=== PATIENT | female | born 1935 | race Caucasian/White ===

== ENCOUNTER 2017-03-21 07:52 | Emergency (ER) | payer MEDICARE ==
[2017-03-21 08:12] VITALS: BP 215/93
[2017-03-21] MEDS ORDERED: Ondansetron ODT TAB* 4 MG PO ONE (09:20)
--- NOTE | 2017-03-21 09:38 | UC ---
Tutu De Leon Matthew, scribed for Umu Mary MD on 03/21/17 at 0921 . Altered Mental Status HPI - HPI Summary HPI Summary: 08:50 patient not in the room. A 81 y/o female presents to with gradually worsening AMS since 7 days ago. The patient was seen by her PCP Dr. Nevarez and started on nitrofurantoin on . She was suppose to take the medication 2x daily; however, she only took the medication once per day. The patient states that she's here today, because she' s also having lower abdominal pain described as pressure since a month ago. Associated symptoms include vomiting - since this morning, constipation, increased urinary frequency, and dysuria. The patient denies fever, hematemesis , black vomit, diarrhea, chest pain, cough, rash, and hematuria. - History Of Current Complaint Chief Complaint: UCGU Stated Complaint: VOMITING URINARY ISSUE Time Seen by Provider: 03/21/17 08:49 Hx Obtained From: Patient, Family/Tai Chi Instructor ?: No Onset/Duration: Gradual Onset, Lasting Days, Still Present Timing: Constant Severity Initially: Moderate Severity Currently: Moderate Pain Intensity: 2 Pain Scale Used: 0-10 Numeric Character: Confusion Alleviating Factor(s): Nothing Associated Signs And Symptoms: Positive: Nausea, Vomiting - Allergies/Home Medications Allergies/Adverse Reactions: Allergies Allergy/AdvReac Type Severity Reaction Status Date / Time No Known Allergies Allergy Verified 03/21/17 08:12 Home Medications: Home Medications Nitrofurantoin Macrocrystals* [Macrodantin*] 100 mg PO BID 03/21/17 [History Confirmed 03/21/17] PMH/Surg Hx/FS Hx/Imm Hx Endocrine History Of: Denies: Diabetes, Thyroid Disease Cardiovascular History Of: Denies: Cardiac Disorders, Hypertension Respiratory History Of: Denies: COPD, Asthma GI/ History Of: Reports: Gastroesophageal Reflux Denies: Ulcer - Surgical History Surgical History: Yes Surgery Procedure, Year, and Place: choleycysectomy 2003 - Family History Known Family History: Negative: Cardiac Disease, Hypertension, Diabetes - Social History Alcohol Use: None Substance Use Type: None Smoking Status (MU): Never Smoked Tobacco Review of Systems Constitutional: Negative Skin: Negative Eyes: Negative ENT: Negative Respiratory: Negative Cardiovascular: Negative Gastrointestinal: Abdominal Pain - lower abdominal pain described as pressure, Vomiting - this morning, Other - constipation Genitourinary: Dysuria, Frequency - increased Neurovascular: Negative Musculoskeletal: Negative Neurological: Negative Psychological: Negative All Other Systems Reviewed And Are Negative: Yes Physical Exam Triage Information Reviewed: Yes Appearance: Well-Nourished Vital Signs: Initial Vital Signs Temp 97.9 F 03/21/17 07:59 Pulse 72 03/21/17 07:59 Resp 20 03/21/17 07:59 BP 215/93 03/21/17 07:59 Pulse Ox 100 03/21/17 07:59 Vital Signs Reviewed: Yes Eye Exam: Normal - grossly normal ENT Exam: Normal - mm a little dry. Smiles ok. Facial expressions grossly normal. Neck exam: Normal Neck: Positive: Supple, Nontender Respiratory Exam: Other - poor insp effort, no bebeto adventitious sounds. BS equal. Cardiovascular Exam: Other - RRR ?? systolic murmur. Cardiovascular: Positive: RRR, Pulses Normal, Brisk Capillary Refill, Other: - ? ? 2/6 systolic murmur Abdominal Exam: Other - tender diffuse lower abd., no r/g. No bebeto cvat. + obese. Musculoskeletal Exam: Other - moves all 4 ext's, pt is very weak, examination done in wheelchair. As such, gait not tested Neurological Exam: Other - Awake alert, conversing softly. Appropriate but seems confused. Oriented to person, place, month year, not day or date. Pt's recollection of events differs from family's details. Psychological Exam: Normal - see above Skin Exam: Normal AMS Course/Dx - Course Course Of Treatment: No new problems in CCC. 81 yo female with progressive mental status change x 1 week, in the setting of recently dx'd uti, with abx x approx 5 days. Has not been taking the full dose. Today + n /v, worse MS change, and abdominal pain. FS glucose 134mg/dl. urine dip noted (in [employer]) . Pt will benefit from further evaluation and treatment in the ER. D/w pt and family (daughter and son-in-law) in room. Will send to ED via EMS. D/w Dr Kate, ED. - Differential Dx/Clinical Impression Provider Diagnoses: ms change. n/v. abd pain - Provider Notifications Discussed Care Of Patient With: Dr. Kate (ED Physician) at 09:20 -- Notified of patient's history and accepts transfer of the patient. Discharge - Discharge Plan Condition: Stable Disposition: TRANS HIGHER LVL OF CARE FAC Referrals: Angel Nevarez MD [Primary Care Provider] - The documentation as recorded by the Tutu teixeira Matthew accurately reflects the service I personally performed and the decisions made by , Umu Mayr MD.
== END 2017-03-21 09:51 | disposition short-term general hospital (02) ==
LOC: UCEAST 07:52
DX: R41.82 Altered mental status, unspecified (principal); R11.2 Nausea with vomiting, unspecified; R10.30 Lower abdominal pain, unspecified; R30.0 Dysuria; K21.9 Gastro-esophageal reflux disease without esophagitis; Z90.49 Acquired absence of other specified parts of digestive tract
CPT/HCPCS: 81003; 87086; 99213; A9270-GY; G0463

== ENCOUNTER 2017-03-21 10:05 | Inpatient (IN) | payer MEDICARE ==
[2017-03-21 11:12] LABS: Hematocrit 38 % (35-47); Hemoglobin 13.5 g/dl (12.0-16.0); Mean Corpuscular HGB Conc 35 g/dl (31-36); Mean Corpuscular Hemoglobin 31 pg (27-31); Mean Corpuscular Volume 88 fL (80-97); Mean Platelet Volume 9 um3 (7.4-10.4); Red Blood Count 4.35 10^6/ul (4.0-5.4); Red Cell Distribution Width 12 % (10.5-15); White Blood Count 8.3 10^3/ul (3.5-10.8)
[2017-03-21] MEDS ORDERED: cefTRIAXone(*) 1 GM in NS 0.9% 50 ML* 50 ML IVPB ONE (11:13)
[2017-03-21] MEDS ORDERED: Doxycycline (NF) 100 MG TAB PO ONE (11:14)
--- NOTE | 2017-03-21 11:22 | RAD ---
INDICATION: Altered mental status COMPARISON: None TECHNIQUE: An AP portable view obtained at 1031 hours is submitted. FINDINGS: Bones/Soft Tissues: There are no acute bony findings. Cardiomediastinal: The cardiomediastinal silhouette is normal. Lungs: There are no focal infiltrates. Pleura: There are no pleural effusions. Other: Mild elevation left hemidiaphragm IMPRESSION: NO FOCAL INFILTRATES.
[2017-03-21 11:30] LABS: Albumin 4.3 g/dL (3.2-5.2); BUN/Creatinine Ratio 21.2 (8-20); Calcium 9.2 mg/dL (8.6-10.3); EGFR African American 111.1 (>60); EGFR Non-African American 86.4 (>60); Globulin 2.1 g/dL (2-4); Potassium 4.2 mmol/L (3.5-5.0); Total Bilirubin 1.1 mg/dL (0.2-1.0); Total Protein 6.4 g/dL (6.4-8.9); Troponin I 0.01 ng/mL (<0.04)
[2017-03-21] MEDS ORDERED: Ondansetron INJ* 2 MG/ML VIAL ONE (11:30)
[2017-03-21] MEDS ORDERED: NS 0.9% 1000 ML* 1,000 ML IV ONE (11:40)
[2017-03-21] MEDS ORDERED: Ondansetron INJ* 2 MG/ML VIAL IV ONE (12:08)
[2017-03-21 12:35] LABS: Urine Bilirubin Negative (Negative); Urine Glucose 2+(150 mg/dL) (Negative); Urine Nitrite Negative (Negative)
[2017-03-21] MEDS ORDERED: Ondansetron INJ* 2 MG/ML VIAL IV PRN (12:49)
[2017-03-21] MEDS ORDERED: DOXYcycline CAP(*) 100 MG PO ONE ×2 (13:00→13:53)
[2017-03-21] MEDS ORDERED: NS 0.9% 1000 ML* 1,000 ML IV SCH (13:00)
[2017-03-21] MEDS ORDERED: Polyethylene Glycol 3350* 17 GM PACKET PO PRN (13:10)
[2017-03-21] MEDS: Heparin VIAL(*) 5000 UNITS/ML VIAL (FIVE THOUSAND) SUBCUT SCH ×2 (13:19→22:05)
[2017-03-21] MEDS: amLODIPine TAB* 5 MG PO SCH (15:05)
--- NOTE | 2017-03-21 16:58 | HP ---
HISTORY AND PHYSICAL: DATE OF ADMISSION: 03/21/17. PRIMARY CARE PROVIDER: Dr. Ally Nevarez ATTENDING PHYSICIAN: Dr. Ken Wallace* (dictated by Marj Nunez NP). CHIEF COMPLAINT: Altered mental status. HISTORY OF PRESENT ILLNESS: Ms. Hernandez is a 81-year-old female with past medical history significant for GERD and vertigo, who reports being diagnosed one week ago with a urinary tract infection by her primary care provider and being started on Macrobid. The patient reports most days taking the medication twice daily but not every day. As the patient has continued to have some altered mental status, her son decided to bring her to the emergency room for further evaluation of her symptoms. The patient denies any fever, chills, chest pain, shortness of breath, or dysuria. The patient reports urinary frequency, constipation, nausea, and vomiting today. While in the emergency room, the patient received a dose of doxycycline, normal saline, a dose of ceftriaxone and Zofran. She was also found to have a tick on her posterior right knee that was removed while in the emergency room. The patient reports putting Neosporin on the back of her leg for 1 to 2 weeks. She is unclear how long the tic has been there. Hospitalists were asked to evaluate the patient for admission due to her altered mental status. PAST MEDICAL HISTORY: 1. GERD. 2. Vertigo. 3. Hemorrhoids. PAST SURGICAL HISTORY: Status post cholecystectomy in 2003. HOME MEDICATIONS: Include: 1. Nitrofurantoin 100 mg oral twice daily. The patient started on 03/15. This was for 10 days. 2. Pyridium 200 mg one tablet oral three times daily as needed for dysuria. 3. Zantac 150 mg oral twice daily as needed for indigestion. 4. Probiotic one capsule oral daily. 5. Tawnya-Colace 8.6/50 2 capsules oral daily as needed for constipation. 6. Calcium 600 plus D3 600/400 mg one tablet oral twice daily. ALLERGIES: No known drug allergies. FAMILY HISTORY: The patient denies any family history of coronary artery disease or diabetes mellitus. She reports her paternal grandmother with a history of cancer but she is unsure of which cancer. SOCIAL HISTORY: The patient denies tobacco, alcohol or recreational drug use. She is retired and lives alone. Her son, Tha Hernandez will be her surrogate decision maker in the event that she is unable to make decisions for herself. If Tha is unavailable, her son Arpan would be her surrogate decision maker. REVIEW OF SYSTEMS: I performed a 14-point review of systems. All the pertinent positives and negatives are mentioned in the history of present illness. The remaining review of systems are negative. The patient reports having dizziness over the past few weeks that is intermittent most often when she sits up. First thing in the morning, she reports this gets better if she sits on the side of the bed prior to standing. PHYSICAL EXAMINATION GENERAL APPEARANCE: The patient is alert, pleasant, appears to be in no acute distress. VITAL SIGNS: Temperature 97.8, heart rate 80, respiratory rate 22, O2 sat 100% on room air, blood pressure 176/70. HEENT: Normocephalic, atraumatic. Pupils are equal and reactive to light. Extraocular movements are intact. RESPIRATORY: There is no accessory muscle use and the lungs are clear to auscultation bilateral. CARDIOVASCULAR: Regular rate and rhythm. S1 and S2 present. There are no murmurs, rubs, or gallops heard. ABDOMEN: Soft, nontender, nondistended. There are bowel sounds present x4. The patient has no CVA tenderness. EXTREMITIES: There is no lower extremity edema. DP and PT pulses are 2+ and symmetric. MUSCULOSKELETAL: There is no clubbing or cyanosis noted. The patient exhibits good strength in all extremities. NEUROLOGIC: The patient is alert and oriented x4. Cranial nerves II through XII are grossly intact. PSYCHOLOGICAL: The patient is calm and cooperative. SKIN: No rashes or abnormalities seen. DIAGNOSTIC STUDIES/LABORATORY DATA: Sodium 122, potassium 4.2, chloride 90, CO2 25, BUN 14, creatinine 0.66, glucose 130. Troponin 0.01. White blood cell count 8.3, hemoglobin 13.5, hematocrit 38, and platelet count 136. Chest x-ray from today. Radiologist's impression, no focal infiltrates. IMPRESSION: Ms. Hernandez is a 81-year-old female with past medical history significant for gastroesophageal reflux disease, vertigo, and hemorrhoids and recent urinary tract infection who presents to the emergency room today with complaints of altered mental status, vertigo, nausea, and vomiting. She will be admitted for altered mental status and hyponatremia. ASSESSMENT/PLAN: 1. Altered mental status. The patient is recovering from a recent urinary tract infection. At this time, her urine looks clean. We will hold on any further antibiotics at this time. She did receive a dose of IV ceftriaxone while in the emergency room. The patient's sodium is 122. I suspect this is contributing to her altered mental status. 2. Hyponatremia. The patient received normal saline in the emergency room. I will continue to give her some normal saline. We will recheck her sodium around 4 p.m. today. We will also add on serum osmolality in addition to urine osmolality and sodium. 3. Tick bite. The patient had a tick removed while in the emergency room. We will give her prophylactic dose of doxycycline once and she will need no further treatment. Lyme serology is pending. 4. Hypertension. This is a new diagnosis for the patient. Her blood pressures have been in the 170 to 190 systolic while in the emergency room. I will start her on amlodipine and we will follow her blood pressures. 5. Fluid, electrolytes, nutrition. The patient will be on heart healthy diet. 6. Code status. Full code. 7. DVT prophylaxis. The patient is high risk and will be on subcu heparin. 8. Disposition. Inpatient for altered mental status and hyponatremia. TIME SPENT: The time for this admission was 60 minutes and 35 minutes were spent with the patient and son discussing medications, past medical history, and the events leading up to her arrival today and performing a physical examination. The case has been reviewed with the attending, Dr. Wallace, who agrees with the plan of care. Reviewed by ALEX GARCIA 03/23/17 1227 CC: Dr. Nevarez* [id number]/[facility] #: [id number] WENDIE
[2017-03-22] MEDS: Heparin VIAL(*) 5000 UNITS/ML VIAL (FIVE THOUSAND) SUBCUT SCH ×3 (05:33→21:30)
[2017-03-22 06:24] LABS: BUN/Creatinine Ratio 16.2 (8-20); Calcium 8.3 mg/dL (8.6-10.3); EGFR African American 97.4 (>60); EGFR Non-African American 75.7 (>60); Potassium 3.8 mmol/L (3.5-5.0)
[2017-03-22] MEDS ORDERED: Acetaminophen TAB* 325 MG ONE (09:00)
[2017-03-22] MEDS: amLODIPine TAB* 5 MG PO SCH (09:02)
[2017-03-22] MEDS ORDERED: Acetaminophen TAB* 325 MG PO PRN (09:12)
[2017-03-22] MEDS ORDERED: cefTRIAXone VIAL(*) 1,000 MG in NS 0.9% 50 ML* 50 ML IVPB SCH (12:00)
[2017-03-22] MEDS: NS 0.9% 1000 ML* 1,000 ML IV SCH (13:11)
--- NOTE | 2017-03-22 18:33 | PN ---
Subjective Date of Service: 03/22/17 Interval History: Pt is feeling well. She thinks she is much close to her baseline in terms of her mental status and her family agrees. Her son does note that she is somewhat confused still about the events over the last few days. The patient believes she will be ready to go home alone tomorrow. Objective Active Medications: Acetaminophen (Tylenol Tab*) 650 mg PO Q4H PRN PRN Reason: PAIN Amlodipine Besylate (Norvasc Tab*) 5 mg PO DAILY [facility] Last Admin: 03/22/17 09:02 Dose: 5 mg Heparin Sodium (Porcine) (Heparin Vial(*)) 5,000 units SUBCUT Q8HR [facility] Last Admin: 03/22/17 14:14 Dose: 5,000 units Sodium Chloride (Ns 0.9% 1000 Ml*) 1,000 mls @ 75 mls/hr IV PER RATE [facility] Last Admin: 03/22/17 13:11 Dose: 75 mls/hr Magnesium Hydroxide (Milk Of Magnesia Liq*) 30 ml PO Q6H PRN PRN Reason: CONSTIPATION Ondansetron HCl (Zofran Inj*) 4 mg IV Q6H PRN PRN Reason: NAUSEA Polyethylene Glycol/Electrolytes (Miralax*) 17 gm PO DAILY PRN PRN Reason: CONSTIPATION Vital Signs 03/21/17 03/21/17 03/21/17 20:00 22:23 23:37 Temperature 98.2 F 98.5 F Pulse Rate 80 85 Respiratory 16 16 16 Rate Blood Pressure 153/76 141/61 (mmHg) O2 Sat by Pulse 95 100 Oximetry 03/22/17 03/22/17 03/22/17 03:44 07:37 07:48 Temperature 98.4 F 98.0 F Pulse Rate 69 73 Respiratory 14 18 16 Rate Blood Pressure 138/61 146/75 (mmHg) O2 Sat by Pulse 97 98 98 Oximetry 03/22/17 03/22/17 11:19 15:39 Temperature 98.2 F 98.2 F Pulse Rate 67 81 Respiratory 18 16 Rate Blood Pressure 145/65 137/68 (mmHg) O2 Sat by Pulse 99 98 Oximetry Oxygen Devices in Use Now: None Appearance: Elderly female sitting in a chair, NAD Eyes: No Scleral Icterus Ears/Nose/Mouth/Throat: Mucous Membranes Moist Respiratory: Symmetrical Chest Expansion and Respiratory Effort, Clear to Auscultation Cardiovascular: NL Sounds; No Murmurs; No JVD, RRR, No Edema Abdominal: NL Sounds; No Tenderness; No Distention Extremities: No Clubbing, Cyanosis Skin: No Rash or Ulcers, No Nodules or Sclerosis Neurological: - - slightly confused Result Diagrams: 03/21/17 10:53 03/22/17 05:31 Assess/Plan/Problems-Billing Ms Hernandez is a 81 yo F who has a h/o GERD and vertigo who presented to the ER with c/o altered mental status and was found to be markedly hyponatremic. - Patient Problems (1) Hyponatremia Current Visit: Yes Status: Acute Code(s): E87.1 - HYPO-OSMOLALITY AND HYPONATREMIA SNOMED Code(s): 64120981 Comment: Urine studies have not been sent to help determine the cause of her hyponatremia. She had improved some with IVF hydration. Repeat na level is pending. She has been receiving NS and if continuing to improve likely her hyponatremia was secondary to volume depletion, if worsened possibly SIADH. (2) Altered mental status Current Visit: Yes Status: Acute Code(s): R41.82 - ALTERED MENTAL STATUS, UNSPECIFIED SNOMED Code(s): 308278966 Comment: Improved though she is still confused. She had a difficult time telling me about removing a tick from the back of her leg and stated at one point she tried to use scissors to cut it out. Will conitnue to monitor. Her family thinks she is close to baseline but they do acknowledge she is still somewhat altered. I question her ability to be home alone safely though her family has no concerns at this time. (3) HTN (hypertension) Current Visit: Yes Status: Acute Code(s): I10 - ESSENTIAL (PRIMARY) HYPERTENSION SNOMED Code(s): 89434769 Comment: The patient was found to be hypertensive on admission and was started on amlodipine. BP is under fair control on this. Continue to monitor the BP. (4) DVT prophylaxis Current Visit: Yes Status: Acute Code(s): OYW7161 - SNOMED Code(s): 118238040 (5) Full code status Current Visit: Yes Status: Acute Code(s): Z78.9 - OTHER SPECIFIED HEALTH STATUS SNOMED Code(s): 345910026
[2017-03-22] MEDS: Magnesium Hydroxide LIQ* 30 ML UDC PO PRN (21:30)
[2017-03-23 00:45] LABS: B garinii/B afzelii PCR Negative (Negative); B mayonii PCR Negative (Negative)
[2017-03-23] MEDS: NS 0.9% 1000 ML* 1,000 ML IV SCH (02:28)
[2017-03-23] MEDS: Heparin VIAL(*) 5000 UNITS/ML VIAL (FIVE THOUSAND) SUBCUT SCH (05:44)
[2017-03-23 06:40] LABS: BUN/Creatinine Ratio 18.8 (8-20); Calcium 8.5 mg/dL (8.6-10.3); EGFR Non-African American 69.2 (>60); Potassium 3.7 mmol/L (3.5-5.0)
[2017-03-23 07:33] VITALS: BP 168/62
[2017-03-23] MEDS: Magnesium Hydroxide LIQ* 30 ML UDC PO PRN (07:50)
[2017-03-23] MEDS: amLODIPine TAB* 5 MG PO SCH (07:50)
--- NOTE | 2017-03-24 07:26 | ED ---
didier De Leon Timothy, scribed for Miguel Kate MD on 03/21/17 at 1055 . Altered Mental Status - HPI Summary HPI Summary: Celeste Hernandez is a 81 yo female presenting to [facility] with dizziness and nausea for the past few days. Per her son, she was Dx with UTI approximately one week ago, and was prescribed macrobid which she has been taking once per day instead of the prescribed twice per day. Family states that she has been more confused in the past few days. Pt's son also states she may have removed a tick off the back of her right knee recently. Her son is present in room. Her MHx includes GERD, right wrist Fx, vertigo, hemorrhoids, and cholecystectomy. - History Of Current Complaint Stated Complaint: DIZZY/NAUSEA Time Seen by Provider: 03/21/17 10:18 Hx Obtained From: Patient Onset/Duration: Still Present Timing: Constant Severity Initially: Moderate Severity Currently: Moderate Character: Confusion Associated Signs And Symptoms: Positive: Dizziness, Nausea - Allergies/Home Medications Allergies/Adverse Reactions: Allergies Allergy/AdvReac Type Severity Reaction Status Date / Time No Known Allergies Allergy Verified 03/21/17 08:12 PMH/Surg Hx/FS Hx/Imm Hx Endocrine/Hematology History: Denies: Hx Diabetes, Hx Thyroid Disease Cardiovascular History: Denies: Hx Hypertension Respiratory History: Reports: Hx Asthma Denies: Hx Chronic Obstructive Pulmonary Disease (COPD) GI History: Reports: Other GI Disorders - GERD Denies: Hx Ulcer Musculoskeletal History: Denies: Hx Rheumatoid Arthritis, Hx Osteoporosis - Surgical History Surgery Procedure, Year, and Place: choleycysectomy 2003 - Immunization History Date of Tetanus Vaccine: unknown Date of Influenza Vaccine: UTD Infectious Disease History: No Infectious Disease History: Denies: Hx Clostridium Difficile, Hx Hepatitis, Hx Human Immunodeficiency Virus (HIV), Traveled Outside the [place] in Last 30 Days - Family History Known Family History: Negative: Cardiac Disease, Hypertension, Diabetes - Social History Alcohol Use: None Substance Use Type: Reports: None Smoking Status (MU): Never Smoked Tobacco Review of Systems Positive: Chills. Negative: Fever Eyes: Negative Negative: Erythema ENT: Negative Negative: Sore Throat Cardiovascular: Negative Negative: Chest Pain Respiratory: Negative Negative: Shortness Of Breath Positive: Nausea. Negative: Abdominal Pain, Vomiting Genitourinary: Negative Negative: dysuria, hematuria Musculoskeletal: Negative Negative: Edema - legs Skin: Negative Negative: Rash Neurological: Other - confusion Psychological: Normal All Other Systems Reviewed And Are Negative: Yes Physical Exam - Summary Physical Exam Summary: Constitutional: Well-developed, Well-nourished, Alert. (-) Distressed Skin: Warm, Dry. Tick located on right popliteal fossa HENT: Normocephalic; Atraumatic Eyes: Conjunctiva normal Neck: Musculoskeletal ROM normal neck. (-) JVD, (-) Stridor, (-) Tracheal deviation Cardio: Rhythm regular, rate normal, Heart sounds normal; Intact distal pulses; The pedal pulses are 2+ and symmetric. Radial pulses are 2+ and symmetric. (-) Murmur Pulmonary/Chest wall: Effort normal. (-) Respiratory distress, (-) Wheezes, (-) Rales Abd: Soft, (-) Tenderness, (-) Distension, (-) Guarding, (-) Rebound Musculoskeletal: (-) Edema Lymph: (-) Cervical adenopathy Neuro: Alert, Oriented x3 Psych: Mood and affect Normal Triage Information Reviewed: Yes Vital Signs On Initial Exam: Initial Vitals Temp Pulse Resp BP Pulse Ox 97.9 F 73 16 198/97 97 03/21/17 10:32 03/21/17 10:32 03/21/17 10:32 03/21/17 10:32 03/21/17 10:32 Vital Signs Reviewed: Yes - Marichuy Coma Scale Coma Scale Total: 14 Procedures - Procedure Summary Procedure Summary: Attempted removal of tick located on back of right knee with tick twister. Removal was unsuccessful, Pt tolerated procedure well. Attempted tick mouth-part removal located on back of right knee with forceps and hemostat using sterile technique. Removal was successful, Pt tolerated procedure well Diagnostics - Vital Signs Vital Signs Temp Pulse Resp BP Pulse Ox 03/21/17 10:42 97 03/21/17 10:32 97.9 F 73 16 198/97 97 - Laboratory Result Diagrams: 03/21/17 10:53 03/21/17 10:53 Lab Statement: Any lab studies that have been ordered have been reviewed, and results considered in the medical decision making process. - Radiology CXR Xray Interpretation: No Acute Changes - IMPRESSION: NO FOCAL INFILTRATES. Radiology Interpretation Completed By: Radiologist Altered Mental Statu Course/Dx - Course Assessment/Plan: Celeste Hernandez is a 81 yo female presenting to [facility] with previous Dx of UTI, not taking medication as prescribed, with increased confusion, dizziness, and nausea for the past week. In the ED she received ceftriaxone and doxycycline monohydrate. Tick removal from the back of Pt's right knee was attempted with a tick twister, but was unsuccessful. Removal of tick mouth-parts was successful with forceps and hemostat. Her CXR suggests no focal infiltrates. After clinical examination and review of her lab and imaging studies, as well as discussion with Dr. Ruiz, she will be admitted to [facility] with delirium, tick bite, and UTI. - Diagnoses Differential Diagnosis/HQI/PQRI: Other - UTI Discharge Diagnoses: UTI (urinary tract infection), Tick bite of right lower leg, Delirium - Provider Notifications Discussed Care Of Patient With: 1202 - Dr. Ruiz (hospitalist) - discusse Pt condition, agrees to admit Pt. Instructed by Provider To: Admit As Inpatient Discharge - Discharge Plan Condition: Stable Disposition: ADMITTED TO [facility] The documentation as recorded by the didier teixeira Timothy accurately reflects the service I personally performed and the decisions made by , Miguel Kate MD.
--- NOTE | 2017-03-24 08:57 | DS ---
DISCHARGE SUMMARY: DATE OF ADMISSION: 03/21/17 DATE OF DISCHARGE: 03/23/17 PRIMARY CARE PHYSICIAN: Dr. Ally Nevarez. PRINCIPAL DIAGNOSES: 1. Hyponatremia secondary to probable volume depletion. 2. Questionable mild dementia. 3. Hypertension. SECONDARY DIAGNOSES: 1. Gastroesophageal reflux disease. 2. History of vertigo. DISCHARGE MEDICATIONS: 1. Probiotic one cap p.o. daily. 2. Calcium Plus D one tab p.o. b.i.d. 3. Senna/docusate two tabs p.o. daily p.r.n. constipation. 4. Ranitidine 150 mg p.o. b.i.d. per GERD. 5. Amlodipine 5 mg p.o. daily. 6. MiraLAX 17 g p.o. daily. HOSPITAL COURSE: Ms. Hernandez is a 81-year-old female who was brought to the emergency room on 03/21/17 with complaints of altered mental status. The patient had been diagnosed with a urinary tract infection approximately 7 days prior. She was prescribed nitrofurantoin; but, per her son, was only taking this once daily, not twice daily as prescribed. The patient was noted to be quite altered at the time of her admission. Her sodium was found to be low at 122. It was felt that the hyponatremia was likely leading to her altered mental status. Her urine ultimately was clear and did not grow any bacteria. It was felt that the patient's hyponatremia was likely secondary to volume depletion as she was started on normal saline and, with this, her sodium level improved. Her sodium improved very slowly over the course of two days with her sodium level being 132 on the day of discharge. I have asked for a follow-up BMP on 03/27/17. I have further concerns of the patient's mental status at baseline. Despite her sodium level being improved, she still seemed somewhat confused and not able to provide a completely accurate history. I question if she may have some mild dementia. In fact, the patient, at one point while at home, took scissors to the back of her knee to try to cut a tick out. Additionally, she was not taking her antibiotic correctly. Her family is very actively involved and will keep a close eye on her. The family is looking into getting [employer] to check on her frequently. The patient was found to be hypertensive on presentation to the emergency room with a blood pressure of 198/97. She was started on amlodipine 5 mg daily and, with this, her blood pressure is under much better control. The patient has been prescribed amlodipine 5 mg daily and a prescription for this has been sent to her pharmacy. On the day of discharge, the patient is alert, mostly oriented, sitting in a chair in no acute distress. She has a normal S1 and S2 with a regular rate and rhythm. Her lung sounds are clear to auscultation bilaterally. Her abdomen is soft and nontender. She has no lower extremity edema. The patient's mental status is improved from admission; however, she is still confused to the year. The patient, despite still being slightly confused, is stable for discharge home. FOLLOW-UP CONCERNS: The patient is being discharged home today on 03/23/17. She is to follow up with Dr. Nevarez in the next 4 to 7 days. ACTIVITY: Activity level is as tolerated. DIET: Regular. CONDITION ON DISCHARGE: Stable. TIME SPENT: 35 minutes were spent discharging this patient. CC: Dr. Nevarez.* [id number]/[facility] #: [id number] MTDD
== END 2017-03-23 11:15 | disposition home or self-care (01) | DRG 641 ==
LOC: ED 10:05 → MED 12:20 → ED 12:40
PROVIDERS: ADMIT Hospitalist; ATTEND Hospitalist
PROC: 0HCKXZZ Extirpation of Matter from Right Lower Leg Skin, External Approach (ICD-10-PCS; principal; 2017-03-21)
DX: E87.1 Hypo-osmolality and hyponatremia (principal); E86.0 Dehydration; F03.90 Unspecified dementia, unspecified severity, without behavioral disturbance, psychotic disturbance, mood disturbance, and anxiety; K21.9 Gastro-esophageal reflux disease without esophagitis; K64.9 Unspecified hemorrhoids; J45.909 Unspecified asthma, uncomplicated; R40.2412 Glasgow coma scale score 13-15, at arrival to emergency department; S80.261A Insect bite (nonvenomous), right knee, initial encounter; I10 Essential (primary) hypertension; W57.XXXA Bitten or stung by nonvenomous insect and other nonvenomous arthropods, initial encounter; Y92.9 Unspecified place or not applicable; Z90.49 Acquired absence of other specified parts of digestive tract; Z80.9 Family history of malignant neoplasm, unspecified
CPT/HCPCS: 36415; 71010; 80048; 80053; 81003; 83605; 83930; 83935; 84300; 84484; 85025; 85610; 85730; 87040; 87086; 87476; 87798; 99213; A9270-GY; G0463; J0696; J1644; J2405

== ENCOUNTER 2017-03-24 09:37 | Inpatient (IN) | payer MEDICARE ==
[2017-03-24 11:42] LABS: Hematocrit 40 % (35-47); Hemoglobin 13.7 g/dl (12.0-16.0); Mean Corpuscular HGB Conc 34 g/dl (31-36); Mean Corpuscular Hemoglobin 31 pg (27-31); Mean Corpuscular Volume 91 fL (80-97); Red Blood Count 4.45 10^6/ul (4.0-5.4); Red Cell Distribution Width 13 % (10.5-15); White Blood Count 7.7 10^3/ul (3.5-10.8)
[2017-03-24 11:43] LABS: Comments Flag Yes
[2017-03-24 11:44] LABS: Add Diff/Slide Review? Slide Review Added
[2017-03-24 11:59] LABS: EGFR African American 91.6 (>60); EGFR Non-African American 71.2 (>60); Globulin 2.2 g/dL (2-4); Magnesium 2.7 mg/dL (1.9-2.7); Potassium 4.1 mmol/L (3.5-5.0); Total Bilirubin 0.5 mg/dL (0.2-1.0); Total Protein 6.2 g/dL (6.4-8.9)
[2017-03-24 12:01] LABS: Troponin I 0.01 ng/mL (<0.04)
[2017-03-24 12:19] LABS: BUN/Creatinine Ratio 28.2 (8-20)
--- NOTE | 2017-03-24 13:15 | RAD ---
INDICATION: Altered mental status COMPARISON: March 21, 2017 TECHNIQUE: AP seated and lateral views were obtained. FINDINGS: Bones/Soft Tissues: There are no acute bony findings. There is osteopenia with kyphosis Cardiomediastinal: The cardiomediastinal silhouette is normal. Lungs: There are no infiltrates. Pleura: There are no pleural effusions. Other: None IMPRESSION: NO ACTIVE DISEASE.
--- NOTE | 2017-03-24 13:25 | RAD ---
Indication: Confusion. CT of the brain was performed without IV contrast. Motion artifact degrades the images. The patient is uncooperative and 3 attempts were made to scanned the patient. Central and cortical atrophy is noted. Periventricular lucency is present consistent with chronic ischemic White matter change. IMPRESSION: Limited study due to motion artifact. There may be some sections the brain which were not imaged. Central and cortical atrophy is noted. 3 attempts were made to scanned the patient remains uncooperative.
[2017-03-24] MEDS ORDERED: QUEtiapine TAB* 25 MG PO PRN (14:33)
[2017-03-24] MEDS ORDERED: Famotidine TAB* 20 MG PO PRN (14:34)
[2017-03-24] MEDS ORDERED: Senna/Docusate (NF) TAB PO PRN (14:34)
[2017-03-24] MEDS ORDERED: Bisacodyl SUPP* 10 MG SUPP PR ONE (14:35)
[2017-03-24] MEDS ORDERED: Magnesium Hydroxide LIQ* 30 ML UDC PO ONE (14:35)
[2017-03-24] MEDS ORDERED: Senna TAB PO PRN (14:41)
[2017-03-24] MEDS ORDERED: Docusate CAP* 100 MG PO PRN (14:42)
[2017-03-24] MEDS ORDERED: LORazepam INJ* 2 MG/ML 1 ML VIAL IV PUSH STA (16:19)
[2017-03-24] MEDS ORDERED: Diazepam (ANTICONVULSANT)(*) 10 MG RECTAL.GEL PR ONE (16:22)
[2017-03-24 17:06] LABS: Urine Bilirubin Negative (Negative); Urine Glucose Negative (Negative); Urine Nitrite Negative (Negative)
[2017-03-24] MEDS ORDERED: NS 0.9% IVPB SCH (20:00)
[2017-03-24] MEDS ORDERED: ACYCLOVIR IVPB SCH (20:00)
--- NOTE | 2017-03-24 20:55 | ED ---
[place] Billy, scribed for Jann Alvarado MD on 03/24/17 at 1001 . Altered Mental Status - HPI Summary HPI Summary: Patient is a 81 year-old female coming to [facility] for evaluation of confusion over the last 3 days. She was recently admitted and treated for tick bite and UTI and discharged yesterday. Patient normally lives alone and is able to perform ADL's without difficulty. Family has not noticed any fevers. - History Of Current Complaint Chief Complaint: EDAltMentalStatus Stated Complaint: AMS Time Seen by Provider: 03/24/17 09:55 Hx Obtained From: Patient Onset/Duration: Gradually Timing: Constant Severity Initially: Moderate Severity Currently: Moderate Character: Confusion Aggravating Factor(s): Unknown Alleviating Factor(s): Unknown Associated Signs And Symptoms: Negative: Fever - Allergies/Home Medications Allergies/Adverse Reactions: Allergies Allergy/AdvReac Type Severity Reaction Status Date / Time No Known Allergies Allergy Verified 03/21/17 08:12 PMH/Surg Hx/FS Hx/Imm Hx Endocrine/Hematology History: Denies: Hx Diabetes, Hx Thyroid Disease Cardiovascular History: Denies: Hx Hypertension Respiratory History: Reports: Hx Asthma Denies: Hx Chronic Obstructive Pulmonary Disease (COPD) GI History: Reports: Hx Gastroesophageal Reflux Disease, Other GI Disorders - GERD Denies: Hx Ulcer Musculoskeletal History: Denies: Hx Rheumatoid Arthritis, Hx Osteoporosis Sensory History: Reports: Hx Contacts or Glasses, Hx Hearing Aid - B/L Opthamlomology History: Reports: Hx Contacts or Glasses - Surgical History Surgery Procedure, Year, and Place: choleycysectomy 2003 - Immunization History Date of Tetanus Vaccine: unknown Date of Influenza Vaccine: UTD Infectious Disease History: No Infectious Disease History: Denies: Hx Clostridium Difficile, Hx Hepatitis, Hx Human Immunodeficiency Virus (HIV), Traveled Outside the [place] in Last 30 Days - Family History Known Family History: Negative: Cardiac Disease, Hypertension, Diabetes - Social History Alcohol Use: None Substance Use Type: Reports: None Smoking Status (MU): Never Smoked Tobacco Review of Systems Negative: Fever Neurological: Other - AMS All Other Systems Reviewed And Are Negative: Yes Physical Exam - Summary Physical Exam Summary: VITAL SIGNS: Reviewed. GENERAL: Patient is a well developed and nourished female who is lying comfortable in the stretcher. Patient is not in any acute respiratory distress. HEAD AND FACE: No signs of trauma. No ecchymosis, hematomas or skull depressions. No sinus tenderness. EYES: PERRLA, EOMI x 2, No injected conjunctiva, no nystagmus. EARS: Hearing grossly intact. Ear canals and tympanic membranes are within normal limits. MOUTH: Oropharynx within normal limits. NECK: Supple, trachea is midline, no adenopathy, no JVD, no carotid bruit, no c- spine tenderness, neck with full ROM. CHEST: Symmetric, no tenderness at palpation LUNGS: Clear to auscultation bilaterally. No wheezing or crackles. CVS: Regular rate and rhythm, S1 and S2 present, no murmurs or gallops appreciated. ABDOMEN: Soft, non-tender. No signs of distention. No rebound no guarding, and no masses palpated. Bowel sounds are normal. EXTREMITIES: FROM in all major joints, no edema, no cyanosis or clubbing. NEURO: Alert but not oriented. SKIN: Dry and warm Triage Information Reviewed: Yes Vital Signs On Initial Exam: Initial Vitals Temp Pulse Resp BP Pulse Ox 98.3 F 75 20 132/75 100 03/24/17 09:49 03/24/17 09:49 03/24/17 09:49 03/24/17 09:49 03/24/17 09:49 Vital Signs Reviewed: Yes - Marichuy Coma Scale Coma Scale Total: 14 Diagnostics - Vital Signs Vital Signs Temp Pulse Resp BP Pulse Ox 03/24/17 09:49 98.3 F 75 20 132/75 100 - Laboratory Lab Results: Lab Results 03/24/17 03/24/17 03/24/17 Range/Units 11:13 11:13 11:13 WBC 7.7 (3.5-10.8) 10^3/ul RBC 4.45 (4.0-5.4) 10^6/ul Hgb 13.7 (12.0-16.0) g/dl Hct 40 (35-47) % MCV 91 (80-97) fL MCH 31 (27-31) pg MCHC 34 (31-36) g/dl RDW 13 (10.5-15) % Plt Count 150 (150-450) 10^3/ul MPV Not Reportable Neut % (Auto) 65.6 (38-83) % Lymph % (Auto) 25.4 (25-47) % [place] % (Auto) 7.3 (1-9) % Eos % (Auto) 0.7 (0-6) % Baso % (Auto) 1.0 (0-2) % Absolute Neuts (auto) 5.0 (1.5-7.7) 10^3/ul Absolute Lymphs (auto) 2.0 (1.0-4.8) 10^3/ul Absolute Monos (auto) 0.6 (0-0.8) 10^3/ul Absolute Eos (auto) 0.1 (0-0.6) 10^3/ul Absolute Basos (auto) 0.1 (0-0.2) 10^3/ul Absolute Nucleated RBC 0 10^3/ul Nucleated RBC % 0.1 INR (Anticoag Therapy) (0.89-1.11) Sodium 134 (133-145) mmol/L Potassium 4.1 (3.5-5.0) mmol/L Chloride 101 (101-111) mmol/L Carbon Dioxide 26 (22-32) mmol/L Anion Gap 7 (2-11) mmol/L BUN 22 (6-24) mg/dL Creatinine 0.78 (0.51-0.95) mg/dL Est GFR ( Amer) 91.6 (>60) Est GFR (Non-Af Amer) 71.2 (>60) BUN/Creatinine Ratio 28.2 H (8-20) Glucose 89 (70-100) mg/dL Lactic Acid 0.9 (0.5-2.0) mmol/L Calcium 9.0 (8.6-10.3) mg/dL Magnesium 2.7 (1.9-2.7) mg/dL Total Bilirubin 0.50 (0.2-1.0) mg/dL AST 16 (13-39) U/L ALT 10 (7-52) U/L Alkaline Phosphatase 54 (34-104) U/L Ammonia (16-53) mol/L Total Creatine Kinase 49 (10-223) U/L Troponin I 0.01 (<0.04) ng/mL Total Protein 6.2 L (6.4-8.9) g/dL Albumin 4.0 (3.2-5.2) g/dL Globulin 2.2 (2-4) g/dL Albumin/Globulin Ratio 1.8 (1-3) TSH (0.34-5.60) mcIU/mL 03/24/17 03/24/17 03/24/17 Range/Units 11:13 11:13 11:13 WBC (3.5-10.8) 10^3/ul RBC (4.0-5.4) 10^6/ul Hgb (12.0-16.0) g/dl Hct (35-47) % MCV (80-97) fL MCH (27-31) pg MCHC (31-36) g/dl RDW (10.5-15) % Plt Count (150-450) 10^3/ul MPV Neut % (Auto) (38-83) % Lymph % (Auto) (25-47) % [place] % (Auto) (1-9) % Eos % (Auto) (0-6) % Baso % (Auto) (0-2) % Absolute Neuts (auto) (1.5-7.7) 10^3/ul Absolute Lymphs (auto) (1.0-4.8) 10^3/ul Absolute Monos (auto) (0-0.8) 10^3/ul Absolute Eos (auto) (0-0.6) 10^3/ul Absolute Basos (auto) (0-0.2) 10^3/ul Absolute Nucleated RBC 10^3/ul Nucleated RBC % INR (Anticoag Therapy) 0.91 (0.89-1.11) Sodium (133-145) mmol/L Potassium (3.5-5.0) mmol/L Chloride (101-111) mmol/L Carbon Dioxide (22-32) mmol/L Anion Gap (2-11) mmol/L BUN (6-24) mg/dL Creatinine (0.51-0.95) mg/dL Est GFR ( Amer) (>60) Est GFR (Non-Af Amer) (>60) BUN/Creatinine Ratio (8-20) Glucose (70-100) mg/dL Lactic Acid (0.5-2.0) mmol/L Calcium (8.6-10.3) mg/dL Magnesium (1.9-2.7) mg/dL Total Bilirubin (0.2-1.0) mg/dL AST (13-39) U/L ALT (7-52) U/L Alkaline Phosphatase (34-104) U/L Ammonia 28 (16-53) mol/L Total Creatine Kinase (10-223) U/L Troponin I (<0.04) ng/mL Total Protein (6.4-8.9) g/dL Albumin (3.2-5.2) g/dL Globulin (2-4) g/dL Albumin/Globulin Ratio (1-3) TSH 1.68 (0.34-5.60) mcIU/mL Result Diagrams: 03/24/17 11:13 03/24/17 11:13 Lab Statement: Any lab studies that have been ordered have been reviewed, and results considered in the medical decision making process. - Radiology CXR Xray Interpretation: No Acute Changes Radiology Interpretation Completed By: Radiologist - CT Brain CT Interpretation Completed By: Radiologist - Limited study due to motion artifact. There may be some sections the brain which were not imaged. Central and cortical atrophy is noted. 3 attempts were made to scanned the patient remains uncooperative. - EKG 1103 EKG Interpretation: NSR 74 bpm, no STEMI Altered Mental Statu Course/Dx - Course Assessment/Plan: Patient is a 81 year-old female coming to [facility] for evaluation of confusion over the last 3 days. She was recently admitted and treated for tick bite and UTI and discharged yesterday. Patient normally lives alone and is able to perform ADL's without difficulty. Family has not noticed any fevers. Test results WNL. CXR shows no acute pathology. CT of the head shows findings as read by the radiologist: Limited study due to motion artifact. There may be some sections the brain which were not imaged. Central and cortical atrophy is noted. 3 attempts were made to scanned the patient remains uncooperative. At this point, I discussed my findings and test results with the family, but they reported that they were unable to care for the patient since she lives alone. The patient is more confused and unable to care for herself. Therefore, I discussed my findings with Dr. Wallace who admitted the patient to his services. The patient is hemodynamically stable, alert but not oriented. - Diagnoses Differential Diagnosis/HQI/PQRI: CVA, Seizure, TIA Discharge Diagnoses: Altered mental state - Provider Notifications Discussed Care Of Patient With: Dr. Wallace (hospitalist) at 1345: accepts admission. Discharge - Discharge Plan Condition: Stable Disposition: ADMITTED TO [facility] The documentation as recorded by the maryamibCaio burrell Billy accurately reflects the service I personally performed and the decisions made by me, Jann Alvarado MD.
[2017-03-24] MEDS ORDERED: Gadoteridol* (CONTRAST) 279.3 MG/ML 10 ML IV ONE (20:56)
--- NOTE | 2017-03-24 21:16 | HP ---
HISTORY AND PHYSICAL: DATE OF ADMISSION: 03/24/17 PRIMARY CARE PROVIDER: Dr. Nevarez. CHIEF COMPLAINT: Altered mental status. HISTORY OF PRESENT ILLNESS: Ms. Hernandez is a 81-year-old female who I cared for from 03/22/17 through 03/23/17 where she was being treated for hyponatremia and confusion. The patient's family stated that she was very close back to her baseline as her sodium had almost completely normalized, the decision was made to discharge her home yesterday, 03/23/17. After arriving home, the patient was noted to be more confused than she had been in the hospital. Her family stated that they thought she was hallucinating by saying something crawled up her leg and something out in the yard that was not there on the evening of discharge. On the morning of readmission, the patient was noted to be perseverating on certain topics such as providing education to everybody. The patient had help getting a shower in the morning and after her shower, she immediately states again that she needed to take a shower. The patient was brought back to the emergency room for confusion. PAST MEDICAL HISTORY: 1. Recent admission for hyponatremia, 03/21/17 through 03/23/17. 2. GERD. 3. Vertigo. 4. Hemorrhoids. PAST SURGICAL HISTORY: Cholecystectomy. MEDICATIONS: 1. Amlodipine 5 mg p.o. daily. 2. Senna/docusate 2 tabs p.o. daily p.r.n. constipation. 3. Ranitidine 150 mg p.o. b.i.d. p.r.n. GERD. 4. MiraLAX 17 g p.o. daily. 5. Probiotic 1 cap p.o. daily. 6. Calcium plus D 1 tab p.o. b.i.d. ALLERGIES: No known drug allergies. FAMILY HISTORY: There is no family history of coronary artery disease or diabetes. The patient had a paternal grandmother with a history of cancer, but she is unsure what type. SOCIAL HISTORY: The patient is a nonsmoker. She does not drink alcohol. She is retired and lives alone. Her son, Tha Hernandez, is her surrogate decision maker. He checks on her very frequently. REVIEW OF SYSTEMS: Unobtainable from the patient at this time as she is too confused. PHYSICAL EXAMINATION GENERAL: The patient is a well-developed elderly female lying in the stretcher , appearing at times to be asleep. She will then "shoot awake" and then lay her head back and flop it very harshly to the side. She does not appear to be in any acute distress. VITAL SIGNS: Blood pressure 132/75, pulse 75, respirations 20, temperature 98.3 , O2 sat 100% on room air. HEENT: Pupils are equal. They are round. Extraocular muscles are intact. Oropharynx is clear. Oral mucosa is moist. There is no submandibular, cervical , or supraclavicular adenopathy. NECK: Thyroid is not enlarged. No thyroid nodules are noted. PULMONARY: Lungs are clear to auscultation bilaterally. CARDIAC: Normal S1, S2. Regular rate and rhythm. I do not appreciate any murmurs. There is no lower extremity edema. ABDOMEN: Bowel sounds are present. Abdomen is soft, nontender, nondistended. MUSCULOSKELETAL: There is no cyanosis or clubbing of the digits. There is full active range of motion of all 4 extremities. SKIN: Warm and dry. There are no rashes. There is some bruising noted on the patient's arm from her prior hospitalization. NEUROLOGIC: Cranial nerves II through XII appear to be grossly intact. Sensation is intact to light touch throughout. Strength is 5/5 and symmetric in the upper and lower extremities. PSYCH: The patient is at times alert, but other times appears to be sleeping and is in and out of awakeness and sleepiness very rapidly. She is very confused (much more so than yesterday). LABS AND DIAGNOSTIC STUDIES: WBC 7.7, hemoglobin 13.7, hematocrit 40, platelets 150. INR 0.91. Sodium 134, potassium 4.1, chloride 101, CO2 26, BUN 22, creatinine 0.78, glucose 89, lactic acid 0.9, calcium 9.0, magnesium 2.7. Bilirubin 0.5, AST 16, ALT 10, alk phos 54, ammonia 28. CPK 49. Troponin 0.01. Albumin 4.0. TSH 1.68. Chest x-ray: No active disease. CT brain: Limited study due to significant motion artifact. There may be some sections of the brain which were not imaged. Central and cortical atrophy is noted. EKG reveals normal sinus rhythm without any acute ST-T wave abnormalities. ASSESSMENT AND PLAN: Ms. Hernandez is a 81-year-old female recently hospitalized from 03/21/17 through 03/23/17 with altered mental status felt to be due to significant hyponatremia which has since resolved who re-presented to the emergency room with worsened confusion. 1. Altered mental status: The etiology of this is not clear at this point. Her electrolytes have completely normalized. There are no clear signs of infection. I have asked that the nurse obtain a straight catheterized urine to reevaluate for urinary tract infection; however, the urine from 03/21/17 is negative. I do suspect that this is most likely a delirium. I question if the patient may have some underlying dementia which has now been exacerbated by her transition from home to the hospital and back home. We will try Seroquel 12.5 mg p.o. q.6 hours p.r.n. agitation. Given the changes in her level of alertness , we will go ahead and get an EEG to rule out seizure activity, though this seems much less likely. I do not think any further imaging of the brain would be warranted, and at this point she is not going to be cooperative enough to have this obtained. The patient will be admitted under observation status to see if anything declares itself as the cause of her confusion. 2. Hypertension: The patient's blood pressure is under good control on the amlodipine that was started during the last hospitalization. 3. Gastroesophageal reflux disease: Continue p.r.n. Zantac. 4. Constipation: The patient has not moved her bowels this hospitalization. We will try a dose of milk of magnesia and if this does not help, the patient will have a Dulcolax suppository. 5. DVT prophylaxis: According to the Adult Thrombosis Prophylaxis Risk Factor Assessment Guide, the patient has a total risk factor score of 4 making her high risk. She will be placed on heparin 5000 units subcutaneous q.8 hours. 6. Code status is full. TIME SPENT: Sixty minutes were spent admitting this patient. CC: Dr. Nevarez* [id number]/[facility] #: [id number] WENDIE
--- NOTE | 2017-03-24 21:56 | RAD ---
Indication: New onset seizures. Image sequences: Sagittal and axial T1, axial T2, FLAIR, diffusion and susceptibility weighted images of the brain were obtained. 15 mL of ProHance was injected and axial, sagittal and coronal T1-weighted postcontrast images were repeated. Ventricular structures are midline. No midline shift is noted. Central and cortical atrophy is noted. Periventricular signal abnormalities consistent with chronic ischemic White matter change is noted. No restriction of diffusion is noted on the diffusion-weighted images. No hippocampal abnormality is noted although the coronal images are limited due to motion. Postcontrast images demonstrates no evidence of abnormal enhancement. Mastoid air cells and paranasal sinuses are unremarkable. IMPRESSION: Central and cortical atrophy with no evidence of intracranial mass or hemorrhage. Motion artifact degrades the images.
[2017-03-24] MEDS: Heparin VIAL(*) 5000 UNITS/ML VIAL (FIVE THOUSAND) SUBCUT SCH (21:58)
--- NOTE | 2017-03-24 23:19 | CONS ---
Amended report to correct patient account number. NEUROLOGY CONSULTATION: DATE OF CONSULT: 03/24/17 LOCATION: The patient is an inpatient. REQUESTING PHYSICIAN: Olive Cantrell DO REASON FOR CONSULT: Altered mental status. HISTORY OF PRESENT ILLNESS: Ms. Hernandez is a 81-year-old woman with a history of GERD and vertigo, who was discharged from the hospital yesterday after she was admitted and treated for confusion and found to have hyponatremia. Her son relates more of the history and indicates that she contacted Dr. Nevarez's office on March 15 because she was mildly confused. His uuyolw-[id number] was concerned that she might have a UTI and she was reportedly tested for this and diagnosed with urinary tract infection and prescribed Macrobid. She may have only been taking this once rather than twice a day and continued to have some confusion and so was brought to the emergency room for further evaluation on 03/21/17. The son indicates that she was not having any dysuria or urinary frequency associated with this urinary tract infection, but the admission note from the indicates that she had reported urinary frequency as well as constipation. In addition, her son indicates that she had vomited several times that day. Furthermore, she was found to have a tick on the posterior aspect of one of her knees, which was removed in the emergency department. It is unclear how long this tick was present. She was tested for Lyme disease and was negative. She was found to be hyponatremic in the emergency department to 122 and was treated with IV fluids. The hyponatremia was thought to be due to dehydration and she responded nicely. Her mental status apparently improved somewhat, but the son indicates that she was not at her baseline, yet they felt comfortable taking her home yesterday. However, this morning, she was noted to not get up as early as she normally does and though they helped her to the bathroom to take a shower, after she was ambulating back into the living room, she indicated that she needed to take a shower and had forgotten that she had just done so. The son also indicates that her speech was strange in that she was talking all day about how she needed to teach her family members different "lessons" and would start a thought, but then would not finish it. He also noted that she would be speaking and then would suddenly close her eyes and put her head down as though she were asleep. All of this is very abnormal behavior for the patient and she was brought back to the emergency department for further evaluation. When her labs were normal and her CT scan showed no obvious cause for her altered mental status, an EEG was requested which showed continuous epileptiform discharges emanating from the right frontal region and Neurology consult was requested. PAST MEDICAL HISTORY: 1. GERD. 2. Vertigo. 3. Hemorrhoids. 4. Presumed urinary tract infection, altered mental status. PAST SURGICAL HISTORY: Cholecystectomy in 2003. HOME MEDICATIONS: 1. Norvasc was prescribed on discharge yesterday, but the patient has not yet started taking this. 2. Zantac as needed for indigestion. 3. Probiotic daily. 4. Tawnya-Colace as needed for constipation. 5. Calcium plus vitamin D twice daily. ALLERGIES: No known drug allergies. FAMILY HISTORY: Her father lived into his 90s. The patient's son reports his grandmother, the patient's mother, when he was young, but he is unsure of the cause of . Further family history cannot be obtained from the patient due to her mental status SOCIAL HISTORY: She lives alone. She drives and is typically very sharp at baseline per her son. She does not drink alcohol or use recreational drugs or smoke tobacco. REVIEW OF SYSTEMS: No known fevers recently. On my initial evaluation, the patient indicated that she has abdominal pain. She may also have constipation. PHYSICAL EXAM: Vital Signs: Temperature 97.6, blood pressure 157/78, heart rate 59, and oxygen saturation 99% on room air. The patient was seen on 2 different occasions this afternoon. On my initial evaluation, she was intermittently able to converse and would answer questions, but in a delayed fashion. She was able to follow simple commands. She was able to state her date of , but was unable to state her age or the current date or the day of the week. When asked to state the current date, she reiterated her date of . She was frequently noted to begin a thought and then sigh deeply and close her eyes and put her head back and fail to finish the thought. On later evaluation was a more formal examination, her heart is in a regular rate and rhythm with no obvious murmurs, rubs, or gallops. The lungs were clear to auscultation anteriorly. At this point, the patient had received 1 mg of Ativan and she was sleepy, but briefly arousable but unable to follow any commands. Her pupils were equal, round, and reactive from 3 to 2 mm bilaterally. She actively resisted eye opening. Versions cold not be tested and it was difficult to test VORs. Her face is symmetric. Tone seemed a little decreased in the left upper extremity. Earlier, she had been noted to move all extremities equally, but was unable to follow any commands for formal motor testing. She grimaced briskly to noxious stimulation in the right upper extremity and bilateral lower extremities, but less so in the left upper extremity. Reflexes were 2+ in the arms and at the knees with absent ankle jerks. Both toes appeared to be upgoing. Coordination testing could not be performed. DIAGNOSTIC STUDIES/LAB DATA: CBC is entirely unremarkable today. Similarly, her chemistry panel shows a sodium of 134, which is improved from 132 yesterday , which was further improved from 127 the day prior. Her ZZC-nl-rjrqoqbnnh ratio is elevated at 28.2, but her creatinine is normal at 0.78. Total protein was slightly low at 6.2. TSH is 1.68 and ammonia is 28. Her lactate is 0.9. Urinalysis is negative for infection, both today and on the . Coagulation studies are normal. Brain CT was obtained, but was significantly limited due to motion artifact, but there were no obvious abnormalities. As mentioned, the EEG showed nearly continuous epileptiform discharges emanating from the right frontocentral region primarily. These were periodic in nature and concerning for an underlying area of ongoing cerebral injury. IMPRESSION: Celeste Hernandez is a 81-year-old woman with little significant past medical history who has presented with acute to subacute progressive altered mental status over the past 9 days. This was initially associated with hyponatremia, but this may have been related to dehydration. She was briefly treated, but incompletely, for urinary tract infection, but her urine shows no signs of infection at this time. Furthermore, she had a tick found on her, but tested negative for Lyme and an acute Lyme infection would be unlikely to cause this presentation. She has evidence on her EEG of epileptiform potential with high risk for subclinical seizures and the possibility that this frequent epileptiform activity is contributing to her altered mental status. The differential for this presentation includes stroke, tumor, infectious process such as a viral encephalitis, paraneoplastic syndrome or autoimmune . She was treated with 1 mg of IV Ativan and there was marked improved in the EEG, but she clinically became sleepy. I made a recommendation to move her to the ICU with the intention of continuing with EEG monitoring, but first we will attempt to obtain MRI of the brain with and without contrast. She may need further treatment with Ativan in order to tolerate this, but at this time, she appears pretty calm. Furthermore, she would likely need a lumbar puncture to evaluate for the typical studies as well as the potential infectious causes, paraneoplastic, etc. In the meantime, pending this workup, she should be treated with acyclovir q.8 hours. Once she has returned from MRI, we will have her hooked back up to EEG overnight. The son was updated with this information and was agreeable to the proposed testing. Thank you for this consultation. [id number]/[facility] #: [id number] WENDIE
[2017-03-25] MEDS: Heparin VIAL(*) 5000 UNITS/ML VIAL (FIVE THOUSAND) SUBCUT SCH (05:47)
--- NOTE | 2017-03-25 07:34 | EEG ---
ELECTROENCEPHALOGRAPHY: DATE OF STUDY: 03/24/17 LOCATION: The patient is an inpatient. ORDERING PHYSICIAN: Dr. Olive Cantrell. CLINICAL PROBLEM: This is a 81-year-old woman, who was just discharged from the hospital yesterday after she was admitted with altered mental status, which was thought to be related to hyponatremia and treatment for urinary tract infection. She had an increase in confusion this morning including unusual speech with repetitive phrases and behaviors and her son brought her back to the emergency department for evaluation. EEG was requested to evaluate for epileptiform abnormalities. MEDICATIONS: Norvasc. REPORT: Most notable feature of the EEG is the presence of nearly continuous, lateralized, semiperiodic discharges which are maximal at F4 and C4 with a field to Cz and Fz as well as more posteriorly to P4 and O4 as well as to left hemisphere at F3. These discharges occur at 1 to 2 Hz in general and can last for 10 seconds at a time and then will occasionally be broken up by 3 to 5 seconds of polymorphic slowing in these regions. At times, the slowing appears to affect the bilateral frontal regions and bilateral paracentral regions especially in the F3 and F4 regions. The discharges are hogipbok-[id number] amplitude, spike and slow wave in morphology. There was no obvious evolution into an ictal pattern. Otherwise, there is discernible organization over left hemisphere primarily. There is a defined posterior dominant rhythm of approximately 8.5 Hz over the left hemisphere. Over the right hemisphere, organization of the background is disrupted by the presence of epileptiform discharges and there is not a well- defined posterior dominant rhythm evident. The patient received 1 mg of Ativan IV approximately 30 minutes into the recording and there was immediate cessation of the epileptiform discharges. Instead, there was semirhythmic mixed frequency slowing which was maximal at F4 , C4, and Cz. Throughout the recording, there were no clear clinical correlates to this activity. The patient was noted to be able to follow commands, but occasionally mistook the technologist for family members or friends of hers and would start a thought and then not finish it. In addition, her speech was delayed. CLINICAL IMPRESSION: This is an abnormal EEG due to the presence of frequent, periodic discharges emanating from the right frontocentral region. These findings are consistent with periodic lateralized discharges (PLDs) and is concerning for an ongoing acute neuronal injury in this brain region. There is no clear evolution into an ictal pattern during this EEG, but these interictal findings put her at high risk for subclinical seizures. These findings were communicated to Dr. Cantrell at the time the EEG was recorded and plans made to transfer the patient to the ICU for continuous EEG monitoring and further management. [id number]/[facility] #: [id number] WENDIE
--- NOTE | 2017-03-25 08:49 | PN ---
Subjective Date of Service: 03/25/17 Interval History: Pt is feeling well. She had a relatively restful night per nursing. Currently she is unable to tell me where she is. She is noted to be still confused. She told me to enjoy the mud. She denies any pain including CP and no SOB. Objective Active Medications: Amlodipine Besylate (Norvasc Tab*) 5 mg PO DAILY [facility] Docusate Sodium (Colace Cap*) 100 mg PO DAILY PRN PRN Reason: CONSTIPATION Famotidine (Pepcid Tab*) 20 mg PO BID PRN; Protocol PRN Reason: INDIGESTION Heparin Sodium (Porcine) (Heparin Vial(*)) 5,000 units SUBCUT Q8HR [facility] Last Admin: 03/25/17 05:47 Dose: 5,000 units Levetiracetam 750 mg/ Sodium (Chloride) 107.5 mls @ 430 mls/hr IVPB Q12H [facility] Last Admin: 03/25/17 05:47 Dose: 430 mls/hr Acyclovir Sodium 450 mg/ (Sodium Chloride) 109 mls @ 109 mls/hr IVPB Q8H [facility] Last Admin: 03/25/17 03:37 Dose: 109 mls/hr Polyethylene Glycol/Electrolytes (Miralax*) 17 gm PO DAILY [facility] Quetiapine Fumarate (Seroquel Tab*) 12.5 mg PO Q6H PRN PRN Reason: AGITATION Senna (Senokot Tab*) 2 tab PO DAILY PRN PRN Reason: CONSTIPATION Vital Signs 03/24/17 03/24/17 03/24/17 14:00 14:54 15:00 Temperature 98 F Pulse Rate 74 83 Respiratory 19 18 18 Rate Blood Pressure 119/76 (mmHg) O2 Sat by Pulse 100 99 Oximetry 03/24/17 03/24/17 03/24/17 15:45 16:34 17:34 Temperature 97.4 F Pulse Rate 71 Respiratory 16 14 15 Rate Blood Pressure 182/80 (mmHg) O2 Sat by Pulse 100 Oximetry 03/24/17 03/24/17 03/24/17 17:40 17:45 17:51 Temperature 97.6 F Pulse Rate 63 66 59 Respiratory 17 13 15 Rate Blood Pressure 172/54 157/78 (mmHg) O2 Sat by Pulse 99 99 99 Oximetry 03/24/17 03/24/17 03/24/17 18:00 18:15 18:30 Temperature Pulse Rate 61 65 64 Respiratory 14 16 16 Rate Blood Pressure 165/75 164/64 146/66 (mmHg) O2 Sat by Pulse 99 100 98 Oximetry 03/24/17 03/24/17 03/24/17 18:45 19:00 19:30 Temperature Pulse Rate 65 64 68 Respiratory 15 15 23 Rate Blood Pressure 165/57 152/69 148/61 (mmHg) O2 Sat by Pulse 100 100 99 Oximetry 03/24/17 03/24/17 03/24/17 20:00 20:30 21:00 Temperature 97.4 F Pulse Rate 61 Respiratory 14 22 Rate Blood Pressure 99/58 124/52 (mmHg) O2 Sat by Pulse 97 Oximetry 03/24/17 03/24/17 03/24/17 21:02 21:42 22:00 Temperature Pulse Rate 55 60 69 Respiratory 22 14 Rate Blood Pressure 152/73 161/64 (mmHg) O2 Sat by Pulse 77 81 98 Oximetry 03/24/17 03/24/17 03/24/17 22:30 23:00 23:04 Temperature Pulse Rate 69 74 82 Respiratory 14 14 19 Rate Blood Pressure 167/61 161/60 162/66 (mmHg) O2 Sat by Pulse 99 99 98 Oximetry 03/24/17 03/24/17 03/25/17 23:17 23:30 00:00 Temperature 98.0 F Pulse Rate 77 72 71 Respiratory 16 18 19 Rate Blood Pressure 141/67 (mmHg) O2 Sat by Pulse 99 99 99 Oximetry 03/25/17 03/25/17 03/25/17 00:01 00:30 01:00 Temperature Pulse Rate 67 69 68 Respiratory 20 19 17 Rate Blood Pressure 133/60 152/57 149/55 (mmHg) O2 Sat by Pulse 99 98 99 Oximetry 03/25/17 03/25/17 03/25/17 01:35 02:00 02:30 Temperature Pulse Rate 84 66 71 Respiratory 18 18 19 Rate Blood Pressure 150/62 153/57 158/62 (mmHg) O2 Sat by Pulse 98 98 99 Oximetry 03/25/17 03/25/17 03/25/17 03:00 03:30 04:00 Temperature 97.1 F Pulse Rate 75 60 64 Respiratory 17 14 14 Rate Blood Pressure 157/55 111/53 105/59 (mmHg) O2 Sat by Pulse 98 96 99 Oximetry 03/25/17 03/25/17 03/25/17 04:30 05:00 05:30 Temperature Pulse Rate 63 67 57 Respiratory 13 13 13 Rate Blood Pressure 96/48 120/63 116/51 (mmHg) O2 Sat by Pulse 98 99 98 Oximetry 03/25/17 03/25/17 06:00 08:00 Temperature 97.2 F Pulse Rate 88 Respiratory 18 Rate Blood Pressure 139/75 (mmHg) O2 Sat by Pulse 98 Oximetry Oxygen Devices in Use Now: None Appearance: Elderly female lying in bed, NAD Eyes: No Scleral Icterus Ears/Nose/Mouth/Throat: Mucous Membranes Moist Respiratory: Symmetrical Chest Expansion and Respiratory Effort, Clear to Auscultation - anteriorly Cardiovascular: NL Sounds; No Murmurs; No JVD, RRR, No Edema Abdominal: NL Sounds; No Tenderness; No Distention Extremities: No Clubbing, Cyanosis Skin: No Rash or Ulcers, No Nodules or Sclerosis Neurological: - - awake, pleasantly confused Result Diagrams: 03/24/17 11:13 03/24/17 11:13 Additional Lab and Data: Lab Results 03/24/17 03/24/17 03/24/17 Range/Units 11:13 11:13 11:13 WBC 7.7 (3.5-10.8) 10^3/ul RBC 4.45 (4.0-5.4) 10^6/ul Hgb 13.7 (12.0-16.0) g/dl Hct 40 (35-47) % MCV 91 (80-97) fL MCH 31 (27-31) pg MCHC 34 (31-36) g/dl RDW 13 (10.5-15) % Plt Count 150 (150-450) 10^3/ul MPV Not Reportable Neut % (Auto) 65.6 (38-83) % Lymph % (Auto) 25.4 (25-47) % [place] % (Auto) 7.3 (1-9) % Eos % (Auto) 0.7 (0-6) % Baso % (Auto) 1.0 (0-2) % Absolute Neuts (auto) 5.0 (1.5-7.7) 10^3/ul Absolute Lymphs (auto) 2.0 (1.0-4.8) 10^3/ul Absolute Monos (auto) 0.6 (0-0.8) 10^3/ul Absolute Eos (auto) 0.1 (0-0.6) 10^3/ul Absolute Basos (auto) 0.1 (0-0.2) 10^3/ul Absolute Nucleated RBC 0 10^3/ul Nucleated RBC % 0.1 INR (Anticoag Therapy) (0.89-1.11) Sodium 134 (133-145) mmol/L Potassium 4.1 (3.5-5.0) mmol/L Chloride 101 (101-111) mmol/L Carbon Dioxide 26 (22-32) mmol/L Anion Gap 7 (2-11) mmol/L BUN 22 (6-24) mg/dL Creatinine 0.78 (0.51-0.95) mg/dL Est GFR ( Amer) 91.6 (>60) Est GFR (Non-Af Amer) 71.2 (>60) BUN/Creatinine Ratio 28.2 H (8-20) Glucose 89 (70-100) mg/dL Lactic Acid 0.9 (0.5-2.0) mmol/L Calcium 9.0 (8.6-10.3) mg/dL Magnesium 2.7 (1.9-2.7) mg/dL Total Bilirubin 0.50 (0.2-1.0) mg/dL AST 16 (13-39) U/L ALT 10 (7-52) U/L Alkaline Phosphatase 54 (34-104) U/L Ammonia (16-53) mol/L Total Creatine Kinase 49 (10-223) U/L Troponin I 0.01 (<0.04) ng/mL Total Protein 6.2 L (6.4-8.9) g/dL Albumin 4.0 (3.2-5.2) g/dL Globulin 2.2 (2-4) g/dL Albumin/Globulin Ratio 1.8 (1-3) TSH (0.34-5.60) mcIU/mL 03/24/17 03/24/17 03/24/17 Range/Units 11:13 11:13 11:13 WBC (3.5-10.8) 10^3/ul RBC (4.0-5.4) 10^6/ul Hgb (12.0-16.0) g/dl Hct (35-47) % MCV (80-97) fL MCH (27-31) pg MCHC (31-36) g/dl RDW (10.5-15) % Plt Count (150-450) 10^3/ul MPV Neut % (Auto) (38-83) % Lymph % (Auto) (25-47) % [place] % (Auto) (1-9) % Eos % (Auto) (0-6) % Baso % (Auto) (0-2) % Absolute Neuts (auto) (1.5-7.7) 10^3/ul Absolute Lymphs (auto) (1.0-4.8) 10^3/ul Absolute Monos (auto) (0-0.8) 10^3/ul Absolute Eos (auto) (0-0.6) 10^3/ul Absolute Basos (auto) (0-0.2) 10^3/ul Absolute Nucleated RBC 10^3/ul Nucleated RBC % INR (Anticoag Therapy) 0.91 (0.89-1.11) Sodium (133-145) mmol/L Potassium (3.5-5.0) mmol/L Chloride (101-111) mmol/L Carbon Dioxide (22-32) mmol/L Anion Gap (2-11) mmol/L BUN (6-24) mg/dL Creatinine (0.51-0.95) mg/dL Est GFR ( Amer) (>60) Est GFR (Non-Af Amer) (>60) BUN/Creatinine Ratio (8-20) Glucose (70-100) mg/dL Lactic Acid (0.5-2.0) mmol/L Calcium (8.6-10.3) mg/dL Magnesium (1.9-2.7) mg/dL Total Bilirubin (0.2-1.0) mg/dL AST (13-39) U/L ALT (7-52) U/L Alkaline Phosphatase (34-104) U/L Ammonia 28 (16-53) mol/L Total Creatine Kinase (10-223) U/L Troponin I (<0.04) ng/mL Total Protein (6.4-8.9) g/dL Albumin (3.2-5.2) g/dL Globulin (2-4) g/dL Albumin/Globulin Ratio (1-3) TSH 1.68 (0.34-5.60) mcIU/mL Microbiology and Other Data: Microbiology 03/24/17 20:00 Nasal Screen MRSA (PCR)(GERONIMO) - Final Nasal Mrsa Negative Assess/Plan/Problems-Billing Ms Hernandez is a 81 yo who presented to the ER the day after being discharged following treatment for confusion felt to be secondary to hyponatremia, with c/ o worsened confusion. - Patient Problems (1) Non-convulsive status epilepticus Current Visit: Yes Status: Acute Code(s): G40.901 - EPILEPSY, UNSP, NOT INTRACTABLE, WITH STATUS EPILEPTICUS SNOMED Code(s): 699607961 Comment: The patient's EEG was markedly abnormal with very frequent periodic lateralized discharges. This was concerning for subclinical seizures/status. The patient received ativan 1mg IV last evening and reportedly there was improvement in her EEG. She has had intermittent EEG monitoring overnight. She was started on keppra 750mg IV q12 after a loading dose of 1g. MRI negative for acute CVA or other findings. Await further recommendations from Dr. Wen. (2) HTN (hypertension) Current Visit: Yes Status: Acute Code(s): I10 - ESSENTIAL (PRIMARY) HYPERTENSION SNOMED Code(s): 90360725 Comment: BP is under good control but at times has been elevated. Will monitor her BP as she has not had the amlodipine today and her pressures are in the 110-130's. (3) GERD (gastroesophageal reflux disease) Current Visit: Yes Status: Acute Code(s): K21.9 - GASTRO-ESOPHAGEAL REFLUX DISEASE WITHOUT ESOPHAGITIS SNOMED Code(s): 137687683 Comment: Continue famotidine. (4) DVT prophylaxis Current Visit: Yes Status: Acute Code(s): RBM7987 - SNOMED Code(s): 142863409 Comment: SQ heparin (5) Full code status Current Visit: Yes Status: Acute Code(s): Z78.9 - OTHER SPECIFIED HEALTH STATUS SNOMED Code(s): 871005321
[2017-03-25] MEDS: Polyethylene Glycol 3350* 17 GM PACKET PO SCH (09:00)
[2017-03-25] MEDS ORDERED: amLODIPine TAB* 5 MG PO SCH (09:00)
--- NOTE | 2017-03-25 14:21 | EEG ---
CARE HOME VIDEO/EEG MONITORING - Monitoring Monitoring Start Date: 03/24/17 Current Monitoring Session: 03/24/17 at 22:16 to 03/25/17 at 17:15 EEG Clinical Indication: Celeste Hernandez is a 81 year old woman who presented for readmission to the hospital with 9 days of confusion. As an outpatient, she was initially treated for a urinary tract infection but did not take the antibiotics appropriately and was admitted from 03/21 to 03/23 when she was found to have hyponatremia due to dehydration. Her mental status improved somewhat and she was discharged, but returned on 03/24 with worsened confusion, forgetfulness and odd speech patterns. A routine EEG done demonstrated right frontal periodic discharges, which were responsive to a single dose of lorazepam 1mg IV. Long-term EEG monitoring was requested in order to evaluate for return of these periodic discharges and subclinical seizures. Introduction: INTRODUCTION: The EEG was monitored from 21 scalp electrodes. Nineteen electrodes consisted of the standard parasagittal, temporal and midline leads of the International 10 -20 system. In addition, special electrodes FT9 and FT10 were placed. EEG data were recorded on an [employer] system with simultaneous MPEG-4 digital video recording of patient behavior. EEG recording was in a monopolar montage with all electrodes referenced to FCz. Significant behavioral events were signaled by an event button, or putative electrical seizure events were detected by a computer program. All EEG data were reviewed in their entirety on a monitor with reconstruction of montages and adjustments of sensitivity and filtering. Simultaneous patient behavior was viewed on an adjacent monitor and correlated with the EEG. - Medications Active Medications: Amlodipine Besylate (Norvasc Tab*) 5 mg PO DAILY [facility] Docusate Sodium (Colace Cap*) 100 mg PO DAILY PRN PRN Reason: CONSTIPATION Famotidine (Pepcid Tab*) 20 mg PO BID PRN; Protocol PRN Reason: INDIGESTION Levetiracetam 750 mg/ Sodium (Chloride) 107.5 mls @ 430 mls/hr IVPB Q12H [facility] Last Admin: 03/25/17 05:47 Dose: 430 mls/hr Acyclovir Sodium 450 mg/ (Sodium Chloride) 109 mls @ 109 mls/hr IVPB Q8H [facility] Last Admin: 03/25/17 03:37 Dose: 109 mls/hr Polyethylene Glycol/Electrolytes (Miralax*) 17 gm PO DAILY [facility] Senna (Senokot Tab*) 2 tab PO DAILY PRN PRN Reason: CONSTIPATION Levetiracetam 1gm IV given at 18:43 on 03/24, prior to the start of this recording - Description Background: The waking background showed appropriate organization with clearly defined anterior-posterior voltage and frequency gradients. There was a defined posterior dominant rhythm of approximately 8 Hertz, which was symmetrical and showed normal reactivity. Anteriorly, there was the expected pattern of lower voltage and more irregular theta and beta rhythms. There was excessive beta activity, consistent with medication effect. There was excessive delta slowing intermixed within the stage 2 sleep background , which was frontocentrally predominant. In addition, especially at the beginning of the recording, there was greater slowing present over the right hemisphere, in particular affecting the right temporal region. Toward the morning of 03/25, there was occasional excessive slowing noted to affect the left frontotemporal region. Around this time as well, there was intermittent semi-rhythmic 2 to 3 Hz slowing with overriding fast frequency spikes at C3 and P3 which would last 2 to 3 seconds. The sleep background was otherwise appropriately organized with well-developed spindles and vertex waves indicative of stage 2 sleep. These sleep transients showed appropriate morphology and were bilaterally synchronous and symmetrical. Development of diffuse delta range frequencies with dropout of stage 2 architecture accompanied transition to slow wave sleep. REM sleep was not identified. Intericatal Epileptiform Activity: There were occasional spike and slow wave discharges in the right frontocentral region (F4, C4) at the beginning of the recording, but the periodicity had resolved and the amplitude was less. As the recording progressed, possible discharges were noted at P3 and C3, within the area of semi-rhythmic slowing. These rarely occurred at 2Hz for a few seconds and more often were seen as isolated waveforms. Ictal Activity: No definitive ictal patterns - Impression Impression: This is an abnormal long-term monitoring session. There is generalized slowing of the background, excessive delta slowing in sleep which affects the right frontal region to a greater degree and occasional epileptiform discharges which are multifocal. At the beginning of the recording, these were noted in the right frontal region but as the recording progressed, these were seen in the left centroparietal region. 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 There are no definitive seizures during this recording.
[2017-03-25 17:15] LABS: CSF Glucose 61 mg/dL (40-70)
[2017-03-25 17:22] LABS: Body Fluid Appearance Clear
[2017-03-25 17:33] LABS: BF RBC Count #1 0; BF RBC Count #2 0; BF WBC Count #1 1; BF WBC Count #2 1; Body Fluid WBC 1 /mcL; RBC counts within 6%? Yes; WBC counts within 15%? Yes
[2017-03-25 18:37] LABS: Body Fluid Total Cells Counted 6
--- NOTE | 2017-03-26 04:23 | PN ---
PROGRESS NOTE: DATE OF FOLLOWUP: 03/25/17 OVERNIGHT EVENTS: No acute overnight events. The nurse notes that she has been speaking this morning, but mostly not talking about things in the appropriate context. She underwent MRI of the brain last evening, which was not revealing as to an etiology for her periodic discharges. She received subcu heparin this morning, but there is a plan for lumbar puncture later this afternoon. The patient denies any extremity numbness or tingling. She initially endorsed diplopia, but then it seems that this is primarily related to her bifocals. She denied any chest, abdominal or respiratory issues. MEDICATIONS: Reviewed and include: 1. Acyclovir 450 mg q. 8 hours, which was started yesterday evening. 2. Levetiracetam 750 mg twice daily. PHYSICAL EXAM: Vital Signs: Temperature 98.8, blood pressure 139/75, heart rate 88, oxygen saturation 98% on room air. Overnight, she was intermittently mildly hypertensive to approximately systolics of 150s/160s, but today her blood pressure has been much improved. On general examination, she is calm, lying awake in her hospital bed. Her responses to questions are somewhat bit delayed, but much better than yesterday. Her heart is in a regular rate and rhythm with a mild systolic ejection murmur heard. Lungs are clear to auscultation anteriorly. She was able to state her age and initially stated the date incorrectly, but then eventually was able to state the full date including month, day and year. She is aware that she is in the hospital and says she calls it [facility]. She was able to name a pen and state its function. When shown a cookie theft picture on the stroke cards, she was able to state that she saw people, but said that she could not explain what was going on in the picture. She was able to name objects on the stroke cards, but interpreted the cacti to be a toddler and a baby. She was able to read phrases on the stroke cards appropriately. She was able to follow commands of the neurologic exam better today, but had some difficulty with following commands for testing versions as well as for testing visual vera. There is no dysarthria in her speech. Her pupils are equal, round and reactive from 3 to 2 mm bilaterally. There is no gaze preference and her versions appear full. There is blink to threat bilaterally. There appears to be mild right lower facial weakness, but good activation with smile. Facial sensation is intact. The tongue protrudes in the midline and the palate elevates symmetrically. On motor testing, there is good strength in the upper and lower extremities. Both arms drifted down when testing pronator drift, but it was not clear that it was true pronation. Sensation was intact to light touch in the upper and lower extremities. Reflexes were 2+ in the upper extremities and knees, and toes were downgoing today. DIAGNOSTIC STUDIES/LAB DATA: MRI scan of the brain was obtained and personally reviewed and showed central and cortical atrophy with confluent hyperintensities in the deep white matter and periventricular regions. This is thought to be consistent with chronic ischemic disease. There is no hemorrhage , no masses and no abnormal enhancement. Her EEG was reviewed and shows some occasional bifrontal slowing as well as some occasional sharp waves in the frontocentral region with a bias towards the right side, but overall is much improved compared to yesterday. There were no ictal patterns noted. IMPRESSION: A 81-year-old woman with little significant past medical history admitted with confusion, found to have frequent epileptiform discharges on EEG, which responded nicely to a single dose of lorazepam and now maintenance dose of levetiracetam. Her MRI scan did not reveal an etiology for her EEG findings , so she will undergo lumbar puncture later this afternoon and studies will be sent for the usual studies as well as IgG index, VDRL, West Nile and Lyme antibodies, HSV PCR, oligoclonal bands, encephalitis panel, and paraneoplastic panel. She will be maintained on levetiracetam 750 mg twice daily at this point , and if her EEG remains calm, I think later this afternoon she could be disconnected from long-term monitoring after approximately 24 hours of resolution of her periodic discharges. [id number]/[facility] #: [id number] [facility]
[2017-03-26 05:17] LABS: Hematocrit 42 % (35-47); Hemoglobin 14.3 g/dl (12.0-16.0); Mean Corpuscular HGB Conc 34 g/dl (31-36); Mean Corpuscular Hemoglobin 31 pg (27-31); Mean Corpuscular Volume 90 fL (80-97); Mean Platelet Volume 9 um3 (7.4-10.4); Red Blood Count 4.69 10^6/ul (4.0-5.4); Red Cell Distribution Width 13 % (10.5-15); White Blood Count 5.8 10^3/ul (3.5-10.8)
[2017-03-26 05:35] LABS: BUN/Creatinine Ratio 23.4 (8-20); Calcium 8.8 mg/dL (8.6-10.3); EGFR African American 115.1 (>60); EGFR Non-African American 89.5 (>60); Potassium 3.7 mmol/L (3.5-5.0)
--- NOTE | 2017-03-26 08:33 | PN ---
Subjective Date of Service: 03/26/17 Interval History: Patient may not be able to make her needs known. Objective Active Medications: Amlodipine Besylate (Norvasc Tab*) 5 mg PO DAILY [facility] Last Admin: 03/25/17 09:00 Dose: Not Given Docusate Sodium (Colace Cap*) 100 mg PO DAILY PRN PRN Reason: CONSTIPATION Famotidine (Pepcid Tab*) 20 mg PO BID PRN; Protocol PRN Reason: INDIGESTION Levetiracetam 750 mg/ Sodium (Chloride) 107.5 mls @ 430 mls/hr IVPB Q12H [facility] Last Admin: 03/26/17 05:14 Dose: 430 mls/hr Acyclovir Sodium 450 mg/ (Sodium Chloride) 109 mls @ 109 mls/hr IVPB Q8H [facility] Last Admin: 03/26/17 03:40 Dose: 109 mls/hr Polyethylene Glycol/Electrolytes (Miralax*) 17 gm PO DAILY [facility] Last Admin: 03/25/17 09:00 Dose: Not Given Senna (Senokot Tab*) 2 tab PO DAILY PRN PRN Reason: CONSTIPATION Vital Signs 03/25/17 03/25/17 03/25/17 08:30 09:00 09:30 Temperature Pulse Rate 72 95 96 Respiratory 17 18 19 Rate Blood Pressure 151/68 173/140 165/77 (mmHg) O2 Sat by Pulse 99 99 95 Oximetry 03/25/17 03/25/17 03/25/17 10:00 10:30 11:00 Temperature Pulse Rate 93 99 96 Respiratory 17 16 17 Rate Blood Pressure 146/76 139/74 140/75 (mmHg) O2 Sat by Pulse 97 99 99 Oximetry 03/25/17 03/25/17 03/25/17 11:30 11:58 12:00 Temperature 98.8 F Pulse Rate 93 90 Respiratory 18 19 Rate Blood Pressure 148/73 129/56 (mmHg) O2 Sat by Pulse 100 98 Oximetry 03/25/17 03/25/17 03/25/17 12:30 13:00 13:30 Temperature Pulse Rate 95 77 75 Respiratory 19 13 17 Rate Blood Pressure 143/60 153/78 152/68 (mmHg) O2 Sat by Pulse 97 99 99 Oximetry 03/25/17 03/25/17 03/25/17 14:00 15:00 15:06 Temperature Pulse Rate 70 73 85 Respiratory 15 13 18 Rate Blood Pressure 100/52 150/72 (mmHg) O2 Sat by Pulse 96 100 99 Oximetry 03/25/17 03/25/17 03/25/17 15:30 15:35 15:43 Temperature 97.9 F Pulse Rate 78 Respiratory 16 18 Rate Blood Pressure 148/71 (mmHg) O2 Sat by Pulse 99 Oximetry 03/25/17 03/25/17 03/25/17 16:00 16:50 17:00 Temperature Pulse Rate 89 85 75 Respiratory 15 21 12 Rate Blood Pressure 158/80 108/86 146/79 (mmHg) O2 Sat by Pulse 100 100 97 Oximetry 03/25/17 03/25/17 03/25/17 17:30 18:00 18:30 Temperature Pulse Rate 83 59 94 Respiratory 16 15 17 Rate Blood Pressure 202/74 154/67 188/75 (mmHg) O2 Sat by Pulse 99 98 97 Oximetry 03/25/17 03/25/17 03/25/17 19:00 19:30 19:36 Temperature 98.3 F Pulse Rate 82 78 Respiratory 17 15 Rate Blood Pressure 168/85 150/66 (mmHg) O2 Sat by Pulse 97 97 Oximetry 03/25/17 03/25/17 03/25/17 20:00 20:30 21:00 Temperature Pulse Rate 73 77 76 Respiratory 16 16 16 Rate Blood Pressure 165/70 171/81 157/69 (mmHg) O2 Sat by Pulse 94 94 94 Oximetry 03/25/17 03/25/17 03/25/17 21:30 21:47 22:00 Temperature Pulse Rate 92 80 78 Respiratory 16 13 16 Rate Blood Pressure 137/123 160/78 166/75 (mmHg) O2 Sat by Pulse 96 95 94 Oximetry 03/25/17 03/25/17 03/25/17 22:30 23:00 23:08 Temperature Pulse Rate 80 73 73 Respiratory 15 16 17 Rate Blood Pressure 151/63 153/65 (mmHg) O2 Sat by Pulse 95 94 94 Oximetry 03/25/17 03/25/17 03/26/17 23:30 23:38 00:00 Temperature 98.0 F Pulse Rate 70 87 Respiratory 16 18 Rate Blood Pressure 135/121 (mmHg) O2 Sat by Pulse 94 97 Oximetry 03/26/17 03/26/17 03/26/17 00:01 00:30 01:00 Temperature Pulse Rate 81 82 72 Respiratory 16 18 15 Rate Blood Pressure 152/95 170/77 176/86 (mmHg) O2 Sat by Pulse 97 97 96 Oximetry 03/26/17 03/26/17 03/26/17 01:30 02:00 02:30 Temperature Pulse Rate 68 101 72 Respiratory 18 18 15 Rate Blood Pressure 155/86 175/98 167/68 (mmHg) O2 Sat by Pulse 96 99 98 Oximetry 03/26/17 03/26/17 03/26/17 03:00 03:30 04:00 Temperature 98.7 F Pulse Rate 68 82 Respiratory 17 20 15 Rate Blood Pressure 158/72 155/73 156/72 (mmHg) O2 Sat by Pulse 98 99 Oximetry 03/26/17 03/26/17 03/26/17 04:55 05:00 05:30 Temperature Pulse Rate 110 70 65 Respiratory 14 15 15 Rate Blood Pressure 188/86 161/78 138/66 (mmHg) O2 Sat by Pulse 99 98 97 Oximetry 03/26/17 03/26/17 03/26/17 06:00 06:30 07:47 Temperature 99.1 F Pulse Rate 74 70 Respiratory 17 14 Rate Blood Pressure 144/72 143/73 (mmHg) O2 Sat by Pulse 98 100 Oximetry Oxygen Devices in Use Now: None Appearance: Alert, partly up on ICU bed. Neutral affect. Looks comfortable. Eyes: No Scleral Icterus Ears/Nose/Mouth/Throat: Clear Oropharnyx, Mucous Membranes Moist Neck: NL Appearance and Movements; NL JVP, No Thyroid Enlargement, Masses Respiratory: Symmetrical Chest Expansion and Respiratory Effort, Clear to Auscultation, Clear to Percussion Cardiovascular: NL Sounds; No Murmurs; No JVD, RRR, No Edema, - Extremities: No Edema, No Clubbing, Cyanosis, - Skin: No Rash or Ulcers, No Nodules or Sclerosis, - Neurological: NL Sensation - Cooperataive. Unalbe to answer most simple questions but can state her full name. Very tangential, inappropriate speech. Result Diagrams: 03/26/17 04:50 03/26/17 04:50 Additional Lab and Data: Lab Results 03/24/17 03/24/17 03/24/17 Range/Units 11:13 11:13 11:13 WBC 7.7 (3.5-10.8) 10^3/ul RBC 4.45 (4.0-5.4) 10^6/ul Hgb 13.7 (12.0-16.0) g/dl Hct 40 (35-47) % MCV 91 (80-97) fL MCH 31 (27-31) pg MCHC 34 (31-36) g/dl RDW 13 (10.5-15) % Plt Count 150 (150-450) 10^3/ul MPV Not Reportable Neut % (Auto) 65.6 (38-83) % Lymph % (Auto) 25.4 (25-47) % [place] % (Auto) 7.3 (1-9) % Eos % (Auto) 0.7 (0-6) % Baso % (Auto) 1.0 (0-2) % Absolute Neuts (auto) 5.0 (1.5-7.7) 10^3/ul Absolute Lymphs (auto) 2.0 (1.0-4.8) 10^3/ul Absolute Monos (auto) 0.6 (0-0.8) 10^3/ul Absolute Eos (auto) 0.1 (0-0.6) 10^3/ul Absolute Basos (auto) 0.1 (0-0.2) 10^3/ul Absolute Nucleated RBC 0 10^3/ul Nucleated RBC % 0.1 INR (Anticoag Therapy) (0.89-1.11) Sodium 134 (133-145) mmol/L Potassium 4.1 (3.5-5.0) mmol/L Chloride 101 (101-111) mmol/L Carbon Dioxide 26 (22-32) mmol/L Anion Gap 7 (2-11) mmol/L BUN 22 (6-24) mg/dL Creatinine 0.78 (0.51-0.95) mg/dL Est GFR ( Amer) 91.6 (>60) Est GFR (Non-Af Amer) 71.2 (>60) BUN/Creatinine Ratio 28.2 H (8-20) Glucose 89 (70-100) mg/dL Lactic Acid 0.9 (0.5-2.0) mmol/L Calcium 9.0 (8.6-10.3) mg/dL Magnesium 2.7 (1.9-2.7) mg/dL Total Bilirubin 0.50 (0.2-1.0) mg/dL AST 16 (13-39) U/L ALT 10 (7-52) U/L Alkaline Phosphatase 54 (34-104) U/L Ammonia (16-53) mol/L Total Creatine Kinase 49 (10-223) U/L Troponin I 0.01 (<0.04) ng/mL Total Protein 6.2 L (6.4-8.9) g/dL Albumin 4.0 (3.2-5.2) g/dL Globulin 2.2 (2-4) g/dL Albumin/Globulin Ratio 1.8 (1-3) TSH (0.34-5.60) mcIU/mL 03/24/17 03/24/17 03/24/17 Range/Units 11:13 11:13 11:13 WBC (3.5-10.8) 10^3/ul RBC (4.0-5.4) 10^6/ul Hgb (12.0-16.0) g/dl Hct (35-47) % MCV (80-97) fL MCH (27-31) pg MCHC (31-36) g/dl RDW (10.5-15) % Plt Count (150-450) 10^3/ul MPV Neut % (Auto) (38-83) % Lymph % (Auto) (25-47) % [place] % (Auto) (1-9) % Eos % (Auto) (0-6) % Baso % (Auto) (0-2) % Absolute Neuts (auto) (1.5-7.7) 10^3/ul Absolute Lymphs (auto) (1.0-4.8) 10^3/ul Absolute Monos (auto) (0-0.8) 10^3/ul Absolute Eos (auto) (0-0.6) 10^3/ul Absolute Basos (auto) (0-0.2) 10^3/ul Absolute Nucleated RBC 10^3/ul Nucleated RBC % INR (Anticoag Therapy) 0.91 (0.89-1.11) Sodium (133-145) mmol/L Potassium (3.5-5.0) mmol/L Chloride (101-111) mmol/L Carbon Dioxide (22-32) mmol/L Anion Gap (2-11) mmol/L BUN (6-24) mg/dL Creatinine (0.51-0.95) mg/dL Est GFR ( Amer) (>60) Est GFR (Non-Af Amer) (>60) BUN/Creatinine Ratio (8-20) Glucose (70-100) mg/dL Lactic Acid (0.5-2.0) mmol/L Calcium (8.6-10.3) mg/dL Magnesium (1.9-2.7) mg/dL Total Bilirubin (0.2-1.0) mg/dL AST (13-39) U/L ALT (7-52) U/L Alkaline Phosphatase (34-104) U/L Ammonia 28 (16-53) mol/L Total Creatine Kinase (10-223) U/L Troponin I (<0.04) ng/mL Total Protein (6.4-8.9) g/dL Albumin (3.2-5.2) g/dL Globulin (2-4) g/dL Albumin/Globulin Ratio (1-3) TSH 1.68 (0.34-5.60) mcIU/mL Microbiology and Other Data: Microbiology 03/24/17 20:00 Nasal Screen MRSA (PCR)(GERONIMO) - Final Nasal Mrsa Negative Assess/Plan/Problems-Billing Ms Hernandez is a 81 yo who presented to the ER the day after being discharged following treatment for confusion felt to be secondary to hyponatremia, with c/ o worsened confusion. - Patient Problems (1) Altered mental status Current Visit: No Status: Acute Code(s): R41.82 - ALTERED MENTAL STATUS, UNSPECIFIED SNOMED Code(s): 550708580 Comment: Not clear if improved since levetiracetam started. Continue acyclovir, levoteiracetam. I will discuss with Dr. Isabel. IV fluids ordered, BMP 03/27. (2) Hyponatremia Current Visit: No Status: Acute Code(s): E87.1 - HYPO-OSMOLALITY AND HYPONATREMIA SNOMED Code(s): 63890559 Comment: Resolved from previous admission. BMP 03/27. (3) HTN (hypertension) Current Visit: Yes Status: Acute Code(s): I10 - ESSENTIAL (PRIMARY) HYPERTENSION SNOMED Code(s): 06303454 Comment: D/C amlodipine, has not received any since admission. (4) Non-convulsive status epilepticus Current Visit: Yes Status: Acute Code(s): G40.901 - EPILEPSY, UNSP, NOT INTRACTABLE, WITH STATUS EPILEPTICUS SNOMED Code(s): 043663938 Comment: The patient's EEG was markedly abnormal with very frequent periodic lateralized discharges. This was concerning for subclinical seizures/status. The patient received ativan 1mg IV 03/24 and reportedly there was improvement in her EEG. She was started on keppra 750mg IV q12 after a loading dose of 1g. MRI negative for acute CVA or other findings. Await further recommendations from Dr. Wen. (5) GERD (gastroesophageal reflux disease) Current Visit: Yes Status: Acute Code(s): K21.9 - GASTRO-ESOPHAGEAL REFLUX DISEASE WITHOUT ESOPHAGITIS SNOMED Code(s): 341444346 Comment: Continue famotidine.
[2017-03-26] MEDS: Polyethylene Glycol 3350* 17 GM PACKET PO SCH (09:00)
--- NOTE | 2017-03-26 09:00 | PN ---
Progress Note - Progress Note Note: t Time spent on patient care, including discussion with Dr. Isabel, 45 minutes.
[2017-03-26] MEDS ORDERED: LORazepam INJ* 2 MG/ML 1 ML VIAL IV PUSH STA (09:52)
[2017-03-26] MEDS ORDERED: LORazepam INJ* 2 MG/ML 1 ML VIAL ONE (09:55)
--- NOTE | 2017-03-26 14:31 | PN ---
PROGRESS NOTE: DATE OF FOLLOWUP: 03/26/17 OVERNIGHT EVENTS: From reviewing nursing notes, it appears that the patient became more confused again overnight. It does not sound like she slept much last night and was frequently not making sense in her speech and being impulsive , trying to get out of bed. In reviewing Dr. Cerna's note this morning, he notes a similar encounter with her where she was not making sense in her speech. EEG was discontinued yesterday in the late afternoon when things remained calm. She underwent lumbar puncture yesterday afternoon, which overall has been unremarkable thus far. On my evaluation this morning, she is exhibiting repetitive speech and repeatedly stating that she is doing a demonstration. She is also talking about her hearing aids and refers to being in her 80s. I spoke with her son to see if there has been anything out of the ordinary about her before this presentation and also to see if she is up-to-date on her cancer screenings. He notes that 2 or 3 years ago she underwent an endoscopy with Dr. Cross and was prescribed a medication that was very expensive, which she stopped after a few months and he is not sure what that medication was or the purpose of the medication. She is up-to-date on her colonoscopy as far as the son is aware. He is not sure if she is up-to-date on mammography. Another son mentions that she has complained of stomach troubles and constipation over the past few months. MEDICATIONS: Reviewed and include: 1. Acyclovir. 2. Levetiracetam 750 mg twice daily. PHYSICAL EXAM: Temperature 99.1, blood pressure 143/73, heart rate 70, oxygen saturation 100% on room air. On general exam, she is in no acute distress. She was getting her hearing aids put in by her son when I entered the room. She stated that she recalled meeting me yesterday, but could not remember my name. She was not able to state where she was. She knew her son's name and the name of a long-time friend /co-worker, who was visiting her, but again repeatedly talked about doing a demonstration and also telling me that her hearing aids lasted into the 80s. When shown the stroke cards, she was unable to describe anything about the cookie theft picture. She was able to name some objects such as the vazquez and a glove, but was unable to name a chair. She was able to read appropriately off the stroke cards. Her speech is clear without dysarthria. Her face is relatively symmetric and there was slight twitching noted underneath the left eyelid. Her versions were full spontaneously. She moved all extremities equally. She responded to light touch in all four extremities. There were no adventitious movements otherwise noted. DIAGNOSTIC STUDIES/LAB DATA: Her spinal fluid is overall unremarkable with 1 wbc being present, 0 rbc, glucose 61 and protein 33. This was tested on tube 4. She has multiple send out tests which are pending and are noted in yesterday 's progress note. Her CBC today is notable only for low platelet count of 134. BMP notable for slightly low chloride of 100 and elevated BUN to creatinine ratio of 23.4. An EEG was requested after my initial evaluation of the patient and this shows that there is significant amount of slowing and sharp waves this time over the left hemisphere where as on Monday this was present over the right hemisphere primarily. IMPRESSION: A 81-year-old woman with little significant past medical history, who presented with subacute confusion, found to have periodic discharges on EEG , which were initially over the right hemisphere and now present over the left hemisphere. She was treated with another mg of Ativan with good response on the EEG. She will be hooked back up to continuous EEG monitoring and Keppra will be increased to 1500 mg twice daily. Given the benign results on her CSF, I think it is okay to stop her acyclovir at this point. The differential includes paraneoplastic syndrome, which is pending on the CSF. When she is able , a CT of the chest, abdomen and pelvis with and without contrast should be obtained to look for an occult malignancy. I think it is unlikely to have any bearing on the current situation, but we could track down the stomach medication that she was on a couple of years ago, which she stopped due to cost reasons. She gets her medications from [facility] in [place]. I have discussed the patient's current status and recommendations with the two sons and they are up-to-date and in agreement. I have also discussed with Dr. Cerna. [id number]/[facility] #: [id number] [facility]
[2017-03-26] MEDS: NS 0.9% w/ 20 Meq KCL 1000 ML* 1,000 ML IV SCH ×2 (19:45→23:53)
[2017-03-27 06:30] LABS: BUN/Creatinine Ratio 26.2 (8-20); Calcium 8.3 mg/dL (8.6-10.3); EGFR African American 121.7 (>60); EGFR Non-African American 94.6 (>60); Potassium 4.5 mmol/L (3.5-5.0)
[2017-03-27] MEDS: Polyethylene Glycol 3350* 17 GM PACKET PO SCH (09:18)
[2017-03-27] MEDS: NS 0.9% w/ 20 Meq KCL 1000 ML* 1,000 ML IV SCH (11:14)
--- NOTE | 2017-03-27 12:42 | EEG ---
SKILLED NURSING VIDEO/EEG MONITORING - Monitoring Monitoring Start Date: 03/26/17 Current Monitoring Session: 03/26/17 at 09:30 to 03/27/17 at 07:28 EEG Clinical Indication: Celeste Hernandez is a 81 year old woman with little significant past medical history who was admitted on 03/24 with about 9 days of progressive confusion. She was initially thought to have a UTI and was partially treated for that as an outpatient, but when her confusion worsened, she was seen in the ER on 03/21, found to be hyponatremic, treated and then discharged on 03/23. When her confusion worsened further, and included repetitive speech, she was readmitted to the hospital and routine EEG demonstrated periodic discharges were primarily of right hemispheric predominance. She was monitored on continuous EEG and improved, so was disconnected. However, she again worsened this morning, with repetitive speech where she talks about doing a demonstration, so repeat EEG and continuous monitoring was requested. Introduction: INTRODUCTION: The EEG was monitored from 21 scalp electrodes. Nineteen electrodes consisted of the standard parasagittal, temporal and midline leads of the International 10 -20 system. In addition, special electrodes FT9 and FT10 were placed. EEG data were recorded on an [facility] system with simultaneous MPEG-4 digital video recording of patient behavior. EEG recording was in a monopolar montage with all electrodes referenced to FCz. Significant behavioral events were signaled by an event button, or putative electrical seizure events were detected by a computer program. All EEG data were reviewed in their entirety on a monitor with reconstruction of montages and adjustments of sensitivity and filtering. Simultaneous patient behavior was viewed on an adjacent monitor and correlated with the EEG. - Medications Active Medications: Docusate Sodium (Colace Cap*) 100 mg PO DAILY PRN PRN Reason: CONSTIPATION Famotidine (Pepcid Tab*) 20 mg PO BID PRN; Protocol PRN Reason: INDIGESTION Potassium Chloride/Sodium Chloride (Ns 0.9% W/ 20 Meq Kcl 1000 Ml*) 1,000 mls @ 75 mls/hr IV PER RATE [facility] Last Admin: 03/27/17 11:14 Dose: 75 mls/hr Levetiracetam 1,500 mg/ Sodium (Chloride) 115 mls @ 430 mls/hr IVPB Q12H [facility] Last Admin: 03/27/17 09:18 Dose: 430 mls/hr Polyethylene Glycol/Electrolytes (Miralax*) 17 gm PO DAILY [facility] Last Admin: 03/27/17 09:18 Dose: 17 gm Senna (Senokot Tab*) 2 tab PO DAILY PRN PRN Reason: CONSTIPATION - Description Background: At the onset of the recording, there was a marked interhemispheric asymmetry with greater pathology present over the left hemisphere. Over the left hemisphere, there was absence of the expected anterior to posterior voltage and frequency gradients. There was no evident posterior dominant rhythm. Instead, the background consisted of a mixture of rhythmic spike and slow wave activity with superimposed fast frequency activity, which is further described below. Over the right hemisphere, the waking background showed some discernible organization with defined anterior-posterior voltage and frequency gradients. There was a posterior dominant rhythm of 6 Hertz, which was poorly sustained and irregular. Anteriorly, there was the expected pattern of lower voltage and more irregular theta and beta rhythms. Once the patient was treated with Ativan, the background improved and she fell asleep. The sleep background was appropriately organized with well-developed spindles and vertex waves indicative of stage 2 sleep. These sleep transients showed appropriate morphology and were mostly bilaterally synchronous and symmetrical, though sometimes it appeared there was a relative loss of faster frequency activity over the right frontocentral region. Development of diffuse delta range frequencies with dropout of stage 2 architecture accompanied transition to slow wave sleep. There was excessive delta range frequencies noted in the stage 2 sleep background. No obvious periods of REM were observed. The following morning, the waking background showed discernible anterior to posterior voltage and frequency gradients, and there was a posterior dominant rhythm of approximately 7 Hz over the left and 8 Hz over the right. Intericatal Epileptiform Activity: There was nearly continuous rhythmic slowing and discharges of moderate to high voltage primarily over the central and left frontal/paracentral regions at the onset of the recording. This activity was in the range of 2 to 4 Hz with intermixed spikes and in the centroparietal region, was intermixed with faster frequency activity in the beta range. Discrete spike and slow wave discharges were noted at C3, F3 and CZ. Activity waxed and waned and sometimes involved the right hemisphere as well, but to a lesser extent. Ativan 1mg IV was administered at 10:00 and within 1 minute, the slowing and discharges in the left hemisphere had resolved. There was remaining semi-rhythmic slowing slowing in the 2 to 3 Hz range primarily affecting the same brain regions. Ictal Activity: The activity described in the interictal section above falls into the ictal- interictal continuum and likely reflects ictal activity. - Impression Impression: This is an abnormal long-term monitoring session. At the beginning of the recording, there was continuous rhythmic slowing and epileptiform discharges in the left hemisphere, maximal in the central and parietal regions. This activity terminated with administration of 1mg Ativan. Following this, there was continued slowing of the background, occasional epileptiform discharges in the left paracentral region and loss of faster frequency activity over the right paracentral region. 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
[2017-03-27] MEDS ORDERED: Iohexol 300* (CONTRAST) 10 ML SDV IV ONE (12:45)
[2017-03-27] MEDS: amLODIPine TAB* 5 MG PO SCH (14:22)
--- NOTE | 2017-03-27 15:59 | PN ---
DATE OF FOLLOW-UP: 03/27/2017 - ROOM #ICU-10 OVERNIGHT EVENTS: No acute overnight events. The patient remained on continuous EEG monitoring. She is more alert and appropriate this morning, though is still telling stories out of context and seems confused. She is in the process of drinking Gastrografin for her CT scan later today. MEDICATIONS: Medications were reviewed and include Levetiracetam 1500 mg twice daily, as well as Norvasc 5 mg daily. PHYSICAL EXAMINATION: General: On general examination, she was lying in the bed with her eyes closed, but woke pretty easily to vocal stimulation. Vital Signs: Temperature 97.8, blood pressure 164/81, heart rate 100, oxygen saturation 98 percent on room air. Heart: Irregular rate and rhythm with no obvious murmurs. Lungs: Clear anteriorly to auscultation. Neurologic: On neurologic examination, she indicated that she was [id number] and then when corrected that her age is 81 she made a joke that she never tells anyone her age and that she uses a particular skin cream in order to eliminate wrinkles so she should look older than she is. She is fully oriented to month and year, but indicated the exact date was the . She knows she is in the hospital and indicates she has been here for two days, but told a lengthy story about needing to put on a Depends last night when she went to a casino and then found a second casino in a small town which did not pay out any money. Her pupils are equal, round and reactive from 3 to 2 mm bilaterally. Versions are full, but pursuits are choppy. Watkins are full to confrontation. Facial sensation and musculature slow and symmetric. The tongue protrudes in the midline. On motor testing, she seems to have some mild weakness in the right upper extremity proximally, but has normal strength in the biceps and triceps. Her left upper and lower extremities are normal in strength and it appears that the right lower extremity is also normal in strength. Sensation is intact to light touch in the upper and lower extremities. The toes are downgoing. LABORATORY DATA: Chemistry panel shows creatinine is stable at 0.61 with a BUN to creatinine ratio of 26.2. CSF studies are still pending. Formal EEG report is pending, but her EEG over the past 24 hours has showed resolution of the significant slowing and sharp wave discharges, which were noted when she was initially hooked up yesterday. These resolved with administration of 1 mg of Ativan. Her posterior dominant rhythm on the left side is about 1 Hz slower than that on the right. There is still some slowing and some sharp waves in the frontocentral regions bilaterally, but much improved compared with yesterday morning. IMPRESSION: [id number]-old woman with confusion found to have epileptiform discharges on her EEG, first on the and then again on the . Initially, these seem to have a bias to the right frontal region, but yesterday were more biased to the left frontocentral region. She remains somewhat confused, but is much improved compared to yesterday. The etiology of her EEG findings is still unknown and multiple CSF studies are pending. She is going to have CT of the chest, abdomen and pelvis later today to assess for occult malignancy, which could be giving rise to paraneoplastic syndrome to account for her mental status changes and epileptiform potential on the EEG. For now, I would like her to continue on Levetiracetam 1500 mg daily and have the EEG running for another 24 hours to ensure no return of the periodic discharges that have previously been seen. [id number]/[facility] #: [id number] [facility]
--- NOTE | 2017-03-27 16:16 | PN ---
Subjective Date of Service: 03/27/17 Interval History: HOSPITALIST PROGRESS NOTE Patient seen and examined at bedside. She feels well today. Very talkative and joking today. Denies pain, feels hungry and wants to eat today. Family History: Unchanged from Admission Social History: Unchanged from Admission Past Medical History: Unchanged from Admission Objective Active Medications: Amlodipine Besylate (Norvasc Tab*) 5 mg PO DAILY [facility] Last Admin: 03/27/17 14:22 Dose: 5 mg Docusate Sodium (Colace Cap*) 100 mg PO DAILY PRN PRN Reason: CONSTIPATION Famotidine (Pepcid Tab*) 20 mg PO BID PRN; Protocol PRN Reason: INDIGESTION Heparin Sodium (Porcine) (Heparin Flush Picc/Ml/Cvc(*)) 1 - 3 ml FLUSH 0600, 1800 [facility] PRN Reason: Protocol Potassium Chloride/Sodium Chloride (Ns 0.9% W/ 20 Meq Kcl 1000 Ml*) 1,000 mls @ 75 mls/hr IV PER RATE [facility] Last Admin: 03/27/17 11:14 Dose: 75 mls/hr Levetiracetam 1,500 mg/ Sodium (Chloride) 115 mls @ 430 mls/hr IVPB Q12H [facility] Last Admin: 03/27/17 09:18 Dose: 430 mls/hr Polyethylene Glycol/Electrolytes (Miralax*) 17 gm PO DAILY [facility] Last Admin: 03/27/17 09:18 Dose: 17 gm Senna (Senokot Tab*) 2 tab PO DAILY PRN PRN Reason: CONSTIPATION Vital Signs 03/27/17 03/27/17 03/27/17 11:00 11:24 11:37 Temperature 97.8 F Pulse Rate 96 85 Respiratory 20 18 Rate Blood Pressure 142/62 147/60 (mmHg) O2 Sat by Pulse 99 99 Oximetry 03/27/17 03/27/17 03/27/17 12:00 13:00 14:00 Temperature Pulse Rate 95 101 94 Respiratory 10 13 23 Rate Blood Pressure 144/73 164/81 181/97 (mmHg) O2 Sat by Pulse 100 98 99 Oximetry Oxygen Devices in Use Now: None Appearance: Elderly lady sitting up in bed in [facility]. Eyes: No Scleral Icterus, PERRLA Ears/Nose/Mouth/Throat: Mucous Membranes Moist Neck: Trachea Midline Respiratory: Symmetrical Chest Expansion and Respiratory Effort, Clear to Auscultation Cardiovascular: NL Sounds; No Murmurs; No JVD, RRR Abdominal: NL Sounds; No Tenderness; No Distention Extremities: - - Mild bilateral LE edema Neurological: - - AAOx2 (self and place), HERRERA Lines/Tubes/Other Access: Clean, Dry and Intact Peripheral IV Result Diagrams: 03/26/17 04:50 03/27/17 06:04 Assess/Plan/Problems-Billing Ms Hernandez is a 81 yo who presented to the ER the day after being discharged following treatment for confusion felt to be secondary to hyponatremia, with c/ o worsened confusion, found to have seizures. - Patient Problems (1) Non-convulsive status epilepticus Comment: - The patient's EEG was markedly abnormal with very frequent periodic lateralized discharges, concerning for subclinical seizures/status. - CSF was negative so far, but paraneoplastic panel is pending. - Continue Keppra and continuous EEG monitoring as per Neurology. - Plan for CT chest/abd/pelvis today looking for possible tumor. (2) HTN (hypertension) Comment: - BP is trending up - resume amlodipine and monitor. (3) GERD (gastroesophageal reflux disease) Comment: - Continue famotidine. (4) DVT prophylaxis Comment: - SQ heparin. (5) Full code status Status and Disposition: Inpatient. 40 minutes patient care, > half face to face with patient and coordination of care.
--- NOTE | 2017-03-27 16:25 | RAD ---
Indication: Seizures, paraneoplastic syndrome. Contrast: Administered 100.4 ml of OMNIPAQUE 300 mgi/ml CT of the chest, abdomen and pelvis was performed after oral and IV contrast administration. Coronal and sagittal reconstructed images were obtained. Inferior thyroid lobes are unremarkable. No mediastinal or hilar adenopathy is noted. Heart is of normal size without evidence of pericardial effusion. Bibasilar atelectasis is noted. Lung vera demonstrate some dependent changes although no alveolar consolidation is noted. The axilla demonstrates no evidence of abnormal adenopathy. The bony structures demonstrates no obvious compression of the thoracic spine although multilevel degenerative disc disease is noted. The liver is normal in size. Prominent intrahepatic ducts are noted. This may be due to postcholecystectomy state of the patient. Otherwise there are several 3 to 4 mm low density lesions in the inferior right lobe of liver, in the medial segment left lobe of liver and lateral segment left lobe of liver. These likely represent small cysts although they're too small to accurately characterize. Common duct is prominent in size although no abrupt termination is noted. The pancreas demonstrates no mass or pancreatic ductal dilatation. The spleen is normal in size. No adrenal lesions are noted. The kidneys demonstrate symmetric nephrograms without focal lesions noted. No hydronephrosis of either kidney is noted. The retroperitoneal structures including the aorta and inferior vena cava demonstrates no evidence of aneurysmal dilatation. The IVC appears patent. CT of the pelvis demonstrates atherosclerotic aorta with no evidence of aneurysmal dilatation. Common iliac and external iliac arteries are unremarkable. Uterus is atrophic. No adnexal masses are noted. No dilated loops of bowel are noted. The colon is filled with stool. The urinary bladder is unremarkable. No hernias are noted. IMPRESSION: Small low density lesions in liver likely representing small cysts although they are too small to accurately characterize. No pulmonary lesions are noted although small pleural effusions are noted. No abnormal masses or fluid collections are otherwise noted.
[2017-03-27] MEDS ORDERED: amLODIPine TAB* 5 MG PO ONE (17:15)
[2017-03-28] MEDS: NS 0.9% w/ 20 Meq KCL 1000 ML* 1,000 ML IV SCH ×2 (00:53→14:10)
[2017-03-28] MEDS: Acetaminophen TAB* 325 MG PO PRN (06:56)
[2017-03-28] MEDS: Polyethylene Glycol 3350* 17 GM PACKET PO SCH (09:22)
[2017-03-28] MEDS: amLODIPine TAB* 5 MG PO SCH (09:22)
[2017-03-28] MEDS ORDERED: FOSPHENYTOIN IVPB ONE (15:52)
[2017-03-28] MEDS ORDERED: NS 0.9% IVPB ONE (15:52)
--- NOTE | 2017-03-28 15:53 | PN ---
Subjective Date of Service: 03/28/17 Interval History: HOSPITALIST PROGRESS NOTE Patient seen and examined at bedside. She's much more lethargic today. Opens eyes when called, but did not answer my questions. Family History: Unchanged from Admission Social History: Unchanged from Admission Past Medical History: Unchanged from Admission Objective Active Medications: Acetaminophen (Tylenol Tab*) 650 mg PO Q4H PRN PRN Reason: PAIN Last Admin: 03/28/17 06:56 Dose: 650 mg Amlodipine Besylate (Norvasc Tab*) 5 mg PO DAILY [facility] Last Admin: 03/28/17 09:22 Dose: 5 mg Docusate Sodium (Colace Cap*) 100 mg PO DAILY PRN PRN Reason: CONSTIPATION Famotidine (Pepcid Tab*) 20 mg PO BID PRN; Protocol PRN Reason: INDIGESTION Heparin Sodium (Porcine) (Heparin Flush Picc/Ml/Cvc(*)) 1 - 3 ml FLUSH 0600, 1800 [facility] PRN Reason: Protocol Last Admin: 03/28/17 06:14 Dose: Not Given Potassium Chloride/Sodium Chloride (Ns 0.9% W/ 20 Meq Kcl 1000 Ml*) 1,000 mls @ 75 mls/hr IV PER RATE [facility] Last Admin: 03/28/17 14:10 Dose: 75 mls/hr Levetiracetam 1,500 mg/ Sodium (Chloride) 115 mls @ 430 mls/hr IVPB Q12H [facility] Last Admin: 03/28/17 09:22 Dose: 430 mls/hr Polyethylene Glycol/Electrolytes (Miralax*) 17 gm PO DAILY [facility] Last Admin: 03/28/17 09:22 Dose: 17 gm Senna (Senokot Tab*) 2 tab PO DAILY PRN PRN Reason: CONSTIPATION Vital Signs 03/28/17 03/28/17 03/28/17 11:00 11:24 12:00 Temperature 98.1 F Pulse Rate 73 79 Respiratory 19 18 Rate Blood Pressure 109/53 136/62 (mmHg) O2 Sat by Pulse 95 99 Oximetry Oxygen Devices in Use Now: None Appearance: Elderly lady lying in bed in [facility]. Eyes: No Scleral Icterus Ears/Nose/Mouth/Throat: Mucous Membranes Moist Neck: Trachea Midline Respiratory: Symmetrical Chest Expansion and Respiratory Effort, Clear to Auscultation Cardiovascular: NL Sounds; No Murmurs; No JVD, RRR Abdominal: NL Sounds; No Tenderness; No Distention Extremities: No Edema Neurological: - - Lethargic, arousable to voice, but did not answer my questions Lines/Tubes/Other Access: Clean, Dry and Intact Peripheral IV Result Diagrams: 03/26/17 04:50 03/27/17 06:04 Assess/Plan/Problems-Billing Ms Hernandez is a 81 yo who presented to the ER the day after being discharged following treatment for confusion felt to be secondary to hyponatremia, with c/ o worsened confusion, found to have seizures. - Patient Problems (1) Non-convulsive status epilepticus Comment: - The patient's EEG was markedly abnormal with very frequent periodic lateralized discharges, concerning for subclinical seizures/status. - CSF was negative so far, but paraneoplastic panel is pending. - Check vasculitis panel. - Mental status is worse again today - d/w Neurology - continue Keppra, add Phosphenytoin. Continue continuous EEG monitoring. May add steroids soon for possible vasculitis. - CT chest/abd/pelvis was negative. (2) HTN (hypertension) Comment: - Continue amlodipine and monitor. (3) GERD (gastroesophageal reflux disease) Comment: - Continue famotidine. (4) DVT prophylaxis Comment: - SQ heparin. (5) Full code status Status and Disposition: Inpatient. 40 minutes patient care, > half face to face with patient and coordination of care.
[2017-03-28 17:22] LABS: CSF VDRL Negative (Negative)
[2017-03-28 17:30] LABS: HSV 1 PCR, CSF Negative (Negative); HSV 2 PCR, CSF Negative (Negative)
[2017-03-29] MEDS: NS 0.9% w/ 20 Meq KCL 1000 ML* 1,000 ML IV SCH (03:20)
--- NOTE | 2017-03-29 04:22 | PN ---
NEUROLOGY PROGRESS NOTE: DATE OF FOLLOWUP: 03/28/17 OVERNIGHT EVENTS: The patient became more confused overnight and has been less interactive. She is eating, but requires assistance with feeding. MEDICATIONS: Reviewed and include: 1. Norvasc 5 mg daily. 2. Levetiracetam 1500 mg daily. PHYSICAL EXAM: Temperature 98.1, blood pressure 122/46, heart rate 91, oxygen saturation 97% on room air. On general examination, her heart is in a regular rate and rhythm. Her lungs are clear anteriorly. She has her eyes half opened and has delayed responses to questions but does respond. She is oriented to the month as well as the hospital. She was able to name objects. She was not having any repetitive speech today and if anything, had more of a paucity of spontaneous speech. Her face is symmetric. When asked to lift her arms off the bed, she does so with great effort. She is able to more easily lift her legs off the bed. Sensation seems to be intact to light touch, though she does not grimace with nail bed pressure in either of her upper extremities. There are no adventitious movements noted. DATA: Multiple CSF studies are pending. EEG was reviewed and shows increasingly rhythmic activity primarily in the right and left parieto-occipital regions. CT of the chest, abdomen, and pelvis was obtained and there was no significant pathology noted and in particular, no signs of a neoplasm. There are some small low density lesions in the liver, which likely represent small cysts, but were too small to accurately characterize. She also has small pleural effusions noted bilaterally. IMPRESSION: A 81-year-old woman with little significant past medical history, admitted with progressive confusion, found to have abnormal EEG with rhythmic patterns and epileptiform potentials, which have changed in spatial location over the course of her hospitalization. Her MRI scan was not normal, but did not show any obvious acute changes such as stroke, tumor or signs of infection to explain her presentation. Her spinal fluid preliminarily has appeared benign , but multiple studies are pending. CJD is a possibility as well, though her presentation is very rapid. Today, I would like to add CRP, ESR, connective tissue panel and rheumatoid factor. In addition, I will add 10 mg/kg approximate load of fosphenytoin today and we will see how she responds to this. She has responded to benzodiazepines in the past, but she gets significantly sedated, so I want to try to avoid that if possible. If she does not have a clinical response to this, then I would give consideration to trying high dose steroids in her. I may also contact [facility] to discuss her case, given her negative work up here thus far. [id number]/[facility] #: [id number] [facility]
[2017-03-29] MEDS: Polyethylene Glycol 3350* 17 GM PACKET PO SCH (09:29)
[2017-03-29] MEDS: amLODIPine TAB* 5 MG PO SCH (09:29)
[2017-03-29 10:34] LABS: Albumin 3850 mg/dL; CSF Albumin 20.3 mg/dL (<=27.0); CSF IgG/Albumin Ratio 0.04 (<=0.21); CSF Immunoglobulin G Index 0.57 (<=0.85); CSF Immunoglobulin G Synthesis 0.34 mg/24 h (<=12); Immunoglobulin G 276 mg/dL (767 - 1590); Serum IgG/Albumin Ratio 0.07 (<=0.40)
[2017-03-29 13:09] LABS: CSF Oligoclonal Bands 2 bands; Oligoclonal Proteins Interpret 0 bands (<4); Serum Oligoclonal Bands 2 bands
[2017-03-29 13:18] LABS: Rheumatoid Factor 29 IU/mL (<15)
[2017-03-29] MEDS: Heparin VIAL(*) 5000 UNITS/ML VIAL (FIVE THOUSAND) SUBCUT SCH ×2 (15:03→21:34)
--- NOTE | 2017-03-29 15:24 | PN ---
Subjective Date of Service: 03/29/17 Interval History: HOSPITALIST PROGRESS NOTE Patient seen and examined at bedside. She is more awake today, but not as much as 2 days ago. Confused, does not remember her son's visit last night. Family History: Unchanged from Admission Social History: Unchanged from Admission Past Medical History: Unchanged from Admission Objective Active Medications: Acetaminophen (Tylenol Tab*) 650 mg PO Q4H PRN PRN Reason: PAIN Last Admin: 03/28/17 06:56 Dose: 650 mg Amlodipine Besylate (Norvasc Tab*) 5 mg PO DAILY ASHLEY Last Admin: 03/29/17 09:29 Dose: 5 mg Docusate Sodium (Colace Cap*) 100 mg PO DAILY PRN PRN Reason: CONSTIPATION Famotidine (Pepcid Tab*) 20 mg PO BID PRN; Protocol PRN Reason: INDIGESTION Heparin Sodium (Porcine) (Heparin Flush Picc/Ml/Cvc(*)) 1 - 3 ml FLUSH 0600, 1800 ASHLEY PRN Reason: Protocol Last Admin: 03/29/17 09:29 Dose: 2 ml Heparin Sodium (Porcine) (Heparin Vial(*)) 5,000 units SUBCUT Q8HR [facility] Last Admin: 03/29/17 15:03 Dose: 5,000 units Potassium Chloride/Sodium Chloride (Ns 0.9% W/ 20 Meq Kcl 1000 Ml*) 1,000 mls @ 75 mls/hr IV PER RATE [facility] Last Admin: 03/29/17 03:20 Dose: 75 mls/hr Levetiracetam 1,500 mg/ Sodium (Chloride) 115 mls @ 430 mls/hr IVPB Q12H [facility] Last Admin: 03/29/17 09:18 Dose: 430 mls/hr Polyethylene Glycol/Electrolytes (Miralax*) 17 gm PO DAILY [facility] Last Admin: 03/29/17 09:29 Dose: 17 gm Senna (Senokot Tab*) 2 tab PO DAILY PRN PRN Reason: CONSTIPATION Vital Signs 03/29/17 03/29/17 03/29/17 11:00 11:37 12:00 Temperature 98.8 F Pulse Rate 107 95 Respiratory 23 17 Rate Blood Pressure 103/60 87/48 (mmHg) O2 Sat by Pulse 95 95 Oximetry Oxygen Devices in Use Now: None Appearance: Elderly lady sitting up in bed being fed by her son. Eyes: No Scleral Icterus Ears/Nose/Mouth/Throat: Mucous Membranes Moist Neck: Trachea Midline Respiratory: Symmetrical Chest Expansion and Respiratory Effort, Clear to Auscultation Cardiovascular: RRR - Normal S1 and S2 Abdominal: NL Sounds; No Tenderness; No Distention Neurological: - - AAOx2 (self and place), HERRERA Lines/Tubes/Other Access: Clean, Dry and Intact Peripheral IV Nutrition: Taking PO's Result Diagrams: 03/26/17 04:50 03/27/17 06:04 Assess/Plan/Problems-Billing Ms Hernandez is a 81 yo who presented to the ER the day after being discharged following treatment for confusion felt to be secondary to hyponatremia, with c/ o worsened confusion, found to have seizures. - Patient Problems (1) Non-convulsive status epilepticus Comment: - The patient's EEG was markedly abnormal with very frequent periodic lateralized discharges, concerning for subclinical seizures/status. - CSF was negative so far, but paraneoplastic panel is pending. - Check vasculitis panel. - CT chest/abd/pelvis was negative. - Continue Keppra, phosphenytoin. Dr. Wen will discuss case with Neurologist at [place], but next step may be high dose steroids. (2) HTN (hypertension) Comment: - Continue amlodipine and monitor. (3) GERD (gastroesophageal reflux disease) Comment: - Continue famotidine. (4) DVT prophylaxis Comment: - SQ heparin. (5) Full code status Status and Disposition: Inpatient. 40 minutes patient care, > half face to face with patient and coordination of care. Son updated at bedside.
--- NOTE | 2017-03-29 16:23 | EEG ---
[facility] VIDEO/EEG MONITORING - Monitoring Monitoring Start Date: 03/26/17 Current Monitoring Session: 03/28/17 at 07:56 to 03/29/17 at 08:29 EEG Clinical Indication: Celeste Hernandez is a 81 year old woman with little significant past medical history who was admitted on 03/24 with about 9 days of progressive confusion. She was initially thought to have a UTI and was partially treated for that as an outpatient, but when her confusion worsened, she was seen in the ER on 03/21, found to be hyponatremic, treated and then discharged on 03/23. When her confusion worsened further, and included repetitive speech, she was readmitted to the hospital and routine EEG demonstrated periodic discharges were primarily of right hemispheric predominance. She was monitored on continuous EEG and improved, so was disconnected. However, she again worsened on 03/26, with repetitive speech where she talks about doing a demonstration, so repeat EEG and continuous monitoring was requested. Introduction: INTRODUCTION: The EEG was monitored from 21 scalp electrodes. Nineteen electrodes consisted of the standard parasagittal, temporal and midline leads of the International 10 -20 system. In addition, special electrodes FT9 and FT10 were placed. EEG data were recorded on an [employer] system with simultaneous MPEG-4 digital video recording of patient behavior. EEG recording was in a monopolar montage with all electrodes referenced to FCz. Significant behavioral events were signaled by an event button, or putative electrical seizure events were detected by a computer program. All EEG data were reviewed in their entirety on a monitor with reconstruction of montages and adjustments of sensitivity and filtering. Simultaneous patient behavior was viewed on an adjacent monitor and correlated with the EEG. - Medications Active Medications: Acetaminophen (Tylenol Tab*) 650 mg PO Q4H PRN PRN Reason: PAIN Last Admin: 03/28/17 06:56 Dose: 650 mg Amlodipine Besylate (Norvasc Tab*) 5 mg PO DAILY ASHLEY Last Admin: 03/29/17 09:29 Dose: 5 mg Docusate Sodium (Colace Cap*) 100 mg PO DAILY PRN PRN Reason: CONSTIPATION Famotidine (Pepcid Tab*) 20 mg PO BID PRN; Protocol PRN Reason: INDIGESTION Heparin Sodium (Porcine) (Heparin Flush Picc/Ml/Cvc(*)) 1 - 3 ml FLUSH 0600, 1800 ASHLEY PRN Reason: Protocol Last Admin: 03/29/17 09:29 Dose: 2 ml Heparin Sodium (Porcine) (Heparin Vial(*)) 5,000 units SUBCUT Q8HR [facility] Last Admin: 03/29/17 15:03 Dose: 5,000 units Potassium Chloride/Sodium Chloride (Ns 0.9% W/ 20 Meq Kcl 1000 Ml*) 1,000 mls @ 75 mls/hr IV PER RATE [facility] Last Admin: 03/29/17 03:20 Dose: 75 mls/hr Levetiracetam 1,500 mg/ Sodium (Chloride) 115 mls @ 430 mls/hr IVPB Q12H [facility] Last Admin: 03/29/17 09:18 Dose: 430 mls/hr Methylprednisolone Sodium Succinate 500 mg/ Sodium Chloride 100 mls @ 200 mls/ hr IVPB Q12H [facility] Polyethylene Glycol/Electrolytes (Miralax*) 17 gm PO DAILY [facility] Last Admin: 03/29/17 09:29 Dose: 17 gm Senna (Senokot Tab*) 2 tab PO DAILY PRN PRN Reason: CONSTIPATION fosphenytoin 10mg/kg IV given at 16:31 - Description Background: At the onset of the recording, the patient was asleep. The sleep background was appropriately organized with well-developed spindles and vertex waves indicative of stage 2 sleep, but there was excessive intermixed delta range frequencies. These sleep transients showed appropriate morphology and were bilaterally synchronous and symmetrical. Development of diffuse delta range frequencies with dropout of stage 2 architecture accompanied transition to slow wave sleep. No periods of REM were observed. With arousals, the waking background showed some discernible organization with identifiable but reduced anterior-posterior voltage and frequency gradients. There was a slow and irregular posterior rhythm of 6 Hertz, which was symmetrical. Frequently, however, there was rhythmic 4 to 5 Hz slowing in the parieto-occipital regions bilaterally which would wax and wane. There was excess beta activity that was frontocentrally predominant. The patient was treated with fosphenytoin around 1630 due to these waxing and waning patterns and continued encephalopathy. Overall, the background improved with fewer instances of rhythmic slowing in the posterior head regions, improved gradients and a posterior rhythm of 6 to 7 Hz. Intericatal Epileptiform Activity: There were occasional spike and slow wave discharges noted at CZ and C3. These were present in waking and sleep. Ictal Activity: No definitive ictal patterns, but periods of delta/theta slowing that were rhythmic in the posterior head regions were concerning for ictal patterns and improved with administration of fosphenytoin. - Impression Impression: This is an abnormal long-term monitoring session. At the beginning of the recording, there were frequent periods of rhythmic 4 to 5 Hz slowing in the posterior regions which improved once fosphenytoin was given. Otherwise the background continued to demonstrate slowing of a moderate degree. There are also continued epileptiform discharges emanating from the midline/left paracentral region. These findings are suggestive of waxing and waning non- convulsive status which was treated with fosphenytoin and continuing moderate encephalopathy with superimposed increased epileptic potential in the midline and left paracentral regions.
[2017-03-29] MEDS ORDERED: methylPREDNISolone SOD SUCC* 1000 MG ML VIAL IVPB SCH (17:00)
[2017-03-30] MEDS: NS 0.9% w/ 20 Meq KCL 1000 ML* 1,000 ML IV SCH (05:20)
[2017-03-30] MEDS: Heparin VIAL(*) 5000 UNITS/ML VIAL (FIVE THOUSAND) SUBCUT SCH ×3 (05:23→21:54)
[2017-03-30 05:45] LABS: Hematocrit 39 % (35-47); Hemoglobin 13.1 g/dl (12.0-16.0); Mean Corpuscular HGB Conc 34 g/dl (31-36); Mean Corpuscular Hemoglobin 31 pg (27-31); Mean Corpuscular Volume 91 fL (80-97); Mean Platelet Volume 9 um3 (7.4-10.4); Red Blood Count 4.25 10^6/ul (4.0-5.4); Red Cell Distribution Width 13 % (10.5-15); White Blood Count 4.6 10^3/ul (3.5-10.8)
[2017-03-30 05:56] LABS: BUN/Creatinine Ratio 20.7 (8-20); C Reactive Protein 16.86 mg/L (< 5.00); EGFR Non-African American 100.3 (>60); Potassium 4.7 mmol/L (3.5-5.0)
[2017-03-30] MEDS: amLODIPine TAB* 5 MG PO SCH (08:19)
[2017-03-30] MEDS: Polyethylene Glycol 3350* 17 GM PACKET PO SCH (08:19)
[2017-03-30] MEDS ORDERED: NS 0.9% w/ 20 Meq KCL 1000 ML* 1,000 ML IV SCH (08:56)
[2017-03-30] MEDS ORDERED: Polyethylene Glycol 3350* 17 GM PACKET PO PRN (08:56)
--- NOTE | 2017-03-30 09:36 | PN ---
FOLLOWUP NOTE: DATE OF FOLLOWUP: 03/29/17 OVERNIGHT EVENTS: No acute overnight events, but the patient continues to be lethargic and confused. She continues to eat but requires someone to feed her and repeated stimulation to maintain wakefulness. She continues on continuous EEG as well. MEDICATIONS: Reviewed and include: 1. Norvasc 5 mg daily. 2. Pepcid. 3. Levetiracetam 1500 mg twice daily. 4. Senna. She received fosphenytoin 10 mg/kg around 4:30 p.m. yesterday. PHYSICAL EXAM: Temperature 98.7, blood pressure 118/66, heart rate 91, oxygen saturation 96% on room air. On general exam, she is lying in her hospital bed with her mouth partially opened, asleep. She wakes pretty easily to her name being called. She requires repeated verbal stimulation to maintain wakefulness and has delayed responses to questions and commands. She is aware that she is in the hospital. She stated the year was 1954. She accurately stated her date and indicates that she will be turning 82 on her next birthday. She was able to name a pen. Her speech is not dysarthric. She seems to have diffuse pain in both her joints and her muscles when her limbs are passively moved but she does not exhibit pain when she actively moves her limbs. On cranial nerve testing, her versions are full without sustained nystagmus. Visual vera are full. Face is symmetric with equal activation on smile. She is hard of hearing. She is able to elevate both arms off the bed but possibly a little less brisk in the left upper extremity. She was able to wiggle her toes today but did not lift her legs antigravity off the bed. Sensation is intact to noxious stimulation in all 4 extremities. There are no adventitious movements. DIAGNOSTIC STUDIES/LAB DATA: Spinal fluid studies that have returned include a normal IgG index. Oligoclonal bands are negative. CSF, VDRL, HSV-1 and 2 PCR are negative. Her serum IgG is low at 276 with a lower limit of normal being 767. Rheumatoid factor is elevated at 29 with the upper limit of normal being 15. Her connective tissue panel is pending and paraneoplastic panel is pending. Her EEG continues to demonstrate encephalopathic pattern with slowing that is primarily in the bioccipital regions and there are spike and sharp wave discharges in the central and paracentral regions bilaterally. She also has excess beta activity. IMPRESSION: Celeste Hernandez is a 81-year-old woman with little significant past medical history, who has been admitted with subacute confusion of approximately 2 weeks' duration at least. Her workup has been notable for a transient hyponatremia during her previous admission, a low serum IgG, slightly elevated rheumatoid factor, and abnormal brain MRI, which in her age group is most consistent with small vessel ischemic disease, but her history without significant hypertension is not entirely consistent with this. She has multiple studies which are still pending, but overall her CT chest, abdomen, and pelvis have been unremarkable to evaluate for occult malignancy, which could be giving rise to paraneoplastic syndrome. I discussed her case with Dr. Florian Cabrera from the [facility] today and some other less likely possibilities, which we will test for include celiac disease, which can sometimes have neurologic manifestations. Given the abnormal IgG, I would obtain a serum protein electrophoresis as well as quantitate the immunoglobulins. On the possibility that her MRI findings could be related to a metabolic rather than ischemic process, I will ask for carnitine level as well as coenzyme Q10 level. It remains a distinct possibility that this could be an autoimmune encephalitis and as some of the studies are pending in the paraneoplastic panel, I will start to treat her with 3 days of pulsed-dose steroids, Solu-Medrol 500 mg IV twice daily. Much less likely given that there was no diffusion restriction on her MRI scan would be small embolic phenomenon giving rise to seizure foci and consideration could be given to an echocardiogram but I will hold off on that just yet. Depending on how some of these studies come back, we may need the help of Hematology and/or Rheumatology in this challenging case. I will continue her levetiracetam 1500 mg twice daily at this point. [id number]/[facility] #: [id number] [facility]
--- NOTE | 2017-03-30 14:11 | EEG ---
[facility] VIDEO/EEG MONITORING - Monitoring Monitoring Start Date: 03/26/17 Current Monitoring Session: 03/29/17 at 08:30 to 03/30/17 at 10:01 EEG Clinical Indication: Celeste Hernandez is a 81 year old woman who presented for readmission to the hospital with 9 days of confusion. As an outpatient, she was initially treated for a urinary tract infection but did not take the antibiotics appropriately and was admitted from 03/21 to 03/23 when she was found to have hyponatremia due to dehydration. Her mental status improved somewhat and she was discharged, but returned on 03/24 with worsened confusion, forgetfulness and odd speech patterns. A routine EEG done demonstrated right frontal periodic discharges, which were responsive to a single dose of lorazepam 1mg IV. She temporarily improved, then worsened again with return of repetitive speech and intermittently appearing suddenly asleep. Long-term EEG monitoring was requested in order to evaluate for return of these periodic discharges and subclinical seizures. Introduction: INTRODUCTION: The EEG was monitored from 21 scalp electrodes. Nineteen electrodes consisted of the standard parasagittal, temporal and midline leads of the International 10 -20 system. In addition, special electrodes FT9 and FT10 were placed. EEG data were recorded on an [employer] system with simultaneous MPEG-4 digital video recording of patient behavior. EEG recording was in a monopolar montage with all electrodes referenced to FCz. Significant behavioral events were signaled by an event button, or putative electrical seizure events were detected by a computer program. All EEG data were reviewed in their entirety on a monitor with reconstruction of montages and adjustments of sensitivity and filtering. Simultaneous patient behavior was viewed on an adjacent monitor and correlated with the EEG. - Medications Active Medications: Acetaminophen (Tylenol Tab*) 650 mg PO Q4H PRN PRN Reason: PAIN Last Admin: 03/28/17 06:56 Dose: 650 mg Amlodipine Besylate (Norvasc Tab*) 5 mg PO DAILY ASHLEY Last Admin: 03/30/17 08:19 Dose: 5 mg Docusate Sodium (Colace Cap*) 100 mg PO DAILY PRN PRN Reason: CONSTIPATION Famotidine (Pepcid Tab*) 20 mg PO BID PRN; Protocol PRN Reason: INDIGESTION Heparin Sodium (Porcine) (Heparin Flush Picc/Ml/Cvc(*)) 1 - 3 ml FLUSH 0600, 1800 ASHLEY PRN Reason: Protocol Last Admin: 03/30/17 05:20 Dose: Not Given Heparin Sodium (Porcine) (Heparin Vial(*)) 5,000 units SUBCUT Q8HR [facility] Last Admin: 03/30/17 05:23 Dose: 5,000 units Levetiracetam 1,500 mg/ Sodium (Chloride) 115 mls @ 430 mls/hr IVPB Q12H [facility] Last Admin: 03/30/17 09:15 Dose: 430 mls/hr Methylprednisolone Sodium Succinate 500 mg/ Sodium Chloride 100 mls @ 200 mls/ hr IVPB Q12H [facility] Last Admin: 03/30/17 05:13 Dose: 200 mls/hr - STARTED 03/29 PM Polyethylene Glycol/Electrolytes (Miralax*) 17 gm PO DAILY PRN PRN Reason: CONSTIPATION Senna (Senokot Tab*) 2 tab PO DAILY PRN PRN Reason: CONSTIPATION - Description Background: The waking background intermittently showed discernible organization with identifiable anterior-posterior voltage and frequency gradients. During these times, there was a slow and irregular posterior dominant rhythm of 7 Hertz maximally, which was symmetrical. Anteriorly, there was the expected pattern of lower voltage and more irregular theta and beta rhythms. At other times, the background showed loss of the expected organization without anterior to posterior voltage and frequency gradients. The background became dominated by slowing which was of higher amplitude than the typical background and greatest in the bilateral occipital regions. Often, this slowing was rhythmic between 2 and 4 Hz with sharp contours. Still, there was superimposed faster frequency activity primarily centrally. At times, during these periods of increased slowing, there was preferential slowing noted over the left hemisphere and in particular the temporal region. This pattern would last for an hour or so at a time, and then the background would spontaneously revert to the above described pattern. Despite this, the sleep background remained appropriately organized with well- developed spindles and vertex waves indicative of stage 2 sleep. These sleep transients showed appropriate morphology and were bilaterally synchronous and symmetrical. Development of diffuse delta range frequencies with dropout of stage 2 architecture accompanied transition to slow wave sleep. No definite periods of REM were noted. Intericatal Epileptiform Activity: There were spike and slow wave discharges noted intermittently at CZ and PZ that were of moderate voltage. These were no longer seen as the recording progressed. Ictal Activity: No definite ictal patterns, but periods of rhythmic slowing as described above. - Impression Impression: This is an abnormal long-term monitoring session. There are periods of waking background with appropriate organization and an identifiable, but slow posterior dominant rhythm, but these periods alternate with periods of rhythmic slowing and loss of voltage and frequency gradients, with the greatest degree of slowing in the bilateral occipital regions. At the beginning of the recording , there were also discharges noted in the midline/posterior region, which were not readily seen as the recording progressed. These findings are suggestive of a moderate degree of encephalopathy that is non -specific in nature and may be affecting the posterior head regions to a greater degree. There were no definitive ictal patterns, but the periods of rhythmic slowing raise concern for increased epileptic potential. In addition, the presence of interictal epileptiform discharges in the midline/posterior head regions signify increased epileptic potential in these regions.
--- NOTE | 2017-03-30 15:07 | PN ---
Subjective Date of Service: 03/30/17 Interval History: HOSPITALIST PROGRESS NOTE Patient seen and examined at bedside. She is still lethargic, but a bit more responsive. Ate all her breakfast fed by her son. She offers no complaints, but as per RN c/o significant joint pain when moved in bed. Family History: Unchanged from Admission Social History: Unchanged from Admission Past Medical History: Unchanged from Admission Objective Active Medications: Acetaminophen (Tylenol Tab*) 650 mg PO Q4H PRN PRN Reason: PAIN Last Admin: 03/28/17 06:56 Dose: 650 mg Amlodipine Besylate (Norvasc Tab*) 5 mg PO DAILY ASHLEY Last Admin: 03/30/17 08:19 Dose: 5 mg Docusate Sodium (Colace Cap*) 100 mg PO DAILY PRN PRN Reason: CONSTIPATION Famotidine (Pepcid Tab*) 20 mg PO BID PRN; Protocol PRN Reason: INDIGESTION Heparin Sodium (Porcine) (Heparin Flush Picc/Ml/Cvc(*)) 1 - 3 ml FLUSH 0600, 1800 ASHLEY PRN Reason: Protocol Last Admin: 03/30/17 05:20 Dose: Not Given Heparin Sodium (Porcine) (Heparin Vial(*)) 5,000 units SUBCUT Q8HR [facility] Last Admin: 03/30/17 05:23 Dose: 5,000 units Levetiracetam 1,500 mg/ Sodium (Chloride) 115 mls @ 430 mls/hr IVPB Q12H [facility] Last Admin: 03/30/17 09:15 Dose: 430 mls/hr Methylprednisolone Sodium Succinate 500 mg/ Sodium Chloride 100 mls @ 200 mls/ hr IVPB Q12H [facility] Last Admin: 03/30/17 05:13 Dose: 200 mls/hr Polyethylene Glycol/Electrolytes (Miralax*) 17 gm PO DAILY PRN PRN Reason: CONSTIPATION Senna (Senokot Tab*) 2 tab PO DAILY PRN PRN Reason: CONSTIPATION Vital Signs 03/30/17 03/30/17 03/30/17 12:00 13:00 14:00 Temperature 99.4 F 99.7 F Pulse Rate 100 107 Respiratory 19 22 Rate Blood Pressure 140/64 135/71 138/76 (mmHg) O2 Sat by Pulse 94 93 Oximetry Oxygen Devices in Use Now: None Appearance: Elderly lady sitting up in bed in NAD. Eyes: No Scleral Icterus Ears/Nose/Mouth/Throat: Mucous Membranes Moist Neck: Trachea Midline Respiratory: Symmetrical Chest Expansion and Respiratory Effort, Clear to Auscultation Cardiovascular: NL Sounds; No Murmurs; No JVD, RRR Abdominal: NL Sounds; No Tenderness; No Distention Neurological: - - Lethargic, opens eyes when called, follows commands. Lines/Tubes/Other Access: Clean, Dry and Intact Peripheral IV Nutrition: Taking PO's Result Diagrams: 03/30/17 05:24 03/30/17 05:24 Assess/Plan/Problems-Billing Ms Hernandez is a 81 yo who presented to the ER the day after being discharged following treatment for confusion felt to be secondary to hyponatremia, with c/ o worsened confusion, found to have seizures. - Patient Problems (1) Non-convulsive status epilepticus Comment: - The patient's EEG was markedly abnormal with very frequent periodic lateralized discharges, concerning for subclinical seizures/status. - CSF was negative so far, but paraneoplastic panel is pending. - Check vasculitis panel. - CT chest/abd/pelvis was negative. - Continue Keppra and steroids. (2) Arthralgia Comment: - C/o arthralgias when moved. - CRP and ESR are not extremely elevated, but RF is positive. - Will request Rheumatology consult. (3) HTN (hypertension) Comment: - Continue amlodipine and monitor. (4) GERD (gastroesophageal reflux disease) Comment: - Continue famotidine. (5) DVT prophylaxis Comment: - SQ heparin. (6) Full code status Status and Disposition: Inpatient. Son updated at bedside.
--- NOTE | 2017-03-30 18:02 | CONSULT ---
Consult Consult: Ms. Hernandez is a 81 year old woman admitted with altered mental status, history of recent UTI, tick bite and hyponatremia. Workup revealed elevated RF and low IGG level. Low IGG level does put her at risk for developement of an immunodeficiency. The elevated RF could represent an early inflammatory arthritis, although inflammatory markers are not significantly elevated; given her acute deterioration, also consider an infectious (viral?) etiology. Will check cryos and serologiies below. Consider ID consultation. Agree with trial of steroids. Will follow
--- NOTE | 2017-03-30 22:14 | CONS ---
CONSULTATION REPORT: DATE OF CONSULT: 03/30/17 REASON FOR CONSULT: Evaluate for autoimmune encephalitis, also elevated rheumatoid factor. CONSULTING PHYSICIAN: Dr. Fair. HISTORY OF PRESENT ILLNESS: Ms. Hernandez is a 81-year-old woman, who was initially admitted for incre asing mental status deterioration and confusion over the past 3 days prior to admission. She had be en recently admitted and treated for tick bite and a urinary tract infection and has been discharged , but came back because of the confusion. She lives alone, but she has had complications of progres sive confusion during her hospital stay. She has had an extensive workup and serologically, she was found to have a low IgG level and elevated rheumatoid factor raising the concern for possible autoi mmune trigger of her symptoms. She did have a CT scan of the chest, abdomen, and pelvis which revea led a small, low-density lesion in the liver likely representing a small cyst with no pulmonary lesi ons. An electroencephalogram on the showed development of diffuse delta range frequencies with drop out of stage 2 architecture accompanied by transition to slow wave sleep with no epileptiform activity noted. Neurology has been consulted and she was started on Solu-Medrol for possible underl inés inflammatory process. Her prior recent complications include hyponatremia as well. She had be en prescribed Macrobid for the urinary tract infection, but may have been taking it somewhat inconsi stently. She denied any dysuria or urinary frequency, but she does have a history of constipation. She also had some vomiting several times. Furthermore, she did have a tick bite in the posterior a spect of one of her knees which was removed in the emergency department. It is unclear how long thi s was present. Testing for Lyme disease was negative. She was found to be hyponatremic in the [facility] down to 122 and she was treated with IV fluids. This was thought to be due to dehydrati on and she responded well to this; however, her mental status is not consistently improved. It is n oted by her family that she would not be able to finish a thought and she has still been unable to a nswer simple questions. PAST MEDICAL HISTORY: Includes: 1. Gastroesophageal reflux disease. 2. Hemorrhoids. 3. Vertigo. 4. History of hyponatremia. 5. History of recent urinary tract infection possibly. 6. Altered mental status. PAST SURGICAL HISTORY: Includes cholecystectomy in 2003. HOME MEDICATIONS: Include: 1. Norvasc, which was prescribed recently. 2. Zantac. 3. Probiotics. 4. Tawnya-Colace. 5. Calcium with vitamin D. 6. She is currently prescribed Solu-Medrol. ALLERGIES: No known drug allergies. FAMILY HISTORY: Her father lived into his 90s. Further family history could not be obtained. SOCIAL HISTORY: She lives alone. She drives and is typically very acutely alert of her situation, but now, she has been confused. She does not drink any alcohol or use any other drugs or smoke [employer] interactive account [employer]. REVIEW OF SYSTEMS: Generally, she denies fever. Neurologic: She does have confusion as noted lala burrell. Cardiac: She does complain of constant chest discomfort and shortness of breath on questioning her, but she is unable to localize where. Abdomen: Denies abdominal pain. Musculoskeletal: Has co mplaints of diffuse arthralgias. The rest of the review of systems was difficult to obtain because the patient remained confused. PHYSICAL EXAM: T-max is 99.7, pulse rate 100, respiratory rate of 19, blood pressure 138/76, O2 sat s 93%. In general, she was able to answer simple questions, lying supine in bed. Appeared to be so mewhat uncomfortable. Eyes: No scleral icterus. Mucous membranes are moist on ENT exam. Neck: T rachea was midline. Lungs were clear to auscultation bilaterally and symmetric. Cardiovascular exam revealed a normal S1 and S2. No murmurs, rubs, or gallops. No JVD elevation. Regular rate and rhy thm. Abdomen: Soft, nontender, nondistended. Positive bowel sounds with no organomegaly. Neurolo gic: She was able to follow simple commands. She was able to move her extremities on command. She was able to answer very simple questions with a yes or no, but was unable to expound on any answers or detail where she was having pain or discomfort, but she did complain of diffuse pain all over. S he was unable to be more descriptive besides that. Deep tendon reflexes were intact. Endocrine: N o thyromegaly. No gland swelling. Lymph: No adenopathy. No CVA tenderness. Extremities: She lang d minimal edema in the lower extremities. Musculoskeletal: There is no synovitis or warmth of her joints. She had fairly preserved range of motion of the joints. DIAGNOSTIC STUDIES/LAB DATA: She had a white count of 4.6, hemoglobin of 13.1, BUN 12, creatinine 0 .58. Her YANG was negative. CCP antibody was negative. Sed rate was 29. Platelet count did dip to 134,000, but now is 151,000. IgG was 276. Rheumatoid factor was 29 and the YANG was not positive en ough to indicate test for double-stranded DNA or MIKKI. ASSESSMENT AND PLAN: She is a 81-year-old woman with history of acute mental status and encephalopa thic type of picture in the setting of an elevated rheumatoid factor and low IgG level, significant confusion with seizure-like activity. 1. At this point in time, in terms of her elevated rheumatoid factor and arthralgias, her CCP antib gisselle was negative and her sed rate was normal. She does not seem to have bebeto synovitis. The rheum atoid factor could be seen in early rheumatoid arthritis, although she does not seem to have any halima nt warmth or swelling. Given her acute status, I would propose that she might have an underlying al ternative etiology for her rheumatoid factor or it may not be significant; however, the rheumatoid f actor may be seen in certain viral conditions, also acute infections, although her sedimentation rat e is not very high. Also consider some kind of hepatic disorder. To this end, I would request an a cute hepatitis panel, cryoglobulins, and I would agree with checking an ANCA to screen for vasculiti s. Consider other tick-borne illnesses such as ehrlichiosis or babesiosis. Consider an Infectious Disease consult. 2. Arthralgias: CRP was not very high. She is on a trial of Solu-Medrol in case this may be an un derlying inflammatory process which I agree with. 3. History of hyponatremia: Would consider extensive thyroid testing when she is improved and out of the ICU setting. In terms of her corticosteroid use, I will defer to Neurology, but if she does improve, consider switching this to 1 mg/kg per day over the next 1 to 2 days and then tapering grad ually. We will continue to follow. [id number]/[facility] #: [id number]
--- NOTE | 2017-03-31 01:48 | PN ---
NEUROLOGY PROGRESS NOTE: DATE OF FOLLOWUP: 03/30/17 OVERNIGHT EVENTS: No acute overnight events. The patient was visited this morning around 9 a.m. when her son was at the bedside and then again this afternoon around 2:30 p.m. This morning when her son was present, she was much more interactive. She would respond to questions verbally, though she kept her eyes closed when speaking. She was listing off various things that she wanted him to slat pickler from a yard sale. This afternoon; however, she is lying still in her hospital bed with her eyes closed and with any attempt to communicate with her, she brings her finger up to her mouth in a shushing motion. When asked if she has any pain, she shakes her head yes and asks for me to be quiet. She indicates when asked that the pain is in her head. She also tapped the left side of her cheek and then motioned to the ceiling, but would not speak so it was not clear what she was trying to communicate. Her nurse indicates that she wonders if gabapentin could be used for pain as she often yelled out in pain when she is moved and even when the sheets touch her skin. MEDICATIONS: Reviewed and include: 1. Tylenol 650 mg q.4 hours p.r.n. 2. Norvasc 5 mg daily. 3. Pepcid 20 mg twice daily as needed. 4. Levetiracetam 1500 mg twice daily. 5. Methylprednisolone 500 mg twice daily, which was started yesterday around 5 p.m. and is intended to continue for 6 doses. PHYSICAL EXAM: Temperature is 99.7, blood pressure 138/76, heart rate 108, oxygen saturation 93% on room air. Her respiratory rate is in the low 20s. As described above, this morning she was found with her eyes closed but was interactive with her son and speaking fluently and responding to questions. She would open her eyes briefly but preferred to have them closed. This afternoon on reevaluation, she is essentially motionless in bed bringing her finger up to her mouth asking for it to be quiet when she is spoken to. She does not verbally respond to questions. She did not follow commands. Her left hand was noted to have an irregular tremor when brought to her mouth and over to the left side of her cheek. LABORATORY DATA: This morning shows a beginning of a left shift in her CBC, which is expected in the setting of steroids. Her CRP is slightly lower at 16.86. B12 is 528. Glucose this morning is elevated at 151, again expected in the setting of steroids. A paraneoplastic panel in the CSF as well as Lyme in the CSF is still pending. Her YANG was negative and CCP is also negative. Studies added yesterday are pending. Her EEG monitoring overnight showed times where her background had decent organization with a slow but identifiable posterior dominant rhythm. At the beginning of the recording, there were some spike and slow wave discharges noted in the central/posterior head regions but these were not seen as the recording progressed. However, there were other periods where the background became less organized in terms of loss of voltage and frequency gradients and there was rhythmic slowing in the 2 to 4 Hz range, which was of highest amplitude in the posterior head regions. This could last an hour or so at a time and then would spontaneously remit. IMPRESSION: A 81-year-old woman with encephalopathy of unclear etiology. 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 There are serum studies as well as CSF studies, which are still pending as well including a paraneoplastic panel, viral encephalitis panel, quantitative immunoglobulins, serum protein electrophoresis, as well as coenzyme Q10, celiac panel and a carnitine level. She also seems to have diffuse pain and a mildly elevated rheumatoid factor as well as low serum immunoglobulins and so I discussed with Dr. Fair this morning and I believe that we will ask Dr. Todd to evaluate the patient. Long- term continuous EEG has been discontinued at this time as we can likely follow the patient clinically at this point and if needed, could obtain intermittent EEGs. Her levetiracetam will be continued at this time. I would like to hold off if possible on starting gabapentin as I worry that it could further cloud evaluation of her mental status. [id number]/[facility] #: [id number] WENDIE
[2017-03-31] MEDS: Heparin VIAL(*) 5000 UNITS/ML VIAL (FIVE THOUSAND) SUBCUT SCH ×2 (05:27→13:51)
[2017-03-31] MEDS: amLODIPine TAB* 5 MG PO SCH (08:24)
[2017-03-31] MEDS: Acetaminophen TAB* 325 MG PO PRN (08:24)
[2017-03-31] MEDS: Morphine INJ* 2 MG/ML 1 ML SYRINGE IV PRN ×2 (10:23→15:16)
[2017-03-31 10:24] LABS: Hematocrit 37 % (35-47); Hemoglobin 12.9 g/dl (12.0-16.0); Mean Corpuscular HGB Conc 35 g/dl (31-36); Mean Corpuscular Hemoglobin 31 pg (27-31); Mean Corpuscular Volume 90 fL (80-97); Mean Platelet Volume 8 um3 (7.4-10.4); Red Blood Count 4.12 10^6/ul (4.0-5.4); Red Cell Distribution Width 13 % (10.5-15); White Blood Count 7.7 10^3/ul (3.5-10.8)
[2017-03-31 10:40] LABS: Albumin 3.4 g/dL (3.2-5.2); Calcium 8.9 mg/dL (8.6-10.3); EGFR African American 113.1 (>60); EGFR Non-African American 87.9 (>60); Globulin 2.2 g/dL (2-4); Potassium 3.8 mmol/L (3.5-5.0); Total Bilirubin 0.3 mg/dL (0.2-1.0); Total Protein 5.6 g/dL (6.4-8.9)
[2017-03-31] MEDS ORDERED: Alteplase (CATHFLO)* 2 MG VIAL IV ONE (12:24)
[2017-03-31 13:41] LABS: Urine Bacteria 1+ (Absent); Urine Bilirubin Negative (Negative); Urine Glucose 3+(>=500 mg/dL) (Negative); Urine Nitrite Positive (Negative)
--- NOTE | 2017-03-31 13:55 | PN ---
Subjective - Subjective History: Rheumatology follow up note Date 03/31/2015 Chief complaint: elevated RF and altered mental status. Patient remained confused this morning. She had complained of diffuse arthralgias especially when turned. I spoke at length with her family members and corroborated her history with her family and with nursing. She has been sleeping recently and is coming gradually out of a sleep as she had received some pain medication earlier Active Problems: Active Problems Arthralgia (Acute) M25.50 - C/o arthralgias when moved. - CRP and ESR are not extremely elevated, but RF is positive. - Will request Rheumatology consult. DVT prophylaxis (Acute) [id number] - SQ heparin. Full code status (Acute) Z78.9 GERD (gastroesophageal reflux disease) (Acute) K21.9 - Continue famotidine. HTN (hypertension) (Acute) I10 - Continue amlodipine and monitor. 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 - CSF was negative so far, but paraneoplastic panel is pending. - Check vasculitis panel. - CT chest/abd/pelvis was negative. - Continue Keppra and steroids. Current Medications: Current Medications Acetaminophen (Tylenol Tab*) 650 mg PO Q4H PRN PRN Reason: PAIN Last Admin: 03/31/17 08:24 Dose: 650 mg Amlodipine Besylate (Norvasc Tab*) 5 mg PO DAILY ASHLEY Last Admin: 03/31/17 08:24 Dose: 5 mg Docusate Sodium (Colace Cap*) 100 mg PO DAILY PRN PRN Reason: CONSTIPATION Famotidine (Pepcid Tab*) 20 mg PO BID PRN; Protocol PRN Reason: INDIGESTION Heparin Sodium (Porcine) (Heparin Flush Picc/Ml/Cvc(*)) 1 - 3 ml FLUSH 0600, 1800 ASHLEY PRN Reason: Protocol Last Admin: 03/31/17 05:21 Dose: 1 ml Heparin Sodium (Porcine) (Heparin Vial(*)) 5,000 units SUBCUT Q8HR [facility] Last Admin: 03/31/17 05:27 Dose: 5,000 units Levetiracetam 1,500 mg/ Sodium (Chloride) 115 mls @ 430 mls/hr IVPB Q12H [facility] Last Admin: 03/31/17 09:49 Dose: 430 mls/hr Methylprednisolone Sodium Succinate 500 mg/ Sodium Chloride 100 mls @ 200 mls/ hr IVPB Q12H [facility] Last Admin: 03/31/17 05:15 Dose: 200 mls/hr Morphine Sulfate (Morphine Inj (Syringe)*) 1 mg IV Q4H PRN PRN Reason: PAIN Last Admin: 03/31/17 10:23 Dose: 1 mg Polyethylene Glycol/Electrolytes (Miralax*) 17 gm PO DAILY PRN PRN Reason: CONSTIPATION Senna (Senokot Tab*) 2 tab PO DAILY PRN PRN Reason: CONSTIPATION - Review of Systems Constitutional Symptoms: Yes: Fatigue, No: Weight Gain, Unexplained Falls Dermatology: Skin Lesions: No HEENT: No Sinus Problem Pulmonary: Positive: Normal Cardiology: Positive: Normal, Swelling of Ankles Gastroenterology: Positive: Normal Musculoskeletal: Positive: Joint Pain - She had joint pain earlier today but denied current joint pain, Joint Stiffness Neurology: Positive: Change in Memory Psychiatry: Positive: Unusual Fatigue Home Medications: Home Medications Medication Instructions Recorded Confirmed Type Calcium Carbonate-Cholecalcife 1 tab PO BID 03/21/17 03/24/17 History [Calcium 600+D3 600-400 mg-Unit] Lactobacillus [Probiotic] 1 cap PO DAILY 03/21/17 03/24/17 History Ranitidine HCl [Zantac] 150 mg PO BID PRN 03/21/17 03/24/17 History Sennosides-Docusate Sodium 2 tab PO DAILY PRN 03/21/17 03/24/17 History [Senna-S 8.6-50 mg] Polyethylene Glycol 3350* 17 gm PO DAILY #300 gm 03/23/17 03/24/17 Rx [Miralax*] amLODIPine TAB* [Norvasc 5 mg TAB*] 5 mg PO DAILY #30 tab 03/23/17 03/24/17 Rx Allergies: Allergies Allergy/AdvReac Type Severity Reaction Status Date / Time No Known Allergies Allergy Verified 03/21/17 08:12 Objective - Vital Signs Vital Signs: Vital Signs 03/30/17 03/30/17 03/30/17 14:00 15:00 16:00 Temperature 99.7 F 99.9 F 99.9 F Pulse Rate 107 118 121 Respiratory 22 23 21 Rate Blood Pressure 138/76 135/70 140/88 (mmHg) O2 Sat by Pulse 93 96 93 Oximetry 03/30/17 03/30/17 03/30/17 16:50 17:00 18:00 Temperature 99.7 F 99.4 F Pulse Rate 113 118 Respiratory 22 21 23 Rate Blood Pressure 128/64 136/75 (mmHg) O2 Sat by Pulse 93 94 Oximetry 03/30/17 03/30/17 03/30/17 19:00 20:00 21:00 Temperature 99.4 F 99.4 F 99.2 F Pulse Rate 116 108 86 Respiratory 30 21 27 Rate Blood Pressure 128/82 121/73 138/64 (mmHg) O2 Sat by Pulse 96 94 94 Oximetry 03/30/17 03/30/17 03/30/17 22:00 23:00 23:48 Temperature 98.7 F 98.3 F 98.2 F Pulse Rate 91 103 76 Respiratory 22 18 16 Rate Blood Pressure 144/81 140/90 (mmHg) O2 Sat by Pulse 96 94 92 Oximetry 03/31/17 03/31/17 03/31/17 00:00 00:01 01:00 Temperature 98.2 F 98.2 F 97.9 F Pulse Rate 75 75 89 Respiratory 15 15 19 Rate Blood Pressure 132/93 132/93 131/71 (mmHg) O2 Sat by Pulse 93 93 93 Oximetry 03/31/17 03/31/17 03/31/17 02:00 03:00 04:00 Temperature 97.8 F 97.8 F 97.9 F Pulse Rate 87 73 85 Respiratory 18 17 18 Rate Blood Pressure 135/70 121/59 141/67 (mmHg) O2 Sat by Pulse 94 93 95 Oximetry 03/31/17 03/31/17 03/31/17 05:00 06:00 07:00 Temperature 97.8 F 97.9 F 96.6 F Pulse Rate 83 76 88 Respiratory 17 18 20 Rate Blood Pressure 150/69 144/62 133/51 (mmHg) O2 Sat by Pulse 96 99 97 Oximetry 03/31/17 03/31/17 03/31/17 07:45 08:00 08:02 Temperature 98.1 F 98.3 F 98.1 F Pulse Rate 98 91 92 Respiratory 21 20 23 Rate Blood Pressure 146/66 153/74 (mmHg) O2 Sat by Pulse 98 98 98 Oximetry 03/31/17 03/31/17 03/31/17 09:00 10:00 10:23 Temperature 98.6 F 99.1 F Pulse Rate 103 102 Respiratory 21 24 25 Rate Blood Pressure 136/67 144/75 (mmHg) O2 Sat by Pulse 97 96 Oximetry 03/31/17 03/31/17 03/31/17 11:00 11:08 12:00 Temperature 98.9 F 98.7 F Pulse Rate 91 87 Respiratory 22 23 20 Rate Blood Pressure 128/52 129/60 (mmHg) O2 Sat by Pulse 98 96 Oximetry 03/31/17 13:00 Temperature 98.5 F Pulse Rate 80 Respiratory 18 Rate Blood Pressure 125/55 (mmHg) O2 Sat by Pulse 97 Oximetry - Intake and Output Intake and Output: Intake & Output 03/29/17 03/30/17 03/31/17 04/01/17 06:59 06:59 06:59 06:59 Intake Total 2918 3210 1323 540 Output Total 200 1120 Balance 2918 3010 203 540 Weight 170 lb 6.677 oz 174 lb 6.17 oz 174 lb 2.643 oz Intake: IV Fluids 2280 2370 490 Keppra 188 418 110 NS (0.9%) 273 78 380 NS w 20K 1819 1774 solumedrol 100 IVPB 78 60 173 Keppra 78 60 NS (0.9%) 73 solumedrol 100 Oral 560 780 660 540 Output: Urine 200 Wright 1120 Other: Estimated Void Large Large Date of Last Bowel 03/29/17 03/29/17 Movement # Bowel Movements 1 Estimated Stool Amount Medium Small Medium # Voids 2 2 ADLs: Meal Record Start: 03/24/17 17: 48 Freq: ,,18 Status: Active Created 03/24/17 17:48 [id number] (Rec: 03/24/17 17:48 [id number] ICU-M09) Document 03/25/17 09:00 [id number] (Rec: 03/25/17 09:46 [id number] ICU-C14) Document 03/25/17 13:00 [id number] (Rec: 03/25/17 15:57 [id number] ICU-C07) Document 03/25/17 18:00 OFT4938 (Rec: 03/25/17 18:43 [id number] ICU-C07) Document 03/26/17 18:00 UFZ1545 (Rec: 03/26/17 18:50 RQI0446 ICU-C07) Document 03/27/17 09:00 [id number] (Rec: 03/27/17 10:02 [id number] ICU-C10) Document 03/27/17 13:00 MWH3135 (Rec: 03/27/17 13:32 [id number] ICU-M09) Document 03/27/17 18:00 RRY1383 (Rec: 03/27/17 18:40 [id number] ICU-C07) Document 03/28/17 09:00 [id number] (Rec: 03/28/17 09:16 [id number] ICU-C07) Document 03/28/17 13:00 KBC5159 (Rec: 03/28/17 14:19 [id number] ICU-C07) Document 03/28/17 18:00 WJK0333 (Rec: 03/28/17 18:34 [id number] ICU-C07) Document 03/29/17 09:00 EUB1692 (Rec: 03/29/17 18:25 [id number] ICU-C07) Document 03/29/17 13:00 HES1050 (Rec: 03/29/17 18:43 SCK2040 ICU-C07) Document 03/29/17 18:00 KEZ3195 (Rec: 03/29/17 18:43 [id number] ICU-C07) Document 03/30/17 09:00 FSZ1562 (Rec: 03/30/17 10:08 MHT8558 ICU-C07) Document 03/30/17 13:00 HDY6922 (Rec: 03/30/17 13:45 YOW2487 ICU-C18) Document 03/30/17 17:58 NFG1940 (Rec: 03/30/17 17:58 ZWQ0054 ICU-C20) Document 03/31/17 09:00 EMC0989 (Rec: 03/31/17 09:27 KLH6515 ICU-C07) ADLs: Meal Record Start: 03/24/17 17: 55 Freq: 09,13,18 Status: Complete Created 03/24/17 17:55 [id number] (Rec: 03/24/17 17:55 ROI0834 ICU-M09) Intake and Output Start: 03/24/17 17: 48 Freq: 06,14,22 Status: Active Created 03/24/17 17:48 [id number] (Rec: 03/24/17 17:48 [id number] ICU-M09) Document 03/24/17 22:00 [id number] (Rec: 03/24/17 22:56 ONY3634 ICU-C07) Document 03/25/17 06:00 JKR1762 (Rec: 03/25/17 06:32 [id number] ICU-C07) Document 03/25/17 14:00 HSG3279 (Rec: 03/25/17 14:31 DNU1661 ICU-C14) Document 03/25/17 22:00 YZE2629 (Rec: 03/25/17 22:30 YMX7021 ICU-C07) Document 03/26/17 04:00 CDW8819 (Rec: 03/26/17 05:22 BYF5434 ICU-C07) Document 03/26/17 06:00 WTP9671 (Rec: 03/26/17 06:39 [id number] ICU-C07) Document 03/26/17 14:00 KLI9302 (Rec: 03/26/17 16:31 FIC8412 ICU-C07) Document 03/26/17 20:00 IJD1940 (Rec: 03/26/17 20:49 JYF3717 ICU-C20) Document 03/26/17 22:00 RQV1179 (Rec: 03/26/17 22:43 CCS5834 ICU-M09) Document 03/27/17 00:00 BVF8712 (Rec: 03/27/17 00:59 FOH1834 ICU-C20) Document 03/27/17 04:00 DRZ6499 (Rec: 03/27/17 04:23 OFB3545 ICU-C20) Document 03/27/17 06:00 LTA6642 (Rec: 03/27/17 06:50 HCT2892 ICU-C07) Document 03/27/17 06:00 NAK1840 (Rec: 03/27/17 06:50 IYL9657 ICU-C20) Document 03/27/17 14:00 TVC8190 (Rec: 03/27/17 15:17 ENP0858 ICU-C07) Document 03/27/17 18:42 MUM3710 (Rec: 03/27/17 18:42 [id number] ICU-C07) Document 03/27/17 22:00 MTR2193 (Rec: 03/27/17 23:35 QFY2126 ICU-C07) Document 03/28/17 04:55 XAH5590 (Rec: 03/28/17 04:56 OGL8033 ICU-C14) Document 03/28/17 06:00 TVM5325 (Rec: 03/28/17 06:05 VGH5634 ICU-C07) Document 03/28/17 14:00 RZO0338 (Rec: 03/28/17 14:13 GZH1831 ICU-C16) Document 03/28/17 22:00 YRG1803 (Rec: 03/28/17 22:52 WHV5622 ICU-M09) Document 03/29/17 06:00 DDN4026 (Rec: 03/29/17 06:35 LFF1362 ICU-M09) Document 03/29/17 14:00 MGB4315 (Rec: 03/29/17 16:37 IDP2306 ICU-C10) Document 03/29/17 22:00 IIZ8554 (Rec: 03/29/17 22:05 WOK2141 ICU-M09) Document 03/30/17 06:00 AWG1653 (Rec: 03/30/17 06:55 SYP3825 ICU-C07) Document 03/30/17 13:45 ZRS2516 (Rec: 03/30/17 13:45 RDN2168 ICU-C18) Document 03/30/17 22:00 DGS5482 (Rec: 03/30/17 22:15 HHL3325 ICU-C19) Document 03/31/17 05:24 JZO8167 (Rec: 03/31/17 05:24 SKZ7632 ICU-C19) Document 03/31/17 13:28 NZY7616 (Rec: 03/31/17 13:28 DQF1511 ICU-C07) Intake and Output Start: 03/24/17 17: 55 Freq: 06,14,22 Status: Complete Created 03/24/17 17:55 [id number] (Rec: 03/24/17 17:55 HSF0575 ICU-M09) - Physical Exam General Physical Exam Comment: Able to respond to simple questions by nodding yes or no and follow basic commands but not able to answer in complete sentences Eye Exam: bilateral: PERRLA Head: Yes Normocephalic Thyroid Function: Clinically Euthyroid Lungs and Chest: Yes: Chest Expansion Full, Chest Expansion Symetrica Heart Rate and Rhythm: Regular JVP: Not Elevated [place] Beat: Non Displaced Additional Cardiovascular: Yes: [place] Beat not Displaced, Normal Heart Sounds Abdominal Exam: Yes: Soft - Rheumotological System Joints: Range of Motion - No synovitis but there is mild peripheral edema - Extremities Cranial Nerves II-XII Intact: No Limbs: Abnormal Coordination - Neuro Orientation: Encephalopathic Results - Results Lab Results: Laboratory Results - last 24 hr 03/25/17 03/30/17 03/30/17 16:30 18:10 18:10 WBC RBC Hgb Hct MCV MCH MCHC RDW Plt Count MPV Neut % (Auto) Lymph % (Auto) [place] % (Auto) Eos % (Auto) Baso % (Auto) Absolute Neuts (auto) Absolute Lymphs (auto) Absolute Monos (auto) Absolute Eos (auto) Absolute Basos (auto) Absolute Nucleated RBC Nucleated RBC % Sodium Potassium Chloride Carbon Dioxide Anion Gap BUN Creatinine Est GFR ( Amer) Est GFR (Non-Af Amer) BUN/Creatinine Ratio Glucose Calcium Total Bilirubin AST ALT Alkaline Phosphatase Total Protein Albumin Globulin Albumin/Globulin Ratio Urine Color Urine Appearance Urine pH Ur Specific [place] Urine Protein Urine Ketones Urine Blood Urine Nitrate Urine Bilirubin Urine Urobilinogen Ur Leukocyte Esterase Urine WBC (Auto) Urine RBC (Auto) Ur Squamous Epith Cells Urine Bacteria Urine Glucose CSF Lyme Dis Ab Interp See comment Thyroid Peroxidase Ab 0.09 Hepatitis A IgM Ab Nonreactive Hep Bs Antigen Nonreactive Hep B Core IgM Ab Nonreactive Hepatitis C Antibody Nonreactive 03/31/17 03/31/17 03/31/17 10:10 10:10 10:30 WBC 7.7 RBC 4.12 Hgb 12.9 Hct 37 MCV 90 MCH 31 MCHC 35 RDW 13 Plt Count 156 MPV 8 Neut % (Auto) 92.4 H Lymph % (Auto) 5.6 L [place] % (Auto) 2.0 Eos % (Auto) 0 Baso % (Auto) 0 Absolute Neuts (auto) 7.1 Absolute Lymphs (auto) 0.4 L Absolute Monos (auto) 0.2 Absolute Eos (auto) 0 Absolute Basos (auto) 0 Absolute Nucleated RBC 0.01 Nucleated RBC % 0.1 Sodium 133 Potassium 3.8 Chloride 102 Carbon Dioxide 23 Anion Gap 8 BUN 26 H Creatinine 0.65 Est GFR ( Amer) 113.1 Est GFR (Non-Af Amer) 87.9 BUN/Creatinine Ratio 40.0 H Glucose 266 H Calcium 8.9 Total Bilirubin 0.30 AST 10 L ALT 11 Alkaline Phosphatase 60 Total Protein 5.6 L Albumin 3.4 Globulin 2.2 Albumin/Globulin Ratio 1.5 Urine Color Yellow Urine Appearance Clear Urine pH 5.0 Ur Specific [place] 1.031 H Urine Protein Negative Urine Ketones Trace H Urine Blood Negative Urine Nitrate Positive H Urine Bilirubin Negative Urine Urobilinogen Negative Ur Leukocyte Esterase Trace H Urine WBC (Auto) 2+(11-20/hpf) H Urine RBC (Auto) Trace(0-2/hpf) Ur Squamous Epith Cells Present H Urine Bacteria 1+ H Urine Glucose 3+(>=500 mg/dl) H CSF Lyme Dis Ab Interp Thyroid Peroxidase Ab Hepatitis A IgM Ab Hep Bs Antigen Hep B Core IgM Ab Hepatitis C Antibody Assessment - Problem List Assessment: Patient Problems Arthralgia (Acute) DVT prophylaxis (Acute) Full code status (Acute) GERD (gastroesophageal reflux disease) (Acute) HTN (hypertension) (Acute) Non-convulsive status epilepticus (Acute) Altered mental status (Acute) Hyponatremia (Acute) Plan: Acute confusion: on a trial of Solumedrol. Agree with transfer to [place] for further care. Elevated RF: inflammatory markers are not very elevated; other antibodies were normal. Further vasculitic tests are pending. History of Tick bite: consider ID consultation in relation to her mental status changes Steroid use: will need gradual taper depending on clinical improvement. Elevated antibody: cryos pending Coordination of Care: Yes - With nursing Discussion with Family/Community Member: Discussed at length with family members
[2017-03-31] MEDS ORDERED: cefTRIAXone VIAL(*) 1,000 MG in NS 0.9% 50 ML* 50 ML IVPB SCH (15:00)
[2017-03-31 15:31] LABS: Immunoglobulin A 28 mg/dL (61 - 356); Immunoglobulin G 262 mg/dL (767 - 1590); Immunoglobulin M 35 mg/dL (37 - 286)
--- NOTE | 2017-03-31 16:52 | EEG ---
HALF-WAY VIDEO/EEG MONITORING - Monitoring Monitoring Start Date: 03/26/17 Current Monitoring Session: 03/27/17 at 07:29 to 03/28/17 at 07:54 EEG Clinical Indication: Celeste Hernandez is a 81 year old woman with little significant past medical history who was admitted on 03/24 with about 9 days of progressive confusion. She was initially thought to have a UTI and was partially treated for that as an outpatient, but when her confusion worsened, she was seen in the ER on 03/21, found to be hyponatremic, treated and then discharged on 03/23. When her confusion worsened further, and included repetitive speech, she was readmitted to the hospital and routine EEG demonstrated periodic discharges were primarily of right hemispheric predominance. She was monitored on continuous EEG and improved, so was disconnected. However, she again worsened on 03/26, with repetitive speech where she talks about doing a demonstration, so repeat EEG and continuous monitoring was requested. Introduction: INTRODUCTION: The EEG was monitored from 21 scalp electrodes. Nineteen electrodes consisted of the standard parasagittal, temporal and midline leads of the International 10 -20 system. In addition, special electrodes FT9 and FT10 were placed. EEG data were recorded on an [employer] system with simultaneous MPEG-4 digital video recording of patient behavior. EEG recording was in a monopolar montage with all electrodes referenced to FCz. Significant behavioral events were signaled by an event button, or putative electrical seizure events were detected by a computer program. All EEG data were reviewed in their entirety on a monitor with reconstruction of montages and adjustments of sensitivity and filtering. Simultaneous patient behavior was viewed on an adjacent monitor and correlated with the EEG. - Medications Active Medications: Acetaminophen (Tylenol Tab*) 650 mg PO Q4H PRN PRN Reason: PAIN Last Admin: 03/31/17 08:24 Dose: 650 mg Amlodipine Besylate (Norvasc Tab*) 5 mg PO DAILY ASHLEY Last Admin: 03/31/17 08:24 Dose: 5 mg Docusate Sodium (Colace Cap*) 100 mg PO DAILY PRN PRN Reason: CONSTIPATION Famotidine (Pepcid Tab*) 20 mg PO BID PRN; Protocol PRN Reason: INDIGESTION Heparin Sodium (Porcine) (Heparin Flush Picc/Ml/Cvc(*)) 1 - 3 ml FLUSH 0600, 1800 ASHLEY PRN Reason: Protocol Last Admin: 03/31/17 05:21 Dose: 1 ml Heparin Sodium (Porcine) (Heparin Vial(*)) 5,000 units SUBCUT Q8HR [facility] Last Admin: 03/31/17 13:51 Dose: 5,000 units Levetiracetam 1,500 mg/ Sodium (Chloride) 115 mls @ 430 mls/hr IVPB Q12H [facility] Last Admin: 03/31/17 09:49 Dose: 430 mls/hr Polyethylene Glycol/Electrolytes (Miralax*) 17 gm PO DAILY PRN PRN Reason: CONSTIPATION Senna (Senokot Tab*) 2 tab PO DAILY PRN PRN Reason: CONSTIPATION - Description Background: The waking background showed appropriate organization with clearly defined anterior-posterior voltage and frequency gradients. There was a defined posterior dominant rhythm of 8 Hertz maximally on the right, 7 Hertz on the left. Anteriorly, there was the expected pattern of lower voltage and more irregular theta and beta rhythms. There were periods of waking background that demonstrated 2 to 3 Hz slowing predominantly affecting the posterior head regions bilaterally, with some involvement of the temporal regions as well. At times, this was more pronounced in the right temporal region, but occasional high voltage slow waves were also noted in the left midtemporal region. The sleep background continued to be intermixed with excessive delta frequencies , but was appropriately organized with well-developed spindles and vertex waves indicative of stage 2 sleep. These sleep transients showed appropriate morphology and were bilaterally synchronous and symmetrical. Development of diffuse delta range frequencies with dropout of stage 2 architecture accompanied transition to slow wave sleep. There were no periods of REM noted. Intericatal Epileptiform Activity: No definitive epileptiform discharges were seen. Ictal Activity: None - Impression Impression: This is an abnormal long-term monitoring session. There is excessive background slowing in both waking and sleep states with a slow and asymmetric posterior rhythm that is slower on the left. In addition, there are periods of preferential slowing affecting the right and left temporal regions independently and also the bilateral posterior regions. These findings are suggestive of a moderate, non-specific diffuse encephalopathy. There are no definitive epileptiform abnormalities or seizures.
[2017-03-31 17:30] LABS: Albumin 2.8 g/dL (3.4-4.7); Gamma Globulin 0.4 g/dL (0.6-1.6); Total Protein(PEP) 5.5 g/dL (6.3 - 7.9)
--- NOTE | 2017-03-31 17:46 | EEG ---
[facility] VIDEO/EEG MONITORING - Monitoring Monitoring Start Date: 03/26/17 Current Monitoring Session: 03/29/17 at 08:30 to 03/30/17 at 10:03 EEG Clinical Indication: Celeste Hernandez is a 81 year old woman who presented for readmission to the hospital with 9 days of confusion. As an outpatient, she was initially treated for a urinary tract infection but did not take the antibiotics appropriately and was admitted from 03/21 to 03/23 when she was found to have hyponatremia due to dehydration. Her mental status improved somewhat and she was discharged, but returned on 03/24 with worsened confusion, forgetfulness and odd speech patterns. A routine EEG done demonstrated right frontal periodic discharges, which were responsive to a single dose of lorazepam 1mg IV. She temporarily improved, then worsened again with return of repetitive speech and intermittently appearing suddenly asleep. Long-term EEG monitoring was requested in order to evaluate for return of these periodic discharges and subclinical seizures. Introduction: INTRODUCTION: The EEG was monitored from 21 scalp electrodes. Nineteen electrodes consisted of the standard parasagittal, temporal and midline leads of the International 10 -20 system. In addition, special electrodes FT9 and FT10 were placed. EEG data were recorded on an [employer] system with simultaneous MPEG-4 digital video recording of patient behavior. EEG recording was in a monopolar montage with all electrodes referenced to FCz. Significant behavioral events were signaled by an event button, or putative electrical seizure events were detected by a computer program. All EEG data were reviewed in their entirety on a monitor with reconstruction of montages and adjustments of sensitivity and filtering. Simultaneous patient behavior was viewed on an adjacent monitor and correlated with the EEG. - Medications Active Medications: Acetaminophen (Tylenol Tab*) 650 mg PO Q4H PRN PRN Reason: PAIN Last Admin: 03/31/17 08:24 Dose: 650 mg Amlodipine Besylate (Norvasc Tab*) 5 mg PO DAILY ASHLEY Last Admin: 03/31/17 08:24 Dose: 5 mg Docusate Sodium (Colace Cap*) 100 mg PO DAILY PRN PRN Reason: CONSTIPATION Famotidine (Pepcid Tab*) 20 mg PO BID PRN; Protocol PRN Reason: INDIGESTION Heparin Sodium (Porcine) (Heparin Flush Picc/Ml/Cvc(*)) 1 - 3 ml FLUSH 0600, 1800 ASHLEY PRN Reason: Protocol Last Admin: 03/31/17 17:06 Dose: 3 ml Heparin Sodium (Porcine) (Heparin Vial(*)) 5,000 units SUBCUT Q8HR [facility] Last Admin: 03/31/17 13:51 Dose: 5,000 units Levetiracetam 1,500 mg/ Sodium (Chloride) 115 mls @ 430 mls/hr IVPB Q12H [facility] Last Admin: 03/31/17 09:49 Dose: 430 mls/hr Methylprednisolone Sodium Succinate 500 mg/ Sodium Chloride 100 mls @ 200 mls/ hr IVPB Q12H [facility] Last Admin: 03/31/17 17:07 Dose: 200 mls/hr Polyethylene Glycol/Electrolytes (Miralax*) 17 gm PO DAILY PRN PRN Reason: CONSTIPATION Senna (Senokot Tab*) 2 tab PO DAILY PRN PRN Reason: CONSTIPATION - Description Background: The waking background intermittently showed discernible organization with identifiable but reduced anterior-posterior voltage and frequency gradients. There was a posterior rhythm of 7 Hertz maximally, which was intermittently identified and symmetrical. Anteriorly, there was the expected pattern of lower voltage and more irregular theta and beta rhythms with excess beta activity present. In a waxing and waning pattern, the background intermittently showed loss of expected gradients and was dominated by semi-rhythmic 3 to 5 Hz slowing that was maximal in the posterior head regions. This would sometimes last an hour or so, then spontaneously remit and the background would return to that described above. This rhythmic slowing was last seen around 06:30 on 03/30 During drowsiness, there was occasional high amplitude delta slowing noted in the left temporal and parietal regions lasting less than a second. The sleep background was appropriately organized with well-developed spindles and vertex waves indicative of stage 2 sleep but there remained excessive delta slowing intermixed. These sleep transients showed appropriate morphology and were bilaterally synchronous and symmetrical. Development of diffuse delta range frequencies with dropout of stage 2 architecture accompanied transition to slow wave sleep. No periods of REM were observed. Intericatal Epileptiform Activity: There were frequent moderate voltage discharges at CZ and PZ which sometimes occurred at 2 Hz for several seconds, then were not seen for many seconds. There is a field to the left paracentral region. Ictal Activity: Waxing and waning patterns of delta/theta slowing in the posterior head regions , as described above, falls on the ictal-interictal continuum. There were no definitive ictal patterns. - Impression Impression: This is an abnormal long-term monitoring session. There is a waxing and waning pattern of rhythmic slowing in the bilateral posterior head regions which spontaneously alternates with periods of discernible organization, but a slow posterior rhythm. In addition, there are intermittent epileptiform discharges in the midline and left paracentral regions. These findings are suggestive of continued encephalopathy of a moderate degree with superimposed increased epileptic potential in the midline and left paracentral regions, and rhythmic patterns in the bilateral posterior regions which border on ictal in nature.
[2017-03-31 17:53] VITALS: BP 162/80
--- NOTE | 2017-03-31 18:27 | TRS ---
TRANSFER SUMMARY: DATE OF ADMISSION: 03/24/17 DATE OF TRANSFER: 03/31/[address] [facility] to [facility] PRIMARY CARE PROVIDER: Dr. Nevarez ACCEPTING PHYSICIAN: Dr. Esdras Yanez from [facility] PHYSICIANS INVOLVED IN PATIENT'S CARE DURING HOSPITAL STAY: Izabel Fair MD ; Hospitalist Group Tevin Todd MD; Rheumatology REASON FOR TRANSFER: Progressive lethargy and encephalopathy with epileptiform abnormalities on patient's EEG with differential that includes viral encephalitis versus paraneoplastic syndrome versus Lyme. Patient is being transferred for evaluation at a tertiary care center for possibility of brain biopsy. SECONDARY DIAGNOSES: 1. History of recent evaluation and admission for hyponatremia from 03/22 to thought to be due to hypovolemia. 2. History of gastroesophageal reflux disease. 3. History of vertigo. 4. History of hemorrhoids. 5. History of cholecystectomy. CURRENT MEDICATIONS: Include: 1. Acetaminophen on a p.r.n. basis. 2. Colace on a p.r.n. basis. 3. Pepcid 20 mg b.i.d. 4. Heparin 5000 units subcutaneously every 8 hours. 5. Keppra 1500 mg IV every 12 hours. 6. Lorazepam 1 mg IV push on a p.r.n. basis. 7. Morphine 1 mg every 4 hours on a p.r.n. basis. 8. MiraLAX 17 grams daily p.r.n. 9. Ceftriaxone 1000 mg IV every 24 hours. 10. Senokot on a p.r.n. basis. 11. Amlodipine 5 mg daily. 12. Methylprednisolone 500 mg IV every 12 hours. Please note that methylprednisolone was started on 03/29/17 Patient's ceftriaxone was started today for presumed catheter associated urinary tract infection. Patient's Keppra was started on 03/26/17. LABORATORY DATA: Studies performed during the hospital stay included: 1. On 03/31/17 white blood cell count 7.7, hemoglobin 12.9, hematocrit 37, platelets 156. 2. ESR obtained on 03/28/17 was 29. 3. Sodium 133, potassium 3.8, chloride 102, carbon dioxide 23, BUN 26, creatinine 0.65. Glucose random was 266 today. 4. C-reactive protein was 16 on 03/30/17. 5. Serum protein electrophoresis is pending at the time of dictation. 6. Vitamin B12 level was 528. 7. Patient's TSH was elevated to 1.68 at admission. 8. Liver function tests were noted on 03/24/17 showing AST 16, ALT 10, alkaline phosphatase 54, ammonia 28. 9. Total CPK was 49 at admission. 10. Troponin was 0.01 at admission. 11. Coenzyme Q10 is pending. 12. ASPA test is pending. 13. Carnitine is pending. 14. Acute hepatitis panel was unremarkable and nonreactive. 15. Borrelia burgdorferi PCR was negative on 03/21/17. 16. Current Lyme test from cerebrospinal fluid is pending at the time of dictation. 17. Encephalitis panel on cerebrospinal fluid is pending at the time of dictation. 18. CSF VDRL is negative. 19. CSF albumin was 20. 20. CSF IgG was 0.8. 21. Serum oligoclonal bands were 2 and CSF oligoclonal bands were also 2. 22. Cerebrospinal analysis showed total of white blood cells of 1 and no red blood cells. There were 17% neutrophils and 67 of lymphocytes. It was colorless and clear. 23. CSF glucose was 21 and total protein of 33. IMAGIN. CT of chest, abdomen and pelvis obtained on 03/27/17. Impression: "Small density lesions in liver likely representing small cysts, although they are too small to accurately describe. No pleural lesions are noted, although small pleural effusions are noted. No abdominal masses or fluid collection otherwise noted." 2. Brain MRI obtained on 03/24/17. Impression: "Central and cortical atrophy with no evidence of intracranial mass or hemorrhage. Motion artifact degrades the image." 3. Portable chest x-ray obtained on admission. Impression: "No active disease. " 4. EEG the first one obtained on 03/24/17. Impression: "Abnormal EEG due to the presence of frequent periodic discharges emanating from the right frontocentral region. These findings are consistent with periodic lateralized discharges and is concerning for an ongoing acute neural injury in brain region. There was no clear evolution into an ictal pattern during this EEG, but this interictal findings put her at risk for subclinical seizures." 5. Repeat EEG on 03/29/17. Impression: "This is an abnormal intermediate frame tender monitoring session. There are periods of waking background with appropriate organization identifiable, but slow posterior dominant rhythm, but these periods alternated with periods of rhythmic slowing and loss of voltage and frequency gradients with the greatest degree of slowing in the bilateral occipital regions. At the beginning of the recording there are also discharges noted in the midline posterior region which were not readily seen as the recording progressed. These findings are suggestive of moderate degree of encephalopathy that is nonspecific in nature and may be effecting the posterior head region to a greater degree. There were no definitive ictal patterns but the period of rhythmic slowing raises concern for increased epileptic potential. In addition presence of interictal epileptiform discharges in the midline posterior head region signify increased increased epileptic potential in these regions." LABORATORY VALUES OBTAINED BUT RESULTS STILL PENDING AT TIME OF DICTATION: ANCA panel for vasculitis. Babesia microti antibodies. Carnitine free and total. Celiac panel. Cardiolipin antibodies. Coenzyme Q, as well as cryoglobulins. Ehrlichia chaffeensis. As well as MIKKI IgG AB reflex. As well as paraneoplastic antibody panel. HOSPITALIZATION COURSE: Celeste Hernandez is a 81-year-old female with not very extensive past medical history to include gastroesophageal reflux disease, vertigo, hemorrhoids and cholecystectomy, who presented to the hospital originally on 03/21/17 with complaint of altered mental status. At that point patient was noted to have hyponatremia with a sodium of 122. It was felt that it was due to prerenal causes as the patient basically dehydrated. She was treated with intravenous fluids and her hyponatremia resolved. She was discharged home on 03/13/17. At that point her mental status was "almost back to baseline". She came back to our hospital within 24 hours for worsening of her mental status. Apparently she was confused and hallucinating. She was readmitted. Dr. Wen was consulted from Neurology. Initial EEG was questioning possible epileptiform abnormalities, although not nearly defined, as noted above. Patient was placed initially on Keppra at 750 mg and then increased to 1500 mg when repeat EEG still showed epileptiform abnormality, but at that time it was in a different region. Patient's Keppra was continued and further report and evaluations were obtained that included brain MRI which was basically nonspecific. Patient also had added laboratory values as mentioned above; most of them are still pending. Patient's rheumatoid factor was positive at 29, although patient's CCP was negative. Antinuclear antibody was also negative. At that point Dr. Todd from Rheumatology was consulted. Dr. Todd thought that the patient's presentation is not related to rheumatoid arthritis. Vasculitic workup is still pending. Nevertheless, patient was empirically placed on Solu-Medrol 03/29/17. Nevertheless lethargy continued to progress despite treatment with steroids. On the day of transfer urinalysis was obtained from Wright catheter and showed high specific gravity with high leukocyte esterase, +1 bacteria and nitrate positive. At this point patient was empirically started on ceftriaxone for possibility of UTI. Please note that throughout her hospital stay she was never febrile and she remained hemodynamically stable. Due to intravenous hydration at the beginning of her hospital stay she developed generalized edema. She continues to be more and more lethargic, and by the time of transfer to [facility] in [place], her mobility was greatly impaired and she was basically Angelica dependent. She also developed dysesthesia. It appeared that even gentle touch was very painful to her. At discharge patient is very lethargic. She is able to follow simple commands. She is oriented to her name, but she does not name her family members in the room. Her verbal reactions appear to be delayed. PHYSICAL EXAM AT THE TIME OF TRANSFER: Blood pressure of 151/71. Heart rate of 80 and regular. Respiratory rate 25. Oxygen saturation 97% on room air. Temperature 98.9. General: The patient is a pleasant 81-year-old female who appears in no acute distress. Patient is very lethargic. She opens eyes to command and she is able to tell me her name, and that was born in November. She is not able to give me the location. HEENT: Head atraumatic, normocephalic. Eyes : Pupils are equal, round and reactive to light and accommodation. Oropharynx clear. Mucosa dry. Neck: Supple. No JVD, no bruits bilaterally. Cardiovascular: Regular rate and rhythm with no murmur. Respiratory: Crackles at bilateral bases , otherwise clear. Abdomen: Soft, nontender. Bowel sounds throughout. Extremities: There is generalized edema of all 4 extremities. Pulses +2 bilaterally. There is no clubbing or cyanosis. On evaluation of the skin, the patient has ecchymotic areas underneath her right toenail, most likely related to prior trauma. She also has scattered ecchymosis on bilateral upper extremities after venipunctures. No rashes noted. Neuro Evaluation: Speech clear , but late response. Patient oriented. She is able to give handgrip bilaterally with equal strength which is at 4+/5. She is able to move her toes, but she is unable to move her feet. It appears that mild touch is very painful to her. Babinski's are negative bilaterally. There is no focal neuro deficit noted, although generally decreased muscle tone is present. Please note that on 03/31/[address] Wen and patient's family, it was decided to patient's increased lethargy and encephalopathy despite current treatment, patient will need to be transferred to a tertiary care center for further evaluation and possibility of brain biopsy. Patient's family agreed to the transfer. Dr. Wen discussed patient's case with Dr. Esdras Yanez who kindly accepted the patient for transfer. Patient is being transferred on 03/31/17 to [facility]. Please note that this is a short summary of the patient's long and complicated hospitalization. Please refer to further medical records for details. TIME SPENT: Approximately 45 minutes was spent on patient's discharge. CC: Dr. Wen; Dr. Todd; Dr. Nevarez; Dr. Yanez from [facility] * [id number]/[facility] #: [id number] [facility] HOSPITALLeonard
[2017-03-31 19:47] LABS: Tissue Transglutaminase IgA Ab <1.2 U/mL
[2017-03-31 22:17] LABS: Anti-Glial/Neuronal Nuc Ab-1 A Negative titer (<1:240); Anti-Neuronal Nuclear Ab Type1 Negative titer (<1:240); Anti-Neuronal Nuclear Ab Type2 Negative titer (<1:240); Anti-Neuronal Nuclear Ab Type3 Negative titer (<1:240); CRMP-5 IgG Antibody Negative titer (<1:240); Purkinje Cell Cytoplasm Typ Tr Negative titer (<1:240); Purkinje Cell Cytoplasm Type 1 Negative titer (<1:240); Purkinje Cell Cytoplasm Type 2 Negative titer (<1:240)
--- NOTE | 2017-04-01 07:53 | PN ---
NEUROLOGY PROGRESS NOTE: DATE OF FOLLOWUP: 03/31/17 OVERNIGHT EVENTS: The patient has become more confused and is now not recognizing her family members. There were multiple family members present at the bedside today expressing great concern over her declining condition. She was seen in consultation by Dr. Todd yesterday and his input is appreciated. She remains on high dose steroids, which were started on the evening of . MEDICATIONS: Reviewed and include: 1. Norvasc 5 mg. 2. Tylenol as needed. 3. Colace as needed. 4. Levetiracetam 1500 mg twice daily. 5. Methylprednisolone 500 mg twice daily. 6. Morphine 1 mg q.4 p.r.n. pain, last received at 1023 today. PHYSICAL EXAMINATION: Vital Signs: Temperature 98.6, T-max in the last 24 hours was 99.9. Blood pressure 137/69, heart rate 88, oxygen saturation 98% on room air. General Examination: She appears to be asleep in her bed. She received morphine few hours before I came to evaluate her. She does not open her eyes to voice or to touch. She did not follow any commands. She did grimace to pain with nail bed pressure or when her limbs are passively moved. When her eyes are opened, the gaze is conjugate and pupils are reactive equally. There is no obvious facial asymmetry. Tone is normal to decreased in the upper and lower extremities. She does have some staring when Babinski is elicited but the toes are down. LABORATORY DATA: CBC is stable. Chemistry panel shows an elevated BUN of 26 since fluids have been stopped. Dr. Todd added some labs including thyroid peroxidase antibody, hepatitis panel, which are both negative. Paraneoplastic panel is still pending. Other tests added by Dr. Todd, which are still pending include an ANCA panel, additional tick borne diseases, cardiolipin antibodies, cryoglobulins. IMPRESSION: A 81-year-old woman with no significant past medical history admitted with progressive encephalopathy and abnormal EEG demonstrating multifocal periodic discharges, which have been responsive to benzodiazepines and levetiracetam. Her workup thus far has been unrevealing. She is being empirically treated at this time for an autoimmune process with high-dose steroids but has not shown any improvements. Her family is becoming increasingly concerned with her declining status. Also in the differential would be Creutzfeldt-Kali disease, though this is not entirely typical given the very rapid apparent progression. I discussed with the family the workup and treatment that she has received so far and the option for reaching out to an academic medical center for possible transfer for further workup and/or treatment and after discussion amongst themselves they were in favor of this. I have contacted the transfer center at the [facility] and I am awaiting a call back from Esdras Yanez. I will discuss transfer for consideration for a brain biopsy or perhaps repeat lumbar puncture for further diagnostic testing. I think we have done all that we can do for her here in this hospital at this point and want to see if there is anything else available to her in [place]. [id number]/[facility] #: [id number] WENDIE
[2017-04-01 14:52] LABS: SS-B/La Antibody <0.2 U; Sm (Smith) IgG Antibody <0.2 U; U1-nRNP Antibody <0.2 U
[2017-04-01 21:28] LABS: Phospholipid Ab IgG < 9.4 GPL; Phospholipid Ab IgM, S < 9.4 MPL
[2017-04-04 16:22] LABS: Coenzyme Q10 Level 479 mcg/L (433-1532); Coenzyme Q10 Percent Reduced 89 % (92-98); Coenzyme Q10 Reduced 427.9 mcg/L (415-1480)
[2017-04-04 23:00] LABS: Immunoglobulin A 27 mg/dL (61 - 356)
[2017-04-05 18:24] LABS: Babesia microti IgG <1:64; Babesia microti IgM <1:20
== END 2017-03-31 18:10 | disposition short-term general hospital (02) | DRG 100 ==
LOC: ED 09:37 → MED 13:24 → ICU 16:23
PROVIDERS: ADMIT Hospitalist; ATTEND Internal Medicine
PROC: 009U3ZX Drainage of Spinal Canal, Percutaneous Approach, Diagnostic (ICD-10-PCS; principal; 2017-03-24)
PROC: 4A10X4Z Monitoring of Central Nervous Electrical Activity, External Approach (ICD-10-PCS; 2017-03-24)
DX: G40.901 Epilepsy, unspecified, not intractable, with status epilepticus (principal); G93.40 Encephalopathy, unspecified; T83.518A Infection and inflammatory reaction due to other urinary catheter, initial encounter; N39.0 Urinary tract infection, site not specified; I10 Essential (primary) hypertension; K21.9 Gastro-esophageal reflux disease without esophagitis; R40.2412 Glasgow coma scale score 13-15, at arrival to emergency department; M25.50 Pain in unspecified joint; J45.909 Unspecified asthma, uncomplicated; Y73.1 Therapeutic (nonsurgical) and rehabilitative gastroenterology and urology devices associated with adverse incidents; Y92.9 Unspecified place or not applicable
CPT/HCPCS: 36415; 70450; 70553; 71020; 71260; 74177; 80048; 80053; 80074; 81003; 81015; 82140; 82379; 82542; 82550; 82585; 82595; 82607; 82784; 82945; 83516; 83519; 83520; 83605; 83735; 83916; 84155; 84157; 84165; 84443; 84484; 85025; 85027; 85610; 85652; 85730; 86038; 86140; 86147; 86200; 86235; 86255; 86256; 86376; 86431; 86592; 86618; 86666; 86753; 86788; 86789; 87070; 87077; 87086; 87186; 87205; 87529; 87641; 89051; 93005; 95951; A9270-GY; A9579; C1751; J0133; J0696; J1644; J2060; J2270; J2930; J2997; Q2009; Q9967

== ENCOUNTER 2018-01-13 09:33 | Inpatient (IN) | payer MEDICARE ==
[2018-01-13] MEDS ORDERED: NS 0.9% 1000 ML* 1,000 ML IV ONE (09:59)
--- NOTE | 2018-01-13 10:31 | RAD ---
HISTORY: Lethargy COMPARISONS: March 24, 2017 VIEWS: 2: Frontal and lateral views of the chest. FINDINGS: CARDIOMEDIASTINAL SILHOUETTE: The cardiomediastinal silhouette is normal. ASHWIN: The ashwin are normal. PLEURA: The costophrenic angles are sharp. No pleural abnormalities are noted. LUNG PARENCHYMA: The lung volumes are low. There is patchy alveolar opacification of the lung bases bilaterally. ABDOMEN: The upper abdomen is clear. There is no subphrenic gas. BONES AND SOFT TISSUES: No bone or soft tissue abnormalities are noted. OTHER: None. IMPRESSION: LOW LUNG VOLUMES WITH PATCHY ATELECTASIS VERSUS EARLY CONSOLIDATION OF THE LUNG BASES BILATERALLY
[2018-01-13 10:49] LABS: Urine Appearance Clear; Urine Blood Negative (Negative); Urine Color Yellow; Urine Ketones Negative (Negative); Urine Protein Negative (Negative); Urine Specific Gravity 1.014 (1.010-1.030); Urine Urobilinogen Negative (Negative)
[2018-01-13 11:09] LABS: ABS Basophils 0 10^3/ul (0-0.2); ABS Eosinophils 0.1 10^3/ul (0-0.6); ABS Lymphocytes 1.2 10^3/ul (1.0-4.8); ABS Monocytes 0.5 10^3/ul (0-0.8); ABS Neutrophils 5.1 10^3/ul (1.5-7.7); ABS Nucleated RBC 0 10^3/ul; Eosinophil % 1.3 % (0-6); Hematocrit 37 % (35-47); Hemoglobin 12.8 g/dl (12.0-16.0); Lymphocyte % 16.8 % (25-47); Mean Corpuscular HGB Conc 34 g/dl (31-36); Mean Corpuscular Hemoglobin 30 pg (27-31); Mean Corpuscular Volume 88 fL (80-97); Mean Platelet Volume 8 um3 (7.4-10.4); Nucleated Red Blood Cells % 0; Platelet Count 187 10^3/ul (150-450); Red Blood Count 4.24 10^6/ul (4.0-5.4); Red Cell Distribution Width 14 % (10.5-15)
[2018-01-13 11:17] LABS: INR 0.98 (0.77-1.02)
[2018-01-13 11:26] LABS: EGFR Non-African American 74.4 (>60)
--- NOTE | 2018-01-13 13:16 | RAD ---
HISTORY: Altered mental status COMPARISONS: March 24, 2017 TECHNIQUE: Multiple contiguous axial CT scans were obtained of the head without intravenous contrast. FINDINGS: HEMORRHAGE/INFARCT: There is no hemorrhage or acute infarct. MASSES/SHIFT: There is no mass or shift. EXTRA-AXIAL SPACES: There are no extra-axial fluid collections. SULCI AND VENTRICLES: The sulci and ventricles are normal in size and position for the patient's stated age. CEREBRUM: There is hypoattenuation of the periventricular and subcortical white matter. BRAINSTEM: There are no focal parenchymal abnormalities. CEREBELLUM: There are no focal parenchymal abnormalities. VESSELS: The vessels are grossly normal. PARANASAL SINUSES: The paranasal sinuses are clear. ORBITS: The orbits are unremarkable. BONES AND SOFT TISSUE: No bone or soft tissue abnormalities are noted. OTHER: None IMPRESSION: NO ACUTE INTRACRANIAL PATHOLOGY. CHRONIC SMALL VESSEL ISCHEMIC CHANGES.
--- NOTE | 2018-01-13 13:19 | RAD ---
HISTORY: Fall, back pain COMPARISONS: None TECHNIQUE: Multiple contiguous axial CT scans were obtained of the lumbar spine without intravenous contrast, with coronal and sagittal multiplanar reformations. FINDINGS: The study is limited by patient motion artifact. SPINAL CANAL: Evaluation of the central canal is limited on CT technique; however, there is no obvious canalicular mass or epidural hemorrhage. ALIGNMENT: There is a scoliotic curvature of the spine. There is grade 1 anterolisthesis of L4 on L5. VERTEBRAL BODIES: There is diffuse osteopenia. The vertebral bodies are preserved in height. Is multilevel anterolateral marginal osteophyte formation. There is no acute displaced fracture. JOINTS: There is diffuse facet osteoarthritis most pronounced at L4-L5 and L5-S1 MUSCULATURE: Unremarkable INTERVERTEBRAL DISCS: There is diffuse loss of intervertebral disc height throughout the spine. AXIAL IMAGES: T12-L1: There is bilateral facet hypertrophy. There is no significant osseous neural foraminal narrowing or central canal stenosis. L1-L2: There is no osseous neural foraminal narrowing or central canal stenosis. L2-L3: There is bilateral facet hypertrophy with marginal osteophyte formation at the neural foramina bilaterally. There is moderate left neural foraminal narrowing. There is mild narrowing of the central canal. L3-L4: There is a broad-based disc bulge with ligamentous and facet hypertrophy. There is marginal osteophyte formation at the neural foramina bilaterally. There is moderate bilateral neural foraminal narrowing. There is moderate to severe narrowing of the central canal. L4-L5: There is broad-based disc bulge/rolled disc. There is bilateral facet hypertrophy. There is moderate bilateral neural foraminal narrowing. There is severe narrowing of the central canal. L5-S1: There is bilateral facet hypertrophy. There is moderate bilateral neural foraminal narrowing. There is no significant osseous central canal stenosis. SOFT TISSUES: The visualized soft tissues of the abdomen are unremarkable. OTHER: There is evidence of a subacute to chronic fracture of the right 12th rib. IMPRESSION: 1. OSTEOPENIA. 2. SCOLIOSIS. 3. DEGENERATIVE DISC DISEASE AND OSTEOARTHRITIS. 4. THERE IS SEVERE NARROWING OF THE CENTRAL CANAL AT L4-L5 AND TO LESSER EXTENT AT L3-L4. 5. THERE IS MULTILEVEL NEURAL FORAMINAL NARROWING DESCRIBED ABOVE. 6. SUBACUTE TO CHRONIC RIGHT 12TH RIB FRACTURE
[2018-01-13] MEDS ORDERED: Acetaminophen TAB* 325 MG PO PRN (14:55)
[2018-01-13] MEDS ORDERED: Azithromycin IV(*) 500 MG in D5W 250 ML BAG* 250 ML IVPB SCH (15:00)
[2018-01-13] MEDS ORDERED: NS 0.9% 1000 ML* 1,000 ML IV SCH (15:00)
--- NOTE | 2018-01-13 15:05 | ED ---
Meg De Leon Gabriel, scribed for Jann Alvarado MD on 01/13/18 at 1003 . Altered Mental Status - HPI Summary HPI Summary: This patient is a 82 year old F BIBA to [facility] accompanied by her family with a chief complaint of AMS that began last night. Patients family states she recently saw Dr. Nevarez and was given Cipro for a UTI. Additionally they state she has been delusional and was falling asleep while at breakfast yesterday morning. She also fell last night at 0130 and was seen in [place] ED, given a CT and sent home. They brought her for further evaluation. After gently shaking the patient awake she responded to questions appropriately. Patient reports back pain. Patient denies ABD pain, dysuria, and fever. Family states UTI last year presented with similar symptoms. - History Of Current Complaint Chief Complaint: EDAltMentalStatus Stated Complaint: UTI Time Seen by Provider: 01/13/18 09:44 Hx Obtained From: Patient, Family/Prosthetic Technician Hx From Patient Unobtainable Due To: Altered Mental Status Onset/Duration: Still Present Timing: Constant, Lasting Days - 1 Severity Initially: Moderate Severity Currently: Moderate Aggravating Factor(s): Other - UTI Associated Signs And Symptoms: Positive: Negative - ABD pain, dysuria, and fever - Allergies/Home Medications Allergies/Adverse Reactions: Allergies Allergy/AdvReac Type Severity Reaction Status Date / Time No Known Allergies Allergy Verified 03/21/17 08:12 Home Medications: Home Medications Acetaminophen TAB* [Tylenol TAB*] 325 mg PO Q4H PRN 01/13/18 [History Confirmed 01/13/18] Al Hydrox/Mg Hydrox/Simet LIQ* [Maalox Plus*] 15 ml PO Q4H PRN 01/13/18 [ History Confirmed 01/13/18] Bismuth Subsalicylate [Bismatrol] 262 mg PO Q4H PRN 01/13/18 [History Confirmed 01/13/18] Calcium Carbonate/Vitamin D3 [Calcium 600+D High Potenc] 1 tab PO DAILY [History Confirmed 01/13/18] Ciprofloxacin TAB* [Cipro 500 MG TAB*] 500 mg PO DAILY 01/13/18 [History Confirmed 01/13/18] Codeine Phosphate/Guaifenesin [Robafen AC Oral Solution] 10 ml PO Q4H PRN [History Confirmed 01/13/18] Docusate CAP* [Colace Cap*] 100 mg PO BID 01/13/18 [History Confirmed 01/13/18] Folic Acid TAB* [Folvite TAB*] 1 mg PO DAILY 01/13/18 [History Confirmed ] Magnesium Hydroxide LIQ* [Milk of Magnesia LIQ*] 30 ml PO BID PRN 01/13/18 [ History Confirmed 01/13/18] QUEtiapine TAB* [SEROquel TAB*] 25 mg PO QAM 01/13/18 [History Confirmed ] QUEtiapine TAB* [SEROquel TAB*] 75 mg PO BEDTIME 01/13/18 [History Confirmed 08/23] Sertraline* [Zoloft*] 50 mg PO BEDTIME 01/13/18 [History Confirmed 01/13/18] Thiamine TAB* [Vitamin B-1 TAB*] 100 mg PO DAILY 01/13/18 [History Confirmed 08/23] PMH/Surg Hx/FS Hx/Imm Hx Endocrine/Hematology History: Denies: Hx Diabetes, Hx Thyroid Disease Cardiovascular History: Denies: Hx Hypertension, Hx Pacemaker/ICD Respiratory History: Reports: Hx Asthma Denies: Hx Chronic Obstructive Pulmonary Disease (COPD) GI History: Reports: Hx Gastroesophageal Reflux Disease, Other GI Disorders - GERD Denies: Hx Ulcer Musculoskeletal History: Denies: Hx Rheumatoid Arthritis, Hx Osteoporosis Sensory History: Reports: Hx Contacts or Glasses, Hx Hearing Aid - B/L Opthamlomology History: Reports: Hx Contacts or Glasses Psychiatric History: Denies: Hx Panic Disorder - Surgical History Surgery Procedure, Year, and Place: choleycysectomy 2003 - Immunization History Date of Tetanus Vaccine: unknown Date of Influenza Vaccine: UTD Infectious Disease History: No Infectious Disease History: Denies: Hx Clostridium Difficile, Hx Hepatitis, Hx Human Immunodeficiency Virus (HIV), Traveled Outside the [place] in Last 30 Days - Family History Known Family History: Negative: Cardiac Disease, Hypertension, Diabetes - Social History Alcohol Use: None Substance Use Type: Reports: None Smoking Status (MU): Never Smoked Tobacco Review of Systems Negative: Fever Negative: Abdominal Pain Negative: dysuria Musculoskeletal: Other - back pain All Other Systems Reviewed And Are Negative: Yes Physical Exam - Summary Physical Exam Summary: VITAL SIGNS: Reviewed. GENERAL: Patient is an elderly obese female who is lying comfortable in the stretcher. Patient is not in any acute respiratory distress. HEAD AND FACE: No signs of trauma. No ecchymosis, hematomas or skull depressions. No sinus tenderness. EYES: PERRLA, EOMI x 2, No injected conjunctiva, no nystagmus. EARS: Hearing grossly intact. Ear canals and tympanic membranes are within normal limits. MOUTH: Oropharynx within normal limits. NECK: Supple, trachea is midline, no adenopathy, no JVD, no carotid bruit, no c- spine tenderness, neck with full ROM. CHEST: Symmetric, no tenderness at palpation LUNGS: Clear to auscultation bilaterally. No wheezing or crackles. CVS: Regular rate and rhythm, S1 and S2 present, no murmurs or gallops appreciated. ABDOMEN: Soft, non-tender. No signs of distention. No rebound no guarding, and no masses palpated. Bowel sounds are normal. EXTREMITIES: FROM in all major joints, no edema, no cyanosis or clubbing. NEURO: Alert and oriented x 3. No acute neurological deficits. Speech is normal and follows commands. SKIN: Dry and warm Triage Information Reviewed: Yes Vital Signs On Initial Exam: Initial Vitals Temp Pulse Resp BP Pulse Ox 98.0 F 75 16 157/84 100 01/13/18 09:45 01/13/18 09:45 01/13/18 09:45 01/13/18 09:45 01/13/18 09:45 Vital Signs Reviewed: Yes Diagnostics - Vital Signs Vital Signs Temp Pulse Resp BP Pulse Ox 01/13/18 09:45 98.0 F 75 16 157/84 100 - Laboratory Result Diagrams: 01/13/18 11:00 01/13/18 11:00 Lab Statement: Any lab studies that have been ordered have been reviewed, and results considered in the medical decision making process. - Radiology CXR Radiology Interpretation Completed By: Radiologist - LOW LUNG VOLUMES WITH PATCHY ATELECTASIS VERSUS EARLY CONSOLIDATION OF THE LUNG BASES BILATERALLY ED physician has reviewed this radiology report. - CT CT lumbar CT Interpretation Completed By: Radiologist - 1. OSTEOPENIA. 2. SCOLIOSIS. 3. DEGENERATIVE DISC DISEASE AND OSTEOARTHRITIS. 4. THERE IS SEVERE NARROWING OF THE CENTRAL CANAL AT L4-L5 AND TO LESSER EXTENT AT L3-L4. 5. THERE IS MULTILEVEL NEURAL FORAMINAL NARROWING DESCRIBED ABOVE. 6. SUBACUTE TO CHRONIC RIGHT 12TH RIB FRACTURE ED physician has reviewed this radiology report. CT Brain CT Interpretation Completed By: Radiologist - NO ACUTE INTRACRANIAL PATHOLOGY. CHRONIC SMALL VESSEL ISCHEMIC CHANGES. ED physician has reviewed this radiology report. Altered Mental Statu Course/Dx - Course Assessment/Plan: CXR reveals, per radiologist, LOW LUNG VOLUMES WITH PATCHY ATELECTASIS VERSUS EARLY CONSOLIDATION OF THE LUNG BASES. BILATERALLY. CT Lumbar spine reveals, per radiologist, 1. OSTEOPENIA. 2. SCOLIOSIS. 3. DEGENERATIVE DISC DISEASE AND OSTEOARTHRITIS. 4. THERE IS SEVERE NARROWING OF THE CENTRAL CANAL AT L4-L5 AND TO LESSER EXTENT AT L3-L4. 5. THERE IS MULTILEVEL NEURAL FORAMINAL NARROWING DESCRIBED ABOVE. 6. SUBACUTE TO CHRONIC RIGHT 12TH RIB FRACTURE. CT Brain reveals, per radiologist, NO ACUTE INTRACRANIAL PATHOLOGY. CHRONIC SMALL VESSEL ISCHEMIC CHANGES. Test results with no significant abnormalities. UA was negative for UTI. In the ED course the patient was given IV fluids. Pt is somnolent and I have not discovered methodically why. We tried to ambulate the patinet but she was unable to get up from the bed due to the somnolence. The patient will be diagnosed with AMS. We discussed patient care with Dr. Graham and he has accepted the patient for admission. Patient will be admitted to Dr. Graham. The patient is agreeable with this plan. - Diagnoses Provider Diagnoses: Altered mental status - Provider Notifications Discussed Care Of Patient With: Sunil Graham Time Discussed With Above Provider: 14:07 Discharge - Discharge Plan Condition: Fair Disposition: ADMITTED TO [facility] Referrals: Angel Nevarez MD [Primary Care Provider] - The documentation as recorded by the Meg teixeira Gabriel accurately reflects the service I personally performed and the decisions made by Christiano españa Walter, MD.
--- NOTE | 2018-01-13 15:58 | RAD ---
HISTORY: left elbow pain, fall COMPARISONS: None VIEWS: 3, Frontal and lateral views of the left elbow FINDINGS: BONE DENSITY: Normal. BONES: There is no displaced fracture. There is a small enthesophyte of the olecranon. JOINTS: There is osteoarthritis of the ulnar trochlear articulation. ALIGNMENT: There is no dislocation. SOFT TISSUES: There is dystrophic calcification along the lateral humeral epicondyle. OTHER FINDINGS: None. IMPRESSION: MILD DEGENERATIVE CHANGES. NO ACUTE OSSEOUS INJURY. IF SYMPTOMS PERSIST, RECOMMEND REPEAT IMAGING.
[2018-01-13] MEDS ORDERED: levETIRAcetam IV* 1,000 MG in NS 0.9% 100 ML* 100 ML IVPB SCH (16:00)
[2018-01-13] MEDS ORDERED: levETIRAcetam IV* 500 MG in NS 0.9% 100 ML* 100 ML IVPB SCH (16:00)
[2018-01-13] MEDS ORDERED: Azithromycin IV(*) 500 MG in NS 0.9% 250 ML* 250 ML IVPB SCH (16:22)
[2018-01-13] MEDS: cefTRIAXone(*) 1 GM in NS 0.9% 50 ML* 50 ML IVPB SCH (17:13)
[2018-01-13] MEDS ORDERED: levETIRAcetam IV* 500 MG in NS 0.9% 100 ML* 100 ML IVPB ONE (17:29)
[2018-01-13] MEDS ORDERED: LORazepam INJ* 2 MG/ML 1 ML VIAL IV PUSH ONE (17:30)
[2018-01-13] MEDS ORDERED: NS 0.9% 100 ML* 100 ML ONE (17:49)
--- NOTE | 2018-01-13 18:53 | HP ---
CC: Dr. Nevarez; Dr. Wood * HISTORY AND PHYSICAL: DATE OF ADMISSION: 01/13/18 PRIMARY CARE PROVIDER: Dr. Nevarez. ATTENDING PHYSICIAN WHILE IN THE HOSPITAL: Sunil Graham MD * (report dictated by Lion Blanco NP). CONSULTING NEUROLOGIST: Dr. Wood. CHIEF COMPLAINT: Altered mental status. HISTORY OF PRESENT ILLNESS: Mrs. Hernandez is an 82-year-old female patient who presents to our ER today. I would like to preface the report by stating that she really cannot give much history as the patient again does have a significant amount of altered mental status, but the history is obtained from the patient's son. The patient has a history of hypertension, depression, anemia, history of upper extremity DVT, dementia. The patient lives at [facility], in [place]. It has been noted that since the weekend she has been having intermittent episodes of confusion. It was noted on Monday and last week that she was not getting up to go eat her dinner on Monday night or her breakfast in the morning, which is very unusual for her. She is usually the one at meals and she is usually pretty active. The son was concerned and got her an appointment. Ultimately she was diagnosed with a UTI. She was started on ciprofloxacin on this past week; she has taken a couple days' worth. She initially was doing well. However, at about 1: 30 in the morning last night, the patient had fallen. It is unclear how she fell. The patient is really unable to tell me the surrounding details. The patient was brought to [facility], she was evaluated and was discharged. The patient's son stayed with her overnight, last night. He got her up this morning. The patient went to have breakfast and while having breakfast, she was sitting next to a resident and she was asking the resident about the morning and she did this 5 times where she would wake up, ask this resident how her morning was going, fall asleep, and then repeat the question again. She did this approximately 5 times, which she has done previously. She was here a year ago roughly and had similar episode of this altered mental status and ultimately was transferred to [facility] due to an abnormal EEG and for possible brain biopsy. Again, I am going to get those records, but there was concern because she was acting confused again, like she was about a year ago. There has been no reports of fever, but the reports of cough. Again, recently diagnosed with a UTI. There has been no reports of vomiting or diarrhea. Only change in medication was ciprofloxacin. There have been no reports of chest pain or any shortness of breath. Because of this altered mental status, we were asked to evaluate for admission. PAST MEDICAL HISTORY: Significant for: 1. Hypertension. 2. Dementia. 3. Depression. 4. Anemia. 5. Upper extremity DVT. 6. Question of seizures. PAST SURGICAL HISTORY: She has had a cholecystectomy. MEDICATIONS: The home meds include: 1. Codeine with guaifenesin 10 cc every 4 hours as needed. 2. Pepto-Bismol 262 mg every 4 hours as needed. 3. Maalox Plus 15 cc every 4 hours as needed. 4. Tylenol 325 mg every 4 hours as needed. 5. Milk of mag 30 cc p.o. b.i.d. as needed. 6. Zoloft 50 mg p.o. at bedtime. 7. Cipro 500 mg daily. 8. Seroquel 25 mg in the morning, 75 mg at bedtime. 9. Colace 100 mg twice a day. 10. Thiamine 100 mg daily. 11. MiraLAX 17 g p.o. daily. 12. Folic acid 1 mg p.o. daily. 13. Calcium 1 tablet p.o. daily. ALLERGIES TO MEDICATIONS: Include no known drug allergies. FAMILY HISTORY: Mother's history is unknown. Father lived until the age of 97. SOCIAL HISTORY: She is not a smoker. Does not drink. She lives at [facility]. Surrogate decision maker is her son. REVIEW OF SYSTEMS: Unable to obtain given the patient's altered mental status. PHYSICAL EXAMINATION GENERAL: At this time, Mrs. Hernandez is an 82-year-old female patient. She is sitting on the ED stretcher. She does not appear to be in any acute distress. VITAL SIGNS: Blood pressure 164/66, pulse of 87, respirations 18, O2 sat 94%, temperature 99.4. HEENT: Head: Atraumatic, normocephalic. Eyes: EOMs intact. Sclerae anicteric and not pale. Throat: Oral mucosa appears to be moist. No oropharyngeal erythema. NECK: Supple. LUNGS: Clear to auscultation. No wheezes, rales, or rhonchi. HEART: Sounds S1, S2. Regular rate and rhythm. No murmurs, rubs, or gallops. ABDOMEN: Soft, flat, nontender. Bowel sounds are present. EXTREMITIES: Pulses were 2+ throughout. She is moving all 4 extremities with 5 /5 strength. NEUROLOGIC: She will awaken to painful stimuli. She will awaken and state her name. She is confused to time and place. Alert to herself only. No gross focal deficits. SKIN: Intact. LABORATORY DATA/DIAGNOSTIC STUDIES: WBC is 7.0, RBC of 4.24, hemoglobin of 12.8, hematocrit of 37, platelet count of 187. INR of 0.98. PTT of 29.6. Her sodium was 138, potassium was 3.7, chloride 100, bicarb 28, BUN 17, creatinine of 0.75, glucose of 104. Lactate 1.5. Calcium 10.2. Total bili 0.6, AST 13, ALT 9, alk phos 80. Ammonia 25. CK 91. Troponin 0.00. CRP of 4.36. BNP of 47. Albumin of 4.1. Urine showed trace leukocyte esterase, 1+ wbc, presence of squamous epithelial cells. She did have a lumbar spine CT obtained today with impression of osteopenia, scoliosis, degenerative disk disease, and osteoarthritis, severe narrowing of the central canal at L4-L5, lesser extent at L3-L4. There is multilevel neural foraminal narrowing as described, subacute to chronic 12th rib fracture. She did have a brain CT obtained today as well that showed no acute intracranial pathology, chronic small vessel ischemic changes. Chest x-ray was obtained today; difficult exam as the patient was not taking a deep breath during exam, but I did not appreciate any effusions. Radiology read it as low lung volumes with patchy atelectasis versus early consolidation of the lung bases bilaterally. Old medical records were reviewed. ASSESSMENT AND PLAN: Mrs. Hernandez is an 82-year-old female patient coming in to the ED today with complaints of altered mental status of unclear etiology. We were asked to evaluate for admission. She will be admitted under observation status for: 1. Altered mental status. Again, etiology is unclear. She could have an acute delirium secondary to medications, possibly underlying infection as there is a question of pneumonia. However, given her complex history, I do think obviously we do need get records from [place]. I am getting Neurology involved. I did touch base with Dr. Wood already. It was felt that this could be another underlying seizure. So, he is actually getting a EEG and recommended going ahead and giving her Keppra 500 twice a day, and will continue to follow her closely with frequent neuro checks. I will start her on antibiotics and we will continue to follow. 2. Recent urinary tract infections. She is going to be placed on ceftriaxone. She needs 2 more days of this for UTI treatment. 3. Question of pneumonia. I am getting a procalcitonin, Legionella antigen, Strep pneumo antigen, sputum culture and checking her for the flu, and I am going to put her on azithromycin and Rocephin. 4. Hypertension. We will continue to monitor. If need be, we are going to start her on medications. 5. Dementia. Continue meds as prescribed. 6. Depression. Continue meds as prescribed. 7. Anemia. Her H and H is stable. 8. History of DVT. This was in the setting of a PICC. We will go ahead and put her on heparin subcu. 9. Code status. Full code. 10. Fluids, electrolytes, and nutrition. She can have a regular diet. TIME SPENT: Time spent on admission was 60 minutes, greater than half that time spent [id number] with the patient obtaining my history and physical; the other half of the time was spent going over the plan of care with the patient and implementing plan of care. I discussed the plan of care with my attending, Dr. Graham, who is in agreement. LION BLANCO, LOUISE [id number]/CPS #: [id number] WENDIE
[2018-01-13] MEDS: Heparin VIAL(*) 5000 UNITS/ML VIAL (FIVE THOUSAND) SUBCUT SCH (21:11)
[2018-01-13] MEDS: Sertraline* 50 MG TAB PO SCH (21:13)
[2018-01-13] MEDS: Docusate CAP* 100 MG PO SCH (21:13)
[2018-01-13] MEDS: QUEtiapine TAB* 25 MG PO SCH (21:13)
[2018-01-13] MEDS ORDERED: Morphine INJ* 2 MG/ML 1 ML CARPUJECT ONE (22:37)
--- NOTE | 2018-01-14 00:40 | CONS ---
NEUROLOGY CONSULTATION: DATE OF CONSULT: 01/13/18 LOCATION: She is in the intensive care unit, bed 12. REFERRING PROVIDER: Lion Blanco NP CHIEF COMPLAINT: Change in mental status, abnormal EEG. HISTORY OF PRESENT ILLNESS: Celeste Hernandez is an 82-year-old woman, who was brought into the emergency room this morning after a change in mental status and a fall. History is from the chart, Lion Blanco NP, who evaluated her initially and also her son, Tha, who is in the intensive care unit this evening. She had a very complicated illness back in March of 2017 and was in the intensive care unit with continuous EEG monitoring at that time. She had right frontotemporal epileptiform discharges and decline in mental status, such that at times she would not respond and just seemed very sleepy. She was very sensitive to touch and with complaint of pain when she was stimulated. Abnormalities in the EEG improved with treatment with anticonvulsants but did not resolve and she did not clinically clear. She was transferred to the [facility] on about 03/31/17. She was on Keppra 1500 mg twice per day at that time. I do not have any records from the [facility] at this point in time. Her son says that she was there for over a week and then was [place] [facility]. She declined there and was readmitted to the [facility] for another 2 weeks. He is not aware of the discharge diagnosis but that she improved. She spent some time in rehab and then was transferred to [facility] where she has been currently residing. He said she has recovered to the point where she walks with a walker and can move along quite well with it. She takes care of her own activity of daily living. He feels her memory is unimpaired. She has not had any problems with tremor. This morning, he was visiting with her and she fell out of her chair. She was talking with a friend and her head suddenly slumped and then she fell. She would be able to be aroused but would seem to fall back asleep again and did not respond easily. She was brought into the hospital and she would have intermittent tremulousness of her arms one side or the other. Her admitting laboratories were fairly unremarkable and will be reviewed below. She was afebrile. She had a CT of the brain, which reveals subcortical hypodensity consistent with chronic ischemic changes and some atrophy but no evidence of hemorrhage or other acute changes. EEG was ordered and initial view of it indicates that she has epileptiform frontotemporal discharges in the right side. Looking back on older EEGs, it looks extremely similar. I had some brief communications with Dr. Wen, who took care of her when she was here in March. She says that folks at [facility] were not sure of her what her diagnosis was, one consideration was possible diffuse Lewy body disease. PAST MEDICAL HISTORY: Notable for gastroesophageal reflux; cholecystectomy, 2003. MEDICATIONS: At [facility] consist of: 1. Sertraline 50 mg p.o. q.h.s. 2. Colace 100 mg p.o. b.i.d. 3. Thiamine 100 mg p.o. q. day. 4. Folic acid 1 mg p.o. q. day. 5. Seroquel 25 mg p.o. q.a.m. and 75 mg q.h.s. REVIEW OF SYSTEMS: From the patient is unreliable. She does deny headache. When asked if she likes something to eat, she says yes. Other than that, it is fairly unproductive. Her son says that her memory is quite good. He says that she normally does not have a tremor. He says the reason that she uses a walker is mainly from arthritis. There was the one fall this morning but no other falls that he is aware of. As far as he is aware, she has been eating well. Within limitations 14 point ROS is otherwise negative other than HPI and PMH. PHYSICAL EXAM: She appears reasonably well hydrated though her lips are dry. Skin is warm and dry. Head is atraumatic. She is a bit overweight. Heart is in a regular rhythm and I do not hear any murmurs. Neck is supple. There are no cervical bruits. There are arthritic changes in her fingers. Lungs are clear anterolaterally. Neurologically, she does not open eyes to command except on very rare occasion. When I open her eyes, her pupils react equally from about 3 to 2 mm. I did not see her fundi. She tracks visually quite well. She is able to count fingers in both hemifields with her eyes held open. Facial musculature is symmetric. Facial sensation to light touch is symmetric. There is a paucity of speech but the few words that she does say are clear. Motor exam reveals fairly normal tone in the limbs, but she complains of pain with movement of all limbs. Sensation to pin is intact in the extremities but seems better perceived on the left. She has occasional tremulous movements of either arm. There are no dyskinesias otherwise. I can get her to weakly squeeze my hand, which does better in the left hand than the right. She very weakly squeezes the right hand. I cannot get her to move her legs or toes other than some restless movements. Reflexes are trace at the knees and she complains of pain with any manipulation of her limbs. Plantar responses are flexor bilaterally. DIAGNOSTIC STUDIES/LAB DATA: Includes a CBC, which is unremarkable. Lymphocyte count is a bit low but that is the only abnormality. Her INR and PTT are within normal limits. Chemistry profile is also quite unremarkable. Glucose is 104. Lactic acid normal at 1.5, calcium 10.2. Liver enzymes are normal and ammonia is 25. CRP is normal at 4.36. Reviewing old records, she has hypogammaglobulinemia with low IgA, IgG, and IgM. TSH drawn yesterday is within normal limits. Urinalysis is unremarkable. CT of the brain as mentioned above. Chest x-ray is interpreted as showing atelectasis with possible early consolidation at the lung bases. IMPRESSION AND PLAN: Impression is that of recurrent epileptic encephalopathy. Etiology is not clear and she has had a very extensive workup previously here and at the [facility], although I do not have those records. The only findings I can see from her prior workup is hypogammaglobulinemia, which would put her at risk of infection and autoimmunity from immunosuppression, but there is no evidence currently nor previously of an infectious agent. Currently, she has been given Keppra, which she was not on when she came in this admission. I have discussed the case with Lion Blanco NP, and he has ordered 2 mg of Ativan on my recommendation as well. We will do continuous EEG monitoring over the night. I will try to get records or talk to the folks from [facility], who might know her case previously to give me some insight. I will repeat her immunoglobulin levels and also some blood work for vasculitis, although her CRP is not normal today. I have discussed the plan in general outline with her son, Tha, and will follow her regularly while she is here. [id number]/CPS #: [id number] WENDIE
[2018-01-14 06:02] LABS: ABS Basophils 0 10^3/ul (0-0.2); ABS Eosinophils 0.1 10^3/ul (0-0.6); ABS Lymphocytes 1.2 10^3/ul (1.0-4.8); ABS Monocytes 0.4 10^3/ul (0-0.8); ABS Neutrophils 4.5 10^3/ul (1.5-7.7); ABS Nucleated RBC 0 10^3/ul; Hematocrit 38 % (35-47); Hemoglobin 13.1 g/dl (12.0-16.0); Lymphocyte % 18.6 % (25-47); Mean Corpuscular HGB Conc 34 g/dl (31-36); Mean Corpuscular Hemoglobin 31 pg (27-31); Mean Corpuscular Volume 89 fL (80-97); Mean Platelet Volume 8 um3 (7.4-10.4); Nucleated Red Blood Cells % 0.1; Platelet Count 163 10^3/ul (150-450); Red Blood Count 4.28 10^6/ul (4.0-5.4); Red Cell Distribution Width 13 % (10.5-15); White Blood Count 6.3 10^3/ul (3.5-10.8)
[2018-01-14 06:13] LABS: INR 0.99 (0.77-1.02)
[2018-01-14 06:15] LABS: EGFR Non-African American 74.4 (>60)
[2018-01-14] MEDS: Heparin VIAL(*) 5000 UNITS/ML VIAL (FIVE THOUSAND) SUBCUT SCH ×3 (06:23→23:13)
--- NOTE | 2018-01-14 08:47 | PN ---
Subjective Date of Service: 01/14/18 Interval History: Pt attests to cough for 3 months, often gets chills but never fevers. Some "pauses" in conversation overnight, unclear duration. Conversant, thinks 2017 and initially in hearing aid store. no records yet from [facility]. Objective Active Medications: Acetaminophen (Tylenol Tab*) 650 mg PO Q4H PRN PRN Reason: FEVER/PAIN Docusate Sodium (Colace Cap*) 100 mg PO BID [facility] Last Admin: 01/13/18 21:13 Dose: Not Given Folic Acid (Folvite Tab*) 1 mg PO DAILY [facility] Heparin Sodium (Porcine) (Heparin Vial(*)) 5,000 units SUBCUT Q8HR [facility] Last Admin: 01/14/18 06:23 Dose: 5,000 units Sodium Chloride (Ns 0.9% 1000 Ml*) 1,000 mls @ 100 mls/hr IV PER RATE [facility] Last Admin: 01/13/18 16:05 Dose: 100 mls/hr Ceftriaxone Sodium 1 gm/ (Sodium Chloride) 50 mls @ 200 mls/hr IVPB Q24H [facility] Last Admin: 01/13/18 17:13 Dose: 200 mls/hr Azithromycin 500 mg/ Sodium (Chloride) 250 mls @ 250 mls/hr IVPB Q24H [facility] Last Admin: 01/13/18 18:38 Dose: 250 mls/hr Levetiracetam 750 mg/ Sodium (Chloride) 107.5 mls @ 440 mls/hr IVPB Q12H [facility] Morphine Sulfate (Morphine Inj (Syringe)*) 2 mg IV Q2H PRN PRN Reason: PAIN Polyethylene Glycol/Electrolytes (Miralax*) 17 gm PO DAILY [facility] Quetiapine Fumarate (Seroquel Tab*) 75 mg PO BEDTIME [facility] Last Admin: 01/13/18 21:13 Dose: Not Given Quetiapine Fumarate (Seroquel Tab*) 25 mg PO QAM [facility] Sertraline HCl (Zoloft*) 50 mg PO BEDTIME [facility] Last Admin: 01/13/18 21:13 Dose: Not Given Thiamine HCl (Vitamin B-1 Tab*) 100 mg PO DAILY [facility] Vital Signs - 8 hr 01/13/18 01/14/18 01/14/18 23:56 05:00 07:38 Temperature 97.8 F 98.2 F 97.8 F Oxygen Devices in Use Now: None Appearance: NAD. Eyes: No Scleral Icterus, PERRLA Ears/Nose/Mouth/Throat: NL Teeth, Lips, Gums Respiratory: Symmetrical Chest Expansion and Respiratory Effort, Clear to Auscultation Cardiovascular: NL Sounds; No Murmurs; No JVD, RRR Abdominal: NL Sounds; No Tenderness; No Distention, No Hepatosplenomegaly Extremities: No Edema Skin: No Rash or Ulcers, No Nodules or Sclerosis Neurological: - - Oriented to and January. 2016 and in hearing aid store. Following Commands. Strength 5- b/l hip flexion. CNII-XII intact. Result Diagrams: 01/14/18 05:40 01/14/18 05:40 Additional Lab and Data: Laboratory Results - last 24 hr 01/13/18 01/13/18 01/13/18 10:20 11:00 11:00 WBC RBC Hgb Hct MCV MCH MCHC RDW Plt Count MPV Neut % (Auto) Lymph % (Auto) [place] % (Auto) Eos % (Auto) Baso % (Auto) Absolute Neuts (auto) Absolute Lymphs (auto) Absolute Monos (auto) Absolute Eos (auto) Absolute Basos (auto) Absolute Nucleated RBC Nucleated RBC % INR (Anticoag Therapy) 0.98 APTT 29.6 Sodium Potassium Chloride Carbon Dioxide Anion Gap BUN Creatinine Est GFR ( Amer) Est GFR (Non-Af Amer) BUN/Creatinine Ratio Glucose Lactic Acid Calcium Total Bilirubin AST ALT Alkaline Phosphatase Ammonia Total Creatine Kinase Troponin I C-Reactive Protein B-Natriuretic Peptide 47 Total Protein Albumin Globulin Albumin/Globulin Ratio Procalcitonin Urine Color Yellow Urine Appearance Clear Urine pH 7.0 Ur Specific [place] 1.014 Urine Protein Negative Urine Ketones Negative Urine Blood Negative Urine Nitrate Negative Urine Bilirubin Negative Urine Urobilinogen Negative Ur Leukocyte Esterase Trace A Urine WBC (Auto) 1+(6-10/hpf) A Urine RBC (Auto) Absent Ur Squamous Epith Cells Present A Urine Bacteria Absent Urine Glucose Negative Influenza A (Rapid) Influenza B (Rapid) 01/13/18 01/13/18 01/13/18 11:00 11:00 11:00 WBC 7.0 RBC 4.24 Hgb 12.8 Hct 37 MCV 88 MCH 30 MCHC 34 RDW 14 Plt Count 187 MPV 8 Neut % (Auto) 73.8 Lymph % (Auto) 16.8 L [place] % (Auto) 7.4 H Eos % (Auto) 1.3 Baso % (Auto) 0.7 Absolute Neuts (auto) 5.1 Absolute Lymphs (auto) 1.2 Absolute Monos (auto) 0.5 Absolute Eos (auto) 0.1 Absolute Basos (auto) 0 Absolute Nucleated RBC 0 Nucleated RBC % 0 INR (Anticoag Therapy) APTT Sodium 138 Potassium 3.7 Chloride 100 L Carbon Dioxide 28 Anion Gap 10 BUN 17 Creatinine 0.75 Est GFR ( Amer) 95.6 Est GFR (Non-Af Amer) 74.4 BUN/Creatinine Ratio 22.7 H Glucose 104 H Lactic Acid 1.5 Calcium 10.2 Total Bilirubin 0.60 AST 13 ALT 9 Alkaline Phosphatase 80 Ammonia Total Creatine Kinase 91 Troponin I 0.00 C-Reactive Protein 4.36 B-Natriuretic Peptide Total Protein 6.4 Albumin 4.1 Globulin 2.3 Albumin/Globulin Ratio 1.8 Procalcitonin Urine Color Urine Appearance Urine pH Ur Specific [place] Urine Protein Urine Ketones Urine Blood Urine Nitrate Urine Bilirubin Urine Urobilinogen Ur Leukocyte Esterase Urine WBC (Auto) Urine RBC (Auto) Ur Squamous Epith Cells Urine Bacteria Urine Glucose Influenza A (Rapid) Influenza B (Rapid) 01/13/18 01/13/18 01/13/18 11:00 11:34 15:47 WBC RBC Hgb Hct MCV MCH MCHC RDW Plt Count MPV Neut % (Auto) Lymph % (Auto) [place] % (Auto) Eos % (Auto) Baso % (Auto) Absolute Neuts (auto) Absolute Lymphs (auto) Absolute Monos (auto) Absolute Eos (auto) Absolute Basos (auto) Absolute Nucleated RBC Nucleated RBC % INR (Anticoag Therapy) APTT Sodium Potassium Chloride Carbon Dioxide Anion Gap BUN Creatinine Est GFR ( Amer) Est GFR (Non-Af Amer) BUN/Creatinine Ratio Glucose Lactic Acid Calcium Total Bilirubin AST ALT Alkaline Phosphatase Ammonia 25 Total Creatine Kinase Troponin I C-Reactive Protein B-Natriuretic Peptide Total Protein Albumin Globulin Albumin/Globulin Ratio Procalcitonin < 0.1 Urine Color Urine Appearance Urine pH Ur Specific [place] Urine Protein Urine Ketones Urine Blood Urine Nitrate Urine Bilirubin Urine Urobilinogen Ur Leukocyte Esterase Urine WBC (Auto) Urine RBC (Auto) Ur Squamous Epith Cells Urine Bacteria Urine Glucose Influenza A (Rapid) Negative Influenza B (Rapid) Negative 01/14/18 01/14/18 01/14/18 05:40 05:40 05:40 WBC 6.3 RBC 4.28 Hgb 13.1 Hct 38 MCV 89 MCH 31 MCHC 34 RDW 13 Plt Count 163 MPV 8 Neut % (Auto) 71.9 Lymph % (Auto) 18.6 L [place] % (Auto) 7.0 Eos % (Auto) 2.0 Baso % (Auto) 0.5 Absolute Neuts (auto) 4.5 Absolute Lymphs (auto) 1.2 Absolute Monos (auto) 0.4 Absolute Eos (auto) 0.1 Absolute Basos (auto) 0 Absolute Nucleated RBC 0 Nucleated RBC % 0.1 INR (Anticoag Therapy) 0.99 APTT Sodium 136 Potassium 3.9 Chloride 105 Carbon Dioxide 26 Anion Gap 5 BUN 12 Creatinine 0.75 Est GFR ( Amer) 95.6 Est GFR (Non-Af Amer) 74.4 BUN/Creatinine Ratio 16.0 Glucose 92 Lactic Acid Calcium 8.7 Total Bilirubin AST ALT Alkaline Phosphatase Ammonia Total Creatine Kinase Troponin I C-Reactive Protein B-Natriuretic Peptide Total Protein Albumin Globulin Albumin/Globulin Ratio Procalcitonin Urine Color Urine Appearance Urine pH Ur Specific [place] Urine Protein Urine Ketones Urine Blood Urine Nitrate Urine Bilirubin Urine Urobilinogen Ur Leukocyte Esterase Urine WBC (Auto) Urine RBC (Auto) Ur Squamous Epith Cells Urine Bacteria Urine Glucose Influenza A (Rapid) Influenza B (Rapid) Microbiology and Other Data: Microbiology 01/13/18 10:20 Urine Legionella Urinary Antigen - Final Negative Legionella 01/13/18 10:20 Urine Streptococcus pneumoniae Ag Screen - Final Negative S. pneumo Antigen 01/13/18 15:29 Nasal Influenza Types A,B Antigen (GERONIMO) - Final Specimen received for Influenza A/B Molecular testing Assess/Plan/Problems-Billing Assessment: 82 yo female PMH dementia, Anemia, UE DVT, recent UTI on cipro and extensive evaluation for AMS March/April 2017 at [facility] and [facility] x[facility]. P/w fall, AMS concern for right sided epileptiform activity. In ICU on keppra. Neuro following. - Patient Problems (1) Altered mental status Current Visit: No Status: Acute Code(s): R41.82 - ALTERED MENTAL STATUS, UNSPECIFIED SNOMED Code(s): 810690570 Comment: likely sz related. seems improved since levetiracetam started. f/u continuous EEG results f/u Neuro recs, f/u vascultitis and hypogammaglobunemia labs. CRP wnl no records from [facility] yet. 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 continue UTI tx. (2) Seizure disorder Current Visit: Yes Status: Acute Code(s): G40.909 - EPILEPSY, UNSP, NOT INTRACTABLE, WITHOUT STATUS EPILEPTICUS SNOMED Code(s): 088888941 Comment: Plan as above. continue keppra. got ativan 2mg last night. still some "pauses" in conversation per RN notes overnight but overall improved. (3) UTI (urinary tract infection) Current Visit: Yes Status: Acute Comment: s/p few days of cipro. now ceftriaxone. Try to obtain culture data from [facility]SH [facility] clean here. does attest to dysuria. (4) HTN (hypertension) Current Visit: No Status: Acute Code(s): I10 - ESSENTIAL (PRIMARY) HYPERTENSION SNOMED Code(s): 55528082 Comment: - no listed home meds. as high sa 180s. started amlodipine 5mg. (5) Dementia Current Visit: Yes Status: Acute Code(s): F03.90 - UNSPECIFIED DEMENTIA WITHOUT BEHAVIORAL DISTURBANCE SNOMED Code(s): 31109539 Comment: continue seroquel. (6) Depression Current Visit: Yes Status: Acute Code(s): F32.9 - MAJOR DEPRESSIVE DISORDER , SINGLE EPISODE, UNSPECIFIED SNOMED Code(s): 50404546 Comment: continue zoloft. (7) Atelectasis Current Visit: Yes Status: Acute Comment: on CXR vs early consolitation. Urine Ags negative. Afebrile, no leukocytosis, on RA continue cftx (also for UTI). stop azithromycin. Status and Disposition: medicine, likely to inpatient today.
[2018-01-14] MEDS ORDERED: QUEtiapine TAB* 25 MG PO SCH (09:00)
[2018-01-14] MEDS ORDERED: levETIRAcetam IV* 750 MG in NS 0.9% 100 ML* 100 ML IVPB SCH (09:00)
[2018-01-14] MEDS: Docusate CAP* 100 MG PO SCH ×2 (10:17→19:58)
[2018-01-14] MEDS: Thiamine TAB* 100 MG TAB PO SCH (10:18)
[2018-01-14] MEDS: amLODIPine TAB* 5 MG PO SCH (10:18)
[2018-01-14] MEDS: Folic Acid TAB* 1 MG PO SCH (10:18)
[2018-01-14] MEDS: Polyethylene Glycol 3350* 17 GM PACKET PO SCH (10:19)
[2018-01-14] MEDS ORDERED: NS 0.9% 100 ML* 100 ML ONE (10:24)
--- NOTE | 2018-01-14 12:30 | EEG ---
LONGTERM VIDEO/EEG MONITORING - Monitoring Monitoring Start Date: 01/13/18 Current Monitoring Session: 01/13/18 at 18:15 to 01/14/18 at 08:37 and 01/14/18 at 09:38 to 12:43 EEG Clinical Indication: Celeste Hernandez is an 82 year old woman who was admitted to [address] [place] [address] on 01/13/18 for altered mental status. Pt resides at [facility] in [place] and fell this morning at 0130. Pt taken to [place] ER, Xray and CT taken, reports came back negative. She discharged home. She reportedly slept 3 hours ([id number]) then got up, walked down to breakfast and while at breakfast her head dropped down like she fell asleep. She would arouse to gentle shaking or calling of her name but would instantly go out again. She was brought to [facility] ER for evaluation for a similiar incident in March 2017 which resulted in a transfer to [facility]. She was said to have a UTI and started on Cipro on 01/11/18. A routine EEG demonstrated frequent right frontal epileptiform discharges and long-term monitoring was requested in order to evaluate for subclinical seizures. Patient was started on levetiracetam prior to the start of this recording. Introduction: INTRODUCTION: The EEG was monitored from 21 scalp electrodes. Nineteen electrodes consisted of the standard parasagittal, temporal and midline leads of the International 10 -20 system. In addition, special electrodes T1 and T2 were placed. EEG data were recorded on an Issue system with simultaneous MPEG-4 digital video recording of patient behavior. EEG recording was in a monopolar montage with all electrodes referenced to FCz. Significant behavioral events were signaled by an event button, or putative electrical seizure events were detected by a computer program. All EEG data were reviewed in their entirety on a monitor with reconstruction of montages and adjustments of sensitivity and filtering. Simultaneous patient behavior was viewed on an adjacent monitor and correlated with the EEG. - Medications Active Medications: Acetaminophen (Tylenol Tab*) 650 mg PO Q4H PRN PRN Reason: FEVER/PAIN Amlodipine Besylate (Norvasc Tab*) 5 mg PO DAILY [facility] Last Admin: 01/14/18 10:18 Dose: 5 mg Docusate Sodium (Colace Cap*) 100 mg PO BID [facility] Last Admin: 01/14/18 10:17 Dose: 100 mg Folic Acid (Folvite Tab*) 1 mg PO DAILY [facility] Last Admin: 01/14/18 10:18 Dose: 1 mg Heparin Sodium (Porcine) (Heparin Vial(*)) 5,000 units SUBCUT Q8HR [facility] Last Admin: 01/14/18 06:23 Dose: 5,000 units Sodium Chloride (Ns 0.9% 1000 Ml*) 1,000 mls @ 100 mls/hr IV PER RATE [facility] Last Admin: 01/13/18 16:05 Dose: 100 mls/hr Ceftriaxone Sodium 1 gm/ (Sodium Chloride) 50 mls @ 200 mls/hr IVPB Q24H [facility] Last Admin: 01/13/18 17:13 Dose: 200 mls/hr Levetiracetam (Keppra Tab*) 750 mg PO BID [facility] Morphine Sulfate (Morphine Inj (Syringe)*) 2 mg IV Q2H PRN PRN Reason: PAIN Polyethylene Glycol/Electrolytes (Miralax*) 17 gm PO DAILY [facility] Last Admin: 01/14/18 10:19 Dose: 17 gm Quetiapine Fumarate (Seroquel Tab*) 75 mg PO BEDTIME [facility] Last Admin: 01/13/18 21:13 Dose: Not Given Sertraline HCl (Zoloft*) 50 mg PO BEDTIME [facility] Last Admin: 01/13/18 21:13 Dose: Not Given Thiamine HCl (Vitamin B-1 Tab*) 100 mg PO DAILY [facility] Last Admin: 01/14/18 10:18 Dose: 100 mg Lorazepam given at 18:25 - Description Background: The background was characterized by an interhemispheric asymmetry throughout the recording, which was more significant at the beginning of the recording. The pathology was mainly over the right hemisphere. Over the right hemisphere, the background showed diminished organization with reduced anterior-posterior voltage and frequency gradients. There were frequent epileptiform discharges in the right frontocentral region characterized by sharp and slow waves with superimposed faster frequency activity in the beta range. These are further described below. In addition, there was high voltage 1 to 2 Hz delta slowing in the right frontocentral region. The background otherwise was characterized by mixed frequency polymorphic slowing with a poorly sustained and irregular posterior rhythm of about 6 Hz. Over the left hemisphere, there was appropriate organization with defined anterior to posterior voltage and frequency gradients. There was a posterior dominant rhythm of 8.5-9 Hz. Anteriorly, there was the expected pattern of lower voltage and more irregular theta and beta rhythms. The delta-range slowing noted over the right frontocentral region exhibited a field into the left frontal region as well. After Ativan was given, the epileptiform activity in the right hemisphere greatly diminished and organization improved. There continued to be higher amplitudes and faster frequency activity noted over the right frontocentral region, as well as polymorphic slowing in the delta and theta ranges. There also continued to be intermittent discharges. The posterior rhythm was approximately 8 Hz. Over both hemisphere, there was excess beta activity, consistent with medication effect, but again this was of higher amplitude over the right frontocentral region. The sleep background was appropriately organized with well-developed spindles and vertex waves indicative of stage 2 sleep. These sleep transients showed appropriate morphology and were bilaterally synchronous and symmetrical. Deeper stages of sleep were not readily evident. Intericatal Epileptiform Activity: At the beginning of the recording, there were frequent epileptiform discharges noted in the right hemisphere, primarily over the right frontocentral/midline regions. These were high voltage, spike and slow wave discharges intermixed with faster frequency activity in the alpha and beta ranges. Discharges often occurred at 1 to 2Hz for 1 to 5 seconds, followed by 3 to 5 seconds of polymorphic mixed alpha and beta frequency activity. The field of this activity was noted into the right temporal and occipital regions as well. After Ativan wave given, this activity greatly reduced in frequency and amplitude. For the remainder of the recording, occasional low to moderate voltage spike and slow wave discharges were seen in the midline and right frontocentral region, mainly involving CZ, C4 and F4. Ictal Activity: None - Impression Impression: This is an abnormal long-term monitoring session. At the beginning of the recording, there was frequent, semi-periodic epileptiform activity with underlying slowing mainly in the right frontocentral region and midline, but this activity exhibited a wide field into the right hemisphere. The left hemisphere had retained organization and posterior dominant rhythm. Once lorazepam was given, the epileptiform activity in the right hemisphere diminished in frequency and amplitude as well as periodicity, and the field exhibited was smaller, involving only the frontocentral region and midline. However, the activity in the right frontocentral region continued to be of higher amplitude than that noticed over the left frontocentral region, and faster frequency rhythms were present there as well. Overall, these findings are consistent with underlying neuronal dysfunction and increased epileptic potential in the right frontocentral region and midline, which improved with administration of lorazepam but did not resolve completely. There were no seizures during this recording. The presence of higher amplitudes and faster frequency activity with sharper contours over the right frontocentral region is often seen in the setting of breach effect, but this should be correlated clinically as there is no noted history of craniotomy. Lower amplitude beta activity present diffusely is consistent with medication effect.
[2018-01-14] MEDS: cefTRIAXone(*) 1 GM in NS 0.9% 50 ML* 50 ML IVPB SCH (17:20)
--- NOTE | 2018-01-14 18:16 | CONS ---
NEUROLOGY FOLLOWUP NOTE: DATE OF FOLLOWUP: 01/14/18 HOSPITALIST: Sunil Graham MD. LOCATION: She is an inpatient in the ICU, bed 12. CHIEF COMPLAINT: Seizures. INTERVAL HISTORY: Since yesterday, Celeste is doing much better. She is talking of [place], telling me all kinds of stories. She confabulates a bit about yesterday, but does remember that she fell and hit her head and that her son brought her into the hospital. She does not have any complaints of pain today. She denies headache as well. No change in vision. She continues with her chronic cough. She has had it for months, if not longer. She notes it particularly after prolonged talking. MEDICATIONS: Reviewed and she is on amlodipine 5 mg p.o. daily, ceftriaxone 1 g IV q.24 hours, Colace 100 mg p.o. b.i.d., folate 1 mg p.o. daily, heparin subcutaneous 5000 units q.8 hours, Keppra 750 mg IV q.12 hours, Seroquel 75 mg p.o. q.h.s., and 25 mg p.o. q.a.m., sertraline 50 mg p.o. daily, which has been held, thiamine 100 mg p.o. daily. PHYSICAL EXAMINATION: She is alert and in good spirits. Temperature 97.8, blood pressure 160/80, heart rate of 80 and regular, respiratory rate 19, and oxygen saturation is 94% on room air. Her heart is in a regular rhythm, without murmurs heard. Neck is supple. Pupils react equally from about 3 to 2 mm. Eye movements are full and there is no nystagmus. Facial musculature is symmetric. There is a mild intermittent tremor in the left hand. There is no action tremor. There is no rigidity. She is alert, extremely talkative. Language is fluent. Memory is impaired for recent events, but not for remote events as she gives extended stories of her prior occurrences. DIAGNOSTIC STUDIES/LAB DATA: Laboratory data today is notable for a normal CBC. Chemistry profile today notable for glucose of 134 and otherwise unremarkable. Urine light chains are pending. IMPRESSION: Impression is that of a marked improvement in her altered mental status. Her EEG was reviewed briefly at the bedside and does not show the epileptiform discharges that were so prominent yesterday. Impression is that of recurrent epileptic encephalopathy. Unlike her admission last March, she seems to be cleared clinically. PLAN: I am going to switch her Keppra to 750 mg p.o. rather than IV. I think extended EEG monitoring can probably be discontinued at this point, we can just follow her clinically. She probably can be moved to a regular medical floor and I will speak with the hospitalist in that regard. [id number]/[facility] #: [id number] MTDLeonard
[2018-01-14] MEDS: levETIRAcetam TAB* 500 MG PO SCH (19:57)
[2018-01-14] MEDS: Sertraline* 50 MG TAB PO SCH (19:57)
[2018-01-14] MEDS: QUEtiapine TAB* 25 MG PO SCH (19:58)
[2018-01-14] MEDS: Morphine INJ* 2 MG/ML 1 ML CARPUJECT IV PRN (23:50)
[2018-01-15] MEDS: Morphine INJ* 2 MG/ML 1 ML CARPUJECT IV PRN (04:15)
[2018-01-15] MEDS: Heparin VIAL(*) 5000 UNITS/ML VIAL (FIVE THOUSAND) SUBCUT SCH ×3 (06:03→21:49)
[2018-01-15] MEDS: Polyethylene Glycol 3350* 17 GM PACKET PO SCH (09:26)
[2018-01-15] MEDS: levETIRAcetam TAB* 500 MG PO SCH ×2 (09:28→21:48)
[2018-01-15] MEDS: Docusate CAP* 100 MG PO SCH ×2 (09:29→21:48)
[2018-01-15] MEDS: Thiamine TAB* 100 MG TAB PO SCH (09:30)
[2018-01-15] MEDS: amLODIPine TAB* 5 MG PO SCH (09:31)
[2018-01-15] MEDS: Folic Acid TAB* 1 MG PO SCH (09:31)
--- NOTE | 2018-01-15 14:26 | PN ---
Subjective Date of Service: 01/15/18 Interval History: report of arm twitching episode and difficult to arouse last night. unsteady on feet to bathroom Confused to some things, lucid in others, very talkative EEG pending. attests to cough. Objective Active Medications: Acetaminophen (Tylenol Tab*) 650 mg PO Q4H PRN PRN Reason: FEVER/PAIN Last Admin: 01/15/18 04:16 Dose: 650 mg Amlodipine Besylate (Norvasc Tab*) 5 mg PO DAILY [facility] Last Admin: 01/15/18 09:31 Dose: 5 mg Docusate Sodium (Colace Cap*) 100 mg PO BID [facility] Last Admin: 01/15/18 09:29 Dose: 100 mg Folic Acid (Folvite Tab*) 1 mg PO DAILY [facility] Last Admin: 01/15/18 09:31 Dose: 1 mg Heparin Sodium (Porcine) (Heparin Vial(*)) 5,000 units SUBCUT Q8HR [facility] Last Admin: 01/15/18 06:03 Dose: 5,000 units Ceftriaxone Sodium 1 gm/ (Sodium Chloride) 50 mls @ 200 mls/hr IVPB Q24H [facility] Last Admin: 01/14/18 17:20 Dose: 200 mls/hr Levetiracetam (Keppra Tab*) 750 mg PO BID [facility] Last Admin: 01/15/18 09:28 Dose: 750 mg Morphine Sulfate (Morphine Inj (Syringe)*) 2 mg IV Q2H PRN PRN Reason: PAIN Last Admin: 01/15/18 04:15 Dose: 2 mg Polyethylene Glycol/Electrolytes (Miralax*) 17 gm PO DAILY [facility] Last Admin: 01/15/18 09:26 Dose: 17 gm Quetiapine Fumarate (Seroquel Tab*) 75 mg PO BEDTIME [facility] Last Admin: 01/14/18 19:58 Dose: 75 mg Sertraline HCl (Zoloft*) 50 mg PO BEDTIME [facility] Last Admin: 01/14/18 19:57 Dose: 50 mg Thiamine HCl (Vitamin B-1 Tab*) 100 mg PO DAILY [facility] Last Admin: 01/15/18 09:30 Dose: 100 mg Vital Signs - 8 hr 01/15/18 01/15/18 01/15/18 08:00 08:46 11:42 Temperature 97.3 F 98 F Pulse Rate 68 97 Respiratory 16 16 18 Rate Blood Pressure 143/70 140/85 (mmHg) O2 Sat by Pulse 98 98 97 Oximetry Oxygen Devices in Use Now: None Appearance: NAD, sitting in bed Eyes: No Scleral Icterus, PERRLA Neck: NL Appearance and Movements; NL JVP, Trachea Midline Respiratory: Symmetrical Chest Expansion and Respiratory Effort, - - crackles left base. no wheezing or rhonchi. Cardiovascular: NL Sounds; No Murmurs; No JVD, RRR, No Edema Abdominal: NL Sounds; No Tenderness; No Distention, No Hepatosplenomegaly Lymphatic: No Cervical Adenopathy Extremities: No Edema, No Clubbing, Cyanosis Skin: No Rash or Ulcers, No Nodules or Sclerosis Neurological: - - knows in hospital, does not know year. HERRERA, following commands. Nutrition: Taking PO's Result Diagrams: 01/14/18 05:40 01/14/18 05:40 Additional Lab and Data: Microbiology and Other Data: Microbiology 01/13/18 11:17 Blood Venous Aerobic Blood Culture - Preliminary No Growth Day 2 01/13/18 11:17 Blood Venous Anaerobic Blood Culture - Preliminary No Growth Day 2 01/13/18 11:00 Blood Venous Aerobic Blood Culture - Preliminary No Growth Day 2 01/13/18 11:00 Blood Venous Anaerobic Blood Culture - Preliminary No Growth Day 2 01/13/18 10:20 Urine Urine Culture - Final No Growth (<1,000 CFU/mL) 01/13/18 10:20 Urine Legionella Urinary Antigen - Final Negative Legionella 01/13/18 10:20 Urine Streptococcus pneumoniae Ag Screen - Final Negative S. pneumo Antigen 01/13/18 15:29 Nasal Influenza Types A,B Antigen (GERONIMO) - Final Specimen received for Influenza A/B Molecular testing Assess/Plan/Problems-Billing Assessment: 82 yo female PMH dementia, Anemia, UE DVT, recent UTI on cipro and extensive evaluation for AMS March/April [address] [facility] [place] [facility] and [facility] x2. P/w fall, AMS concern for right sided frontal epileptiform activity. on keppra. Neuro following. - Patient Problems (1) Altered mental status Current Visit: No Status: Acute Code(s): R41.82 - ALTERED MENTAL STATUS, UNSPECIFIED SNOMED Code(s): 297766314 Comment: likely sz related. seems improved since levetiracetam started. but still periods of confusion. f/u spot EEG results f/u Neuro recs, f/u vascultitis and hypogammaglobunemia labs. CRP wnl no records [facility] yet. 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 continue UTI tx. (2) Seizure disorder Current Visit: Yes Status: Acute Code(s): G40.909 - EPILEPSY, UNSP, NOT INTRACTABLE, WITHOUT STATUS EPILEPTICUS SNOMED Code(s): 328530576 Comment: Plan as above. continue keppra. got ativan 2mg 01/13. still some "pauses" in conversation per RN notes. confused. spot EEG pending f/u Neuro recs (3) UTI (urinary tract infection) Current Visit: Yes Status: Acute Comment: s/p few days of cipro. now ceftriaxone. Try to obtain culture data from [facility] clean here. does attest to dysuria. (4) HTN (hypertension) Current Visit: No Status: Acute Code(s): I10 - ESSENTIAL (PRIMARY) HYPERTENSION SNOMED Code(s): 25105612 Comment: - no listed home meds. SBP were as high aa 180s -> started amlodipine 5mg. now 140s. (5) Dementia Current Visit: Yes Status: Acute Code(s): F03.90 - UNSPECIFIED DEMENTIA WITHOUT BEHAVIORAL DISTURBANCE SNOMED Code(s): 10241936 Comment: continue seroquel. (6) Depression Current Visit: Yes Status: Acute Code(s): F32.9 - MAJOR DEPRESSIVE DISORDER , SINGLE EPISODE, UNSPECIFIED SNOMED Code(s): 49014930 Comment: continue zoloft. (7) Atelectasis Current Visit: Yes Status: Acute Comment: on CXR vs early consolitation. Urine Ags negative. Afebrile, no leukocytosis, on RA continue cftx (also for UTI). s/p azithromycin. Status and Disposition: medicine inpatient, pending spot EEG and PT clearance
[2018-01-15] MEDS: cefTRIAXone(*) 1 GM in NS 0.9% 50 ML* 50 ML IVPB SCH (17:01)
[2018-01-15 17:18] LABS: ABS Basophils 0 10^3/ul (0-0.2); ABS Eosinophils 0.1 10^3/ul (0-0.6); ABS Lymphocytes 1.3 10^3/ul (1.0-4.8); ABS Monocytes 0.5 10^3/ul (0-0.8); ABS Neutrophils 5.1 10^3/ul (1.5-7.7); ABS Nucleated RBC 0 10^3/ul; Eosinophil % 2.1 % (0-6); Hematocrit 39 % (35-47); Hemoglobin 13.4 g/dl (12.0-16.0); Lymphocyte % 18.1 % (25-47); Mean Corpuscular HGB Conc 34 g/dl (31-36); Mean Corpuscular Hemoglobin 31 pg (27-31); Mean Corpuscular Volume 89 fL (80-97); Mean Platelet Volume 8 um3 (7.4-10.4); Nucleated Red Blood Cells % 0; Platelet Count 183 10^3/ul (150-450); Red Cell Distribution Width 14 % (10.5-15)
[2018-01-15 17:34] LABS: EGFR Non-African American 54.6 (>60)
--- NOTE | 2018-01-15 18:04 | RAD ---
INDICATION: Delirium, coughing fits. COMPARISON: Comparison is made with a prior study from January 13, 2018. TECHNIQUE: AP and lateral views of the chest were obtained. FINDINGS: The heart is within normal limits in size. The lungs are underinflated. There are minimal infiltrates at both lung bases suggestive of atelectasis. No pleural effusion is seen. IMPRESSION: UNDERINFLATION MILD BIBASILAR ATELECTASIS.
[2018-01-15] MEDS: Sertraline* 50 MG TAB PO SCH (21:48)
[2018-01-15] MEDS: QUEtiapine TAB* 25 MG PO SCH (21:48)
[2018-01-16] MEDS: Heparin VIAL(*) 5000 UNITS/ML VIAL (FIVE THOUSAND) SUBCUT SCH ×3 (05:42→21:38)
[2018-01-16 06:28] LABS: ABS Basophils 0 10^3/ul (0-0.2); ABS Eosinophils 0.2 10^3/ul (0-0.6); ABS Lymphocytes 1.5 10^3/ul (1.0-4.8); ABS Monocytes 0.4 10^3/ul (0-0.8); ABS Neutrophils 3.4 10^3/ul (1.5-7.7); ABS Nucleated RBC 0 10^3/ul; Eosinophil % 3.1 % (0-6); Hematocrit 35 % (35-47); Hemoglobin 12.1 g/dl (12.0-16.0); Lymphocyte % 27.2 % (25-47); Mean Corpuscular HGB Conc 35 g/dl (31-36); Mean Corpuscular Hemoglobin 31 pg (27-31); Mean Corpuscular Volume 88 fL (80-97); Mean Platelet Volume 8 um3 (7.4-10.4); Nucleated Red Blood Cells % 0; Platelet Count 168 10^3/ul (150-450); Red Cell Distribution Width 13 % (10.5-15); White Blood Count 5.6 10^3/ul (3.5-10.8)
--- NOTE | 2018-01-16 08:54 | PN ---
Subjective Date of Service: 01/16/18 Interval History: Better yesterday, although remains intermittently confused, at times, better than others. This morning, she is pleasant, sitting in her chair, eating breakfast, talkative. She denies any seizure like activity. No reported seizures overnight. Occasional Trigeminy with Tachycardia overnight. I spoke with Dr. Wood yesterday. Repeat EEG done yesterday did not show the epileptiform discharges present on prior EEG Objective Active Medications: Acetaminophen (Tylenol Tab*) 650 mg PO Q4H PRN PRN Reason: FEVER/PAIN Last Admin: 01/15/18 04:16 Dose: 650 mg Amlodipine Besylate (Norvasc Tab*) 5 mg PO DAILY [facility] Last Admin: 01/15/18 09:31 Dose: 5 mg Docusate Sodium (Colace Cap*) 100 mg PO BID [facility] Last Admin: 01/15/18 21:48 Dose: 100 mg Folic Acid (Folvite Tab*) 1 mg PO DAILY [facility] Last Admin: 01/15/18 09:31 Dose: 1 mg Heparin Sodium (Porcine) (Heparin Vial(*)) 5,000 units SUBCUT Q8HR [facility] Last Admin: 01/16/18 05:42 Dose: 5,000 units Ceftriaxone Sodium 1 gm/ (Sodium Chloride) 50 mls @ 200 mls/hr IVPB Q24H [facility] Stop: 01/16/18 16:29 Last Admin: 01/15/18 17:01 Dose: 200 mls/hr Ceftriaxone Sodium 1,000 mg/ (Sterile Water) 10 mls @ 40 mls/hr IVPB Q24H [facility] Levetiracetam (Keppra Tab*) 750 mg PO BID [facility] Last Admin: 01/15/18 21:48 Dose: 750 mg Polyethylene Glycol/Electrolytes (Miralax*) 17 gm PO DAILY [facility] Last Admin: 01/15/18 09:26 Dose: 17 gm Quetiapine Fumarate (Seroquel Tab*) 75 mg PO BEDTIME [facility] Last Admin: 01/15/18 21:48 Dose: 75 mg Sertraline HCl (Zoloft*) 50 mg PO BEDTIME [facility] Last Admin: 01/15/18 21:48 Dose: 50 mg Thiamine HCl (Vitamin B-1 Tab*) 100 mg PO DAILY [facility] Last Admin: 01/15/18 09:30 Dose: 100 mg Vital Signs 01/15/18 01/15/18 01/15/18 11:42 15:26 15:42 Temperature 98 F 97.8 F 98.4 F Pulse Rate 97 89 80 Respiratory 18 20 Rate Blood Pressure 140/85 139/80 154/76 (mmHg) O2 Sat by Pulse 97 100 100 Oximetry 01/15/18 01/15/18 20:00 20:04 Temperature 97.2 F Pulse Rate 83 Respiratory 18 17 Rate Blood Pressure 125/69 (mmHg) O2 Sat by Pulse 95 Oximetry Oxygen Devices in Use Now: None Neurology Exam: General: HEENT: Normocephelic/atraumatic, sclera anicteric, mucous membranes moist Neck: Supple Chest: Clear to auscultation bilaterally Cardiovascular: Regular rate and rhythm without murmurs, rubs, gallops Abdomen: Soft, nontender/nondistended Extremities: No cyanosis, warm Neurological Findings: Awake, Alert, Oriented to person, [place], [place], not [place]. Not oriented to date Speech: fluent without dysarthria Cranial Nerve: PEERL, EOM intact, no nystagmus, face symmetric bilaterally, hearing grossly intact, palate elevates symmetrically, tongue midline Motor: Moving all extremities antigravity, limited ROM of the RUE due to pain proximally, otherwise symmetric with good resistance Sensation: Grossly intact to LT/PP Deep Tendon Reflex: Trace symmetric in the upper/lower extremities Finger to nose, rapid alternating movements intact without tremor, no resting tremor Gait: I did not ambulate this am Result Diagrams: 01/16/18 05:29 01/15/18 17:08 Additional Lab and Data: Microbiology and Other Data: Microbiology 01/13/18 11:17 Blood Venous Aerobic Blood Culture - Preliminary No Growth Day 2 01/13/18 11:17 Blood Venous Anaerobic Blood Culture - Preliminary No Growth Day 2 01/13/18 11:00 Blood Venous Aerobic Blood Culture - Preliminary No Growth Day 2 01/13/18 11:00 Blood Venous Anaerobic Blood Culture - Preliminary No Growth Day 2 01/13/18 10:20 Urine Urine Culture - Final No Growth (<1,000 CFU/mL) 01/13/18 10:20 Urine Legionella Urinary Antigen - Final Negative Legionella 01/13/18 10:20 Urine Streptococcus pneumoniae Ag Screen - Final Negative S. pneumo Antigen 01/13/18 15:29 Nasal Influenza Types A,B Antigen (GERONIMO) - Final Specimen received for Influenza A/B Molecular testing Assessment/Plan Assessment: 82 year old with history of dementia, prior admission with seizure like activity in March 2017, transferred to [facility], recently on seizure medication, presented after fall with right frontal epileptiform activity, AMS, restarted on Keppra with marked improvement, now on PO Keppra. --Overall, she is stable and doing better. No major seizure activity reported overnight --Her baseline is unclear to me, she does have waxing and waning confusion but has a history of dementia --Continue Keppra 750mg po bid --Seizure precautions --Will continue to follow along
[2018-01-16] MEDS: levETIRAcetam TAB* 500 MG PO SCH ×2 (09:50→20:40)
[2018-01-16] MEDS: amLODIPine TAB* 5 MG PO SCH (09:50)
[2018-01-16] MEDS: Folic Acid TAB* 1 MG PO SCH (09:50)
[2018-01-16] MEDS: Polyethylene Glycol 3350* 17 GM PACKET PO SCH (09:50)
[2018-01-16] MEDS: Thiamine TAB* 100 MG TAB PO SCH (09:50)
[2018-01-16] MEDS: Docusate CAP* 100 MG PO SCH ×2 (09:50→20:40)
--- NOTE | 2018-01-16 13:12 | EEG ---
ELECTROENCEPHALOGRAPHY: DATE OF STUDY: 01/15/18 LOCATION: She is an inpatient in room 405. 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 She had frequent epileptiform discharges when first presenting a couple of days ago. She still has episodes where she closes her eyes and seems to sleep, but responds to voice. MEDICATIONS: Include: 1. Seroquel 75 mg p.o. q.h.s. 2. Keppra 750 mg p.o. b.i.d. 3. Sertraline. 4. Norvasc. 5. Rocephin. REPORT: This 16-channel EEG is remarkable for background rhythm consisting of a poorly formed alpha rhythm seen better in the left occipital denervations in the right approaching 7 to at most 8 cycles per second. Abundant beta rhythms are seen as well as movement artifact. The patient coughs and talks frequently during the recording. Occasional slower rhythms are seen from the right parasagittal area in the F4 and C4 areas and P4. There are no epileptiform discharges. There are vertex spikes in sharp waves fairly frequently, but they appear to be associated with movement and possibly drowsiness. Stage 2 sleep is not achieved. The activation procedures are not attempted. There are no epileptiform discharges during this recording. CLINICAL IMPRESSION: Abnormal EEG due to slowing and disorganization in background rhythms as well as occasional focal slowing from the right central parietal area. This tracing is compatible with diffuse cerebral dysfunction as well as possible focal pathology in the right frontocentral parietal area. There are no epileptiform discharges during this recording. [id number]/[facility] #: [id number] [facility] SERVICESLeonard
[2018-01-16] MEDS ORDERED: cefTRIAXone 1000 MG SYRINGE IVPB Q24H IVPB SCH ×2 (16:30)
--- NOTE | 2018-01-16 17:39 | PN ---
Subjective Date of Service: 01/16/18 Interval History: Pt perseverating on her water sips. Still talkative. Oriented to hospital, name but still not year though knew was January. Delusions about needing to get a surgery for excess water build up in her stomach. Daughter In Law Orly at bedside. Records from Dr. Ally Nevarez obtained, UA, UCx(which was no growth ultimately Spoke with Son Tha on phone. Objective Active Medications: Acetaminophen (Tylenol Tab*) 650 mg PO Q4H PRN PRN Reason: FEVER/PAIN Last Admin: 01/15/18 04:16 Dose: 650 mg Amlodipine Besylate (Norvasc Tab*) 5 mg PO DAILY [facility] Last Admin: 01/16/18 09:50 Dose: 5 mg Docusate Sodium (Colace Cap*) 100 mg PO BID [facility] Last Admin: 01/16/18 09:50 Dose: 100 mg Folic Acid (Folvite Tab*) 1 mg PO DAILY [facility] Last Admin: 01/16/18 09:50 Dose: 1 mg Heparin Sodium (Porcine) (Heparin Vial(*)) 5,000 units SUBCUT Q8HR [facility] Last Admin: 01/16/18 15:21 Dose: 5,000 units Levetiracetam (Keppra Tab*) 750 mg PO BID [facility] Last Admin: 01/16/18 09:50 Dose: 750 mg Polyethylene Glycol/Electrolytes (Miralax*) 17 gm PO DAILY [facility] Last Admin: 01/16/18 09:50 Dose: 17 gm Quetiapine Fumarate (Seroquel Tab*) 75 mg PO BEDTIME [facility] Last Admin: 01/15/18 21:48 Dose: 75 mg Sertraline HCl (Zoloft*) 50 mg PO BEDTIME [facility] Last Admin: 01/15/18 21:48 Dose: 50 mg Thiamine HCl (Vitamin B-1 Tab*) 100 mg PO DAILY [facility] Last Admin: 01/16/18 09:50 Dose: 100 mg Vital Signs - 8 hr 01/16/18 01/16/18 11:42 15:26 Temperature 97.1 F 97.6 F Pulse Rate 86 81 Respiratory 17 16 Rate Blood Pressure 137/66 156/73 (mmHg) O2 Sat by Pulse 99 100 Oximetry Oxygen Devices in Use Now: None Appearance: NAD. sitting in chair eating breakfast. Eyes: No Scleral Icterus, PERRLA Ears/Nose/Mouth/Throat: NL Teeth, Lips, Gums Neck: NL Appearance and Movements; NL JVP, Trachea Midline Respiratory: Symmetrical Chest Expansion and Respiratory Effort, Clear to Auscultation Cardiovascular: NL Sounds; No Murmurs; No JVD, RRR Abdominal: NL Sounds; No Tenderness; No Distention, No Hepatosplenomegaly Extremities: No Edema Skin: No Rash or Ulcers, No Nodules or Sclerosis Neurological: NL Sensation, NL Muscle Strength and Tone, - - oriented to name and hospital but not year. Nutrition: Taking PO's Result Diagrams: 01/16/18 05:29 01/15/18 17:08 Additional Lab and Data: Laboratory Results - last 24 hr 01/13/18 01/13/18 01/16/18 20:55 20:55 05:29 WBC 5.6 RBC 3.90 L Hgb 12.1 Hct 35 MCV 88 MCH 31 MCHC 35 RDW 13 Plt Count 168 MPV 8 Neut % (Auto) 61.3 Lymph % (Auto) 27.2 [place] % (Auto) 7.7 H Eos % (Auto) 3.1 Baso % (Auto) 0.7 Absolute Neuts (auto) 3.4 Absolute Lymphs (auto) 1.5 Absolute Monos (auto) 0.4 Absolute Eos (auto) 0.2 Absolute Basos (auto) 0 Absolute Nucleated RBC 0 Nucleated RBC % 0 IgG 362 L IgA 31 L IgM 53 [place] Light Chain 0.8610 Lambda Light Chain 1.12 [place]/Lambda Ratio 0.7688 Proteinase 3 (PR3) < 0.2 Myeloperoxidase Ab < 0.2 Microbiology and Other Data: Microbiology 01/13/18 11:00 Blood Venous Aerobic Blood Culture - Preliminary No Growth Day 3 01/13/18 11:00 Blood Venous Anaerobic Blood Culture - Preliminary No Growth Day 3 01/13/18 11:17 Blood Venous Aerobic Blood Culture - Preliminary No Growth Day 3 01/13/18 11:17 Blood Venous Anaerobic Blood Culture - Preliminary No Growth Day 3 01/13/18 10:20 Urine Urine Culture - Final No Growth (<1,000 CFU/mL) 01/13/18 10:20 Urine Legionella Urinary Antigen - Final Negative Legionella 01/13/18 10:20 Urine Streptococcus pneumoniae Ag Screen - Final Negative S. pneumo Antigen 01/13/18 15:29 Nasal Influenza Types A,B Antigen (GERONIMO) - Final Specimen received for Influenza A/B Molecular testing Assess/Plan/Problems-Billing Assessment: 82 year old with history of dementia, prior admission with seizure like activity in March 2017, transferred to [place] twice and left without clear diagnosis, presented after concern for deviation from her typical behaviors, started on ciprofloxacin for suspected UTI(ultimately no significant growth) then fell and hit head. negative [facility] x2. AMS and e/o right frontal epileptiform activity, restarted on Keppra with marked improvement, but still not back to baseline. - Patient Problems (1) Altered mental status Current Visit: No Status: Acute Code(s): R41.82 - ALTERED MENTAL STATUS, UNSPECIFIED SNOMED Code(s): 031786178 Comment: likely mutlifactorial: sz related, medication side effect of her cipro initially, then fell hit head. thought had UTI but both UCxs did not bear this out. seems improved since levetiracetam started. but still periods of confusion. 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 [facility]. 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 (2) Seizure disorder Current Visit: Yes Status: Acute Code(s): G40.909 - EPILEPSY, UNSP, NOT INTRACTABLE, WITHOUT STATUS EPILEPTICUS SNOMED Code(s): 051956340 Comment: Plan as above. continue keppra. got ativan 2mg 01/13. (3) UTI (urinary tract infection) Current Visit: Yes Status: Acute Comment: s/p few days of cipro. then ceftriaxone here but stop now as both UCx here and the original had no significant growth. (4) HTN (hypertension) Current Visit: No Status: Acute Code(s): I10 - ESSENTIAL (PRIMARY) HYPERTENSION SNOMED Code(s): 07084999 Comment: - no listed home meds. SBP were as high aa 180s -> started amlodipine 5mg. now better controlled. (5) Dementia Current Visit: Yes Status: Acute Code(s): F03.90 - UNSPECIFIED DEMENTIA WITHOUT BEHAVIORAL DISTURBANCE SNOMED Code(s): 31721381 Comment: continue seroquel. (6) Depression Current Visit: Yes Status: Acute Code(s): F32.9 - MAJOR DEPRESSIVE DISORDER , SINGLE EPISODE, UNSPECIFIED SNOMED Code(s): 44084646 Comment: continue zoloft. Status and Disposition: medicine inpatient
[2018-01-16] MEDS: Sertraline* 50 MG TAB PO SCH (20:40)
[2018-01-16] MEDS: QUEtiapine TAB* 25 MG PO SCH (20:40)
[2018-01-17] MEDS: Heparin VIAL(*) 5000 UNITS/ML VIAL (FIVE THOUSAND) SUBCUT SCH ×3 (05:27→21:44)
[2018-01-17] MEDS ORDERED: Benzonatate CAP* 100 MG PO PRN (09:23)
[2018-01-17] MEDS: levETIRAcetam TAB* 500 MG PO SCH ×2 (10:14→21:44)
[2018-01-17] MEDS: amLODIPine TAB* 5 MG PO SCH (10:14)
[2018-01-17] MEDS: Folic Acid TAB* 1 MG PO SCH (10:14)
[2018-01-17] MEDS: Polyethylene Glycol 3350* 17 GM PACKET PO SCH (10:14)
[2018-01-17] MEDS: Docusate CAP* 100 MG PO SCH ×2 (10:15→21:45)
[2018-01-17] MEDS: Thiamine TAB* 100 MG TAB PO SCH (10:15)
[2018-01-17 10:34] LABS: ABS Basophils 0 10^3/ul (0-0.2); ABS Eosinophils 0.1 10^3/ul (0-0.6); ABS Lymphocytes 1.2 10^3/ul (1.0-4.8); ABS Monocytes 0.4 10^3/ul (0-0.8); ABS Neutrophils 3.6 10^3/ul (1.5-7.7); ABS Nucleated RBC 0 10^3/ul; Eosinophil % 2.2 % (0-6); Hematocrit 37 % (35-47); Hemoglobin 12.5 g/dl (12.0-16.0); Lymphocyte % 22.1 % (25-47); Mean Corpuscular HGB Conc 34 g/dl (31-36); Mean Corpuscular Hemoglobin 30 pg (27-31); Mean Corpuscular Volume 90 fL (80-97); Mean Platelet Volume 8 um3 (7.4-10.4); Nucleated Red Blood Cells % 0; Platelet Count 190 10^3/ul (150-450); Red Blood Count 4.16 10^6/ul (4.0-5.4); Red Cell Distribution Width 14 % (10.5-15); White Blood Count 5.3 10^3/ul (3.5-10.8)
[2018-01-17] MEDS ORDERED: guaiFENesin LIQ* 100 MG/5 ML UDC PO PRN (11:18)
--- NOTE | 2018-01-17 15:20 | RAD ---
Indication: Confusion, altered mental status CT of the brain was performed without IV contrast. Ventricular structures are midline. No midline shift is noted. The extra-axial spaces are unremarkable. There is no evidence of intracranial mass or hemorrhage. No other high or low density lesions are identified. Periventricular lucency consistent with chronic ischemic White matter change is noted. When compared to previous exam of January 13, 2018 no significant change is noted. Mastoid air cells and paranasal sinuses are otherwise unremarkable. IMPRESSION: Chronic ischemic White matter change. No intracranial mass or hemorrhage is noted.
--- NOTE | 2018-01-17 15:32 | PN ---
Subjective Date of Service: 01/17/18 Interval History: Pt drinking large quantities of water this AM and then had more coughing fits. eventually with emesis. closing eyes frequently. Episode of shivering. CTH and CT chest ordered. Afebrile. Na down slightly to 131 from 133. [employer] better no leukocytosis. tachypneic after vomiting. made npo except sips with meds until HOT DIPPER evaluation. requested records from [facility] again. Son Tha and DIL Orly deny patient has any history of dementia after resolution of episodes last year. Increased coughing for about 1 month. Denies dysuria. Objective Active Medications: Acetaminophen (Tylenol Tab*) 650 mg PO Q4H PRN PRN Reason: FEVER/PAIN Last Admin: 01/15/18 04:16 Dose: 650 mg Amlodipine Besylate (Norvasc Tab*) 5 mg PO DAILY [facility] Last Admin: 01/17/18 10:14 Dose: 5 mg Benzonatate (Tessalon Cap*) 100 mg PO BID PRN PRN Reason: COUGH Last Admin: 01/17/18 10:14 Dose: 100 mg Docusate Sodium (Colace Cap*) 100 mg PO BID [facility] Last Admin: 01/17/18 10:15 Dose: 100 mg Folic Acid (Folvite Tab*) 1 mg PO DAILY [facility] Last Admin: 01/17/18 10:14 Dose: 1 mg Guaifenesin (Robitussin*) 5 ml PO Q6H PRN PRN Reason: COUGH Last Admin: 01/17/18 14:13 Dose: 5 ml Heparin Sodium (Porcine) (Heparin Vial(*)) 5,000 units SUBCUT Q8HR [facility] Last Admin: 01/17/18 14:13 Dose: 5,000 units Levetiracetam (Keppra Tab*) 750 mg PO BID [facility] Last Admin: 01/17/18 10:14 Dose: 750 mg Polyethylene Glycol/Electrolytes (Miralax*) 17 gm PO DAILY [facility] Last Admin: 01/17/18 10:14 Dose: 17 gm Quetiapine Fumarate (Seroquel Tab*) 75 mg PO BEDTIME [facility] Last Admin: 01/16/18 20:40 Dose: 75 mg Sertraline HCl (Zoloft*) 50 mg PO BEDTIME [facility] Last Admin: 01/16/18 20:40 Dose: 50 mg Thiamine HCl (Vitamin B-1 Tab*) 100 mg PO DAILY [facility] Last Admin: 01/17/18 10:15 Dose: 100 mg Vital Signs - 8 hr 01/17/18 01/17/18 01/17/18 08:00 10:30 11:32 Temperature 97.6 F 97.3 F Pulse Rate 78 73 Respiratory 18 18 16 Rate Blood Pressure 150/70 (mmHg) O2 Sat by Pulse 97 97 97 Oximetry Oxygen Devices in Use Now: None Appearance: NAD but closing eyes frequently. Opens instantly to verbal request. Eyes: No Scleral Icterus, PERRLA Ears/Nose/Mouth/Throat: NL Teeth, Lips, Gums, Mucous Membranes Moist Neck: NL Appearance and Movements; NL JVP Respiratory: Symmetrical Chest Expansion and Respiratory Effort, - - slight rales left base. Cardiovascular: NL Sounds; No Murmurs; No JVD, RRR Abdominal: NL Sounds; No Tenderness; No Distention, No Hepatosplenomegaly Extremities: No Edema, No Clubbing, Cyanosis Skin: No Rash or Ulcers, No Nodules or Sclerosis Neurological: - - Oriented to name and hospital. Still thinking 191. Asked again about her "surgery" Nutrition: Taking PO's Result Diagrams: 01/17/18 10:10 01/17/18 10:10 Additional Lab and Data: Laboratory Results - last 24 hr 01/17/18 01/17/18 10:10 10:10 WBC 5.3 RBC 4.16 Hgb 12.5 Hct 37 MCV 90 MCH 30 MCHC 34 RDW 14 Plt Count 190 MPV 8 Neut % (Auto) 68.1 Lymph % (Auto) 22.1 L Kimball % (Auto) 6.7 Eos % (Auto) 2.2 Baso % (Auto) 0.9 Absolute Neuts (auto) 3.6 Absolute Lymphs (auto) 1.2 Absolute Monos (auto) 0.4 Absolute Eos (auto) 0.1 Absolute Basos (auto) 0 Absolute Nucleated RBC 0 Nucleated RBC % 0 Sodium 131 L Potassium 3.7 Chloride 98 L Carbon Dioxide 27 Anion Gap 6 BUN 16 Creatinine 0.79 Est GFR ( Amer) 90.1 Est GFR (Non-Af Amer) 70.0 BUN/Creatinine Ratio 20.3 H Glucose 158 H Calcium 9.1 Microbiology and Other Data: Microbiology 01/13/18 11:00 Blood Venous Aerobic Blood Culture - Preliminary No Growth Day 4 01/13/18 11:00 Blood Venous Anaerobic Blood Culture - Preliminary No Growth Day 4 01/13/18 11:17 Blood Venous Aerobic Blood Culture - Preliminary No Growth Day 4 01/13/18 11:17 Blood Venous Anaerobic Blood Culture - Preliminary No Growth Day 4 01/13/18 10:20 Urine Urine Culture - Final No Growth (<1,000 CFU/mL) 01/13/18 10:20 Urine Legionella Urinary Antigen - Final Negative Legionella 01/13/18 10:20 Urine Streptococcus pneumoniae Ag Screen - Final Negative S. pneumo Antigen 01/13/18 15:29 Nasal Influenza Types A,B Antigen (GERONIMO) - Final Specimen received for Influenza A/B Molecular testing Assess/Plan/Problems-Billing Assessment: 82 year old [facility] prior admission with seizure like activity in March 2017, transferred to [place] twice and left without clear diagnosis and reportedly without any e/o dementia in interim. Presented after concern for deviation from her typical behaviors (not "first" down to breakfast), started on ciprofloxacin for suspected UTI(ultimately no significant growth) then fell and hit head. then asking repeative questions. negative CTH x2. AMS and e/o right frontal epileptiform activity, restarted on Keppra with generak improvement, but still not back to reported baseline. Polydipsia, coughing fits. - Patient Problems (1) Altered mental status Current Visit: No Status: Acute Code(s): R41.82 - ALTERED MENTAL STATUS, UNSPECIFIED SNOMED Code(s): 583060325 Comment: likely mutlifactorial: sz related, medication side effect of her cipro initially, then fell hit head. toxic metabolic delerium ?post concussive. PCP thought had UTI but both UCxs did not bear this out. Will repeat UA today. generally seems improved since levetiracetam started but son Tha still very concerned she has not returned to her prior baselin. Family refutes any diagnosis of dementia and states usually very oriented. 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 no records from [facility] yet. Have requested again. 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 CTH repeated today 01/17 to rule out slow developing SDH, none seen. CT Chest with atelectatis, difficult to rule out aspiration. Augmentin started. HOT DIPPER nancy. (2) Seizure disorder Current Visit: Yes Status: Acute Code(s): G40.909 - EPILEPSY, UNSP, NOT INTRACTABLE, WITHOUT STATUS EPILEPTICUS SNOMED Code(s): 316193870 Comment: continue keppra 750mg BID. got ativan 2mg 01/13. initially in ICU on continous EEG which showed concerning findings of increased epileptiform potential in right frontal central region (improved with ativan). no seizures during recording. repeat EEG 01/15 similar. appreciate neuro recs. (3) UTI (urinary tract infection) Current Visit: Yes Status: Acute Comment: s/p few days of cipro. then ceftriaxone here but stop now as both UCx here and the original had no significant growth. Will repeat UA (4) HTN (hypertension) Current Visit: No Status: Acute Code(s): I10 - ESSENTIAL (PRIMARY) HYPERTENSION SNOMED Code(s): 74547372 Comment: - no listed home meds. SBP were as high aa 180s -> started amlodipine 5mg. now better controlled. (5) Dementia Current Visit: Yes Status: Acute Code(s): F03.90 - UNSPECIFIED DEMENTIA WITHOUT BEHAVIORAL DISTURBANCE SNOMED Code(s): 78387826 Comment: family denies she carries this diagnosis. continue seroquel. (6) Depression Current Visit: Yes Status: Acute Code(s): F32.9 - MAJOR DEPRESSIVE DISORDER , SINGLE EPISODE, UNSPECIFIED SNOMED Code(s): 30830107 Comment: continue zoloft. Status and Disposition: medicine inpatient
--- NOTE | 2018-01-17 15:39 | RAD ---
Indication: Confusion. Evaluate for aspiration. CT of the chest was without IV contrast. Coronal and sagittal reconstructed images were obtained. Inferior thyroid lobes are unremarkable. No mediastinal or hilar adenopathy is noted. The heart demonstrates no pericardial effusion. There is some airspace disease in the left base which may represent left basilar pneumonia. Possibility of aspiration should BE considered. The right lung field appears clear. Left base atelectasis is noted. The visualized bony structures are grossly unremarkable. Hemangioma is noted in the upper thoracic vertebra. IMPRESSION: Airspace disease in the left base. This may represent atelectasis although aspiration pneumonia is not excluded. Right lung field is clear.
[2018-01-17] MEDS: Amoxicillin/Clavulanate TAB* 875 MG PO SCH ×2 (16:56→21:44)
[2018-01-17] MEDS: QUEtiapine TAB* 25 MG PO SCH (21:45)
[2018-01-17] MEDS: Sertraline* 50 MG TAB PO SCH (21:45)
--- NOTE | 2018-01-17 22:03 | CONS ---
FOLLOWUP NOTE: DATE OF FOLLOWUP: 01/17/18 LOCATION: She is an inpatient in room 405. HOSPITALIST: Dr. Graham. CHIEF COMPLAINT: Seizures. INTERVAL HISTORY: Since yesterday, Ms. Hernandez said she feels fine. She has had any further seizures. Her nurse says that she had episodes where she closes her eyes and then seems to selectively respond. MEDICATIONS: Reviewed and she is on: 1. Amlodipine 5 mg p.o. every day. 2. Augmentin 875 mg p.o. b.i.d. 3. Colace 100 mg p.o. b.i.d. 4. Folic acid 1 mg p.o. every day. 5. Heparin subcutaneous 5000 units q.8 hours. 7. Keppra 750 mg p.o. b.i.d. 8. Seroquel 75 mg p.o. q.h.s. 9. Sertraline 50 mg p.o. q.h.s. PHYSICAL EXAM: On exam, she has been afebrile. Blood pressure 142/65, heart rate running in the 80s. Oxygen saturation is 99% on room air. She is alert and somewhat conversant but watching a TV show. She said she watches it every night. She asked me to come back in 30 minutes when the [email or web address] run. She certainly shows no evidence of alteration in consciousness. IMPRESSION: Epileptic encephalopathy, which has resolved. Her last EEG did not reveal any epileptiform discharges. She seems to be tolerating Keppra well. She may be having some behavioral issues, but right now she is fine. I will re- evaluate tomorrow and talk with her son as well. I am not sure why she is on Seroquel, perhaps she has had some mental problems in the past. [id number]/CPS #: [id number] [facility]OSPITALLeonard
[2018-01-18] MEDS: Heparin VIAL(*) 5000 UNITS/ML VIAL (FIVE THOUSAND) SUBCUT SCH ×2 (05:46→15:02)
[2018-01-18 09:41] LABS: ABS Basophils 0 10^3/ul (0-0.2); ABS Eosinophils 0.2 10^3/ul (0-0.6); ABS Lymphocytes 0.8 10^3/ul (1.0-4.8); ABS Monocytes 0.3 10^3/ul (0-0.8); ABS Neutrophils 4.1 10^3/ul (1.5-7.7); ABS Nucleated RBC 0 10^3/ul; Eosinophil % 3.2 % (0-6); Hematocrit 39 % (35-47); Lymphocyte % 14.3 % (25-47); Mean Corpuscular HGB Conc 34 g/dl (31-36); Mean Corpuscular Hemoglobin 30 pg (27-31); Mean Corpuscular Volume 90 fL (80-97); Mean Platelet Volume 8 um3 (7.4-10.4); Nucleated Red Blood Cells % 0.1; Platelet Count 191 10^3/ul (150-450); Red Blood Count 4.31 10^6/ul (4.0-5.4); Red Cell Distribution Width 14 % (10.5-15); White Blood Count 5.4 10^3/ul (3.5-10.8)
[2018-01-18 09:59] LABS: EGFR Non-African American 67.1 (>60)
[2018-01-18] MEDS: Thiamine TAB* 100 MG TAB PO SCH (10:30)
[2018-01-18] MEDS: Folic Acid TAB* 1 MG PO SCH (10:30)
[2018-01-18] MEDS: levETIRAcetam TAB* 500 MG PO SCH (10:31)
[2018-01-18] MEDS: Amoxicillin/Clavulanate TAB* 875 MG PO SCH (10:31)
[2018-01-18] MEDS: amLODIPine TAB* 5 MG PO SCH (10:32)
[2018-01-18] MEDS: Docusate CAP* 100 MG PO SCH (10:32)
[2018-01-18] MEDS: Polyethylene Glycol 3350* 17 GM PACKET PO SCH (10:33)
--- NOTE | 2018-01-18 13:33 | DS ---
DATE OF ADMISSION: 01/14/2018. DATE OF DISCHARGE: 01/18/2018. ADMITTING PROVIDER: Lion Blanco NP. PRIMARY CARE PHYSICIAN: Dr. Angel Nevarez. ATTENDING PHYSICIAN: Dr. Sunil Graham. CONSULTING NEUROLOGIST: Dr. Albert Wood. CHIEF COMPLAINT: Altered mental status in the setting of recent fall and Ciprofloxacin use. PRINCIPAL DIAGNOSES: Altered mental status secondary to medication Ciprofloxacin and concern for seizure disorder with new prescription for Keppra ; concern for potential aspiration during vomiting episode. HISTORY OF PRESENT ILLNESS AND HOSPITAL COURSE: Celeste Hernandez is an 82-year- old female with a past medical history of hypertension, anemia, prolonged six week episode of altered mental status, encephalopathy and psychosis between March and April of 2017 for which he was admitted to [facility] and then the [facility] twice, leaving with no clear diagnosis, but new medication for Seroquel. She had somewhat abnormal EEG's, but no epileptiform activity during those three admissions. Also had negative work-up for autoimmune encephalitis ( though had been treated empirically for a short time before that was ruled out. Had two LP's during those admissions which were within normal limits. There had been concern for potential Lewy body dementia, though the patient's family says that after discharge she did not demonstrate any memory or orientation issues. She had also had a urinary tract infection and some hyponatremia back then, but mental issues did not resolve after treatment of both those conditions. She was in her usual state of health, although son noted increased coughing for the last month or so. He then noticed that she did not seem to get up to be the first one downstairs at breakfast last week and he was concerned that she was developing a UTI. She saw Dr. Nevarez, had a urinalysis done which showed some trace leukocyte esterase and small amount of white blood cells, and she was empirically started on Ciprofloxacin. Of note, this urine culture eventually would result in no growth to date. Later that night after the Cipro, she fell, hit her head and was evaluated in [facility]. She had a CT of her head at that time which was negative for bleed or mass effect or mass, and she was sent back home to [facility]; however, the son, Tha, was still very concerned that she had these episodes where she would repeat herself and he then took her to [facility] Emergency Room for further work-up. She had a CT head on January 13 which demonstrated again no acute pathology, but evidence of chronic small vessel ischemic changes. She had a lumbar spine CT which demonstrated degenerative disk disease, osteoarthritis, osteopenia, scoliosis, severe narrowing of the central canal at L4-5 and to a lesser extent at L3-4, multilevel neuroforaminal narrowing, and a subacute to chronic right 12th rib fracture. She also had an elbow x-ray which showed some mild degenerative changes, no acute osseous injury. A Neurology consultation was acquired with Dr. Wood and an EEG was ordered and she had what looked like epileptiform frontotemporal discharges in the right side. The patient was transferred to the ICU for long-term EEG monitoring. She got Ativan, was started on Keppra as well. The long-term EEG was abnormal with frequent semi periodic epileptiform activity with underlying slowing, mainly in the right frontocentral region and midline. All the findings were consistent with underlying neuronal dysfunction and increased epileptic potential. There were no seizures during the long-term recording. The patient was transferred up to the Medicine floor. She had routine lab work which was unremarkable. She had repeat immunoglobin checked given hypogammaglobulinemia in the past which was again confirmed with IgG 362 and IgA 31. She had negative proteinase 3 and myeloperoxidase antibodies. A urine analysis was repeated on admission with again trace leukocyte esterase and 1+ white count, and again urine culture with no growth. She had been empirically started on Ceftriaxone on admission and that was then stopped. The patient's mental status waxed and waned. She would occasionally have nursing reports that she seemed to close her eyes and be transiently nonresponsive. She sometimes responded to verbal stimuli, but it is not clear that on every occasion they did so. She would occasionally be complaining of the need to take small sips of water to prevent a cough. She occasionally had delusions that someone had told her that she would need to have a "major surgery" for her stomach "so that the water could be removed". She gradually improved with orientation, although was frequently not oriented to year. She was able to walk with physical therapy using her rolling walker. Her sodium transiently fell to 131 on January 17, but again back up to 134 on the day of discharge. She had an episode of vomiting after she drank many cups of water the morning of January 17 and may have spit up some of her pills. She had a CT of the chest at that time which showed some air space disease in the left base representing either atelectasis, though aspiration pneumonia was not excluded. She was started on Augmentin and did seem to have some improvement with her mental status after that change was made. She will be continued on that for another five days after discharge. Neurology, Dr. Wood, continued to follow and thought there was no more titration needed in her antiepileptic medications. She is being discharged now back to [facility] with a recommended follow-up with Dr. Angel Nevarez which has been arranged already for the day after discharge on January 19 at 9:30 a.m. She should follow-up with Dr. Albert Wood within four weeks. Medical records were eventually obtained from her stays at [place] and they also include negative work-up for Creutzfeldt-Kali disease from the CSF (protein 1433). Other medication changes include addition of Amlodipine 5 mg daily for high blood pressures as high as 180s on admission and the additional of Tessalon and then Robitussin for her cough. She may have a degree of silent aspiration events and this should be monitored as an outpatient. She did pass sleep language pathology swallow study on January 17, though was noted to occasionally close her eyes and not respond verbally, although she would continue to chew normally at that time. She may in the coming months or years require a higher level of care than the assisted living facility can provide if her seizure disorder and/or possible progressive dementia becomes worse. DISCHARGE MEDICATIONS: New medications: 1. Amlodipine 5 mg daily. 2. Augmentin 875 mg p.o. b.i.d. for 5 days. 3. Tessalon 100 mg p.o. b.i.d. prn. 4. Robitussin 5 ml p.o. q.6 hours prn for cough. 5. Keppra 750 mg p.o. b.i.d. She was continued on her old medications, includin. Calcium one tab p.o. daily. 2. Folic acid 1 mg daily. 3. MiraLax 17 gm p.o. daily. 4. Thiamin 100 mg p.o. daily. 5. Colace 100 mg p.o. b.i.d. 6. Seroquel 25 mg in the a.m. and 75 mg at bedtime. 7. Zoloft 15 mg p.o. at bedtime. 8. Milk of Magnesia 30 cc p.o. b.i.d. prn. 9. Tylenol 325 mg p.o. every 4 hours as needed. 10. Maalox Plus 15 cc every 4 hours as needed. 11. Pepto Bismol 262 mg every 4 hours as needed. DISCHARGE DIET: No restrictions. ACTIVITY LEVEL: No restrictions, needing a walker at baseline. AT FOLLOW-UP: Please follow-up with Dr. Angel Nevarez on 01/19/2018 at 9:[address] Albert Wood within four weeks. Time spent on this discharge was 45 minutes. [id number]/[facility] #: [id number] [facility]
[2018-01-18 15:09] VITALS: BP 124/65
== END 2018-01-18 15:15 | disposition home health service (06) | DRG 100 ==
LOC: ED 09:33 → MEDTELE 14:46 → ICU 18:19 → OBSVTOIN 01-14 12:15 → MED 01-14 22:22
PROVIDERS: ADMIT Internal Medicine; ATTEND Internal Medicine
PROC: 4A10X4Z Monitoring of Central Nervous Electrical Activity, External Approach (ICD-10-PCS; principal; 2018-01-13)
DX: G40.909 Epilepsy, unspecified, not intractable, without status epilepticus (principal); G93.49 Other encephalopathy; D80.1 Nonfamilial hypogammaglobulinemia; D64.9 Anemia, unspecified; M41.9 Scoliosis, unspecified; N39.0 Urinary tract infection, site not specified; J98.11 Atelectasis; S22.31XA Fracture of one rib, right side, initial encounter for closed fracture; F03.90 Unspecified dementia, unspecified severity, without behavioral disturbance, psychotic disturbance, mood disturbance, and anxiety; R41.82 Altered mental status, unspecified; M54.9 Dorsalgia, unspecified; J45.909 Unspecified asthma, uncomplicated; E66.9 Obesity, unspecified; K21.9 Gastro-esophageal reflux disease without esophagitis; I10 Essential (primary) hypertension; F32.9 Major depressive disorder, single episode, unspecified; W19.XXXA Unspecified fall, initial encounter; M85.88 Other specified disorders of bone density and structure, other site; M51.36 Other intervertebral disc degeneration, lumbar region; M47.896 Other spondylosis, lumbar region; R41.0 Disorientation, unspecified; T36.8X5A Adverse effect of other systemic antibiotics, initial encounter; Z90.49 Acquired absence of other specified parts of digestive tract; Z86.718 Personal history of other venous thrombosis and embolism; Y92.9 Unspecified place or not applicable; Z68.34 Body mass index [BMI] 34.0-34.9, adult
CPT/HCPCS: 36415; 70450; 71046; 71250; 72131; 80048; 80053; 81003; 81015; 82140; 82306; 82550; 82784; 83516; 83605; 83880; 83883; 84145; 84484; 85025; 85610; 85730; 86140; 87040; 87086; 87502; 87899; 95816; 95951; 99285; A9270-GY; G0378; G8978-GP-CJ; G8978-GP-CK; G8978-GP-CN; G8979-GP-CI; G8979-GP-CK; J0456; J0696; J1644; J2060; J2270

== ENCOUNTER 2018-01-19 12:39 | Inpatient (IN) | payer MEDICARE ==
--- NOTE | 2018-01-19 14:09 | RAD ---
Indication: Altered mental status. Respiratory disease/asthma. Comparison: January 17, 2018 CT. Technique: Upright AP 1340 hours Report: No significant change in LEFT greater than RIGHT mild bibasilar airspace consolidation which may represent atelectasis or pneumonia. Grossly clear pleural spaces. Negative for pneumothorax. Upper normal heart size. Unremarkable central pulmonary vasculature. IMPRESSION: LEFT greater than RIGHT mild bibasilar consolidation which may represent atelectasis or pneumonia. No significant interval change.
[2018-01-19 14:21] LABS: ABS Basophils 0.1 10^3/ul (0-0.2); ABS Eosinophils 0.2 10^3/ul (0-0.6); ABS Lymphocytes 1.3 10^3/ul (1.0-4.8); ABS Monocytes 0.5 10^3/ul (0-0.8); ABS Neutrophils 4.4 10^3/ul (1.5-7.7); ABS Nucleated RBC 0 10^3/ul; Eosinophil % 2.6 % (0-6); Hematocrit 37 % (35-47); Hemoglobin 12.8 g/dl (12.0-16.0); Lymphocyte % 19.5 % (25-47); Mean Corpuscular HGB Conc 35 g/dl (31-36); Mean Corpuscular Hemoglobin 31 pg (27-31); Mean Corpuscular Volume 89 fL (80-97); Mean Platelet Volume 8 um3 (7.4-10.4); Nucleated Red Blood Cells % 0; Platelet Count 194 10^3/ul (150-450); Red Blood Count 4.12 10^6/ul (4.0-5.4); Red Cell Distribution Width 14 % (10.5-15); White Blood Count 6.4 10^3/ul (3.5-10.8)
[2018-01-19 14:26] LABS: INR 0.98 (0.77-1.02)
[2018-01-19 14:44] LABS: EGFR Non-African American 75.5 (>60)
[2018-01-19] MEDS ORDERED: Benzonatate CAP* 100 MG PO PRN (16:18)
[2018-01-19] MEDS ORDERED: Al Hydrox/Mg Hydrox/Simet LIQ* 30 ML UDC PO PRN (16:18)
[2018-01-19] MEDS ORDERED: guaiFENesin LIQ* 100 MG/5 ML UDC PO PRN (16:18)
[2018-01-19] MEDS ORDERED: Magnesium Hydroxide LIQ* 30 ML UDC PO PRN (16:18)
[2018-01-19] MEDS ORDERED: Acetaminophen TAB* 325 MG PO PRN (16:18)
[2018-01-19] MEDS: Docusate CAP* 100 MG PO SCH (20:31)
[2018-01-19] MEDS: Amoxicillin/Clavulanate TAB* 875 MG PO SCH (20:31)
[2018-01-19] MEDS: levETIRAcetam TAB* 500 MG PO SCH (20:32)
[2018-01-19] MEDS: QUEtiapine TAB* 25 MG PO SCH (20:32)
[2018-01-19] MEDS: Sertraline* 50 MG TAB PO SCH (20:32)
[2018-01-19] MEDS: Heparin VIAL(*) 5000 UNITS/ML VIAL (FIVE THOUSAND) SUBCUT SCH (20:35)
--- NOTE | 2018-01-19 21:50 | CONS ---
CC: Dr. Nevarez * NEUROLOGY CONSULTATION: DATE OF CONSULT: 01/19/18 REFERRING PHYSICIAN: Angela Felton MD CHIEF COMPLAINT: Episodes of diminished responsiveness. HISTORY OF PRESENT ILLNESS: Celeste Hernandez is known to me from hospitalization for which she was just discharged yesterday. She presented with electrographic seizures and unresponsiveness. That was on 01/13/18 when she was sent in from her long-term at [facility]. With that episode, she was talking with a friend and suddenly slumped and fell out of her chair. She was hard to arouse as she would fall back asleep. There was some shaking of her arms. EEG was placed and she was found to have frequent epileptiform discharges from the right frontotemporal region. She had a similar presentation last year. She had a complicated course with new onset epilepsy and encephalopathy. It was thought it might be viral or autoimmune. She was transferred to the [facility] and spent some time there and was discharged to rehab. She then relapsed and went to the [facility] again for a couple of weeks. She was discharged and went to rehab again and finally transferred to [facility] just within the last month or so. On 01/13/18, she became unresponsive again and came in and had the EEG abnormalities. During this most recent hospitalization, her EEG normalized with benzodiazepines and reinstituting Keppra, which has been stopped after her second [facility] admission. She would continue to have episodes in the hospital where her head would slump, but she would immediately talk either with her eyes open or eyes closed. Her head slumped and eyes closing would just last seconds or most a minute. She was never confused after other than her baseline confusion, which seems to be persistent. Her EEG normalized after a couple of days of epilepsy monitoring and a second EEG on the following day when she was still doing brief head drops without loss of awareness was unremarkable. She was just discharged to [facility] yesterday. She had episodes today and apparently also yesterday were again she would close her eyes and drop her head but talk during the episodes when spoken to. She apparently had several episodes at [facility] and they called an ambulance and she was brought into the emergency room again. I spoke with Carolyn, the head nurse there. She was sitting in the chair and her head would slump and then she would respond almost immediately and talk. She did this several times in a row and so they called an ambulance. Currently, she recognizes me and is very loquacious as she has been throughout her last hospitalization. She states she is tired and she has a cough and will nod her head and respond with her eyes closed or open them and then respond. The episodes do not last more than 5 to most 10 seconds. She does not have any episodes where she does not respond to voice. EEG was connected while she was here and it shows a fairly formal background. There are no epileptiform discharges. PAST MEDICAL HISTORY: Notable for gastroesophageal reflux, depression and she is on Seroquel for unknown reasons. Her son said previously her memories are quite good, but she had been forgetful and disoriented to year today and on some of her visits last week. MEDICATIONS: At home were supposed to be: 1. Keppra 750 mg p.o. b.i.d. 2. Seroquel 75 mg p.o. q.h.s. 3. Colace 100 mg p.o. b.i.d. 4. Thiamine 100 mg p.o. daily. PHYSICAL EXAM: On examination today, she is well hydrated and appears well- nourished. Temperature 97.9 temporally, blood pressure 135/70, heart rate in the 80s and regular, respiratory rate is 19, oxygen saturation 100% on room air. She coughs intermittently. Lungs are clear anterolaterally. Heart is in a regular rhythm. Oral mucosa is moist and atraumatic. Eye movements are full. She talks repetitively nonstop. She states that she is tired and has a cough. She asked for water. She nods her head and closes her eyes periodically, but when spoken to responds quickly. She does not exhibit any signs to suggest loss of awareness. DIAGNOSTIC STUDIES/LAB DATA: EEG as described above. Formal final reading is pending. Laboratory data from today notable for normal CBC. Chemistry profile from yesterday is unremarkable. Fingerstick glucose today is 134. IMPRESSION: Behavioral episodes of eyes closing and head slumping, but not epileptic activity at this point in time. She was on Seroquel and her sons do not know why nor does Carolyn at [facility]. I would recommend reinstituting her 25 mg of Seroquel in the morning that she was on before this most recent admission on the premise that these are behavioral. I have spoken with Dr. Felton and the sons that they are not seizures and that may be related to her dementia. They are fairly adamant that she needs to be admitted again as this is the third time in a couple of weeks that the ambulance has been called to [facility]. I think it is important that we discuss with [facility] that these current episodes are not seizures. We should give parameters for if she has prolonged episodes of unresponsiveness from which she cannot be aroused, then emergency evaluation would make sense, but not these brief episodes where she responds immediately even if they are repetitive. [id number]/[facility] #: [id number] WENDIE
--- NOTE | 2018-01-19 22:15 | HP ---
AMENDED REPORT NOW INCLUDES COSIGNER DESIGNATION - ESIGNED BEFORE ADJUSTMENT CC: Dr. Nevarez * ADMISSION HISTORY AND PHYSICAL: DATE OF ADMISSION: 01/19/18 PRIMARY CARE PROVIDER: Dr. Nevarez. ATTENDING FOR THIS CASE: Olive Cantrell DO * (DICTATED BY YOVANA LAGUNAS, LOUISE) CHIEF COMPLAINT: Altered mental status, rule out seizure. HISTORY OF PRESENT ILLNESS: This is an 82-year-old female patient who presented to the ER today after having previous admissions and ER evaluations on 01/13/18, 01/14/18, and 01/17/18. The patient has had ongoing altered mental status. She did have some epileptiform changes in her last couple of visits. She was seen by Neurology. Dr. Albert Wood is familiar with this patient. She had continuous video EEG monitoring last time she was here. Her symptoms seemed to resolve at that time; however; when she went back to her facility, which is [facility] in [place], she began to become altered again and having some gait dysfunction, not being able to lift her arms and not being responsive, so she was brought back to the emergency department again for reevaluation. She was seen by Neurology again in the ER and again her EEG is not showing any significant changes. Also of note, the patient had been sent out to [facility] at one point for brain biopsy. She was ruled out negative for Creutzfeldt-Kali. At that point, the only other additional change she had was diagnosis of a UTI. She was placed on antibiotics for her UTI, but again her aide and her facility are saying she is still not acting right. After extensive discussion with the ER physician, the patient's son, and Neurology, it was decided the patient should be admitted to observation again today as she was continuing to be altered and had difficulty with some gait dysfunction. When I saw the patient today, I was unable to obtain a true review of systems secondary to her mental state and underlying dementia like behavior; however, she stated that she was not having any pain and her only interest was that she had to go to the bathroom. 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 PAST SURGICAL HISTORY: She has had a cholecystectomy in the past. MEDICATIONS: At home include: 1. Amlodipine 5 mg daily. 2. Augmentin 875 mg 2 times a day. 3. Colace 100 mg daily. 4. Folic acid 1 mg every day. 5. Keppra 750 mg 2 times a day. 6. Seroquel 75 mg in the evening, 25 mg in the morning. 7. Sertraline 50 mg in the evening. 8. Calcium 1 tablet daily. 9. MiraLAX 17 g daily. 10. Thiamine 100 mg daily. 11. Tylenol 325 mg q.4 hours as needed. 12. Guaifenesin 1 every 4 hours as needed. ALLERGIES: No known drug allergies. FAMILY HISTORY: Noncontributory. SOCIAL HISTORY: The patient does not smoke, does not drink. She lives at [facility]. Her surrogate decision maker is her son, Tha, who is at bedside for evaluation. REVIEW OF SYSTEMS: As stated in the HPI, unable to obtain. PHYSICAL EXAMINATION GENERAL: The patient is awake and alert, obviously confused. She is not appearing to be in any distress or having any anxiety. VITAL SIGNS: Blood pressure 136/65, heart rate 87, respiratory rate 14, satting at 99% on room air, temperature 97.1. HEENT: The patient is atraumatic, normocephalic. PERRLA with nonicteric sclerae. Extraocular movements are intact. She does track. NECK: Supple, nontender. No JVD noted. No carotid bruits auscultated. No thyromegaly noted. LUNGS: Clear bilaterally to auscultation with no wheezing, rhonchi, or rales. CARDIOVASCULAR: S1, S2 are present. Rate and rhythm are regular. No murmurs, gallops, or rubs noted. ABDOMEN: Soft, nontender, nondistended. Present bowel sounds in all 4 quadrants. No organomegaly appreciated. MUSCULOSKELETAL: She has gross motor and sensation intact. Lying in the bed. She had good pulses; however, I was not able to establish gait. She does seem to have some overall general weakness. NEUROLOGIC: She is alert and confused. PSYCHIATRIC: She is appropriate. SKIN: She does not appear to have any skin breakdown. LABORATORY DATA: WBC 6.4, RBC 4.12, hemoglobin 12.8, hematocrit 37, platelets 194. Sodium 133, potassium 3.9, chloride 99, CO2 25, BUN 16, creatinine 0.74, GFR 75.5, glucose 89. Lactic acid 1.0. Calcium 9.8, magnesium 2.4. Bilirubin 0.6, AST 20, ALT 18, alk phos 68. Creatine kinase 44. Troponin is negative at 0.00. Total protein is 6.2. Albumin 3.9. Globulin 2.3. TSH is 3.54. INR is 0.98. IMAGING: Today's EKG, which was compared to 3 previous, shows regular sinus rhythm with no ectopy and no acute ST segment changes. Chest x-ray from today shows mild bibasilar consolidation, which may or may not represent atelectasis versus pneumonia and no significant interval change from previous. IMPRESSION: This is an 82-year-old female with multiple comorbidities and a significant history for some sort of dementia process who has re-presented to the emergency department with family for evaluation of her continued altered mental state. PLAN: The patient has been seen numerous times by Neurology by Dr. Albert Wood , who is in agreement that her state is not acute. Her CAT scans previously and her very extensive workup at [facility] did not warrant additional workup today. 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 The more significant question is whether the patient is able to care for herself. She is unable to ambulate unassisted and it is questionable whether she can function even with assistance for her ADLs. At this point, we will admit this patient for observation. I have consulted Physical Therapy and Occupational Therapy for baseline evaluation , so we can report back to [facility] to see if she is still a candidate to go back there. We will place her on neuro checks q.6 hours noting any changes, keep her on seizure precautions and fall precautions. We will continue her home medications at the current doses and continue to monitor her closely. I do not feel that she needs telemetry at this time. Again, her EKGs have been completely normal and I do not feel that is required for this visit. Case Management and Social Work are involved and we will continue to come up with an evolving plan for this patient tomorrow. This plan has been discussed in depth with Dr. Olive Cantrell, the attending for this case, the patient's son, Tha, who is her POA, and Dr. Angela Felton in the emergency department. YOVANA LAGUNAS, [employer] [id number]/[facility] #: [id number] [facility] HOSPITALLeonard
[2018-01-20 01:49] LABS: Urine Appearance Clear; Urine Blood Negative (Negative); Urine Color Yellow; Urine Ketones Negative (Negative); Urine Protein Negative (Negative); Urine Specific Gravity 1.008 (1.010-1.030); Urine Urobilinogen Negative (Negative)
--- NOTE | 2018-01-20 04:22 | ED ---
Liz De Leon Jason, scribed for Angela Felton MD on 01/19/18 at 1339 . Altered Mental Status - HPI Summary HPI Summary: This patient is an 82 year old F presenting to [facility] from [facility] and is accompanied by 2 sons with a chief complaint of Altered Mental Status and brief periods of unresponsiveness with her head slumping forward since this morning. Hx is provided by pt's 2 sons, especially Tha and the [facility] head nurse , Carolyn Gray, who stated on the phone, I called an ambulance 6 days ago and she was seen at [facility], admitted, and discharged back to [facility] 1 day ago. Today she did not eat, was not making sense, and was confused. Her arms were also hanging down off her wheelchair. I had to get another aid just to get her on the toilet. I would talk to her and then her head would fall down and be unresponsive. At one point she had difficulty breathing. During all of this she reported vertigo and was unable to take all her medications. Pt was just DC'd yesterday from a hospital admission from 01/13/18-01/18/18, during which time pt was diagnosed with a seizure disorder, and Keppra was re-started. Pt was evaluated by Dr. Wood during this admission. Pt has underlying hx of dementia as well. Pt was treated with antibiotics during the hosptial admission for possible aspiration pneumonia. Symptoms aggravated by nothing. Symptoms alleviated by nothing. Patient reports continued coughing, and SOB, fatigue. Patient denies CP, and headache. Pt does not exhibit any period of unresponsiveness during my evaluation of her. She prefers her eyes closed and has frequent dry cough. - History Of Current Complaint Chief Complaint: EDAltMentalStatus Stated Complaint: GENERAL Time Seen by Provider: 01/19/18 13:11 Hx Obtained From: Patient, Family/Veterinary Milk Specialist, Medical Records, Other: - [facility] nurseCarolyn Hx From Patient Unobtainable Due To: Dementia Onset/Duration: Still Present Timing: Constant Severity Initially: Severe Severity Currently: Mild Character: Confusion, Responsiveness - decreased Aggravating Factor(s): Nothing Alleviating Factor(s): Nothing Associated Signs And Symptoms: Positive: Negative - CP, headache, and dizziness.. Negative: Seizure, Vomiting, Fever, Headache Related History: Similar Episode/Diagnosed As: - seizure, Seizure - Allergies/Home Medications Allergies/Adverse Reactions: Allergies Allergy/AdvReac Type Severity Reaction Status Date / Time No Known Allergies Allergy Unknown Verified 01/19/18 18:59 Reaction Details PMH/Surg Hx/FS Hx/Imm Hx Previously Healthy: No Endocrine/Hematology History: Denies: Hx Diabetes, Hx Thyroid Disease Cardiovascular History: Denies: Hx Hypertension, Hx Pacemaker/ICD Respiratory History: Reports: Hx Asthma Denies: Hx Chronic Obstructive Pulmonary Disease (COPD) GI History: Reports: Hx Gastroesophageal Reflux Disease Denies: Hx Ulcer Musculoskeletal History: Denies: Hx Rheumatoid Arthritis, Hx Osteoporosis Sensory History: Reports: Hx Contacts or Glasses, Hx Hearing Aid - B/L Opthamlomology History: Reports: Hx Contacts or Glasses Neurological History: Reports: Hx Dementia, Hx Seizures Psychiatric History: Denies: Hx Panic Disorder - Surgical History Surgery Procedure, Year, and Place: choleycysectomy 2003 - Immunization History Date of Tetanus Vaccine: unknown Date of Influenza Vaccine: UTD Infectious Disease History: No Infectious Disease History: Denies: Hx Clostridium Difficile, Hx Hepatitis, Hx Human Immunodeficiency Virus (HIV), Traveled Outside the in Last 30 Days - Family History Known Family History: Negative: Cardiac Disease, Hypertension, Diabetes - Social History Occupation: Retired Lives: Assisted Living - [facility] Alcohol Use: None Substance Use Type: Reports: None Smoking Status (MU): Never Smoked Tobacco Review of Systems Constitutional: Negative Eyes: Negative Negative: Chest Pain Positive: Shortness Of Breath, Cough Musculoskeletal: Negative Skin: Negative Neurological: Other - vertigo, altered mental status, reported episodes of unresponsiveness Negative: Headache Positive: Other - dementia, cooperative All Other Systems Reviewed And Are Negative: Yes Physical Exam - Summary Physical Exam Summary: General: Prefers her eyes closed, but follows commands, afebrile, responds verbally to questions, oriented to name and place Appearance: chronically Ill-appearing, no pain distress, Well-nourished, frequent dry cough Skin: Warm, color reflects adequate perfusion Head: Normal Head/Face inspection Eyes: Conjunctiva clear ENT: Normal inspection Neck: Supple, no nodes, no JVD. Respiratory: Lungs clear, decreased breath sounds throughout, no respiratory distress Cardio: RRR, No murmur, pulses normal, brisk capillary refill Abdomen: soft, nontender Bowel sounds: present . Pt is wearing depends, not removed in the ED. Musculoskeletal: Strength Intact/ ROM intact. No calf tenderness. No edema. Psychological: Normal Neuro Exam: She is oriented to place and name but not date. CN II-XII intact Motor function 5/5 Sensation intact, moves all extremities well, no focal deficit Triage Information Reviewed: Yes Vital Signs On Initial Exam: Initial Vitals Temp Pulse Resp BP Pulse Ox 97.1 F 84 22 135/74 100 01/19/18 13:01 01/19/18 13:01 01/19/18 13:01 01/19/18 13:01 01/19/18 13:01 Vital Signs Reviewed: Yes Diagnostics - Vital Signs Vital Signs Temp Pulse Resp BP Pulse Ox 01/19/18 13:05 82 97 01/19/18 13:02 135/74 01/19/18 13:01 97.1 F 84 22 135/74 100 - Laboratory Lab Results: Lab Results 01/19/18 01/19/18 01/19/18 Range/Units 14:09 14:09 14:09 WBC 6.4 (3.5-10.8) 10^3/ul RBC 4.12 (4.0-5.4) 10^6/ul Hgb 12.8 (12.0-16.0) g/dl Hct 37 (35-47) % MCV 89 (80-97) fL MCH 31 (27-31) pg MCHC 35 (31-36) g/dl RDW 14 (10.5-15) % Plt Count 194 (150-450) 10^3/ul MPV 8 (7.4-10.4) um3 Neut % (Auto) 68.8 (38-83) % Lymph % (Auto) 19.5 L (25-47) % [place] % (Auto) 8.3 H (0-7) % Eos % (Auto) 2.6 (0-6) % Baso % (Auto) 0.8 (0-2) % Absolute Neuts (auto) 4.4 (1.5-7.7) 10^3/ul Absolute Lymphs (auto) 1.3 (1.0-4.8) 10^3/ul Absolute Monos (auto) 0.5 (0-0.8) 10^3/ul Absolute Eos (auto) 0.2 (0-0.6) 10^3/ul Absolute Basos (auto) 0.1 (0-0.2) 10^3/ul Absolute Nucleated RBC 0 10^3/ul Nucleated RBC % 0 INR (Anticoag Therapy) 0.98 (0.77-1.02) Sodium 133 (133-145) mmol/L Potassium 3.9 (3.5-5.0) mmol/L Chloride 99 L (101-111) mmol/L Carbon Dioxide 25 (22-32) mmol/L Anion Gap 9 (2-11) mmol/L BUN 16 (6-24) mg/dL Creatinine 0.74 (0.51-0.95) mg/dL Est GFR ( Amer) 97.1 (>60) Est GFR (Non-Af Amer) 75.5 (>60) BUN/Creatinine Ratio 21.6 H (8-20) Glucose 89 (70-100) mg/dL Lactic Acid (0.5-2.0) mmol/L Calcium 9.8 (8.6-10.3) mg/dL Magnesium 2.4 (1.9-2.7) mg/dL Total Bilirubin 0.60 (0.2-1.0) mg/dL AST 20 (13-39) U/L ALT 18 (7-52) U/L Alkaline Phosphatase 68 (34-104) U/L Total Creatine Kinase 44 (10-223) U/L Troponin I 0.00 (<0.04) ng/mL Total Protein 6.2 L (6.4-8.9) g/dL Albumin 3.9 (3.2-5.2) g/dL Globulin 2.3 (2-4) g/dL Albumin/Globulin Ratio 1.7 (1-3) TSH 3.54 (0.34-5.60) mcIU/mL 01/19/18 Range/Units 14:09 WBC (3.5-10.8) 10^3/ul RBC (4.0-5.4) 10^6/ul Hgb (12.0-16.0) g/dl Hct (35-47) % MCV (80-97) fL MCH (27-31) pg MCHC (31-36) g/dl RDW (10.5-15) % Plt Count (150-450) 10^3/ul MPV (7.4-10.4) um3 Neut % (Auto) (38-83) % Lymph % (Auto) (25-47) % [place] % (Auto) (0-7) % Eos % (Auto) (0-6) % Baso % (Auto) (0-2) % Absolute Neuts (auto) (1.5-7.7) 10^3/ul Absolute Lymphs (auto) (1.0-4.8) 10^3/ul Absolute Monos (auto) (0-0.8) 10^3/ul Absolute Eos (auto) (0-0.6) 10^3/ul Absolute Basos (auto) (0-0.2) 10^3/ul Absolute Nucleated RBC 10^3/ul Nucleated RBC % INR (Anticoag Therapy) (0.77-1.02) Sodium (133-145) mmol/L Potassium (3.5-5.0) mmol/L Chloride (101-111) mmol/L Carbon Dioxide (22-32) mmol/L Anion Gap (2-11) mmol/L BUN (6-24) mg/dL Creatinine (0.51-0.95) mg/dL Est GFR ( Amer) (>60) Est GFR (Non-Af Amer) (>60) BUN/Creatinine Ratio (8-20) Glucose (70-100) mg/dL Lactic Acid 1.0 (0.5-2.0) mmol/L Calcium (8.6-10.3) mg/dL Magnesium (1.9-2.7) mg/dL Total Bilirubin (0.2-1.0) mg/dL AST (13-39) U/L ALT (7-52) U/L Alkaline Phosphatase (34-104) U/L Total Creatine Kinase (10-223) U/L Troponin I (<0.04) ng/mL Total Protein (6.4-8.9) g/dL Albumin (3.2-5.2) g/dL Globulin (2-4) g/dL Albumin/Globulin Ratio (1-3) TSH (0.34-5.60) mcIU/mL Result Diagrams: 01/19/18 14:09 01/19/18 14:09 Lab Statement: Any lab studies that have been ordered have been reviewed, and results considered in the medical decision making process. - Radiology CXR Radiology Interpretation Completed By: Radiologist - CXR reveals, per radiologist, LEFT greater than RIGHT mild bibasilar consolidation which may represent atelectasis or pneumonia. No significant interval change. ED physician has reviewed this radiology report. - EKG 1336 Cardiac Rate: NL EKG Rhythm: Sinus Rhythm - [address] Segment: Normal Ectopy: None EKG Interpretation: An EKG at 1336 reveals nml AVIVCT, nml QTc, and nml axis. EKG Comparison: No Significant Change - compared to 03/24/17 Re-Evaluation - Re-Evaluation First Eval Re-Evaluation Time: 15:25 Change: Improved Comment: Patient is comfortable and is talking gibberish to no one in the room. Altered Mental Statu Course/Dx - Course Course Of Treatment: At 13:40 Dr. Felton spoke with Dr. Wood, who recommended an EEG stat and stated that there is no need for a CT scan. Pt medications reviewed, allergies noted, and high blood pressure noted. Assessment/Plan: Stat EEG shows no seizure activity. Discussed with Dr. Wood after the EEG, that these periods of unresponsiveness are not seizures, and may be behavioral or related to her dementia. Dr. Wood recommends parameters for emergency transport back to the ED if pt is discharged to shelter or assisted living. Discussed with JOVANNA Dillard at [facility] who states that pt is not safe to return as she is a fall risk, advises discussion with Blayne Hwang RN. JOVANNA Ferrara spoke with Blayne Hwang RN who recommends admission for pt until fall risk and altered mental status are cleared, or transfer to higher level of care. Keppra level was sent with initial bloodwork, and is pending. Discussed with Dr. Cantrell who will admit and consult manager rn case. Pt with frequent cough, and was treated with antibiotics during recent admission. Pt without wbc count, fever, no definite pneumonia on CXR. Defer further antibiotics to Dr. Cantrell. Sons and pt agree with admission. - Diagnoses Differential Diagnosis/HQI/PQRI: CVA, Medication Reaction, Metabolic Disorder, Postictal State, Seizure Provider Diagnoses: atelectasis vs. left-sided pneumonia, Altered mental status, Dementia, Seizure disorder - Provider Notifications Discussed Care Of Patient With: Albert Wood Time Discussed With Above Provider: 17:40 - stat EEG, no evidence of seizures Discharge - Discharge Plan Condition: Stable Disposition: ADMITTED TO Health system documentation as recorded by the Liz teixeira Jason accurately reflects the service I personally performed and the decisions made by me, Angela Felton MD.
[2018-01-20] MEDS: Heparin VIAL(*) 5000 UNITS/ML VIAL (FIVE THOUSAND) SUBCUT SCH ×3 (05:45→20:59)
[2018-01-20] MEDS: Polyethylene Glycol 3350* 17 GM PACKET PO SCH (08:15)
[2018-01-20] MEDS: amLODIPine TAB* 5 MG PO SCH (08:16)
[2018-01-20] MEDS: Thiamine TAB* 100 MG TAB PO SCH (08:16)
[2018-01-20] MEDS: QUEtiapine TAB* 25 MG PO SCH ×2 (08:16→20:53)
[2018-01-20] MEDS: Folic Acid TAB* 1 MG PO SCH (08:16)
[2018-01-20] MEDS: levETIRAcetam TAB* 500 MG PO SCH ×2 (08:17→20:53)
[2018-01-20] MEDS: Docusate CAP* 100 MG PO SCH ×2 (08:17→20:59)
[2018-01-20] MEDS: Amoxicillin/Clavulanate TAB* 875 MG PO SCH ×2 (08:18→20:56)
--- NOTE | 2018-01-20 11:30 | PN ---
Subjective Date of Service: 01/20/18 Interval History: Pt will not stop talking, switching from one topic to another, occasionally able to stay on track with answering questions, but then she would start talking about her past. Has no complaints, plans to go to a casino with her son tomorrow and then go back home. Objective Active Medications: Acetaminophen (Tylenol Tab*) 325 mg PO Q4H PRN PRN Reason: PAIN Al Hydrox/Mg Hydrox/Simethicone (Maalox Plus*) 15 ml PO Q4H PRN PRN Reason: INDIGESTION Amlodipine Besylate (Norvasc Tab*) 5 mg PO DAILY [facility] Last Admin: 01/20/18 08:16 Dose: 5 mg Amoxicillin/Clavulanate Potassium (Augmentin Tab*) 875 mg PO BID [facility] Last Admin: 01/20/18 08:18 Dose: 875 mg Benzonatate (Tessalon Cap*) 100 mg PO BID PRN PRN Reason: COUGH Docusate Sodium (Colace Cap*) 100 mg PO BID [facility] Last Admin: 01/20/18 08:17 Dose: 100 mg Folic Acid (Folvite Tab*) 1 mg PO DAILY [facility] Last Admin: 01/20/18 08:16 Dose: 1 mg Guaifenesin (Robitussin*) 5 ml PO Q6H PRN PRN Reason: COUGH Heparin Sodium (Porcine) (Heparin Vial(*)) 5,000 units SUBCUT Q8HR [facility] Last Admin: 01/20/18 05:45 Dose: 5,000 units Levetiracetam (Keppra Tab*) 750 mg PO BID [facility] Last Admin: 01/20/18 08:17 Dose: 750 mg Magnesium Hydroxide (Milk Of Magnesia Liq*) 30 ml PO BID PRN PRN Reason: CONSTIPATION Polyethylene Glycol/Electrolytes (Miralax*) 17 gm PO DAILY [facility] Last Admin: 01/20/18 08:15 Dose: 17 gm Quetiapine Fumarate (Seroquel Tab*) 25 mg PO QAM [facility] Last Admin: 01/20/18 08:16 Dose: 25 mg Quetiapine Fumarate (Seroquel Tab*) 75 mg PO BEDTIME [facility] Last Admin: 01/19/18 20:32 Dose: 75 mg Sertraline HCl (Zoloft*) 50 mg PO BEDTIME [facility] Last Admin: 01/19/18 20:32 Dose: 50 mg Thiamine HCl (Vitamin B-1 Tab*) 100 mg PO DAILY [facility] Last Admin: 01/20/18 08:16 Dose: 100 mg Vital Signs - 8 hr 01/20/18 07:30 Temperature 98.4 F Pulse Rate 83 Respiratory 16 Rate Blood Pressure 107/48 (mmHg) O2 Sat by Pulse 100 Oximetry Oxygen Devices in Use Now: None Appearance: 82 yo F in [place], although knows date and president, does not remember the date, switches from one topic to another sometimes discusses things appropiatel but then would say that she will go with her son to [email or web address] tomorrow. Very talkative Eyes: No Scleral Icterus, PERRLA Ears/Nose/Mouth/Throat: NL Teeth, Lips, Gums, Mucous Membranes Moist Neck: NL Appearance and Movements; NL JVP, Trachea Midline Respiratory: Symmetrical Chest Expansion and Respiratory Effort, Clear to Auscultation Cardiovascular: NL Sounds; No Murmurs; No JVD Abdominal: NL Sounds; No Tenderness; No Distention Lymphatic: No Cervical Adenopathy Extremities: No Clubbing, Cyanosis, - - trace pedal edema b/l Skin: No Rash or Ulcers, No Nodules or Sclerosis Result Diagrams: 01/19/18 14:09 01/19/18 14:09 Additional Lab and Data: Lab Results 01/19/18 01/19/18 01/19/18 Range/Units 14:09 14:09 14:09 WBC 6.4 (3.5-10.8) 10^3/ul RBC 4.12 (4.0-5.4) 10^6/ul Hgb 12.8 (12.0-16.0) g/dl Hct 37 (35-47) % MCV 89 (80-97) fL MCH 31 (27-31) pg MCHC 35 (31-36) g/dl RDW 14 (10.5-15) % Plt Count 194 (150-450) 10^3/ul MPV 8 (7.4-10.4) um3 Neut % (Auto) 68.8 (38-83) % Lymph % (Auto) 19.5 L (25-47) % [place] % (Auto) 8.3 H (0-7) % Eos % (Auto) 2.6 (0-6) % Baso % (Auto) 0.8 (0-2) % Absolute Neuts (auto) 4.4 (1.5-7.7) 10^3/ul Absolute Lymphs (auto) 1.3 (1.0-4.8) 10^3/ul Absolute Monos (auto) 0.5 (0-0.8) 10^3/ul Absolute Eos (auto) 0.2 (0-0.6) 10^3/ul Absolute Basos (auto) 0.1 (0-0.2) 10^3/ul Absolute Nucleated RBC 0 10^3/ul Nucleated RBC % 0 INR (Anticoag Therapy) 0.98 (0.77-1.02) Sodium 133 (133-145) mmol/L Potassium 3.9 (3.5-5.0) mmol/L Chloride 99 L (101-111) mmol/L Carbon Dioxide 25 (22-32) mmol/L Anion Gap 9 (2-11) mmol/L BUN 16 (6-24) mg/dL Creatinine 0.74 (0.51-0.95) mg/dL Est GFR ( Amer) 97.1 (>60) Est GFR (Non-Af Amer) 75.5 (>60) BUN/Creatinine Ratio 21.6 H (8-20) Glucose 89 (70-100) mg/dL Lactic Acid (0.5-2.0) mmol/L Calcium 9.8 (8.6-10.3) mg/dL Magnesium 2.4 (1.9-2.7) mg/dL Total Bilirubin 0.60 (0.2-1.0) mg/dL AST 20 (13-39) U/L ALT 18 (7-52) U/L Alkaline Phosphatase 68 (34-104) U/L Total Creatine Kinase 44 (10-223) U/L Troponin I 0.00 (<0.04) ng/mL Total Protein 6.2 L (6.4-8.9) g/dL Albumin 3.9 (3.2-5.2) g/dL Globulin 2.3 (2-4) g/dL Albumin/Globulin Ratio 1.7 (1-3) TSH 3.54 (0.34-5.60) mcIU/mL 01/19/18 Range/Units 14:09 WBC (3.5-10.8) 10^3/ul RBC (4.0-5.4) 10^6/ul Hgb (12.0-16.0) g/dl Hct (35-47) % MCV (80-97) fL MCH (27-31) pg MCHC (31-36) g/dl RDW (10.5-15) % Plt Count (150-450) 10^3/ul MPV (7.4-10.4) um3 Neut % (Auto) (38-83) % Lymph % (Auto) (25-47) % [place] % (Auto) (0-7) % Eos % (Auto) (0-6) % Baso % (Auto) (0-2) % Absolute Neuts (auto) (1.5-7.7) 10^3/ul Absolute Lymphs (auto) (1.0-4.8) 10^3/ul Absolute Monos (auto) (0-0.8) 10^3/ul Absolute Eos (auto) (0-0.6) 10^3/ul Absolute Basos (auto) (0-0.2) 10^3/ul Absolute Nucleated RBC 10^3/ul Nucleated RBC % INR (Anticoag Therapy) (0.77-1.02) Sodium (133-145) mmol/L Potassium (3.5-5.0) mmol/L Chloride (101-111) mmol/L Carbon Dioxide (22-32) mmol/L Anion Gap (2-11) mmol/L BUN (6-24) mg/dL Creatinine (0.51-0.95) mg/dL Est GFR ( Amer) (>60) Est GFR (Non-Af Amer) (>60) BUN/Creatinine Ratio (8-20) Glucose (70-100) mg/dL Lactic Acid 1.0 (0.5-2.0) mmol/L Calcium (8.6-10.3) mg/dL Magnesium (1.9-2.7) mg/dL Total Bilirubin (0.2-1.0) mg/dL AST (13-39) U/L ALT (7-52) U/L Alkaline Phosphatase (34-104) U/L Total Creatine Kinase (10-223) U/L Troponin I (<0.04) ng/mL Total Protein (6.4-8.9) g/dL Albumin (3.2-5.2) g/dL Globulin (2-4) g/dL Albumin/Globulin Ratio (1-3) TSH (0.34-5.60) mcIU/mL Microbiology and Other Data: Microbiology 01/19/18 18:05 Nasal Screen MRSA (PCR)(GERONIMO) - Final Nasal Mrsa Not Detected Assess/Plan/Problems-Billing Assessment: 82 year old with history of dementia, prior admission with seizure like activity in March 2017, and another admission that ended 01/18/18 with AMS and and right frontal epileptiform activity, restarted on Keppra with marked improvement, but still not back to baseline. Discharged back to [facility] where she was seen "slumped over" but talking. Pt was evaluated by Dr. Wood in ED and noted that her episode was behavioral and Serquel was restarted. Nevertheless pt is unsteady with ambulation and needs STR. - Patient Problems (1) Dementia Comment: family acceptable of diagnosis now Restarted seroquel. (2) Altered mental status Comment: This time appears to be more behavioral, sine EEG was neg. cont Kepra, since pt has h/o recent AMS with abnormal EEG indicating seizures. h/o hypogammaglobunemia to IgA and IgG CRP wnl MPO and PR3 negative. (3) Depression Comment: continue zoloft. (4) HTN (hypertension) Comment: cont amlodipine 5mg. controlled. (5) Aspiration into airway Comment: Suspected during last hospital stay , on Augmentin till 01/23/18 (6) DVT prophylaxis Comment: - SQ heparin. Status and Disposition: OBV, awaiting STR
[2018-01-20] MEDS: Sertraline* 50 MG TAB PO SCH (20:57)
--- NOTE | 2018-01-21 01:16 | PN ---
NEUROLOGICAL FOLLOWUP: DATE OF FOLLOWUP: 01/20/18 PATIENT OF: Dr. Wood and Dr. Nevarez. HISTORY: This is a neurological followup of a patient who re-presented yesterday with behavioral episodes of eye closing and head slumping, but no clear-cut seizures. Recent EEG yesterday was normal. She has had no clear-cut seizure since yesterday either. No significant spells. She remained somewhat forgetful. MEDICATIONS: Her medications continue to be: 1. Keppra 750 twice a day. 2. Maalox p.r.n. 3. Norvasc 5 mg daily. 4. Augmentin 875 b.i.d. 6. Seroquel 25 mg in the morning and 75 at night. 7. Zoloft 50 mg at night. 8. Thiamine 100 mg daily. PHYSICAL EXAM: Temperature 97.8, pulse 85, respiratory rate 16, blood pressure 153/94. She was alert, but is some-what poor historian. The son was there and said that she has been doing well this morning. Cranial nerves II through XII were intact. She moved all extremities with power. Chest: Clear. Cardiovascular: Regular rate and rhythm. Abdomen is soft with positive bowel sounds. DIAGNOSTIC STUDIES/LAB DATA: Her CBC was normal. Her INR was normal. Her CMP yesterday was normal. Her total protein was 7.2. TSH was 3.54. Urine tox screen was negative. UA was negative. ASSESSMENT AND PLAN: Dr. Wood is her primary neurologist and has a followup with her in a few weeks and she will continue on the Keppra, but the recent episodes are considered to be behavioral episodes with eye closing and head slumping do not need any further treatment at this point. If things change while she is in the hospital, please give me a call back and I will be glad to reassess. Thank you for sharing her case. [id number]/[facility] #: [id number] WENDIE
[2018-01-21] MEDS: Heparin VIAL(*) 5000 UNITS/ML VIAL (FIVE THOUSAND) SUBCUT SCH ×3 (06:12→22:04)
[2018-01-21] MEDS: Thiamine TAB* 100 MG TAB PO SCH (09:36)
[2018-01-21] MEDS: Folic Acid TAB* 1 MG PO SCH (09:36)
[2018-01-21] MEDS: QUEtiapine TAB* 25 MG PO SCH ×2 (09:39→20:01)
[2018-01-21] MEDS: levETIRAcetam TAB* 500 MG PO SCH ×2 (09:45→20:02)
[2018-01-21] MEDS: Amoxicillin/Clavulanate TAB* 875 MG PO SCH ×2 (09:46→20:02)
[2018-01-21] MEDS: amLODIPine TAB* 5 MG PO SCH (09:47)
[2018-01-21] MEDS: Docusate CAP* 100 MG PO SCH ×2 (09:47→20:02)
[2018-01-21] MEDS: Polyethylene Glycol 3350* 17 GM PACKET PO SCH (09:47)
--- NOTE | 2018-01-21 10:33 | PN ---
Subjective Date of Service: 01/21/18 Interval History: Pt c/o nonproductive cough today.Requests cough sirup Objective Active Medications: Acetaminophen (Tylenol Tab*) 325 mg PO Q4H PRN PRN Reason: PAIN Al Hydrox/Mg Hydrox/Simethicone (Maalox Plus*) 15 ml PO Q4H PRN PRN Reason: INDIGESTION Amlodipine Besylate (Norvasc Tab*) 5 mg PO DAILY [facility] Last Admin: 01/21/18 09:47 Dose: 5 mg Amoxicillin/Clavulanate Potassium (Augmentin Tab*) 875 mg PO BID [facility] Stop: 01/23/18 23:59 Last Admin: 01/21/18 09:46 Dose: 875 mg Benzonatate (Tessalon Cap*) 100 mg PO BID PRN PRN Reason: COUGH Docusate Sodium (Colace Cap*) 100 mg PO BID [facility] Last Admin: 01/21/18 09:47 Dose: 100 mg Folic Acid (Folvite Tab*) 1 mg PO DAILY [facility] Last Admin: 01/21/18 09:36 Dose: 1 mg Guaifenesin (Robitussin*) 5 ml PO Q6H PRN PRN Reason: COUGH Heparin Sodium (Porcine) (Heparin Vial(*)) 5,000 units SUBCUT Q8HR [facility] Last Admin: 01/21/18 06:12 Dose: 5,000 units Levetiracetam (Keppra Tab*) 750 mg PO BID [facility] Last Admin: 01/21/18 09:45 Dose: 750 mg Magnesium Hydroxide (Milk Of Magnesia Liq*) 30 ml PO BID PRN PRN Reason: CONSTIPATION Polyethylene Glycol/Electrolytes (Miralax*) 17 gm PO DAILY [facility] Last Admin: 01/21/18 09:47 Dose: Not Given Quetiapine Fumarate (Seroquel Tab*) 25 mg PO QAM [facility] Last Admin: 01/21/18 09:39 Dose: 25 mg Quetiapine Fumarate (Seroquel Tab*) 75 mg PO BEDTIME [facility] Last Admin: 01/20/18 20:53 Dose: 75 mg Sertraline HCl (Zoloft*) 50 mg PO BEDTIME [facility] Last Admin: 01/20/18 20:57 Dose: 50 mg Thiamine HCl (Vitamin B-1 Tab*) 100 mg PO DAILY [facility] Last Admin: 01/21/18 09:36 Dose: 100 mg Vital Signs - 8 hr 01/21/18 01/21/18 03:08 07:37 Temperature 97.6 F 97.7 F Pulse Rate 75 75 Respiratory 17 20 Rate Blood Pressure 121/58 122/63 (mmHg) O2 Sat by Pulse 96 95 Oximetry Oxygen Devices in Use Now: None Appearance: 82 yo F in NAD, AAOx2, poor historian Eyes: No Scleral Icterus, PERRLA Ears/Nose/Mouth/Throat: NL Teeth, Lips, Gums, Mucous Membranes Moist Neck: NL Appearance and Movements; NL JVP, Trachea Midline Respiratory: Symmetrical Chest Expansion and Respiratory Effort, - - rhonchi in r lung, clear partially with cough Cardiovascular: NL Sounds; No Murmurs; No JVD, RRR Abdominal: NL Sounds; No Tenderness; No Distention, No Hepatosplenomegaly Lymphatic: No Cervical Adenopathy Extremities: No Edema, No Clubbing, Cyanosis Skin: No Rash or Ulcers, No Nodules or Sclerosis Neurological: NL Muscle Strength and Tone Result Diagrams: 01/19/18 14:09 01/19/18 14:09 Additional Lab and Data: Lab Results 01/19/18 01/19/18 01/19/18 Range/Units 14:09 14:09 14:09 WBC 6.4 (3.5-10.8) 10^3/ul RBC 4.12 (4.0-5.4) 10^6/ul Hgb 12.8 (12.0-16.0) g/dl Hct 37 (35-47) % MCV 89 (80-97) fL MCH 31 (27-31) pg MCHC 35 (31-36) g/dl RDW 14 (10.5-15) % Plt Count 194 (150-450) 10^3/ul MPV 8 (7.4-10.4) um3 Neut % (Auto) 68.8 (38-83) % Lymph % (Auto) 19.5 L (25-47) % [place] % (Auto) 8.3 H (0-7) % Eos % (Auto) 2.6 (0-6) % Baso % (Auto) 0.8 (0-2) % Absolute Neuts (auto) 4.4 (1.5-7.7) 10^3/ul Absolute Lymphs (auto) 1.3 (1.0-4.8) 10^3/ul Absolute Monos (auto) 0.5 (0-0.8) 10^3/ul Absolute Eos (auto) 0.2 (0-0.6) 10^3/ul Absolute Basos (auto) 0.1 (0-0.2) 10^3/ul Absolute Nucleated RBC 0 10^3/ul Nucleated RBC % 0 INR (Anticoag Therapy) 0.98 (0.77-1.02) Sodium 133 (133-145) mmol/L Potassium 3.9 (3.5-5.0) mmol/L Chloride 99 L (101-111) mmol/L Carbon Dioxide 25 (22-32) mmol/L Anion Gap 9 (2-11) mmol/L BUN 16 (6-24) mg/dL Creatinine 0.74 (0.51-0.95) mg/dL Est GFR ( Amer) 97.1 (>60) Est GFR (Non-Af Amer) 75.5 (>60) BUN/Creatinine Ratio 21.6 H (8-20) Glucose 89 (70-100) mg/dL Lactic Acid (0.5-2.0) mmol/L Calcium 9.8 (8.6-10.3) mg/dL Magnesium 2.4 (1.9-2.7) mg/dL Total Bilirubin 0.60 (0.2-1.0) mg/dL AST 20 (13-39) U/L ALT 18 (7-52) U/L Alkaline Phosphatase 68 (34-104) U/L Total Creatine Kinase 44 (10-223) U/L Troponin I 0.00 (<0.04) ng/mL Total Protein 6.2 L (6.4-8.9) g/dL Albumin 3.9 (3.2-5.2) g/dL Globulin 2.3 (2-4) g/dL Albumin/Globulin Ratio 1.7 (1-3) TSH 3.54 (0.34-5.60) mcIU/mL 01/19/18 Range/Units 14:09 WBC (3.5-10.8) 10^3/ul RBC (4.0-5.4) 10^6/ul Hgb (12.0-16.0) g/dl Hct (35-47) % MCV (80-97) fL MCH (27-31) pg MCHC (31-36) g/dl RDW (10.5-15) % Plt Count (150-450) 10^3/ul MPV (7.4-10.4) um3 Neut % (Auto) (38-83) % Lymph % (Auto) (25-47) % [place] % (Auto) (0-7) % Eos % (Auto) (0-6) % Baso % (Auto) (0-2) % Absolute Neuts (auto) (1.5-7.7) 10^3/ul Absolute Lymphs (auto) (1.0-4.8) 10^3/ul Absolute Monos (auto) (0-0.8) 10^3/ul Absolute Eos (auto) (0-0.6) 10^3/ul Absolute Basos (auto) (0-0.2) 10^3/ul Absolute Nucleated RBC 10^3/ul Nucleated RBC % INR (Anticoag Therapy) (0.77-1.02) Sodium (133-145) mmol/L Potassium (3.5-5.0) mmol/L Chloride (101-111) mmol/L Carbon Dioxide (22-32) mmol/L Anion Gap (2-11) mmol/L BUN (6-24) mg/dL Creatinine (0.51-0.95) mg/dL Est GFR ( Amer) (>60) Est GFR (Non-Af Amer) (>60) BUN/Creatinine Ratio (8-20) Glucose (70-100) mg/dL Lactic Acid 1.0 (0.5-2.0) mmol/L Calcium (8.6-10.3) mg/dL Magnesium (1.9-2.7) mg/dL Total Bilirubin (0.2-1.0) mg/dL AST (13-39) U/L ALT (7-52) U/L Alkaline Phosphatase (34-104) U/L Total Creatine Kinase (10-223) U/L Troponin I (<0.04) ng/mL Total Protein (6.4-8.9) g/dL Albumin (3.2-5.2) g/dL Globulin (2-4) g/dL Albumin/Globulin Ratio (1-3) TSH (0.34-5.60) mcIU/mL Microbiology and Other Data: Microbiology 01/19/18 18:05 Nasal Screen MRSA (PCR)(GERONIMO) - Final Nasal Mrsa Not Detected Assess/Plan/Problems-Billing Assessment: 82 year old with history of dementia, prior admission with seizure like activity in March 2017, and another admission that ended 01/18/18 with AMS and and right frontal epileptiform activity, restarted on Keppra with marked improvement, but still not back to baseline. Discharged back to [facility] where she was seen "slumped over" but talking. Pt was evaluated by Dr. Wood in ED and noted that her episode was behavioral and Serquel was restarted. Nevertheless pt is unsteady with ambulation and needs STR. - Patient Problems (1) Dementia Comment: family acceptable of diagnosis now Restarted seroquel ad admission. (2) Altered mental status Comment: This time appears to be more behavioral, sine EEG was neg. cont Kepra, since pt has h/o recent AMS with abnormal EEG indicating seizures. h/o hypogammaglobunemia to IgA and IgG CRP wnl MPO and PR3 negative. (3) Depression Comment: continue zoloft. (4) HTN (hypertension) Comment: cont amlodipine 5mg. controlled. (5) Aspiration into airway Comment: Suspected during last hospital stay , on Augmentin till 01/23/18 (6) DVT prophylaxis Comment: - SQ heparin. Status and Disposition: OBV, awaiting STR
[2018-01-21] MEDS: Sertraline* 50 MG TAB PO SCH (20:01)
[2018-01-22] MEDS: Heparin VIAL(*) 5000 UNITS/ML VIAL (FIVE THOUSAND) SUBCUT SCH ×2 (05:29→14:10)
[2018-01-22] MEDS: Polyethylene Glycol 3350* 17 GM PACKET PO SCH (08:21)
[2018-01-22] MEDS: QUEtiapine TAB* 25 MG PO SCH (08:22)
[2018-01-22] MEDS: amLODIPine TAB* 5 MG PO SCH (08:22)
[2018-01-22] MEDS: Docusate CAP* 100 MG PO SCH (08:23)
[2018-01-22] MEDS: Folic Acid TAB* 1 MG PO SCH (08:23)
[2018-01-22] MEDS: Amoxicillin/Clavulanate TAB* 875 MG PO SCH (08:23)
[2018-01-22] MEDS: Thiamine TAB* 100 MG TAB PO SCH (08:23)
[2018-01-22] MEDS: levETIRAcetam TAB* 500 MG PO SCH (08:23)
--- NOTE | 2018-01-22 11:02 | DS ---
CC: Dr. Nevaerz; Dr. Albert Wood* DATE OF ADMISSION: 01/19/2018. DATE OF DISCHARGE: 01/22/2018. PROVIDER: Sheridan Connell NP. ATTENDING PHYSICIAN: Dr. Clem Cerna* (as dictated by Sheridan Connell NP). CONSULTING PHYSICIAN: Dr. Albert Wood and Dr. Jean-Pierre Shipley of Neurology. PRIMARY CARE PHYSICIAN: Dr. Angel Nevarez, as well as [facility] physicians. PRIMARY DISCHARGE DIAGNOSES: 1. Altered mental status. 2. History of seizure disorder. SECONDARY DISCHARGE DIAGNOSES: 1. Hypertension. 2. 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 3. Depression. 4. Anemia. 5. History of DVT of the upper extremity. 6. History of cholecystectomy. MEDICATIONS AT DISCHARGE: 1. Keppra 750 mg b.i.d. 2. Guaifenesin 5 ml q.6 hours prn. 3. Amlodipine 5 mg daily. 4. Thiamine 100 mg daily. 5. Sertraline 50 mg at bedtime. 6. Seroquel 25 mg q.a.m. and 75 mg at bedtime. 7. MiraLax 17 gm daily. 8. Milk of Magnesia 30 ml b.i.d. prn. 9. Folic acid 1 mg daily. 10. Docusate 100 mg b.i.d. 11. Robafen AC cough solution 10 ml q.4 hours prn. 12. Calcium with vitamin D supplement one tab daily. 13. Bismuth Subsalicylate 262 mg q.4 hours prn. 14. Benzonatate 100 mg b.i.d. prn. 15. Maalox Plus 15 ml q.4 hours prn. 16. Acetaminophen 325 mg q.4 hours prn. 17. Augmentin 875 mg b.i.d. until 01/23/2018, which will be her last day of treatment. HOSPITAL COURSE OF STAY: For full details, please refer to the history and physical provided by nurse practitioner [place] on 01/19/2018. In summary, this is an 82-year-old female who has had issues with ongoing altered mental status. She was seen here in the hospital, as well as an inpatient in the ER on January 13, January 14, and January 17 and was noted to have some epileptiform changes in her last few visits. She has been followed by Neurology and has had continuous video EEG monitoring the last time she was admitted here. When she was discharged back to [facility], she had become altered again and was reported to have some gait dysfunction and unresponsiveness, so she was sent back to the emergency department for re-evaluation. EEG did not show any significant changes. Please note that the patient also had further work-up at [facility] (refer to medical record). She was admitted here subsequently for observation here in the hospital to see if we could capture some of these behaviors that are being reported by [facility]. Again, Ms. Hernandez was evaluated here by Dr. Wood in Neurology and it was felt that much of her AMS was more behavioral than seizure related or medication mediated. It was noted that she was unsteady with ambulation and would require short-term rehab. Again, her EEG was negative, and it has been recommended that she continue with Keppra since she has a history of recent altered mental status with abnormal EEG that indicates seizure activity. Her CRP was within normal limits, and there are no other signs of acute infection. She is receiving Augmentin for previous aspiration to the airway and concern for pneumonia. Only other significant changes were a return of her Seroquel back to her previous dosing of 25 mg q.a.m. and 75 mg at nighttime. Concern was expressed for the patient's sleepiness. Her son felt that she was too sleepy to participate in therapies and reports that she sleeps all day. I do note that she is currently alert and interactive when I am in the room and when other staff are in the room, and this has not been noted in the chart extensively. Plan for the patient and son to meet with Neurology prior to discharge to discuss the Keppra which her son feels is causing her sleepiness and to determine if this should be continued or if we could modify this to change dosing or trial a new medication. From the notes from the previous admission, the patient was tolerating the Keppra well. Again, this may also be behavioral, so continue monitoring would be prudent and the patient does have scheduled follow-up with Neurology on February 07 per the son. Follow-up EEG done 01/22/18 prior to discharge. Per my discussion with Dr. Shipley following her EEG, patient was observed having nodding off episodes, slumping over, and sleeping with no evidence of EEG brain wave changes to indicate concern for seizure activity or increased somnolence. This is supportive of behavioral episodes, rather than medication side effects or seizure activity. Patient appears to be stable on current medication regimen and should continue follow-up with Dr. Wood as scheduled. PHYSICAL EXAMINATION: General: This is an older female, sitting up in a chair in no acute distress. She does periodically close her eyes and slump over, but then quickly awakens and starts talking again. Vital signs: Temperature 97.6, pulse rate 66, respiratory rate 18, blood pressure 117/65, O2 saturation 100 percent on room air. HEENT: Head atraumatic, normocephalic. Pupils are equal, round, and reactive to light. Sclerae anicteric. Oral mucosa is moist. Neck is supple. No JVD noted. No lymphadenopathy appreciated. Cardiac: S1, S2 heart sounds. Regular rate and rhythm. No murmurs appreciated. No peripheral edema noted. Lungs are clear to auscultation on the left side. There are some scattered rhonchi noted in the right lung and the patient is noted to have a cough that is semi-productive. Abdomen: Soft, nontender, nondistended. Bowel sounds are normoactive. Skin appears grossly intact. Neuro: The patient is oriented to self, recognizes her son, recognizes she is in a hospital, is disoriented to date. Actively moves all extremities. No focal deficits noted. OUTPATIENT FOLLOW-UP NEEDS: Ms. Hernandez should continue following up closely with Neurology as directed. The patient should be encouraged to get out of bed and to participate in therapies, and I suspect that with close attention and encouragement that she would be able to do so. DIET: Heart healthy diet. ACTIVITY: As tolerated. CONDITION: Stable. DISPOSITION: To [facility]. TIME SPENT: Time spent on this discharge was approximately 45 minutes. Again, this is only a brief summary of the patient's hospital course of stay and from previous hospitalizations. For full details, please refer to the full medical record. If you have any further questions or need further assistance, please feel free to contact me at . SHERIDANDEDRICK CONNELL NP [id number]/[facility] #: [id number] WENDIE
[2018-01-22 11:39] VITALS: BP 137/58
--- NOTE | 2018-01-23 05:03 | PN ---
NEUROLOGICAL FOLLOWUP: DATE OF FOLLOWUP: 01/22/18 HISTORY: Celeste continues to have drifting-off episodes and she is slated to go to [facility]. The son is witnessing this and is concerned that she may be sedated and too sleepy to go to [facility]. She has had no clear seizures. She has been restarted on her Seroquel in the morning and she has been on her Keppra per Dr. Wood. MEDICATIONS: Her current medications include: 1. Keppra 750 mg twice a day. 2. Seroquel 25 in the morning, 75 at night. 3. Zoloft 50 mg at bedtime. 4. Keppra 750 b.i.d. 5. Robitussin 5 mL p.r.n. 6. Augmentin 875 b.i.d. 7. Norvasc 5 mg daily. PHYSICAL EXAM: Temperature 97.6, pulse 66, respiratory rate 18, blood pressure 117/65. She is alert and oriented, but she will close her eyes and her head will slump to one side and her arm will go down and then she will quickly come to. She moves all extremities with power. Cranial nerves intact. Chest: Clear. Cardiovascular: Regular rate and rhythm. DIAGNOSTIC STUDIES/LAB DATA: There have been no recent labs. Her Keppra level is 29.7. ASSESSMENT AND PLAN: Discussed with her son and patient that we would check an EEG now. If her very frequent episodes of head slumping are behavioral, she will appear to be awake during them on EEG. If she is falling asleep too easily , then we would have to address that and may be delay the discharge to [facility]. Most likely, it will be that she is awake during these, given the recent EEGs she has had, but she has bounced back and forth from outpatient to inpatient and it would make sense to double check before we send her home. If she is unusually sleepy, then we would need to address this possibly by looking at her meds further and possibly by assessing her for sleep apnea and other problems. Her TSH was normal at 3.54 on 01/19/18. Thank you for sharing her case. [id number]/[facility] #: [id number] WENDIE
--- NOTE | 2018-01-23 12:23 | EEG ---
ELECTROENCEPHALOGRAPHY: DATE OF STUDY: 01/22/18 - ROOM #417 PATIENT OF: Dr. Garcia and Dr. Wood. CLINICAL PROBLEM: This is an 82-year-old woman who is having very frequency episodes of head and arm slumping to the left and appearing to be briefly unresponsive. The plan is for her to be transferred back to her living quarters and the son is concerned about the continuation of these episodes and the frequency. MEDICATIONS: Include: 1. MOM. 2. Robitussin. 3. Tessalon. 4. Maalox. 5. Tylenol. 6. Vitamin B1. 7. MiraLAX. 8. Norvasc. 9. Zoloft. 10. Seroquel. 11. Keppra. 12. Colace. 13. Augmentin. 14. Heparin. This study was done on 01/22/18 and was read on 01/22/18. INTERPRETATION: With the patient awake, background cerebral activity consists of moderate amplitude, 8 to 9 Hz rhythm at times with muscle movement artifact noted. Throughout the tracing, there are frequent episodes where her head will drop to the left and her left arm will drop and her eyes will close. However, these last for a few seconds; at other times throughout, she is awake and talking. These episodes were captured on video and they were not associated with any change in her normal awake background. No epileptiform potentials, focal abnormalities, or major asymmetries of background are present. The patient never falls asleep. IMPRESSION: This awake EEG is within normal limits including during her typical episodes. There is also no change in the level of her awakeness during these episodes. This report was called to Dr. Maria Luz Garcia. [id number]/[facility] #: [id number] [facility]
== END 2018-01-22 14:10 | DRG 100 ==
LOC: ED 12:39 → MED 16:15 → OBSVTOIN 01-21 16:00
PROVIDERS: ADMIT Hospitalist; ATTEND Internal Medicine
DX: G40.909 Epilepsy, unspecified, not intractable, without status epilepticus (principal); J69.0 Pneumonitis due to inhalation of food and vomit; G93.49 Other encephalopathy; F02.81 Dementia in other diseases classified elsewhere, unspecified severity, with behavioral disturbance; R41.82 Altered mental status, unspecified; I10 Essential (primary) hypertension; G31.83 Neurocognitive disorder with Lewy bodies; F32.9 Major depressive disorder, single episode, unspecified; K21.9 Gastro-esophageal reflux disease without esophagitis; D64.9 Anemia, unspecified; Z86.718 Personal history of other venous thrombosis and embolism; Z79.1 Long term (current) use of non-steroidal anti-inflammatories (NSAID); Z79.899 Other long term (current) drug therapy
CPT/HCPCS: 36415; 71045; 80053; 80177; 80307; 81003; 82550; 83605; 83735; 84443; 84484; 85025; 85610; 87641; 93005; 95816; 99283; A9270-GY; G0378; G8978-GP-CK; G8979-GP-CJ; G8987-GO-CL; G8988-GO-CI; J1644

== ENCOUNTER 2018-12-03 08:52 | Inpatient (IN) | payer MEDICARE, MEDICAID ==
[2018-12-03] MEDS ORDERED: NS 0.9% 1000 ML** 1,000 ML IV ONE (09:06)
[2018-12-03 09:39] LABS: ABS Basophils 0 10^3/ul (0-0.2); ABS Eosinophils 0.2 10^3/ul (0-0.6); ABS Lymphocytes 1.4 10^3/ul (1.0-4.8); ABS Monocytes 0.4 10^3/ul (0-0.8); ABS Nucleated RBC 0 10^3/ul; Eosinophil % 3.5 %; Hematocrit 41 % (35-47); Hemoglobin 14.1 g/dl (12.0-16.0); Lymphocyte % 27.4 %; Mean Corpuscular HGB Conc 34 g/dl (31-36); Mean Corpuscular Hemoglobin 30 pg (27-31); Mean Corpuscular Volume 88 fL (80-97); Mean Platelet Volume 9.1 fL (7.4-10.4); Nucleated Red Blood Cells % 0.2; Platelet Count 144 10^3/ul (150-450); Red Blood Count 4.65 10^6/ul (4.00-5.40); Red Cell Distribution Width 14 % (10.5-15); White Blood Count 4.9 10^3/ul (3.5-10.8)
--- NOTE | 2018-12-03 09:46 | ED ---
Altered Mental Status - HPI Summary HPI Summary: A 83 y/o female brought in by ambulance and accompanied by her son presents to the ED c/o AMS. In the ED room, the patient has a pulse of 77 BPM, respiratory rate of 27, and blood pressure of 159/93. As per triage, "Patient brought in by EMS for AMS and possible seizures. Per staff at [facility] patient had 3 episodes of seizure like activity this morning. Per EMS patients seizures present as full body tensing and unresponsiveness. Patient responsive to painful stimuli at this time". According to the patient's son, he stopped by the patient's room this AM and checked on her. Later on, he noticed that she did not get up out of bed so we went back to her. He stated that the patient would be waking up for a bit than going back to sleep several times. He stated that this is similar to her history of seizures and thinks she had three this morning. Her neurologist is Dr. Wood. He noted that the patient has AMS and if you touch her anywhere she yells in pain. Level 5 caveat. - History Of Current Complaint Chief Complaint: EDAltMentalStatus Stated Complaint: AMS Time Seen by Provider: 12/03/18 09:04 Hx Obtained From: Family/Trainer Hx From Patient Unobtainable Due To: Altered Mental Status Hx Last Menstrual Period: unknown Onset/Duration: Suddenly Timing: Intermittent Severity Currently: None Aggravating Factor(s): Nothing Alleviating Factor(s): Nothing Associated Signs And Symptoms: Positive: Negative Related History: Seizure - Allergies/Home Medications Allergies/Adverse Reactions: Allergies Allergy/AdvReac Type Severity Reaction Status Date / Time No Known Allergies Allergy Unknown Verified 01/19/18 18:59 Reaction Details Home Medications: Home Medications Calcium Carbonate/Vitamin D3 [Calcium 600 + Vit D Tablet] 1 tab PO QAM 12/03/18 [History Confirmed 12/03/18] Hydrochlorothiazide TAB* [Hydrodiuril TAB*] 25 mg PO QAM 12/03/18 [History Confirmed 12/03/18] Sennosides/Docusate Sodium [Senna-S Tablet] 1 tab PO BEDTIME 12/03/18 [History Confirmed 12/03/18] amLODIPine TAB* [Norvasc 5 mg TAB*] 5 mg PO DAILY 12/03/18 [History Confirmed ] PMH/Surg Hx/FS Hx/Imm Hx Endocrine/Hematology History: Denies: Hx Diabetes, Hx Thyroid Disease Cardiovascular History: Reports: Hx Hypertension Denies: Hx Pacemaker/ICD Respiratory History: Reports: Hx Asthma Denies: Hx Chronic Obstructive Pulmonary Disease (COPD) GI History: Reports: Hx Gastroesophageal Reflux Disease, Other GI Disorders - GERD Denies: Hx Ulcer Musculoskeletal History: Denies: Hx Rheumatoid Arthritis, Hx Osteoporosis Sensory History: Reports: Hx Contacts or Glasses, Hx Hearing Aid - B/L Opthamlomology History: Reports: Hx Contacts or Glasses Neurological History: Reports: Hx Dementia, Hx Seizures Psychiatric History: Denies: Hx Panic Disorder - Surgical History Surgery Procedure, Year, and Place: choleycysectomy 2003 - Immunization History Date of Tetanus Vaccine: unknown Date of Influenza Vaccine: UTD Infectious Disease History: Unable to Obtain/Confirm Infectious Disease History: Denies: Hx Clostridium Difficile, Hx Hepatitis, Hx Human Immunodeficiency Virus (HIV), Traveled Outside the [place] in Last 30 Days - Family History Known Family History: Negative: Cardiac Disease, Hypertension, Diabetes - Social History Alcohol Use: None Substance Use Type: Reports: None Smoking Status (MU): Never Smoked Tobacco Review of Systems Negative: Fever Neurological: Other - Positive: seizure All Other Systems Reviewed And Are Negative: No Physical Exam - Summary Physical Exam Summary: VITAL SIGNS: Reviewed. GENERAL: Patient is a well-developed and nourished female who is lying comfortable in the stretcher. Patient is not in any acute respiratory distress. HEAD AND FACE: No signs of trauma. No ecchymosis, hematomas or skull depressions. No sinus tenderness. EYES: PERRLA, EOMI x 2, No injected conjunctiva, no nystagmus. EARS: Hearing grossly intact. Ear canals and tympanic membranes are within normal limits. MOUTH: Oropharynx within normal limits. NECK: Supple, trachea is midline, no adenopathy, no JVD, no carotid bruit, no c- spine tenderness, neck with full ROM. CHEST: Symmetric, no tenderness at palpation LUNGS: Clear to auscultation bilaterally. No wheezing or crackles. CVS: Regular rate and rhythm, S1 and S2 present, no murmurs or gallops appreciated. ABDOMEN: Soft, non-tender. No signs of distention. No rebound no guarding, and no masses palpated. Bowel sounds are normal. EXTREMITIES: FROM in all major joints, no cyanosis or clubbing. Bilateral lower extremity edema. NEURO: Slightly oriented. No acute neurological deficits. Speech is normal and follows commands. SKIN: Dry and warm GCS: 10 LEVEL 5 CAVEAT. Triage Information Reviewed: Yes Vital Signs On Initial Exam: Initial Vitals Temp Pulse Resp BP Pulse Ox 97.3 F 62 14 115/73 95 12/03/18 08:57 12/03/18 08:57 12/03/18 08:57 12/03/18 08:57 12/03/18 08:57 Vital Signs Reviewed: Yes - [place] Coma Scale Best Eye Response: 2 - To Pain Best Motor Response: 4 - Withdraws Best Verbal Response: 4 - Confused Coma Scale Total: 10 Diagnostics - Vital Signs Vital Signs Temp Pulse Resp BP Pulse Ox 12/03/18 09:40 95 12/03/18 09:03 68 15 159/93 99 12/03/18 09:00 15 12/03/18 08:59 12 12/03/18 08:57 97.3 F 62 14 115/73 95 - Laboratory Lab Results: Lab Results 12/03/18 Range/Units 08:34 WBC 4.9 (3.5-10.8) 10^3/ul RBC 4.65 (4.00-5.40) 10^6/ul Hgb 14.1 (12.0-16.0) g/dl Hct 41 (35-47) % MCV 88 (80-97) fL MCH 30 (27-31) pg MCHC 34 (31-36) g/dl RDW 14 (10.5-15) % Plt Count 144 L (150-450) 10^3/ul MPV 9.1 (7.4-10.4) fL Neut % (Auto) 59.7 % Lymph % (Auto) 27.4 % [place] % (Auto) 8.7 % Eos % (Auto) 3.5 % Baso % (Auto) 0.7 % Absolute Neuts (auto) 3.0 (1.5-7.7) 10^3/ul Absolute Lymphs (auto) 1.4 (1.0-4.8) 10^3/ul Absolute Monos (auto) 0.4 (0-0.8) 10^3/ul Absolute Eos (auto) 0.2 (0-0.6) 10^3/ul Absolute Basos (auto) 0 (0-0.2) 10^3/ul Absolute Nucleated RBC 0 10^3/ul Nucleated RBC % 0.2 Result Diagrams: 12/03/18 08:34 12/03/18 08:34 Lab Statement: Any lab studies that have been ordered have been reviewed, and results considered in the medical decision making process. - Radiology CXR Radiology Interpretation Completed By: Radiologist Summary of Radiographic Findings: LIKELY ATELECTASIS IN THE LEFT LUNG BASE. ED PHYSICIAN REVIEWED THIS RADIOLOGY REPORT. - CT BRAIN CT CT Interpretation Completed By: Radiologist Summary of CT Findings: No evidence of intracranial mass or hemorrhage is noted. Chronic ischemic. White matter change. No changes noted since January 17, 2018. ED PHYSICIAN REVIEWED THIS RADIOLOGY REPORT. - EKG 0911 Cardiac Rate: NL - 68 BPM EKG Rhythm: Sinus Rhythm - 68 BPM Summary of EKG Findings: No ST elevations. Altered Mental Statu Course/Dx - Course Course Of Treatment: A 83 y/o female brought in by ambulance and accompanied by her son presents to the ED c/o AMS. In the ED room, the patient has a pulse of 77 BPM, respiratory rate of 27, and blood pressure of 159/93. As per triage, "Patient brought in by EMS for AMS and possible seizures. Per staff at [facility] patient had 3 episodes of seizure like activity this morning. Per EMS patients seizures present as full body tensing and unresponsiveness. Patient responsive to painful stimuli at this time". According to the patient's son, he stopped by the patient's room this AM and checked on her. Later on, he noticed that she did not get up out of bed so we went back to her. He stated that the patient would be waking up for a bit than going back to sleep several times. He stated that this is similar to her history of seizures and thinks she had three this morning. Her neurologist is Dr. Wood. He noted that the patient has AMS and if you touch her anywhere she yells in pain. Level 5 caveat. Assessment/Plan: Blood work without any significant abnormality except for chloride of 99, glucose is 114, and urinalysis with positive for UTI. In the ED course the patient was given IV fluids and she was given Rocephin for the UTI. Since the patient has mild confusion the patient was given Rocephin IV. Chest x-ray impression: Likely atelectasis in the left lung. Head CT impression : No evidence of a acute intracranial mass or hemorrhage. At this point I discussed my physical exam and findings with Dr. Bernstein from the hospital services who accepts patient for admission. Patient is hemodynamically stable. - Diagnoses Provider Diagnoses: UTI (urinary tract infection), Altered mental status - Provider Notifications Discussed Care Of Patient With: Oni Bernstein Time Discussed With Above Provider: 12:12 Instructed by Provider To: Other - Accepts patient for admission. Discharge - Sign-Out/Discharge Documenting (check all that apply): Patient Departure, Sign-Out Patient - ED Signing out patient TO: Oni Bernstein Receiving patient FROM: Jann Alvarado - Discharge Plan Condition: Stable Disposition: ADMITTED TO [facility] - Billing Disposition and Condition Condition: STABLE Disposition: Admitted to [facility] - Attestation Statements Document Initiated by Scribe: Yes Documenting Scribe: Kai Cabral Provider For Whom Ling is Documenting (Include Credential): Jann Alvarado MD Scribe Attestation: Kai De Leon, scribed for Jann Alvarado MD on 12/03/18 at 1847. Scribe Documentation Reviewed: Yes Provider Attestation: The documentation as recorded by the Kai teixeira accurately reflects the service I personally performed and the decisions made by me, Jann Alvarado MD Status of Scribe Document: Viewed Attestations Scribe Attestation: Kai Cabral User Type: Provider
[2018-12-03 09:49] LABS: Urine Appearance Cloudy; Urine Bacteria 1+ (Absent); Urine Bilirubin Negative (Negative); Urine Blood Negative (Negative); Urine Color Yellow; Urine Glucose Negative (Negative); Urine Ketones Negative (Negative); Urine Nitrite Positive (Negative); Urine Protein Negative (Negative); Urine Red Blood Cell 1+(3-5/hpf) (Absent); Urine Specific Gravity 1.009 (1.010-1.030); Urine Squamous Epithelial Cell Present (Absent); Urine Urobilinogen Negative (Negative); Urine White Blood Cell 3+(>20/hpf) (Absent)
[2018-12-03 09:56] LABS: Albumin 4.3 g/dL (3.2-5.2); Albumin/Globulin Ratio 1.8 (1-3); BUN/Creatinine Ratio 21.7 (8-20); Calcium 9.5 mg/dL (8.6-10.3); EGFR African American 79.8 (>60); Globulin 2.4 g/dL (2-4); Magnesium 2.1 mg/dL (1.9-2.7); Potassium 3.6 mmol/L (3.5-5.0); Total Bilirubin 0.6 mg/dL (0.2-1.0); Total Protein 6.7 g/dL (6.4-8.9)
[2018-12-03 10:19] LABS: INR 0.95 (0.77-1.02)
[2018-12-03 10:36] LABS: TSH (Thyroid Stimulating Horm) 3.66 mcIU/mL (0.34-5.60)
[2018-12-03] MEDS ORDERED: Sulfamethox/Trimethoprim DS 800/160* TAB PO ONE (11:54)
[2018-12-03] MEDS ORDERED: cefTRIAXone(*) 1 GM in NS 0.9% 50 ML* 50 ML IVPB ONE (11:55)
[2018-12-03] MEDS ORDERED: Azithromycin IV(*) 500 MG in NS 0.9% 250 ML* 250 ML IVPB ONE (12:45)
[2018-12-03] MEDS ORDERED: amLODIPine TAB* 5 MG PO ONE (12:47)
[2018-12-03] MEDS ORDERED: Ondansetron INJ* 2 MG/ML VIAL IV PRN (13:01)
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
[2018-12-03] MEDS: Acetaminophen TAB* 325 MG PO PRN (16:13)
[2018-12-03] MEDS: Enoxaparin(*) 40 MG/0.4 ML SYR SUBCUT SCH (16:13)
[2018-12-03] MEDS: QUEtiapine TAB* 25 MG PO SCH (20:44)
[2018-12-03] MEDS: Docusate CAP* 100 MG PO SCH (20:44)
[2018-12-04] MEDS: Azithromycin TAB* 250 MG PO SCH (08:47)
[2018-12-04] MEDS: Sertraline* 50 MG TAB PO SCH (08:47)
[2018-12-04] MEDS: Docusate CAP* 100 MG PO SCH ×2 (08:47→20:28)
[2018-12-04] MEDS: Calcium/Vitamin D TAB 250/125* TAB PO SCH (08:47)
[2018-12-04] MEDS: Hydrochlorothiazide TAB* 25 MG PO SCH (08:47)
[2018-12-04] MEDS: amLODIPine TAB* 5 MG PO SCH (08:48)
[2018-12-04] MEDS: QUEtiapine TAB* 25 MG PO SCH ×2 (08:48→20:28)
[2018-12-04] MEDS: cefTRIAXone(*) 1 GM in NS 0.9% 50 ML* 50 ML IVPB SCH (12:32)
[2018-12-04] MEDS: Enoxaparin(*) 40 MG/0.4 ML SYR SUBCUT SCH (14:40)
--- NOTE | 2018-12-04 14:48 | PN ---
Subjective Date of Service: 12/04/18 Interval History: Patient alert, pleasantly confused. Denies any pain, dysuria, increase urinary frequency. Patient is able to walk with walker and one assist to bathroom with walker. Pt reports good appetite. No fever or chills. She appears to be a poor historian Objective Active Medications: Acetaminophen (Tylenol Tab*) 325 mg PO Q4H PRN PRN Reason: PAIN Last Admin: 12/03/18 16:13 Dose: 325 mg Amlodipine Besylate (Norvasc Tab*) 5 mg PO DAILY [facility] Last Admin: 12/04/18 08:48 Dose: 5 mg Azithromycin (Zithromax Tab*) 250 mg PO DAILY [facility] Last Admin: 12/04/18 08:47 Dose: 250 mg Calcium/Vitamin D (Oscal D Tab 250/125*) [facility] Last Admin: 12/04/18 08:47 Dose: 1 tab Docusate Sodium (Colace Cap*) 100 mg PO BID [facility] Last Admin: 12/04/18 08:47 Dose: 100 mg Enoxaparin Sodium (Lovenox(*)) 40 mg SUBCUT Q24H [facility] Last Admin: 12/04/18 14:40 Dose: 40 mg Hydrochlorothiazide (Hydrodiuril Tab*) 25 mg PO [facility] Last Admin: 12/04/18 08:47 Dose: 25 mg Ceftriaxone Sodium 1 gm/ (Sodium Chloride) 50 mls @ 200 mls/hr IVPB Q24H [facility] Last Admin: 12/04/18 12:32 Dose: 200 mls/hr Ondansetron HCl (Zofran Inj*) 4 mg IV Q4H PRN PRN Reason: NAUSEA/VOMITING Quetiapine Fumarate (Seroquel Tab*) [facility] Last Admin: 12/04/18 08:48 Dose: 25 mg Quetiapine Fumarate (Seroquel Tab*) 50 mg PO BEDTIME [facility] Last Admin: 12/03/18 20:44 Dose: 50 mg Sertraline HCl (Zoloft*) 50 mg PO [facility] Last Admin: 12/04/18 08:47 Dose: 50 mg Vital Signs - 8 hr 12/04/18 12/04/18 07:36 11:35 Temperature 98.0 F 98.3 F Pulse Rate 102 96 Respiratory 16 20 Rate Blood Pressure 134/91 132/58 (mmHg) O2 Sat by Pulse 99 96 Oximetry Oxygen Devices in Use Now: None Appearance: 83 yo female alert, confused in NAD Eyes: No Scleral Icterus, PERRLA Ears/Nose/Mouth/Throat: NL Teeth, Lips, Gums, Mucous Membranes Moist Neck: NL Appearance and Movements; NL JVP Respiratory: Symmetrical Chest Expansion and Respiratory Effort, Clear to Auscultation Cardiovascular: NL Sounds; No Murmurs; No JVD, RRR Abdominal: NL Sounds; No Tenderness; No Distention, - - obese. no CVA tenderness Skin: No Rash or Ulcers Neurological: Alert and Oriented x 3, NL Sensation, NL Gait - needed guidance from aide; steady gait with walker, NL Muscle Strength and Tone Lines/Tubes/Other Access: Clean, Dry and Intact Peripheral IV Nutrition: Taking PO's Result Diagrams: 12/03/18 08:34 12/03/18 08:34 Additional Lab and Data: Lab Results 12/03/18 Range/Units 08:34 WBC 4.9 (3.5-10.8) 10^3/ul RBC 4.65 (4.00-5.40) 10^6/ul Hgb 14.1 (12.0-16.0) g/dl Hct 41 (35-47) % MCV 88 (80-97) fL MCH 30 (27-31) pg MCHC 34 (31-36) g/dl RDW 14 (10.5-15) % Plt Count 144 L (150-450) 10^3/ul MPV 9.1 (7.4-10.4) fL Neut % (Auto) 59.7 % Lymph % (Auto) 27.4 % [place] % (Auto) 8.7 % Eos % (Auto) 3.5 % Baso % (Auto) 0.7 % Absolute Neuts (auto) 3.0 (1.5-7.7) 10^3/ul Absolute Lymphs (auto) 1.4 (1.0-4.8) 10^3/ul Absolute Monos (auto) 0.4 (0-0.8) 10^3/ul Absolute Eos (auto) 0.2 (0-0.6) 10^3/ul Absolute Basos (auto) 0 (0-0.2) 10^3/ul Absolute Nucleated RBC 0 10^3/ul Nucleated RBC % 0.2 Microbiology and Other Data: Microbiology 12/04/18 09:40 Nasal Screen MRSA (PCR) - Final Nasal Mrsa Not Detected 12/03/18 09:31 Urine Culture - Preliminary Urine Klebsiella Pneumoniae Assess/Plan/Problems-Billing Assessment: 83 yo female with PMH of seizure disorder, dementia, htn, who presented on 12/03 with concern for altered mental status - Patient Problems (1) Altered mental status Comment: - improving. Suspect UTI - urine cx growing > 100K klebsiella - continue IV Abx - await urine and blood cx (2) Dementia Comment: Continue home dose seroquel (3) Seizure disorder Status: Chronic Comment: Pt was DC'd 01/2018 on continue keppra 750mg BID which [facility] Son reports this was DC'd by her provider due to making her "crazy" - continue seizure precautions (4) DVT prophylaxis Comment: - SQ lovenox (5) Full code status Status and Disposition: OBV. Possible DC tomorrow if medically stable
[2018-12-05 05:59] LABS: ABS Basophils 0 10^3/ul (0-0.2); ABS Eosinophils 0.1 10^3/ul (0-0.6); ABS Monocytes 0.5 10^3/ul (0-0.8); ABS Neutrophils 3.8 10^3/ul (1.5-7.7); ABS Nucleated RBC 0 10^3/ul; Hematocrit 39 % (35-47); Hemoglobin 13.4 g/dl (12.0-16.0); Lymphocyte % 30.4 %; Mean Corpuscular HGB Conc 35 g/dl (31-36); Mean Corpuscular Hemoglobin 30 pg (27-31); Mean Corpuscular Volume 88 fL (80-97); Mean Platelet Volume 8.6 fL (7.4-10.4); Nucleated Red Blood Cells % 0.1; Platelet Count 157 10^3/ul (150-450); Red Blood Count 4.39 10^6/ul (4.00-5.40); Red Cell Distribution Width 13 % (10.5-15); White Blood Count 6.5 10^3/ul (3.5-10.8)
[2018-12-05 06:22] LABS: BUN/Creatinine Ratio 21.5 (8-20); Calcium 9.2 mg/dL (8.6-10.3); EGFR African American 84.5 (>60); EGFR Non-African American 69.8 (>60)
[2018-12-05] MEDS ORDERED: Potassium Chlor TAB* 20 MEQ TAB.ER PO ONE (08:41)
--- NOTE | 2018-12-05 10:14 | PN ---
Subjective Date of Service: 12/05/18 Interval History: patient pleasantly confused. Answers some questions, laughs frequently when inappropriate appears comfortable Objective Active Medications: Acetaminophen (Tylenol Tab*) 325 mg PO Q4H PRN PRN Reason: PAIN Last Admin: 12/03/18 16:13 Dose: 325 mg Amlodipine Besylate (Norvasc Tab*) 5 mg PO DAILY [facility] Last Admin: 12/04/18 08:48 Dose: 5 mg Azithromycin (Zithromax Tab*) 250 mg PO DAILY [facility] Last Admin: 12/04/18 08:47 Dose: 250 mg Calcium/Vitamin D (Oscal D Tab 250/125*) [facility] Last Admin: 12/04/18 08:47 Dose: 1 tab Docusate Sodium (Colace Cap*) 100 mg PO BID [facility] Last Admin: 12/04/18 20:28 Dose: 100 mg Enoxaparin Sodium (Lovenox(*)) 40 mg SUBCUT Q24H [facility] Last Admin: 12/04/18 14:40 Dose: 40 mg Hydrochlorothiazide (Hydrodiuril Tab*) 25 mg PO [facility] Last Admin: 12/04/18 08:47 Dose: 25 mg Ceftriaxone Sodium 1 gm/ (Sodium Chloride) 50 mls @ 200 mls/hr IVPB Q24H [facility] Last Admin: 12/04/18 12:32 Dose: 200 mls/hr Potassium Chloride (Potassium Chloride 20 Meq/100 Ml Ivpremix*) 20 meq in 100 mls @ 50 mls/hr IV Q2H [facility] Stop: 12/05/18 12:59 Ondansetron HCl (Zofran Inj*) 4 mg IV Q4H PRN PRN Reason: NAUSEA/VOMITING Quetiapine Fumarate (Seroquel Tab*) [facility] Last Admin: 12/04/18 08:48 Dose: 25 mg Quetiapine Fumarate (Seroquel Tab*) 50 mg PO BEDTIME [facility] Last Admin: 12/04/18 20:28 Dose: 50 mg Sertraline HCl (Zoloft*) 50 mg PO [facility] Last Admin: 12/04/18 08:47 Dose: 50 mg Vital Signs - 8 hr 12/05/18 12/05/18 02:28 07:21 Temperature 97.8 F 97.0 F Pulse Rate 85 73 Respiratory 18 18 Rate Blood Pressure 148/64 146/65 (mmHg) O2 Sat by Pulse 95 98 Oximetry Oxygen Devices in Use Now: None Appearance: eldelry female alert, confused in NAD Eyes: No Scleral Icterus, PERRLA Ears/Nose/Mouth/Throat: NL Teeth, Lips, Gums, Mucous Membranes Moist Respiratory: Symmetrical Chest Expansion and Respiratory Effort, Clear to Auscultation Cardiovascular: NL Sounds; No Murmurs; No JVD, RRR, No Edema Abdominal: NL Sounds; No Tenderness; No Distention, - - obese Extremities: No Clubbing, Cyanosis Skin: No Rash or Ulcers, No Nodules or Sclerosis Neurological: Alert and Oriented x 3, NL Sensation, NL Muscle Strength and Tone Lines/Tubes/Other Access: Clean, Dry and Intact Peripheral IV Nutrition: Taking PO's Result Diagrams: 12/05/18 05:43 12/05/18 05:43 Additional Lab and Data: Lab Results 12/03/18 Range/Units 08:34 WBC 4.9 (3.5-10.8) 10^3/ul RBC 4.65 (4.00-5.40) 10^6/ul Hgb 14.1 (12.0-16.0) g/dl Hct 41 (35-47) % MCV 88 (80-97) fL MCH 30 (27-31) pg MCHC 34 (31-36) g/dl RDW 14 (10.5-15) % Plt Count 144 L (150-450) 10^3/ul MPV 9.1 (7.4-10.4) fL Neut % (Auto) 59.7 % Lymph % (Auto) 27.4 % [place] % (Auto) 8.7 % Eos % (Auto) 3.5 % Baso % (Auto) 0.7 % Absolute Neuts (auto) 3.0 (1.5-7.7) 10^3/ul Absolute Lymphs (auto) 1.4 (1.0-4.8) 10^3/ul Absolute Monos (auto) 0.4 (0-0.8) 10^3/ul Absolute Eos (auto) 0.2 (0-0.6) 10^3/ul Absolute Basos (auto) 0 (0-0.2) 10^3/ul Absolute Nucleated RBC 0 10^3/ul Nucleated RBC % 0.2 Microbiology and Other Data: Microbiology 12/04/18 09:40 Nasal Screen MRSA (PCR) - Final Nasal Mrsa Not Detected 12/03/18 09:31 Urine Culture - Preliminary Urine Klebsiella Pneumoniae Assess/Plan/Problems-Billing Assessment: 83 yo female with PMH of seizure disorder, dementia, htn, who presented on 12/03 with concern for altered mental status - Patient Problems (1) Altered mental status Comment: - suspect 2nd to UTI - Clinically improving. Per son she is close to baseline this am, now with increased confusion suspect delirum - UTI - urine cx growing > 100K klebsiella, sensitive to cefttriaxone. Recieved 3 doses (2) Cough Comment: - Possible CAP? Chest xray showing likely atelectasis in left lung base, low suspicion for pna. - Not hypoxic. No noted cough throughout hospitalization - Continue azithro course (3) Electrolyte abnormality Comment: - hypokalemia, significantly low - give replacement - recheck in am (4) Dementia Comment: now with delirium Continue home dose seroquel (5) Seizure disorder Status: Chronic Comment: - Discussed with son who states her neurologist Dr. Wood did take her off Keppra due to increased agitated behaviors (two different times while iinitiating Keppra) and did not start her on another agent. Per son she has not had any recent seizures. In the setting of infection her seizure threshold is lowered placing her at higher risk. Continue seizure precautions. (6) DVT prophylaxis Comment: - SQ lovenox (7) Full code status Status and Disposition: inpatient with hypokalemia, UTI - now delirium. Anticipate DC in am if medically stable
[2018-12-05] MEDS: Sertraline* 50 MG TAB PO SCH (10:52)
[2018-12-05] MEDS: QUEtiapine TAB* 25 MG PO SCH ×2 (10:52→21:16)
[2018-12-05] MEDS: Hydrochlorothiazide TAB* 25 MG PO SCH (10:52)
[2018-12-05] MEDS: Azithromycin TAB* 250 MG PO SCH (10:53)
[2018-12-05] MEDS: Calcium/Vitamin D TAB 250/125* TAB PO SCH (10:53)
[2018-12-05] MEDS: Docusate CAP* 100 MG PO SCH ×2 (10:53→21:16)
[2018-12-05] MEDS: amLODIPine TAB* 5 MG PO SCH (10:53)
[2018-12-05] MEDS: cefTRIAXone(*) 1 GM in NS 0.9% 50 ML* 50 ML IVPB SCH (13:08)
[2018-12-05] MEDS: KCL 20 MEQ/100 ML IVPREMIX* 20 MEQ/100 ML BAG IV SCH ×2 (13:09→15:39)
[2018-12-05] MEDS: Enoxaparin(*) 40 MG/0.4 ML SYR SUBCUT SCH (15:43)
[2018-12-06 05:47] LABS: ABS Basophils 0 10^3/ul (0-0.2); ABS Eosinophils 0.2 10^3/ul (0-0.6); ABS Lymphocytes 1.6 10^3/ul (1.0-4.8); ABS Monocytes 0.5 10^3/ul (0-0.8); ABS Neutrophils 3.5 10^3/ul (1.5-7.7); ABS Nucleated RBC 0 10^3/ul; Eosinophil % 3.6 %; Hematocrit 38 % (35-47); Hemoglobin 13.1 g/dl (12.0-16.0); Lymphocyte % 27.2 %; Mean Corpuscular HGB Conc 35 g/dl (31-36); Mean Corpuscular Hemoglobin 31 pg (27-31); Mean Corpuscular Volume 88 fL (80-97); Mean Platelet Volume 8.7 fL (7.4-10.4); Nucleated Red Blood Cells % 0.1; Platelet Count 150 10^3/ul (150-450); Red Blood Count 4.24 10^6/ul (4.00-5.40); Red Cell Distribution Width 14 % (10.5-15); White Blood Count 5.8 10^3/ul (3.5-10.8)
[2018-12-06 06:06] LABS: BUN/Creatinine Ratio 21.6 (8-20); Calcium 8.6 mg/dL (8.6-10.3); EGFR African American 91.1 (>60); EGFR Non-African American 75.3 (>60); Potassium 3.4 mmol/L (3.5-5.0)
[2018-12-06] MEDS ORDERED: Potassium Chlor TAB* 20 MEQ TAB.ER PO ONE (08:31)
--- NOTE | 2018-12-06 09:05 | DCNOTE ---
Subjective Date of Service: 12/06/18 Interval History: Patients son Tha is at the bedside ready to transport his mother back to [facility]. He states she is mildly confused above baseline but close. She follows commands and is found to be alert, bright, talkative. She denies any complaints. Per nursing staff she is better than yesterday with less confusion Son agrees for DC back to [facility] today Objective Active Medications: Acetaminophen (Tylenol Tab*) 325 mg PO Q4H PRN PRN Reason: PAIN Last Admin: 12/03/18 16:13 Dose: 325 mg Amlodipine Besylate (Norvasc Tab*) 5 mg PO DAILY [facility] Last Admin: 12/05/18 10:53 Dose: Not Given Azithromycin (Zithromax Tab*) 250 mg PO DAILY [facility] Last Admin: 12/05/18 10:53 Dose: 250 mg Calcium/Vitamin D (Oscal D Tab 250/125*) 1 tab PO QAM [facility] Last Admin: 12/05/18 10:53 Dose: Not Given Docusate Sodium (Colace Cap*) 100 mg PO BID [facility] Last Admin: 12/05/18 21:16 Dose: Not Given Enoxaparin Sodium (Lovenox(*)) 40 mg SUBCUT Q24H [facility] Last Admin: 12/05/18 15:43 Dose: 40 mg Hydrochlorothiazide (Hydrodiuril Tab*) 25 mg PO QAM [facility] Last Admin: 12/05/18 10:52 Dose: Not Given Ondansetron HCl (Zofran Inj*) 4 mg IV Q4H PRN PRN Reason: NAUSEA/VOMITING Quetiapine Fumarate (Seroquel Tab*) [facility] Last Admin: 12/05/18 10:52 Dose: 25 mg Quetiapine Fumarate (Seroquel Tab*) 50 mg PO BEDTIME [facility] Last Admin: 12/05/18 21:16 Dose: Not Given Sertraline HCl (Zoloft*) [address] [facility] Last Admin: 12/05/18 10:52 Dose: 50 mg Oxygen Devices in Use Now: None Appearance: eldelry female A+O to self and place but not to time Eyes: No Scleral Icterus, PERRLA Ears/Nose/Mouth/Throat: Mucous Membranes Moist Respiratory: Symmetrical Chest Expansion and Respiratory Effort, Clear to Auscultation Cardiovascular: NL Sounds; No Murmurs; No JVD, RRR, No Edema Abdominal: NL Sounds; No Tenderness; No Distention, - - obese Extremities: No Edema, No Clubbing, Cyanosis Skin: No Rash or Ulcers, No Nodules or Sclerosis Neurological: NL Sensation, NL Gait - steady gait with walker, NL Muscle Strength and Tone, - - alert Lines/Tubes/Other Access: Clean, Dry and Intact Peripheral IV Result Diagrams: 12/06/18 05:30 12/06/18 05:30 Additional Lab and Data: Lab Results 12/03/18 Range/Units 08:34 WBC 4.9 (3.5-10.8) 10^3/ul RBC 4.65 (4.00-5.40) 10^6/ul Hgb 14.1 (12.0-16.0) g/dl Hct 41 (35-47) % MCV 88 (80-97) fL MCH 30 (27-31) pg MCHC 34 (31-36) g/dl RDW 14 (10.5-15) % Plt Count 144 L (150-450) 10^3/ul MPV 9.1 (7.4-10.4) fL Neut % (Auto) 59.7 % Lymph % (Auto) 27.4 % [place] % (Auto) 8.7 % Eos % (Auto) 3.5 % Baso % (Auto) 0.7 % Absolute Neuts (auto) 3.0 (1.5-7.7) 10^3/ul Absolute Lymphs (auto) 1.4 (1.0-4.8) 10^3/ul Absolute Monos (auto) 0.4 (0-0.8) 10^3/ul Absolute Eos (auto) 0.2 (0-0.6) 10^3/ul Absolute Basos (auto) 0 (0-0.2) 10^3/ul Absolute Nucleated RBC 0 10^3/ul Nucleated RBC % 0.2 Microbiology and Other Data: Microbiology 12/04/18 09:40 Nasal Screen MRSA (PCR) - Final Nasal Mrsa Not Detected 12/03/18 09:31 Urine Culture - Preliminary Urine Klebsiella Pneumoniae Assess/Plan/Problems-Billing Assessment: 83 yo female with PMH of seizure disorder, dementia, htn, who presented on 12/03 with concern for altered mental status found to have a UTI - Patient Problems (1) Altered mental status Comment: - suspect 2nd to UTI - - Clinically improving. Per son she is close to baseline this am, now with increased mild confusion on top of dementia suspect mild delirum. Patient is answering questions appropriately and following commands - I think she has mild delirium and is stable for DC back to [facility]; being in familiar surroundings I think will be good for the patient - UTI - urine cx growing > 100K klebsiella, sensitive to cefttriaxone. Recieved 3 doses (2) Cough Comment: - Possible CAP? Chest xray showing likely atelectasis in left lung base, low suspicion for pna. - Not hypoxic. No noted cough throughout hospitalization - DC azithro (3) Electrolyte abnormality Comment: - improving - hypokalemia,give replacement - recheck in 1 week at [facility] (4) Dementia Comment: now withmild delirium which appears to be improving Continue home dose seroquel (5) Seizure disorder Status: Chronic Comment: - No noted seizures - Discussed with son who states her neurologist Dr. Wood did take her off Keppra due to increased agitated behaviors (two different times while iinitiating Keppra) and did not start her on another agent. Per son she has not had any recent seizures. In the setting of infection her seizure threshold is lowered placing her at higher risk. Continue seizure precautions. (6) DVT prophylaxis Comment: - SQ lovenox (7) Full code status Status and Disposition: inpatient with hypokalemia, UTI- DC today
[2018-12-06 09:46] VITALS: BP 138/75
[2018-12-06] MEDS: Docusate CAP* 100 MG PO SCH (09:51)
[2018-12-06] MEDS: QUEtiapine TAB* 25 MG PO SCH (09:51)
[2018-12-06] MEDS: Calcium/Vitamin D TAB 250/125* TAB PO SCH (09:51)
[2018-12-06] MEDS: Sertraline* 50 MG TAB PO SCH (09:51)
[2018-12-06] MEDS: Azithromycin TAB* 250 MG PO SCH (09:52)
[2018-12-06] MEDS: amLODIPine TAB* 5 MG PO SCH (09:52)
[2018-12-06] MEDS: Hydrochlorothiazide TAB* 25 MG PO SCH (09:52)
--- NOTE | 2018-12-06 10:44 | DS ---
CC: [facility] * DISCHARGE SUMMARY: DATE OF ADMISSION: 12/03/18 DATE OF DISCHARGE: 12/06/18 PROVIDER: Mckay Sheffield NP. ATTENDING PHYSICIAN: Dr. Cerna * (report dictated by Mckay Sheffield NP) PRIMARY CARE PROVIDER: Dr. Angel Nevarez, [facility] rounding providers. DISCHARGE DIAGNOSES: 1. Altered mental status suspected to be secondary to urinary tract infection. 2. Electrolyte abnormalities: Hypokalemia. 3. Mild delirium. 4. Hypertension. 5. Lewy body dementia. 6. Seizure disorder. 7. Depression. 8. Anemia. 9. History of left upper extremity deep venous thrombosis. 10. Gastroesophageal reflux disease. SECONDARY DIAGNOSIS: History of constipation. DISCHARGE MEDICATIONS: 1. Acetaminophen 325 mg p.o. q.4 hours p.r.n. 2. Hydrochlorothiazide 25 mg p.o. daily. 3. Seroquel 25 mg in the morning and 50 mg at bed time. 4. Senna/docusate 1 tab p.o. at bed time. 5. Docusate 100 mg p.o. twice daily. 6. Zoloft 50 mg p.o. daily. 7. Calcium with vitamin D 1 tab p.o. daily. 8. Amlodipine 5 mg p.o. daily. ALLERGIES: No known drug allergies. HISTORY OF PRESENT ILLNESS AND HOSPITAL COURSE: Please see history and physical by Dr. Bernstein for full admission details. In summary, this is an 83- year-old female with a past medical history as stated above, who presented from [facility] after her son found her to be lethargic and have altered mental status. She is admitted to the hospitalist service and it was suspected that initially, she possibly had a urinary tract infection and possibly community-acquired pneumonia. She had an abnormal urinalysis. She had a chest x-ray that showed left atelectasis. She was started on ceftriaxone and azithromycin. Her urine culture did grow Klebsiella pneumoniae with greater than 100,000 colonies counts. It was initially thought maybe she had a cough but this has not been present throughout hospitalization. She has not been hypoxic, low suspicion for pneumonia. The patient had no leukocytosis and no signs of sepsis. The patient has done well throughout her hospitalization. She did have increased confusion above her baseline of dementia. This was thought to be secondary to delirium. This has improved over hospitalization and is still mildly present on discharge today. However, she is much better and was found to be alert, oriented to self, and is following commands. I do recommend that she has has closer monitoring at the intermediate over the next couple days. In regards to the patient's blood pressure, her trend throughout hospitalization has been variable between low 100s to 160. Initially I was going to increase her Norvasc to 10 mg; however, yesterday she did have a low blood pressure in the 90s. Please monitor the patient's blood pressure for a week in the intermediate setting as she may need a increase in her antihypertensive medications. The patient is stable for discharge back to [facility]. DISCHARGE PLAN: 1. Discharged to [facility]. 2. Follow up BMP on Monday12/10/18 at [facility] to assess potassium level. TIME SPENT: Approximately 60 minutes were spent on this discharge. The patient's son is at the bed side. We will transfer the patient back to [facility]. MCKAY SHEFFIELD, LOUISE [id number]/CPS #: [id number] WENDIE
[2018-12-06] MEDS: Acetaminophen TAB* 325 MG PO PRN (11:10)
== END 2018-12-06 12:05 | DRG 689 ==
LOC: ED 08:52 → MED 13:48 → OBSVTOIN 12-05 15:29
PROVIDERS: ADMIT Internal Medicine; ATTEND Internal Medicine
DX: N39.0 Urinary tract infection, site not specified (principal); R40.2342 Coma scale, best motor response, flexion withdrawal, at arrival to emergency department; R40.2122 Coma scale, eyes open, to pain, at arrival to emergency department; F05 Delirium due to known physiological condition; J98.11 Atelectasis; K59.00 Constipation, unspecified; G40.909 Epilepsy, unspecified, not intractable, without status epilepticus; I10 Essential (primary) hypertension; J45.909 Unspecified asthma, uncomplicated; K21.9 Gastro-esophageal reflux disease without esophagitis; D64.9 Anemia, unspecified; H91.93 Unspecified hearing loss, bilateral; R40.2242 Coma scale, best verbal response, confused conversation, at arrival to emergency department; F32.9 Major depressive disorder, single episode, unspecified; G31.83 Neurocognitive disorder with Lewy bodies; F02.80 Dementia in other diseases classified elsewhere, unspecified severity, without behavioral disturbance, psychotic disturbance, mood disturbance, and anxiety; L53.9 Erythematous condition, unspecified; B96.1 Klebsiella pneumoniae [K. pneumoniae] as the cause of diseases classified elsewhere; E87.6 Hypokalemia; Z97.4 Presence of external hearing-aid; Z90.49 Acquired absence of other specified parts of digestive tract; Z86.718 Personal history of other venous thrombosis and embolism
CPT/HCPCS: 36415; 70450; 71045; 80048; 80053; 81003; 81015; 82550; 83605; 83735; 84443; 85025; 85610; 87077; 87086; 87186; 87641; 87899; 93005; 99285; A9270-GY; G0378; J0456; J0696; J1650; J3480

== ENCOUNTER 2018-12-16 16:54 | Inpatient (IN) | payer MEDICARE, MEDICAID ==
[2018-12-16] MEDS ORDERED: NS 0.9% 1000 ML** 1,000 ML IV ONE (17:33)
[2018-12-16] MEDS ORDERED: TIGECYCLINE IVPB SCH (17:34)
[2018-12-16] MEDS ORDERED: NS 0.9% IVPB SCH (17:34)
--- NOTE | 2018-12-16 17:34 | ED ---
Altered Mental Status - HPI Summary HPI Summary: This patient is a 83 year old F [facility] accompanied by her son due to a positive urine culture for VRE. Son additionally reports increased confusion, rambling, and agitation for the past two weeks. He states her mental status has not improved since she was discharged from [facility] on 12/06/18 with a diagnosis of an UTI. Patient is level 5 Caveat due to AMS. - History Of Current Complaint Chief Complaint: EDUrogenitalProblems Stated Complaint: GENERAL ILLNESS Time Seen by Provider: 12/16/18 17:14 Hx Obtained From: Family/[employer] Hx From Patient Unobtainable Due To: Altered Mental Status Hx Last Menstrual Period: unknown Onset/Duration: Still Present, Gradually Timing: Constant Character: Confusion, Agitation Aggravating Factor(s): Other - UTI Associated Signs And Symptoms: Positive: Negative - Allergies/Home Medications Allergies/Adverse Reactions: Allergies Allergy/AdvReac Type Severity Reaction Status Date / Time No Known Allergies Allergy Unknown Verified 01/19/18 18:59 Reaction Details PMH/Surg Hx/FS Hx/Imm Hx Endocrine/Hematology History: Denies: Hx Diabetes, Hx Thyroid Disease Cardiovascular History: Reports: Hx Hypertension Denies: Hx Pacemaker/ICD Respiratory History: Reports: Hx Asthma Denies: Hx Chronic Obstructive Pulmonary Disease (COPD) GI History: Reports: Hx Gastroesophageal Reflux Disease, Other GI Disorders - GERD Denies: Hx Ulcer Musculoskeletal History: Denies: Hx Rheumatoid Arthritis, Hx Osteoporosis Sensory History: Reports: Hx Contacts or Glasses, Hx Hearing Aid - B/L, Hx Hearing Problem Opthamlomology History: Reports: Hx Contacts or Glasses Neurological History: Reports: Hx Dementia, Hx Seizures Psychiatric History: Denies: Hx Panic Disorder - Surgical History Surgery Procedure, Year, and Place: choleycysectomy 2003 - Immunization History Date of Tetanus Vaccine: unknown Date of Influenza Vaccine: UTD Infectious Disease History: No Infectious Disease History: Denies: Hx Clostridium Difficile, Hx Hepatitis, Hx Human Immunodeficiency Virus (HIV), Traveled Outside the [place] in Last 30 Days - Family History Known Family History: Negative: Cardiac Disease, Hypertension, Diabetes - Social History Alcohol Use: None Substance Use Type: Reports: None Smoking Status (MU): Never Smoked Tobacco Review of Systems Negative: Fever Neurological: Other - confusion All Other Systems Reviewed And Are Negative: No - Comments Additional Review of Systems Comments: ROS is limited. Patient is level 5 caveat due to AMS. Physical Exam - Summary Physical Exam Summary: Appearance: The patient is well-nourished in no acute distress and in no acute pain. Skin: The skin is warm and dry and skin color reflects adequate perfusion. HEENT: The head is normocephalic and atraumatic. The pupils are equal and reactive. The conjunctivae are clear and without drainage. Nares are patent and without drainage. Mouth reveals dry mucous membranes and the throat is without erythema and exudate. The external ears are intact. The ear canals are patent and without drainage. The tympanic membranes are intact. Neck: The neck is supple with full range of motion and non-tender. There are no carotid bruits. There is no neck vein distension. Respiratory: Chest is non-tender. Lungs are clear to auscultation and breath sounds are symmetrical and equal. Cardiovascular: Heart is regular rate and rhythm. There is no murmur or rub auscultated. There is no peripheral edema and pulses are symmetrical and equal. Abdomen: The abdomen is soft and non-tender. There are normal bowel sounds heard in all four quadrants and there is no organomegaly palpated. Musculoskeletal: There is no back tenderness noted. Extremities are non-tender with full range of motion. There is good capillary refill. There is no peripheral edema or calf tenderness elicited. Neurological: Patient is alert but not oriented and is confabulating . The patient has symmetrical motor strength in all four extremities. Cranial nerves are grossly intact. Deep tendon reflexes are symmetrical and equal in all four extremities. Psychiatric: The patient has an appropriate affect and does not exhibit any anxiety or depression. Triage Information Reviewed: Yes Vital Signs On Initial Exam: Initial Vitals Temp Pulse Resp BP Pulse Ox 97.3 F 90 14 162/103 98 12/16/18 17:06 12/16/18 17:06 12/16/18 17:06 12/16/18 17:06 12/16/18 17:06 Vital Signs Reviewed: Yes Completion Of Physical Exam Limited Due To: Level 5 Diagnostics - Vital Signs Vital Signs Temp Pulse Resp BP Pulse Ox 12/16/18 17:06 97.3 F 90 14 162/103 98 - Laboratory Result Diagrams: 12/16/18 17:47 12/16/18 17:47 Lab Statement: Any lab studies that have been ordered have been reviewed, and results considered in the medical decision making process. Altered Mental Statu Course/Dx - Course Course Of Treatment: Ms. Hernandez was sent by the retirement because a urine grew out VRE. She has been confused and babbling and her son believes that she is delirious from infection. She was given Linezolid and fluids here in the emergency department while labs were checked. She was not toxic in appearance and her vitals are stable. Her labs were unremarkable and the hospitalist service was contacted for further evaluation. - Diagnoses Provider Diagnoses: UTI (urinary tract infection) Discharge - Sign-Out/Discharge Documenting (check all that apply): Patient Departure - admit - Discharge Plan Condition: Stable Disposition: ADMITTED TO [facility] Referrals: Angel Nevarez MD [Primary Care Provider] - - Billing Disposition and Condition Condition: STABLE Disposition: Admitted to [facility] - Attestation Statements Document Initiated by Ling: Yes Documenting Scribe: Zaynab Choi Provider For Whom Ling is Documenting (Include Credential): Luis Price MD Scribe Attestation: Zaynab De Leon, scribed for Luis Price MD on 12/16/18 at 1919. Scribe Documentation Reviewed: Yes Provider Attestation: The documentation as recorded by the Zaynab teixeira accurately reflects the service I personally performed and the decisions made by Luis españa MD Status of Scribe Document: Viewed
[2018-12-16] MEDS ORDERED: Linezolid 600 MG IVPREMIX(*) 600 MG/300 ML BAG IVPB ONE (17:41)
[2018-12-16 17:58] LABS: Hematocrit 41 % (35-47); Hemoglobin 13.9 g/dl (12.0-16.0); Mean Corpuscular HGB Conc 34 g/dl (31-36); Mean Corpuscular Hemoglobin 30 pg (27-31); Mean Corpuscular Volume 88 fL (80-97); Platelet Count 190 10^3/ul (150-450); Red Blood Count 4.66 10^6/ul (4.00-5.40); Red Cell Distribution Width 14 % (10.5-15); White Blood Count 9.1 10^3/ul (3.5-10.8)
[2018-12-16 17:59] LABS: ABS Basophils 0.1 10^3/ul (0-0.2); ABS Eosinophils 0.2 10^3/ul (0-0.6); ABS Lymphocytes 1.3 10^3/ul (1.0-4.8); ABS Monocytes 0.7 10^3/ul (0-0.8); ABS Neutrophils 6.8 10^3/ul (1.5-7.7); ABS Nucleated RBC 0 10^3/ul; Eosinophil % 1.7 %; Lymphocyte % 14.5 %; Mean Platelet Volume 8.9 fL (7.4-10.4); Nucleated Red Blood Cells % 0
[2018-12-16 18:59] LABS: Albumin 4.5 g/dL (3.2-5.2); Total Bilirubin 0.6 mg/dL (0.2-1.0)
[2018-12-16 19:05] LABS: Albumin/Globulin Ratio 1.7 (1-3); BUN/Creatinine Ratio 24.5 (8-20); C Reactive Protein 21.9 mg/L (<8.01); EGFR African American 69.2 (>60); EGFR Non-African American 57.2 (>60); Globulin 2.6 g/dL (2-4); Total Protein 7.1 g/dL (6.4-8.9)
[2018-12-16] MEDS ORDERED: Acetaminophen TAB* 325 MG PO PRN (19:28)
[2018-12-16] MEDS ORDERED: Potassium Chlor TAB* 20 MEQ TAB.ER PO ONE (20:09)
--- NOTE | 2018-12-16 22:55 | HP ---
CC: Dr. Angel Nevarez HISTORY AND PHYSICAL: DATE OF ADMISSION: 12/16/18 PRIMARY CARE PROVIDER: Dr. Angel Nevarez. CHIEF COMPLAINT: Confusion. 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 She was sent from the [facility] because of confusion. Of note, the patient was in our hospital in November 2018 for similar issues. The patient as an outpatient, ended up having a urinalysis and a urine culture done, which came positive with VRE as well as shey. As far as the [facility] records go and as far as the son knows, there has been no mention of fevers or chills. The patient at this point does not answer any questions appropriately. She is babbling nonsensically and does not answer any questions appropriately; however, she does follow commands. So, the history is significantly limited. Son reports that the patient normally is not like this. She does have short-term memory issues; however, the patient at baseline is alert and oriented x2 to herself and location. In the emergency room, the patient was seen and evaluated, blood work was done, subsequently hospitalist service was called. In the emergency room, the patient also received one dose of IV linezolid as well as some IV fluids. PAST MEDICAL HISTORY: 1. Hypertension. 2. 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 3. Depression. 4. Anemia. 5. Remote history of left upper extremity DVT. 6. Seizure disorder. 7. Cholecystectomy. 8. GERD. MEDICATIONS: Home medications include: 1. Amlodipine 5 mg daily. 2. Zoloft 50 mg in the morning. 3. Senna/Colace 1 tab at bedtime. 4. Seroquel 25 mg at bedtime. 5. Seroquel 25 in the morning. 6. The patient is taking Tamiflu 75 mg at 8 o'clock for about 10 days, last dose to be on 12/21/18. 7. Hydrochlorothiazide 25 mg in the morning. 8. Colace 100 mg b.i.d. 9. Calcium carbonate/vitamin D3 600 plus vitamin D one tablet in the morning. 10. Acetaminophen 325 mg every 4 hours as needed. ALLERGIES: Include no known drug allergies. REVIEW OF SYSTEMS: Review of systems cannot be obtained due the patient not giving reliable history or talking to us in a manner that makes sense to us. PHYSICAL EXAMINATION GENERAL: This is an elderly female, well-developed, well-nourished, lying on an ER stretcher, in no acute distress. She is nontoxic appearing. VITAL SIGNS: Blood pressure of 161/97, saturation of 99% on room air, respiratory rate of 18, heart rate of 82, temperature of 97.3 Fahrenheit. HEENT: Pupils are equal, round, and reactive to light. Atraumatic, normocephalic. Tongue is midline. There is no oropharyngeal erythema. Oral mucosa is dry. SKIN: Poor skin turgor. LUNGS: There is no tachypnea. No use of accessory muscles. Lungs are clear to auscultation with no wheezing, rales, or rhonchi. HEART: There is no chest wall tenderness. Regular rate and rhythm. No murmurs. ABDOMEN: Bowel sounds are normoactive in all 4 quadrants. Abdomen is soft, nontender, nondistended. EXTREMITIES: No lower extremity edema. She is moving all 4 extremities without any issues. NEUROLOGIC: She is alert to person; however, when asked where she is, she says things that makes no sense. DIAGNOSTIC STUDIES/LAB DATA: White count of 9.1, hemoglobin of 13.9, hematocrit of 41, platelets of 190. Chemistry: Potassium of 3.0, chloride of 96. The patient had a urine culture done on 12/12/18, which shows VRE Enterococcus faecium as well as Shey albicans. Of note, in November 2018, urine culture at that time showed Klebsiella pneumoniae. IMPRESSION AND PLAN: 1. Delirium/encephalopathy secondary to urinary tract infection: We will start the patient on IV fluids, IV linezolid, and Diflucan. Tomorrow in the morning. Consider Infectious disease consultation in the daytime. Blood cultures have also been sent. Will get urinalysis and urine culture. 2. History of hypertension: Slightly elevated blood pressure currently. We will resume the patient's home medications, monitor the blood pressure closely. 3. Hypokalemia: Repletion has been ordered. Repeat blood work tomorrow morning. 4. We will continue patient's home medications, 5. The patient is also getting treatment for prophylaxis for flu. We will continue Tamiflu. 6. DVT prophylaxis with heparin subcu. 7. We will start the patient on regular unrestricted diet. 8. Place the patient on fall precautions. The patient is at high risk for developing delirium, agitation, sundowning due to her history of dementia as well as currently having a urinary tract infection. We will monitor the patient closely, if need be start the patient on Risperdal versus Haldol. [id number]/[facility] #: [id number] [facility]
[2018-12-16] MEDS: QUEtiapine TAB* 25 MG PO SCH (22:58)
[2018-12-16] MEDS ORDERED: risperiDONE TAB* 1 MG PO ONE (23:16)
[2018-12-16] MEDS: NS 0.9% 1000 ML** 1,000 ML IV SCH (23:18)
[2018-12-16] MEDS: Fluconazole 100 MG TAB* TAB PO SCH (23:18)
[2018-12-16] MEDS: Oseltamivir CAP* 75 MG CAP PO SCH (23:18)
[2018-12-16] MEDS: Senna TAB PO SCH (23:18)
[2018-12-16] MEDS: Docusate CAP* 100 MG PO SCH (23:18)
[2018-12-16] MEDS: Docusate LIQ* 100 MG/10 ML UDC PO SCH (23:18)
[2018-12-16] MEDS: Heparin VIAL(*) 5000 UNITS/ML VIAL (FIVE THOUSAND) SUBCUT SCH (23:19)
[2018-12-16 23:58] LABS: Urine Appearance Cloudy; Urine Bacteria 1+ (Absent); Urine Bilirubin Negative (Negative); Urine Blood Negative (Negative); Urine Color Yellow; Urine Glucose Negative (Negative); Urine Ketones Negative (Negative); Urine Nitrite Negative (Negative); Urine Protein Negative (Negative); Urine Red Blood Cell 2+(6-10/hpf) (Absent); Urine Specific Gravity 1.014 (1.010-1.030); Urine Squamous Epithelial Cell Present (Absent); Urine Urobilinogen Negative (Negative); Urine White Blood Cell 3+(>20/hpf) (Absent)
[2018-12-17] MEDS: Linezolid 600 MG IVPREMIX(*) 600 MG/300 ML BAG IVPB SCH ×2 (06:07→18:10)
[2018-12-17 07:30] LABS: ABS Basophils 0 10^3/ul (0-0.2); ABS Eosinophils 0.2 10^3/ul (0-0.6); ABS Lymphocytes 1.4 10^3/ul (1.0-4.8); ABS Monocytes 0.4 10^3/ul (0-0.8); ABS Neutrophils 3.5 10^3/ul (1.5-7.7); ABS Nucleated RBC 0 10^3/ul; Eosinophil % 3.8 %; Hematocrit 37 % (35-47); Hemoglobin 12.7 g/dl (12.0-16.0); Lymphocyte % 25.2 %; Mean Corpuscular HGB Conc 35 g/dl (31-36); Mean Corpuscular Hemoglobin 30 pg (27-31); Mean Corpuscular Volume 88 fL (80-97); Mean Platelet Volume 8.7 fL (7.4-10.4); Nucleated Red Blood Cells % 0.1; Platelet Count 163 10^3/ul (150-450); Red Blood Count 4.21 10^6/ul (4.00-5.40); Red Cell Distribution Width 13 % (10.5-15); White Blood Count 5.5 10^3/ul (3.5-10.8)
[2018-12-17 07:46] LABS: Calcium 9.1 mg/dL (8.6-10.3); EGFR African American 91.1 (>60); EGFR Non-African American 75.3 (>60); Potassium 3.4 mmol/L (3.5-5.0)
[2018-12-17] MEDS: QUEtiapine TAB* 25 MG PO SCH ×2 (08:53→19:17)
[2018-12-17] MEDS: amLODIPine TAB* 5 MG PO SCH (08:55)
[2018-12-17] MEDS: Docusate CAP* 100 MG PO SCH ×2 (08:56→19:17)
[2018-12-17] MEDS: Fluconazole 100 MG TAB* TAB PO SCH (08:56)
[2018-12-17] MEDS: Calcium/Vitamin D TAB 250/125* TAB PO SCH (08:57)
[2018-12-17] MEDS: Heparin VIAL(*) 5000 UNITS/ML VIAL (FIVE THOUSAND) SUBCUT SCH ×2 (08:58→19:21)
[2018-12-17] MEDS ORDERED: Sertraline* 50 MG TAB PO SCH (09:00)
--- NOTE | 2018-12-17 13:26 | CONS ---
CONSULTATION REPORT: DATE OF CONSULT: 12/17/18. REQUESTING PHYSICIAN: Chantel Freed NP. CONSULTING SERVICE: Infectious Disease. REASON FOR CONSULT: Encephalopathy. IMPRESSION: 1. Encephalopathy that was present on admission. Hard to tell without knowing what her baseline is, how far off the baseline she is. 2. Urinary tract infection. Her urinalysis shows white cells, leukocyte esterase, squamous cells. The urine culture is growing vancomycin-resistant Enterococcus greater than 100,000 colonies and Shey albicans 50,000 to 75, 000 colonies. I am not sure she can tell us reliably if she is having symptoms , which she currently denies. 3. Klebsiella urinary tract infection a couple of weeks ago. 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 5. Hypertension. 6. Depression. RECOMMENDATIONS: We will continue fluconazole a couple of more days. I think it is less pertinent for her current presentation. She can have linezolid changed to 600 mg by mouth twice a day. We will ultrasound her kidneys and bladder to be sure there is no obstruction or stone disease that could be contributing. Also, it would be nice to check her postvoid residual. It is possible that these organisms in her bladder do not explain her mental status. HISTORY OF PRESENT ILLNESS: This is an 83-year-old woman with a seizure disorder, possible dementia, and who is admitted with slight change in mental status. She cannot provide any of the details of the admission, which was obtained from review of the medical record and discussion with Chantel Freed NP. Apparently, her son sees her regularly, had her brought to the hospital when she seemed to be less alert. Same thing happened a coupe of weeks ago. She was treated for klebsiella in the urine sample with some improvement in her mental status. Looking at the records for the last couple of years, she does seem to have episodes of being less responsive for a while. It was felt to be seizure related and possibly related to an underlying dementia. Here, she had no leukocytosis and C-reactive protein was 20. Urinalysis shows white cells, leukocyte esterase, red cells, squamous cells. She has had no fever. She has been hemodynamically stable. She denies pain including flank or suprapubic pain. Denies pain when she pees. PAST MEDICAL HISTORY: 1. Obesity. 2. Dementia. 3. Seizure disorder. 4. Depression. 5. Anemia. 6. Left upper extremity DVT. 7. Status post cholecystectomy. 8. Gastroesophageal reflux disease. 9. Hypertension. ALLERGIES: No known drug allergies. MEDICATIONS: 1. Tylenol. 2. Amlodipine. 3. Docusate. 4. Fluconazole 100 mg by mouth daily. 5. Linezolid 600 mg IV twice daily. 6. Tamiflu 75 mg daily. 7. Seroquel. 8. Risperdal once. 9. Senna. SOCIAL HISTORY: She lives at [facility]. She has been a nonsmoker. FAMILY HISTORY: Unobtainable. REVIEW OF SYSTEMS: Unobtainable. PHYSICAL EXAM: Vital Signs: Temperature 36, heart rate 78, respiratory rate 16 , blood pressure 140/75, oxygen saturation 100% on room air. In general, she is awake, not in distress. Neurologic: She does not follow commands or answer questions. She is speaking nonsensically. She does regard. HEENT: There is no conjunctival hemorrhage. Oropharynx without lesions. Neck is supple without mass. Heart is regular rate and rhythm without murmurs, rubs, or gallops. Lungs are clear to auscultation bilaterally. Abdomen: Soft, nontender, nondistended. There are bowel sounds present. There is no suprapubic or flank tenderness to palpation. Skin: There is no rash or splinter hemorrhage. Musculoskeletal: There is no spine tenderness to palpation or joint tenderness. LABORATORY DATA: White blood cell count 5, hemoglobin 12, platelets 163, creatinine is 0.7, ALT was 13 yesterday. Please see impressions and recommendations outlined above, which I have discussed with Chantel Freed NP. Thanks for asking me to see Ms. Hernandez in consultation. [id number]/[facility] #: [id number] [facility]
--- NOTE | 2018-12-17 16:14 | PN ---
Subjective Date of Service: 12/17/18 Interval History: Patient seen and examined. Confused, not able to follow commands. Cannot obtain reliable ROS. Objective Active Medications: Acetaminophen (Tylenol Tab*) 325 mg PO Q4H PRN PRN Reason: PAIN Amlodipine Besylate (Norvasc Tab*) 5 mg PO DAILY [facility] Last Admin: 12/17/18 08:55 Dose: 5 mg Calcium/Vitamin D (Oscal D Tab 250/125*) 1 tab PO QAM [facility] Last Admin: 12/17/18 08:57 Dose: 1 tab Docusate Sodium (Colace Cap*) 100 mg PO BID [facility] Last Admin: 12/17/18 08:56 Dose: 100 mg Docusate Sodium (Colace Liq*) 50 mg PO BEDTIME [facility] Last Admin: 12/16/18 23:18 Dose: 50 mg Fluconazole (Diflucan 100 Mg Tab*) 100 mg PO DAILY [facility] Last Admin: 12/17/18 08:56 Dose: 100 mg Heparin Sodium (Porcine) (Heparin Vial(*)) 5,000 units SUBCUT Q12HR [facility] Last Admin: 12/17/18 08:58 Dose: 5,000 units Sodium Chloride (Ns 0.9% 1000 Ml) 1,000 mls @ 75 mls/hr IV PER RATE [facility] Last Admin: 12/16/18 23:18 Dose: 75 mls/hr Linezolid (Zyvox 600 Mg Ivpremix(*)) 600 mg in 300 mls @ 300 mls/hr IVPB Q12H [facility] Last Admin: 12/17/18 06:07 Dose: 300 mls/hr Oseltamivir Phosphate (Tamiflu Cap*) 75 mg PO 2000 [facility] Last Admin: 12/16/18 23:18 Dose: 75 mg Quetiapine Fumarate (Seroquel Tab*) 25 mg PO BEDTIME [facility] Last Admin: 12/16/18 22:58 Dose: 25 mg Quetiapine Fumarate (Seroquel Tab*) 25 mg PO QAM [facility] Last Admin: 12/17/18 08:53 Dose: 25 mg Senna (Senokot Tab*) 1 tab PO BEDTIME [facility] Last Admin: 12/16/18 23:18 Dose: 1 tab Vital Signs - 8 hr 12/17/18 12/17/18 11:03 15:40 Temperature 97.5 F 97.6 F Pulse Rate 79 83 Respiratory 17 20 Rate Blood Pressure 130/73 131/70 (mmHg) O2 Sat by Pulse 99 98 Oximetry Oxygen Devices in Use Now: None Appearance: alert, confused Eyes: No Scleral Icterus, PERRLA Ears/Nose/Mouth/Throat: Mucous Membranes Moist Neck: NL Appearance and Movements; NL JVP, Trachea Midline Respiratory: Symmetrical Chest Expansion and Respiratory Effort, Clear to Auscultation Cardiovascular: NL Sounds; No Murmurs; No JVD, RRR, - - bilateral UE and LE edema Abdominal: NL Sounds; No Tenderness; No Distention Extremities: No Clubbing, Cyanosis Neurological: - - confused Nutrition: Taking PO's Result Diagrams: 12/17/18 07:07 12/17/18 07:07 Assess/Plan/Problems-Billing Assessment: This is an 83 year old female with 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 - Patient Problems (1) Altered mental status Code(s): R41.82 - ALTERED MENTAL STATUS, UNSPECIFIED SNOMED Code(s): 853379519 Comment: - Recent admission for same with infection/VRE in the urine, per records, patient is normally able to converse and make her needs known which she is unable to do at this time - ID consulted (2) UTI (urinary tract infection) Comment: - Recently treated for klebsiella, current culture shows VRE - ID consulted - Continue linezolid, appreciate recs from ID regarding continued treatment (3) Dementia Code(s): F03.90 - UNSPECIFIED DEMENTIA WITHOUT BEHAVIORAL DISTURBANCE SNOMED Code(s): 96749524 Comment: - with acute delerium vs progressive dementia - Continue risperidone and seroquel (4) Seizure disorder Code(s): G40.909 - EPILEPSY, UNSP, NOT INTRACTABLE, WITHOUT STATUS EPILEPTICUS SNOMED Code(s): 459109588 Comment: - Seizure precautions - Follows with Dr. Wood as an outpatient - Not currently on any medications 2/2 side effects and agitation - If she has breakthrough seizure will consult neuro (5) HTN (hypertension) Code(s): I10 - ESSENTIAL (PRIMARY) HYPERTENSION SNOMED Code(s): 70808642 Comment: - Continue home dose of amlodipine (6) DVT prophylaxis Code(s): BIM9763 - SNOMED Code(s): 937279557 Comment: - HSQ (7) Full code status Code(s): Z78.9 - OTHER SPECIFIED HEALTH STATUS SNOMED Code(s): 735876606 Status and Disposition: Inpatient, anticipate return to [facility] when medically optimized.
[2018-12-17] MEDS ORDERED: Potassium Chlor TAB* 20 MEQ TAB.ER PO ONE (16:29)
[2018-12-17] MEDS ORDERED: Magnesium Sulfate 1 GM IV* 1 GM/100 ML BAG IV ONE (16:29)
[2018-12-17] MEDS: NS 0.9% 1000 ML** 1,000 ML IV SCH (18:09)
[2018-12-17] MEDS: Oseltamivir CAP* 75 MG CAP PO SCH (19:16)
[2018-12-17] MEDS: Senna TAB PO SCH (19:17)
[2018-12-17] MEDS: Docusate LIQ* 100 MG/10 ML UDC PO SCH (19:20)
[2018-12-18] MEDS: Linezolid 600 MG IVPREMIX(*) 600 MG/300 ML BAG IVPB SCH ×2 (04:52→17:01)
[2018-12-18] MEDS: Heparin VIAL(*) 5000 UNITS/ML VIAL (FIVE THOUSAND) SUBCUT SCH ×2 (07:11→20:26)
[2018-12-18] MEDS: Calcium/Vitamin D TAB 250/125* TAB PO SCH (07:11)
[2018-12-18] MEDS: Fluconazole 100 MG TAB* TAB PO SCH (07:11)
[2018-12-18] MEDS: Docusate CAP* 100 MG PO SCH ×2 (07:11→20:25)
[2018-12-18] MEDS: amLODIPine TAB* 5 MG PO SCH (07:12)
[2018-12-18] MEDS: QUEtiapine TAB* 25 MG PO SCH ×2 (07:12→20:18)
[2018-12-18] MEDS: NS 0.9% 1000 ML** 1,000 ML IV SCH (09:05)
--- NOTE | 2018-12-18 13:43 | PN ---
Progress Note - Progress Note Date of Service: 12/18/18 SOAP: Subjective: CC: encephalopathy HPI: 83 year old woman with dementia and decreased MS, found to have UTI. She cannot provide history. No rash or diarrhea per RN. Objective: Vital Signs Temp 36.9 C 12/18/18 11:39 Pulse 76 12/18/18 11:39 Resp 20 12/18/18 11:39 BP 127/72 12/18/18 11:39 Pulse Ox 93 12/18/18 11:39 Intake & Output 12/17/18 12/18/18 12/18/18 18:59 06:59 18:59 Intake Total 1517 225 0 Balance 1517 225 0 Intake: IV Fluids 1157 225 ABX - LINEZOLID 305 NS 852 225 Oral 360 0 0 Other: Estimated Void Large Large Medium # Bowel Movements 0 1 Estimated Stool Amount Medium # Voids 2 2 1 Gen:awake, no distress HEENT: no thrush Heart:RRR no murmur Lungs:CTA BL Abd:+BS NTND soft Skin: no rash Microbiology 12/16/18 18:42 Aerobic Blood Culture - Preliminary Blood Venous No Growth Day 1 Anaerobic Blood Culture - Preliminary No Growth Day 1 12/16/18 17:47 Aerobic Blood Culture - Preliminary Blood Venous No Growth Day 1 Anaerobic Blood Culture - Preliminary No Growth Day 1 US bladder: 2 cm bladder mass Assessment: 1. UTI, VRE 2. bladder mass 3. dementia 4. encephalopathy, present on admission Plan: 1. continue linezolid and flucon day 3 2. can recheck bladder US after abx treatment to see if mass resolved if due to debris r/t infection
--- NOTE | 2018-12-18 17:48 | PN ---
Subjective Date of Service: 12/18/18 Interval History: Patient seen and examined. Remains confused, unable to obtain ROS. Objective Active Medications: Acetaminophen (Tylenol Tab*) 325 mg PO Q4H PRN PRN Reason: PAIN Amlodipine Besylate (Norvasc Tab*) 5 mg PO DAILY [facility] Last Admin: 12/18/18 07:12 Dose: 5 mg Calcium/Vitamin D (Oscal D Tab 250/125*) 1 tab PO QAM [facility] Last Admin: 12/18/18 07:11 Dose: 1 tab Docusate Sodium (Colace Cap*) 100 mg PO BID [facility] Last Admin: 12/18/18 07:11 Dose: 100 mg Docusate Sodium (Colace Liq*) 50 mg PO BEDTIME [facility] Last Admin: 12/17/18 19:20 Dose: 50 mg Fluconazole (Diflucan 100 Mg Tab*) 100 mg PO DAILY [facility] Last Admin: 12/18/18 07:11 Dose: 100 mg Heparin Sodium (Porcine) (Heparin Vial(*)) 5,000 units SUBCUT Q12HR [facility] Last Admin: 12/18/18 07:11 Dose: 5,000 units Sodium Chloride (Ns 0.9% 1000 Ml) 1,000 mls @ 75 mls/hr IV PER RATE [facility] Last Admin: 12/18/18 09:05 Dose: 75 mls/hr Linezolid (Zyvox 600 Mg Ivpremix(*)) 600 mg in 300 mls @ 300 mls/hr IVPB Q12H [facility] Last Admin: 12/18/18 17:01 Dose: 300 mls/hr Oseltamivir Phosphate (Tamiflu Cap*) 75 mg PO 2000 [facility] Last Admin: 12/17/18 19:16 Dose: 75 mg Quetiapine Fumarate (Seroquel Tab*) 25 mg PO BEDTIME [facility] Last Admin: 12/17/18 19:17 Dose: 25 mg Quetiapine Fumarate (Seroquel Tab*) 25 mg PO QAM [facility] Last Admin: 12/18/18 07:12 Dose: 25 mg Senna (Senokot Tab*) 1 tab PO BEDTIME [facility] Last Admin: 12/17/18 19:17 Dose: 1 tab Vital Signs - 8 hr 12/18/18 12/18/18 12/18/18 11:39 15:53 16:07 Temperature 98.4 F 99.1 F 98.3 F Pulse Rate 76 83 Respiratory 20 18 Rate Blood Pressure 127/72 145/65 (mmHg) O2 Sat by Pulse 93 99 Oximetry Oxygen Devices in Use Now: None Appearance: alert, NAD, confused Eyes: No Scleral Icterus, PERRLA Ears/Nose/Mouth/Throat: Mucous Membranes Moist Neck: NL Appearance and Movements; NL JVP, Trachea Midline Respiratory: Symmetrical Chest Expansion and Respiratory Effort, Clear to Auscultation Cardiovascular: NL Sounds; No Murmurs; No JVD, RRR Abdominal: NL Sounds; No Tenderness; No Distention, No Hepatosplenomegaly Extremities: No Clubbing, Cyanosis, - - trace LE edema Skin: No Rash or Ulcers, No Nodules or Sclerosis Neurological: - - confused, difficult to redirect Nutrition: Taking PO's Result Diagrams: 12/17/18 07:07 12/17/18 07:07 Microbiology and Other Data: Microbiology 12/16/18 18:42 Aerobic Blood Culture - Preliminary Blood Venous No Growth Day 1 Anaerobic Blood Culture - Preliminary No Growth Day 1 12/16/18 17:47 Aerobic Blood Culture - Preliminary Blood Venous No Growth Day 1 Anaerobic Blood Culture - Preliminary No Growth Day 1 Diagnostic Imaging: Patient Name: AYDIN LEAL Medical Record#: [id number] Ordering Physician: Wily Rivero MD Acct.#: [id number] : 1935 Age: 83 Sex: F Location: [address] [place] [address] - MEDICAL Exam Date: 12/17/18 114 ADM Status: ADM IN Order Information: US RENAL AND BLADDER Accession Number: [id number] CPT: 96995 Indication: Urinary tract infection. Comparison: March 27, 2017 CT. Technique: Ultrasound kidneys and urinary bladder. Report: Limited exam due to inability to hold breath. 10.9 x 3.7 x 5.1 cm RIGHT kidney and 8.2 x 4.5 x 4.2 cm LEFT kidney. Mild bilateral renal cortical atrophy. Normal renal cortical echogenicity. No focal renal lesions, conspicuous stones, or hydronephrosis. Negative for perinephric fluid. Prevoid urinary bladder volume estimated at 121 mL. Bilateral ureteral jets documented. Nonmobile sharply demarcated polypoid lesion contiguous with the RIGHT posterior lateral margin of the urinary bladder wall measuring up to 1.8 x 2.2 x 2.1 cm while devoid of intrinsic vascularity on Doppler is concerning for a potential bladder neoplasm based on morphology. No additional focal lesions of the urinary bladder evident. Aside from the noted lesion at the bladder wall measures 2.6 mm in thickness. Post for residual at the urinary bladder could not be assessed as the patient was unable to void due to mental status change. IMPRESSION: #. Negative for obstructive uropathy. #. Mild bilateral renal cortical atrophy. #. Suggestion of a 2.2 cm maximum dimension polypoid mucosal mass at the RIGHT posterior lateral margin of the urinary bladder. While less likely the differential would include inflammatory debris adherent to the bladder wall. 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 - Patient Problems (1) Altered mental status Code(s): R41.82 - ALTERED MENTAL STATUS, UNSPECIFIED SNOMED Code(s): 981547081 Comment: - Recent admission for same with infection/VRE in the urine, per records, patient is normally able to converse and make her needs known which she is unable to do at this time - ID following, continue linezolid - Supportive care (2) UTI (urinary tract infection) Comment: - Recently treated for klebsiella, current culture shows VRE - ID following - Bladder US as above, will need to be repeated after treatment to ensure resolution of mass/debris noted on US - If mass does not change after appropriate atbx therapy, recommend outpatient follow up with Urology for cystoscopy and biopsy (3) Dementia Code(s): F03.90 - UNSPECIFIED DEMENTIA WITHOUT BEHAVIORAL DISTURBANCE SNOMED Code(s): 78659082 Comment: - With acute delerium vs progressive dementia, likely multifactorial (infection , hospitalization) - Continue risperidone and seroquel (4) Seizure disorder Code(s): G40.909 - EPILEPSY, UNSP, NOT INTRACTABLE, WITHOUT STATUS EPILEPTICUS SNOMED Code(s): 451832293 Comment: - Seizure precautions - Follows with Dr. Wood as an outpatient - Not currently on any medications 2/2 side effects and agitation - If she has breakthrough seizure will consult neuro - Currently stable (5) HTN (hypertension) Code(s): I10 - ESSENTIAL (PRIMARY) HYPERTENSION SNOMED Code(s): 70952186 Comment: - Continue home dose of amlodipine (6) DVT prophylaxis Code(s): ZJR1072 - SNOMED Code(s): 998609159 Comment: - HSQ (7) Full code status Code(s): Z78.9 - OTHER SPECIFIED HEALTH STATUS SNOMED Code(s): 852587711 Status and Disposition: Inpatient, anticipate return to [facility] when medically optimized.
[2018-12-18] MEDS: Docusate LIQ* 100 MG/10 ML UDC PO SCH (20:14)
[2018-12-18] MEDS: Oseltamivir CAP* 75 MG CAP PO SCH (20:18)
[2018-12-18] MEDS: Senna TAB PO SCH (20:21)
[2018-12-19] MEDS: NS 0.9% 1000 ML** 1,000 ML IV SCH (03:28)
[2018-12-19] MEDS: Linezolid 600 MG IVPREMIX(*) 600 MG/300 ML BAG IVPB SCH ×2 (05:25→18:01)
[2018-12-19] MEDS: Fluconazole 100 MG TAB* TAB PO SCH (10:01)
[2018-12-19] MEDS: amLODIPine TAB* 5 MG PO SCH (10:01)
[2018-12-19] MEDS: QUEtiapine TAB* 25 MG PO SCH ×2 (10:01→20:35)
[2018-12-19] MEDS: Calcium/Vitamin D TAB 250/125* TAB PO SCH (10:01)
[2018-12-19] MEDS: Heparin VIAL(*) 5000 UNITS/ML VIAL (FIVE THOUSAND) SUBCUT SCH ×2 (10:01→20:36)
[2018-12-19] MEDS: Docusate CAP* 100 MG PO SCH ×2 (10:01→20:27)
--- NOTE | 2018-12-19 18:23 | PN ---
Subjective Date of Service: 12/19/18 Interval History: Patient seen and examined. No acute overnight events. Patient remains confused, unable to to follow commands effectively, but is not combative or agitated. Objective Active Medications: Acetaminophen (Tylenol Tab*) 325 mg PO Q4H PRN PRN Reason: PAIN Amlodipine Besylate (Norvasc Tab*) 5 mg PO DAILY [facility] Last Admin: 12/19/18 10:01 Dose: 5 mg Calcium/Vitamin D (Oscal D Tab 250/125*) 1 tab PO QAM [facility] Last Admin: 12/19/18 10:01 Dose: 1 tab Docusate Sodium (Colace Cap*) 100 mg PO BID [facility] Last Admin: 12/19/18 10:01 Dose: 100 mg Docusate Sodium (Colace Liq*) 50 mg PO BEDTIME [facility] Last Admin: 12/18/18 20:14 Dose: Not Given Heparin Sodium (Porcine) (Heparin Vial(*)) 5,000 units SUBCUT Q12HR [facility] Last Admin: 12/19/18 10:01 Dose: 5,000 units Sodium Chloride (Ns 0.9% 1000 Ml) 1,000 mls @ 75 mls/hr IV PER RATE [facility] Last Admin: 12/19/18 03:28 Dose: 75 mls/hr Linezolid (Zyvox 600 Mg Ivpremix(*)) 600 mg in 300 mls @ 300 mls/hr IVPB Q12H [facility] Last Admin: 12/19/18 18:01 Dose: 300 mls/hr Oseltamivir Phosphate (Tamiflu Cap*) 75 mg PO 2000 [facility] Last Admin: 12/18/18 20:18 Dose: 75 mg Quetiapine Fumarate (Seroquel Tab*) 25 mg PO BEDTIME [facility] Last Admin: 12/18/18 20:18 Dose: 25 mg Quetiapine Fumarate (Seroquel Tab*) 25 mg PO QAM [facility] Last Admin: 12/19/18 10:01 Dose: 25 mg Senna (Senokot Tab*) 1 tab PO BEDTIME [facility] Last Admin: 12/18/18 20:21 Dose: 1 tab Vital Signs - 8 hr 12/19/18 12/19/18 11:49 15:30 Temperature 98.4 F 97.2 F Pulse Rate 87 88 Respiratory 20 28 Rate Blood Pressure 153/81 143/80 (mmHg) O2 Sat by Pulse 100 98 Oximetry Oxygen Devices in Use Now: None Appearance: alert, NAD Eyes: No Scleral Icterus, PERRLA Ears/Nose/Mouth/Throat: NL Teeth, Lips, Gums, Mucous Membranes Moist Neck: NL Appearance and Movements; NL JVP, Trachea Midline Respiratory: Symmetrical Chest Expansion and Respiratory Effort, Clear to Auscultation Cardiovascular: NL Sounds; No Murmurs; No JVD, RRR Abdominal: NL Sounds; No Tenderness; No Distention Extremities: No Clubbing, Cyanosis Skin: No Rash or Ulcers Neurological: - - confused Lines/Tubes/Other Access: Clean, Dry and Intact Wright Nutrition: Taking PO's Result Diagrams: 12/17/18 07:07 12/17/18 07:07 Microbiology and Other Data: Microbiology 12/16/18 18:42 Aerobic Blood Culture - Preliminary Blood Venous No Growth Day 1 Anaerobic Blood Culture - Preliminary No Growth Day 1 12/16/18 17:47 Aerobic Blood Culture - Preliminary Blood Venous No Growth Day 1 Anaerobic Blood Culture - Preliminary No Growth Day 1 Diagnostic Imaging: Patient Name: AYDIN LEAL Medical Record#: [id number] Ordering Physician: Wily Rivero MD Acct.#: [id number] : 1935 Age: 83 Sex: F Location: [address] [place] [address] - MEDICAL Exam Date: 12/17/181147 ADM Status: ADM IN Order Information: RENAL AND BLADDER Accession Number: [id number] CPT: 23145 Indication: Urinary tract infection. Comparison: March 27, 2017 CT. Technique: Ultrasound kidneys and urinary bladder. Report: Limited exam due to inability to hold breath. 10.9 x 3.7 x 5.1 cm RIGHT kidney and 8.2 x 4.5 x 4.2 cm LEFT kidney. Mild bilateral renal cortical atrophy. Normal renal cortical echogenicity. No focal renal lesions, conspicuous stones, or hydronephrosis. Negative for perinephric fluid. Prevoid urinary bladder volume estimated at 121 mL. Bilateral ureteral jets documented. Nonmobile sharply demarcated polypoid lesion contiguous with the RIGHT posterior lateral margin of the urinary bladder wall measuring up to 1.8 x 2.2 x 2.1 cm while devoid of intrinsic vascularity on Doppler is concerning for a potential bladder neoplasm based on morphology. No additional focal lesions of the urinary bladder evident. Aside from the noted lesion at the bladder wall measures 2.6 mm in thickness. Post for residual at the urinary bladder could not be assessed as the patient was unable to void due to mental status change. IMPRESSION: #. Negative for obstructive uropathy. #. Mild bilateral renal cortical atrophy. #. Suggestion of a 2.2 cm maximum dimension polypoid mucosal mass at the RIGHT posterior lateral margin of the urinary bladder. While less likely the differential would include inflammatory debris adherent to the bladder wall. 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 - Patient Problems (1) Altered mental status Code(s): R41.82 - ALTERED MENTAL STATUS, UNSPECIFIED SNOMED Code(s): 883576628 Comment: - Recent admission for same with infection/VRE in the urine, per records, patient is normally able to converse and make her needs known which she is unable to do at this time - ID following, continue linezolid - Supportive care (2) UTI (urinary tract infection) Comment: - Recently treated for klebsiella, current culture shows VRE - ID following - Bladder US as above, will need to be repeated after treatment to ensure resolution of mass/debris noted on US, otherwise will need urology consult and potential biopsy - If mass does not change after appropriate atbx therapy, recommend outpatient follow up with Urology for cystoscopy and biopsy (3) Dementia Code(s): F03.90 - UNSPECIFIED DEMENTIA WITHOUT BEHAVIORAL DISTURBANCE SNOMED Code(s): 83289574 Comment: - With acute delerium vs progressive dementia, likely multifactorial (infection , hospitalization) - Continue risperidone and seroquel (4) Seizure disorder Code(s): G40.909 - EPILEPSY, UNSP, NOT INTRACTABLE, WITHOUT STATUS EPILEPTICUS SNOMED Code(s): 934448890 Comment: - Seizure precautions - Follows with Dr. Wood as an outpatient - Not currently on any medications 2/2 side effects and agitation - If she has breakthrough seizure will consult neuro - Currently stable (5) HTN (hypertension) Code(s): I10 - ESSENTIAL (PRIMARY) HYPERTENSION SNOMED Code(s): 18410062 Comment: - Continue home dose of amlodipine (6) DVT prophylaxis Code(s): BUF0568 - SNOMED Code(s): 639257567 Comment: - HSQ (7) Full code status Code(s): Z78.9 - OTHER SPECIFIED HEALTH STATUS SNOMED Code(s): 775099730 Status and Disposition: Inpatient, anticipate return to [facility] when medically optimized, likely in AM tomorrow.
[2018-12-19] MEDS: Docusate LIQ* 100 MG/10 ML UDC PO SCH (20:27)
[2018-12-19] MEDS: Senna TAB PO SCH (20:27)
[2018-12-19] MEDS: Oseltamivir CAP* 75 MG CAP PO SCH (20:35)
[2018-12-20] MEDS: NS 0.9% 1000 ML** 1,000 ML IV SCH (05:05)
[2018-12-20] MEDS: Linezolid 600 MG IVPREMIX(*) 600 MG/300 ML BAG IVPB SCH (05:16)
[2018-12-20] MEDS: Calcium/Vitamin D TAB 250/125* TAB PO SCH (08:23)
[2018-12-20] MEDS: amLODIPine TAB* 5 MG PO SCH (08:23)
[2018-12-20] MEDS: Docusate CAP* 100 MG PO SCH ×2 (08:23→21:02)
[2018-12-20] MEDS: Heparin VIAL(*) 5000 UNITS/ML VIAL (FIVE THOUSAND) SUBCUT SCH ×2 (08:23→21:11)
[2018-12-20] MEDS: QUEtiapine TAB* 25 MG PO SCH ×2 (08:23→21:07)
[2018-12-20 13:46] LABS: Folate > 20.00 ng/mL (>3.99)
--- NOTE | 2018-12-20 16:46 | PN ---
Subjective Date of Service: 12/20/18 Interval History: Patient seen and examined. Remains confused. Unable to follow commands, unable to obtain ROS. Objective Active Medications: Acetaminophen (Tylenol Tab*) 325 mg PO Q4H PRN PRN Reason: PAIN Amlodipine Besylate (Norvasc Tab*) 5 mg PO DAILY [facility] Last Admin: 12/20/18 08:23 Dose: 5 mg Calcium/Vitamin D (Oscal D Tab 250/125*) 1 tab PO QAM [facility] Last Admin: 12/20/18 08:23 Dose: 1 tab Docusate Sodium (Colace Cap*) 100 mg PO BID [facility] Last Admin: 12/20/18 08:23 Dose: Not Given Docusate Sodium (Colace Liq*) 50 mg PO BEDTIME [facility] Last Admin: 12/19/18 20:27 Dose: Not Given Heparin Sodium (Porcine) (Heparin Vial(*)) 5,000 units SUBCUT Q12HR [facility] Last Admin: 12/20/18 08:23 Dose: 5,000 units Sodium Chloride (Ns 0.9% 1000 Ml) 1,000 mls @ 75 mls/hr IV PER RATE [facility] Last Admin: 12/20/18 05:05 Dose: 75 mls/hr Linezolid (Zyvox Tab*) 600 mg PO Q12H [facility] Stop: 12/24/18 06:01 Oseltamivir Phosphate (Tamiflu Cap*) 75 mg PO 2000 [facility] Last Admin: 12/19/18 20:35 Dose: 75 mg Quetiapine Fumarate (Seroquel Tab*) 25 mg PO BEDTIME [facility] Last Admin: 12/19/18 20:35 Dose: 25 mg Quetiapine Fumarate (Seroquel Tab*) 25 mg PO QAM [facility] Last Admin: 12/20/18 08:23 Dose: 25 mg Senna (Senokot Tab*) 1 tab PO BEDTIME [facility] Last Admin: 12/19/18 20:27 Dose: Not Given Vital Signs - 8 hr 12/20/18 11:19 Temperature 97.9 F Pulse Rate 78 Respiratory 18 Rate Blood Pressure 104/79 (mmHg) O2 Sat by Pulse 99 Oximetry Oxygen Devices in Use Now: None Appearance: confused, NAD Eyes: No Scleral Icterus, PERRLA Ears/Nose/Mouth/Throat: NL Teeth, Lips, Gums, Mucous Membranes Moist Respiratory: Symmetrical Chest Expansion and Respiratory Effort, Clear to Auscultation Cardiovascular: NL Sounds; No Murmurs; No JVD, RRR, No Edema Abdominal: NL Sounds; No Tenderness; No Distention Extremities: No Clubbing, Cyanosis Neurological: - - confused, with periods of lethargy Nutrition: Taking PO's Result Diagrams: 12/17/18 07:07 12/17/18 07:07 Microbiology and Other Data: Microbiology 12/16/18 18:42 Aerobic Blood Culture - Preliminary Blood Venous No Growth Day 1 Anaerobic Blood Culture - Preliminary No Growth Day 1 12/16/18 17:47 Aerobic Blood Culture - Preliminary Blood Venous No Growth Day 1 Anaerobic Blood Culture - Preliminary No Growth Day 1 Diagnostic Imaging: Patient Name: AYDIN LEAL Medical Record#: [id number] Ordering Physician: Solo Mckay MD Acct.#: [id number] : 1935 Age: 83 Sex: F Location: [address] [place] [address] - MEDICAL Exam Date: 12/20/18 1043 ADM Status: ADM IN Order Information: CT BRAIN WO Accession Number: [id number] CPT: 71218 Indication: Altered mental status. Urinary tract infection. Comparison: December 03, 2018 CT. Technique: Noncontrast CT vertex of skull through foramen magnum. Report: Negative for intra or extra-axial hemorrhage. Moderately severe prominence of the cerebral sulci and cerebellar fissures reflecting atrophy. Proportional ventricular enlargement. Patent basal cisterns. Decreased density in the periventricular and subcortical white matter while non-specific is most likely due to chronic microangiopathy. No compelling george matter white matter obscuration or mass effect. No fracture or suspicious lesion of the calvarium or skull base. Clear visualized paranasal sinuses and mastoid air spaces. Unremarkable orbital contents and scalp. IMPRESSION: #. No acute intracranial process evident. #. Involutional change and stigmata of chronic small vessel ischemic disease. <Electronically signed by Jann Bo MD in OV> 12/20/18 1222 Dictated By: Jann Bo MD Dictated Date/Time: 12/20/18 1222 Transcribed Date/Time: 12/20/18 1219 Copy to: Patient Name: AYDIN LEAL Medical Record#: [id number] Ordering Physician: Wily Rivero MD [facility] [id number] : 1935 Age: 83 Sex: F Location: [address] [place] [address] MEDICAL Exam Date: 12/17/18 1148 ADM Status: ADM IN Order Information: US RENAL AND BLADDER Accession Number: [id number] CPT: 74490 Indication: Urinary tract infection. Comparison: March 27, 2017 CT. Technique: Ultrasound kidneys and urinary bladder. Report: Limited exam due to inability to hold breath. 10.9 x 3.7 x 5.1 cm RIGHT kidney and 8.2 x 4.5 x 4.2 cm LEFT kidney. Mild bilateral renal cortical atrophy. Normal renal cortical echogenicity. No focal renal lesions, conspicuous stones, or hydronephrosis. Negative for perinephric fluid. Prevoid urinary bladder volume estimated at 121 mL. Bilateral ureteral jets documented. Nonmobile sharply demarcated polypoid lesion contiguous with the RIGHT posterior lateral margin of the urinary bladder wall measuring up to 1.8 x 2.2 x 2.1 cm while devoid of intrinsic vascularity on Doppler is concerning for a potential bladder neoplasm based on morphology. No additional focal lesions of the urinary bladder evident. Aside from the noted lesion at the bladder wall measures 2.6 mm in thickness. Post for residual at the urinary bladder could not be assessed as the patient was unable to void due to mental status change. IMPRESSION: #. Negative for obstructive uropathy. #. Mild bilateral renal cortical atrophy. #. Suggestion of a 2.2 cm maximum dimension polypoid mucosal mass at the RIGHT posterior lateral margin of the urinary bladder. While less likely the differential would include inflammatory debris adherent to the bladder wall. 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 - Patient Problems (1) Altered mental status Code(s): R41.82 - ALTERED MENTAL STATUS, UNSPECIFIED SNOMED Code(s): 175361302 Comment: - Recent admission for same with infection/VRE in the urine, per records, patient is normally able to converse and make her needs known which she is unable to do at this time - ID following, continue linezolid - Consulted neurology today, patient has hx of seizure disorder and is followed by Dr. Santiago as an outpatient and is not currently on seizure medications - Supportive care (2) UTI (urinary tract infection) Comment: - Recently treated for klebsiella, current culture shows VRE - ID following - Bladder US as above, will need to be repeated after treatment to ensure resolution of mass/debris noted on US, otherwise will need urology consult and potential biopsy - If mass does not change after appropriate atbx therapy, recommend outpatient follow up with Urology for cystoscopy and biopsy (3) Dementia Code(s): F03.90 - UNSPECIFIED DEMENTIA WITHOUT BEHAVIORAL DISTURBANCE SNOMED Code(s): 92139970 Comment: - With acute delerium vs progressive dementia, likely multifactorial (infection , hospitalization, status seizures?) - Continue risperidone and seroquel - Appreciate recs from neuro, EEG pending, no changes on CT scan - Family reluctant to start depakote (4) Seizure disorder Code(s): G40.909 - EPILEPSY, UNSP, NOT INTRACTABLE, WITHOUT STATUS EPILEPTICUS SNOMED Code(s): 779351908 Comment: - Seizure precautions - Follows with Dr. Wood as an outpatient - Not currently on any medications 2/2 side effects and agitation - Dr. Mckay discussed depakote with son, but he is reluctant to initiate meds at this time; should be discussed as an outpatient with Dr. Wood (5) HTN (hypertension) Code(s): I10 - ESSENTIAL (PRIMARY) HYPERTENSION SNOMED Code(s): 11271317 Comment: - Continue home dose of amlodipine (6) DVT prophylaxis Code(s): SHR2242 - SNOMED Code(s): 053829420 Comment: - HSQ (7) Full code status Code(s): Z78.9 - OTHER SPECIFIED HEALTH STATUS SNOMED Code(s): 349902941 Status and Disposition: Inpatient, anticipate return to [facility] when medically optimized.
--- NOTE | 2018-12-20 16:58 | CONS ---
CC: Dr. Angel Nevarez * CONSULTATION REPORT: DATE OF CONSULT: 12/20/18 PRIMARY CARE PROVIDER: Dr. Angel Nevarez. REASON FOR CONSULT: Persistent altered mental status, history of dementia, history of seizures. HISTORY OF PRESENT ILLNESS: Ms. Hernandez was unable to provide me any meaningful history. I was able to obtain history from her treating hospitalist, review of prior records including clinic notes, and I spoke with her son on the phone who was able to give me some supplemental information. She was last seen by Dr. Wood in clinic on 07/05/18; at that time, she was doing fairly well. She had been hospitalized in April 2017 at [facility]. At that time, she presented with encephalopathy and psychosis. She had an abnormal EEG with left frontal epileptiform discharges and MRI scan revealed chronic changes, spinal fluid reportedly negative for paraneoplastic antibody. At that time, it was noted that the differential diagnosis included Lewy dementia, frontotemporal dementia , and possible Creutzfeldt-Kali disease. At the time of Dr. Wood's visit, she had not had any seizure activity reported and was doing well. She was previously admitted in [facility] back in January 2018. At that time, she was admitted for altered mental status and a history of seizures. She was seen by Dr. Wood again, who felt that her altered mental status may have been behavioral rather than seizure related. There was also concern for medication as she was on Keppra at that time. There were several episodes of nodding off spells. She was subsequently seen by Dr. Shipley and it was felt that it was appropriate for her to continue the Keppra at that time. She had a followup EEG done on 01/22/18. It was noted that the nodding-off spells and slumping over and sleeping showed no evidence of EEG change. She was subsequently followed up by Dr. Wood and the son was concerned that the Keppra might have been causing her profound behavioral changes. Over the course of several months, she was weaned off of the Keppra by Dr. Wood and per the son, did remarkably better. Her behavior improved. She became less agitated, more conversational, and he felt like she did very well. Since being off of the Keppra, she has had no bebeto seizures that anybody is aware of, although her son says that at times she will have episodes where she will stare off and become somewhat confused. He is not clear whether these are seizures or not. This has been happening intermittently. In addition, it should be noted that at the time of her visit to the hospital in January 2018, she was noted to be on Seroquel 25 mg in the morning and 75 mg at night. In November of this year, she was admitted to the hospital again with altered mental status. At that time, it was thought that her altered mental status was likely secondary to urinary tract infection. She was discharged on Seroquel 25 mg in the morning and 50 mg at night, Zoloft 50 mg a day as well as hydrochlorothiazide and amlodipine. She was treated for the urinary tract infection and possible community-acquired pneumonia. Again, it was thought that she likely was suffering from a delirium on top of her dementia. She seemed to be better and was discharged back to the longterm. She did have a CT scan done on 12/03/18, which showed no evidence of bleeding or mass and chronic changes, no change since 01/17/18. She was readmitted on 12/16/18, with again worsening confusion, similar to presentation from November. Again, urine came back positive with VRE as well as Shey. At the time of her admission, she was very confused; the son felt like it was much more than usual. Infectious Disease has seen her and started her on linezolid. Over the course of the last few days, she has remained confused. Again, the son feels like this is much more than baseline as she is at times following commands, at other times she is speaking nonsensical and not following commands. There have been no reported seizures or seizure-like activity during the hospitalization this time. Due to the fact that she has been slow to clear and return to baseline, I have been consulted for her altered mental status. There have been no reported lateralizing signs, weakness, numbness, or tingling, although she states that she is in "severe pain all over." She has not been giving logical answers to questions and rambling to the nurses. She has been incontinent of multiple loose bowel movements. At one point, she noted that she was "." She has been oriented to self, but speaking with the son this morning, he definitely feels like she is much worse than her normal baseline. PAST MEDICAL HISTORY: Includes dementia; possibly Lewy body dementia versus frontotemporal dementia, hypertension, depression, anemia, history of DVT, seizure disorder, she has had a cholecystectomy, and GERD. MEDICATIONS: At home include: 1. Amlodipine 5 mg daily. 2. Zoloft 50 mg in the morning. 3. Senna/Colace. 4. Seroquel 25 mg at bedtime and 25 mg in the morning. 5. Per admission notes, Tamiflu. 6. Hydrochlorothiazide 25 in the morning. 7. Colace 100 mg b.i.d. 8. Calcium carbonate. 9. Vitamin D. 10. Tylenol p.r.n. ALLERGIES: No known drug allergies. FAMILY HISTORY: Per the medical records, no history of dementia. SOCIAL HISTORY: Resident of [facility]. No tobacco or alcohol use. REVIEW OF SYSTEMS: Review of systems in 14-organ systems was difficult to obtain, although attempted. PHYSICAL EXAM: Vital Signs: She is afebrile; temperature of 97.8, pulse rate of 76, respiratory rate of 16, O2 sat of 100%, blood pressure 153/69 to 158/81 to 156/77. In general, she is a well-nourished, well-developed female, lying in her hospital bed. She has the sheets pulled up to her face. She does smile. At times, she laughs inappropriately. She is normocephalic, atraumatic. Sclerae are anicteric. Mucous membranes are moist. Oropharynx is clear. Nares are patent. Neck is supple. No bruits are appreciated. No meningismus. Chest clear to auscultation bilaterally. Cardiovascular is regular rate and rhythm. Abdomen is nontender. She is obese. Extremities: There is no clubbing, cyanosis, or edema appreciated. Her skin is warm and dry. Neurologic: She is awake. She orients to person only, very confused, will intermittently follow some commands; at other times, she will laugh inappropriately or refuse. Her speech is fluent. She is able to speak in short sentences. There is no dysarthria. Cranial Nerves: Pupils are equal, round, and reactive to light. Extraocular muscles appear to be intact, although the depth examination is very difficult. Face appears symmetric. Facial sensation was difficult to assess. Tongue is midline. Palate raises symmetrically. Motor Exam: She is spontaneously moving all extremities, although she would not comply and follow commands. She did squeeze my hands at one point and habitat conservation planner were equal. There did not appear to be any focal deficits. Her tone seems to be normal in her legs and arms. DTRs are down throughout. She withdrew and started laughing hysterically when I tried to do Babinski's. She has no resting tremors. No cogwheeling appreciated. Ulccki-xc-iopi, she would not comply with. Sensation: She withdrew to pain x4 and grimaced and she got angry at one point. Gait could not be tested; the patient did not want to get up. Her affect appears to be depressed. She has some diminished facial expression, although at times she did laugh and smile. DIAGNOSTIC STUDIES/LAB DATA: Lab work includes CBC with diff from 12/17/18 that was normal. Basic metabolic profile from 12/17/18 that was essentially normal with BUN and creatinine ratio of 23, glucose of 146, calcium of 9.1. TSH of 3.66 on 12/03/18. C-reactive protein of 21.9 on 12/16/18. Urine showed 3+ leukocyte esterase, 3+ white cells, 2+ RBCs, 1+ bacteria, and she is growing VRE in her urine. Blood cultures are negative x3 days, aerobic and anaerobic. MRSA was not detected by nasal screen. She has had no imaging at this point. ASSESSMENT AND PLAN: Ms. Hernandez is an 83-year-old female with a complicated history including dementia of unclear type, possibly Lewy body dementia, although frontotemporal dementia and atypical Alzheimer's are in the differential. She also has a history of seizures with abnormal EEGs in the past , previously on Keppra, but had behavioral changes and was slowly weaned off last year and has done fairly well, although the son is unclear whether she has been having some persistent seizure-like episodes where she has a blank stare. She has had multiple episodes of worsening confusion, most recently in late November 2018 and treated for a urinary tract infection, readmitted several days ago with a urinary tract infection, but has been slow to clear. Her son feels that she is not at baseline and is worse than usual. There have been no reported seizures witnessed. I had a long discussion with the son and we talked about three of the most likely scenarios: 1. Worsening dementia: I explained that given the fact that this seems to be rather acute, it would be unusual for dementia to progress rapidly and acutely like this, but it can happen especially in the setting of underling illness. Other considerations would be some sort of vascular event. I am afraid she will not comply with MRI, but I do think we can get a CT scan of her brain to look for any obvious gross abnormalities. I would not treat with any memory medications in the acute setting and given the fact that her dementia is very atypical for Alzheimer's, I do not think she is a good candidate for medication at this time. 2. We discussed delirium on top of dementia. She certainly has multiple reasons to be delirious. She is in an unfamiliar setting. She has a urinary tract infection. Currently, she is on antibiotics for her urinary tract infection. While she has improved some, she continues to remained confused. This could be sundowning, it could be related to new medication including the antibiotic, it could be related to her infection. This is something we will continue to follow. We will continue to treat aggressively per primary care team. 3. Ongoing seizure activity. I discussed this in detail with her son. My concern would be that she is having ongoing seizures, possibly subclinical seizures that are causing persistent bouts of altered mental status. Given the fact that she had a very bad reaction to Keppra in the past, he is extremely hesitant to go on the medication. We decided to do a CT scan of the head to look for any major focus. I am going to get an EEG of the brain as well and I told him if the EEG shows any obvious seizure-like activity that we should start medication. For now, he would like to hold on medication and see how she responds to antibiotics and see if she improves further. If she continues to have these episodes, I would recommend starting a seizure medication, perhaps Depakote due to the fact it could have some mood stabilizing effect. I discussed this briefly with the son. He prefers to wait, so the plan for now is to monitor her, get an EEG, get a CT scan. I am going to make sure she has a followup with Dr. Wood soon and should she continue to have episodes of altered mental status, I advised the son that it might be a good idea to restart seizure medicine at some point. I will check a B12 level as well, as this has not been done recently. Thyroid appears normal. I will continue to follow her and make further recommendations as necessary. Thank you for the opportunity to participate in the care of this very interesting patient. [id number]/[facility] #: [id number] WENDIE
[2018-12-20] MEDS: Linezolid TAB* 600 MG PO SCH (18:19)
--- NOTE | 2018-12-20 20:15 | EEG ---
ELECTROENCEPHALOGRAPHY: DATE OF STUDY: 12/20/18 - ROOM #404 REQUESTING PHYSICIAN: Dr. Solo Mckay. 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 She was brought to the emergency room for confusion. The patient was noted by medical supply technician to have nonsensical speech and not answer questions appropriately. Per the patient's son, this is not normal for her. She is usually alert and oriented to person and place. REPORT: This was a 16-channel EEG performed with video monitoring at bedside. In the beginning of the record, there was quite a bit of movement artifact anteriorly. Posteriorly, there was an 8 Hz alpha rhythm which did attenuate with eye opening. As the record continued, there was quite a bit of movement artifact. Before and after the movement artifact, there was no change in the background rhythm. At times, the recording was slightly slow. This was diffuse. There was no clear asymmetry to the background rhythm. There was no evidence of sharp or spike wave activity. During the recording, the patient reached out and pointed toward things and was talking. During these actions, there was no change in the background activity. There was superimposed motor artifact. CLINICAL IMPRESSION: This was a slightly abnormal EEG. There was no evidence of epileptiform activity. There was occasional slowing. At other times, a normal alpha rhythm could be noted. [id number]/[facility] #: [id number] [facility] INSANELeonard
[2018-12-20] MEDS: Docusate LIQ* 100 MG/10 ML UDC PO SCH (21:02)
[2018-12-20] MEDS: Senna TAB PO SCH (21:03)
[2018-12-20] MEDS: Oseltamivir CAP* 75 MG CAP PO SCH (21:07)
[2018-12-21] MEDS: Linezolid TAB* 600 MG PO SCH (05:26)
[2018-12-21] MEDS: NS 0.9% 1000 ML** 1,000 ML IV SCH (05:59)
[2018-12-21] MEDS: Heparin VIAL(*) 5000 UNITS/ML VIAL (FIVE THOUSAND) SUBCUT SCH (07:57)
[2018-12-21] MEDS: QUEtiapine TAB* 25 MG PO SCH (07:57)
[2018-12-21] MEDS: Calcium/Vitamin D TAB 250/125* TAB PO SCH (07:57)
[2018-12-21] MEDS: amLODIPine TAB* 5 MG PO SCH (07:57)
[2018-12-21] MEDS: Docusate CAP* 100 MG PO SCH (07:58)
[2018-12-21 12:25] VITALS: BP 132/46
--- NOTE | 2018-12-21 12:37 | DS ---
AMENDED REPORT NOW INCLUDES COSIGNER DESIGNATION CC: Dr. Nevarez; Dr. Wood * DISCHARGE SUMMARY: DATE OF ADMISSION: 12/16/18 DATE OF DISCHARGE: 12/21/18 PRIMARY CARE PROVIDER: Dr. Nevarez. MY ATTENDING FOR TODAY: Dr. Izabel Fair.* (DICTATED BY YOVANA LAGUNAS , LOUISE) HOSPITAL COURSE: Please refer to admitting H and P on 12/16/18; however, in short, this is an 83-year-old female patient with history of dementia and seizure disorder. The patient was sent from her residence at [facility] [place] for increasing agitation and confusion. Per the reports, the patient does have baseline dementia, however, her behavior was out of the ordinary for her. She was rambling, not making sense, and not able to make her needs known which is a change for her. The patient was admitted for possibility of TIA or CVA; however , she did have an outpatient urine that showed she was VRE positive. Also of note, the patient had been admitted approximately 10 days before with very similar symptoms and has had imaging at that time which did not show any acute infarcts. Patient was essentially treated for her urinary tract infection with VRE. She was seen by Dr. Rivero. She was placed on linezolid. She was also seen by Dr. Blayne Mckay from Neurology, who because the patient has underlying seizure disorder and is not on seizure prophylactic medications sent the patient for EEG and CAT scan. The CAT scan did not have any acute changes. She has some age-related issues which are known, but no acute infarcts were noted. Her EEG was essentially normal. Dr. Mckay had an extensive conversation with the patient's son regarding the benefits versus the risks of restarting seizure medications. Given that there were no further changes on her EEG, it was decided that the patient should follow up with Dr. Wood, who knows the patient well, and determine if being on seizure medications would be warranted. We continued to treat the patient's UTI. She returned back to her baseline. She had no seizure disorder and no further deficits during her stay. The patient was readied for discharge on 12/21/18. The patient did also have an ultrasound of the bladder per recommendations by ID to rule out any obstructive cause. It was noted on her ultrasound that there was a polypoid mucosal mass at the right posterior lateral margin of the urinary bladder. Differential includes inflammatory debris versus neoplasm. REVIEW OF SYSTEMS: Unable to obtain secondary to baseline dementia, however, the patient is in no acute distress. PHYSICAL EXAM: Vital signs: Blood pressure 150/73, heart rate 86, respiratory rate 16, O2 saturation 95% on room air with a temperature of 98.3. HEENT: The patient is atraumatic, normocephalic. PERRLA with nonicteric sclerae. Oral mucosa is moist. Tongue is midline. Neck is supple, nontender. Cardiovascular : S1, S2 present. No murmurs, gallops, or rubs noted. Lungs are clear bilaterally to auscultation with no wheezing, rhonchi, or rales. Abdomen is soft, nontender, nondistended. Positive bowel sounds in all 4 quadrants. was deferred. Musculoskeletal: There is no clubbing, no cyanosis, no edema. She has +2 distal pulses palpable. Gross motor and sensation are intact. Neurologic: The patient is confused at baseline, sometimes with periods of agitation. Currently, she is appropriate. LABORATORY DATA: WBCs 5.5, RBCs 4.21, hemoglobin 12.7, hematocrit 37, platelets 163. Sodium 137, potassium 3.4, chloride 101, CO2 of 30, BUN 17, creatinine 0.74, GFR 75.3, glucose 146, calcium 9.1. Bilirubin 0.60, LFTs normal. CRP was 21.9 on admission. Folate was greater than 20, B12 is 356. IMAGING: CT of the head with age related changes, no acute infarct; and EEG was essentially normal. DISPOSITION: The patient will be discharged back to [facility]. DIET: Regular, as tolerated. ACTIVITY: As tolerated. FOLLOWUPS: The patient was instructed to follow up with her primary at [facility] [place], also Dr. Wood in 1 week, and also to have followup ultrasound in 2 to 3 weeks to ensure resolution of possibility of inflammatory debris in her bladder which is secondary to infection. If that mass is still noted, however, she should have followup with Urology and potentially have biopsy with cystoscopy. The patient was discharged in stable condition. Case management and Dr. Mckay communicated with the patient's son regarding discharge plan. TIME SPENT: Approximately 35 minutes on discharge planning, medications, and followups. YOVANA LAGUNAS, CLEAN OUT DRILLER HELPER [id number]/[facility] #: [id number] [facility]LANDLeonard
== END 2018-12-21 14:00 | DRG 71 ==
LOC: ED 16:54 → MED 19:29
PROVIDERS: ADMIT Internal Medicine; ATTEND Hospitalist
DX: G93.40 Encephalopathy, unspecified (principal); N39.0 Urinary tract infection, site not specified; F02.81 Dementia in other diseases classified elsewhere, unspecified severity, with behavioral disturbance; G31.83 Neurocognitive disorder with Lewy bodies; B95.2 Enterococcus as the cause of diseases classified elsewhere; I10 Essential (primary) hypertension; E87.6 Hypokalemia; F32.9 Major depressive disorder, single episode, unspecified; R41.82 Altered mental status, unspecified; R19.09 Other intra-abdominal and pelvic swelling, mass and lump; D64.9 Anemia, unspecified; G40.909 Epilepsy, unspecified, not intractable, without status epilepticus; K21.9 Gastro-esophageal reflux disease without esophagitis; Z16.21 Resistance to vancomycin; E66.9 Obesity, unspecified; Z68.35 Body mass index [BMI] 35.0-35.9, adult; Z86.718 Personal history of other venous thrombosis and embolism; Z79.1 Long term (current) use of non-steroidal anti-inflammatories (NSAID); Z79.899 Other long term (current) drug therapy
CPT/HCPCS: 36415; 70450; 76770; 80048; 80053; 81003; 81015; 82607; 82746; 85025; 86140; 87040; 87077; 87086; 95816; 99284; A9270-GY; J1644; J2020; J3475

== ENCOUNTER 2019-02-13 16:15 | Observation (INO) | payer MEDICARE, MEDICAID ==
--- NOTE | 2019-02-13 16:36 | ED ---
Shortness of Breath - HPI Summary HPI Summary: The pt is an 83 y/o F presenting to the ED brought in by EMS for shortness of breath. LEVEL 5 CAVEAT: Full hx is unobtainable due to pts hx of dementia. EMS states her O2 sats were dropping, then they put her on 2L and it was still low, they put her on 4L and it was up to 100%. Presently shes at 100% on room air, denies myalgia or shortness of breath. The primary nurse at [facility] informed me that the pt was doing well after coming back from a geriatric psychiatric eval in [place], [place]. Her Depakote was increased and she was sleeping less and seeming brighter. She went to therapy today, and they sent her back because she was short of breath, somewhat cyanotic , and her SaO2 was 75%. After about 20-30 minutes she felt fine but was semi- lethargic. - History of Current Complaint Chief Complaint: EDGeneral Time Seen by Provider: 02/13/19 16:17 Hx Obtained From: EMS, Other: - staff at [facility] Hx From Patient Unobtainable Due To: Dementia Onset/Duration: Sudden Onset, Lasting Minutes, Resolved Current Severity: Moderate Dyspnea At: Rest Alleviating Factors: Oxygen, Spontaneous Resolution Associated Signs & Symptoms: Negative - Allergy/Home Medications Allergies/Adverse Reactions: Allergies Allergy/AdvReac Type Severity Reaction Status Date / Time No Known Allergies Allergy Unknown Verified 01/19/18 18:59 Reaction Details Home Medications: Home Medications Bisacodyl SUPP* [Dulcolax Supp*] 10 mg WA DAILY PRN 02/13/19 [History Confirmed 02/13/19] Divalproex Sprinkle CAP* [Depakote Sprinkle CAP*] 250 mg PO 0900,2100 02/13/19 [ History Confirmed 02/13/19] LORazepam TAB(*) [Ativan 0.5 MG TAB (*)] 0.5 mg PO 0500,1700 02/13/19 [History Confirmed 02/13/19] Magnesium Hydroxide LIQ* [Milk of Magnesia LIQ*] 30 ml PO DAILY PRN 02/13/19 [ History Confirmed 02/13/19] QUEtiapine TAB* [Seroquel 25 MG TAB*] 25 mg PO BID 02/13/19 [History Confirmed 02/13/19] Sodium Phosphate ADULT ENEMA* [Fleet Enema*] 1 enema WA DAILY PRN 02/13/19 [ History Confirmed 02/13/19] PMH/Surg Hx/FS Hx/Imm Hx Previously Healthy: No Endocrine/Hematology History: Denies: Hx Diabetes, Hx Thyroid Disease Cardiovascular History: Reports: Hx Hypertension Denies: Hx Pacemaker/ICD Respiratory History: Reports: Hx Asthma Denies: Hx Chronic Obstructive Pulmonary Disease (COPD) GI History: Reports: Hx Gastroesophageal Reflux Disease, Other GI Disorders - GERD Denies: Hx Ulcer Musculoskeletal History: Denies: Hx Rheumatoid Arthritis, Hx Osteoporosis Sensory History: Reports: Hx Contacts or Glasses, Hx Hearing Aid, Hx Hearing Problem Opthamlomology History: Reports: Hx Contacts or Glasses Neurological History: Reports: Hx Dementia, Hx Seizures Psychiatric History: Denies: Hx Panic Disorder - Surgical History Surgery Procedure, Year, and Place: choleycysectomy 2003 - Immunization History Date of Tetanus Vaccine: unknown Date of Influenza Vaccine: UTD Infectious Disease History: No Infectious Disease History: Denies: Hx Clostridium Difficile, Hx Hepatitis, Hx Human Immunodeficiency Virus (HIV), Hx of Known/Suspected MRSA, Traveled Outside the [place] in Last 30 Days - Family History Known Family History: Negative: Cardiac Disease, Hypertension, Diabetes - Social History Alcohol Use: None Substance Use Type: Reports: None Smoking Status (MU): Never Smoked Tobacco Review of Systems - ROS Summary Review of Systems Summary: LEVEL 5 CAVEAT: Full hx is unobtainable due to pts hx of dementia. Negative: Shortness Of Breath Negative: Myalgia All Other Systems Reviewed And Are Negative: No Physical Exam - Summary Physical Exam Summary: Appearance: Well-appearing, Well-nourished, lying in bed comfortably Skin: Warm, dry, no obvious rash Eyes: sclera anicteric, no conjunctival pallor ENT: mucous membranes moist, pharynx appears normal Neck: Supple, nontender Respiratory: Clear to auscultation, no signs of respiratory distress Cardiovascular: Normal S1, S2. No murmurs. Normal distal pulses in tibial and radial bilaterally. Abdomen: Soft, nontender, normal active bowel sounds present Musculoskeletal: Normal, Strength/ROM Intact Neurological: A&Ox3, awake and alert, she seems somewhat confused, speech is fluent and appropriate Psychiatric: affect is normal, does not appear anxious or depressed Triage Information Reviewed: Yes Vital Signs On Initial Exam: Initial Vitals Temp Pulse Resp BP Pulse Ox 97.9 F 65 16 121/61 100 02/13/19 16:20 02/13/19 16:20 02/13/19 16:20 02/13/19 16:20 02/13/19 16:20 Vital Signs Reviewed: Yes Diagnostics - Vital Signs Vital Signs Temp Pulse Resp BP Pulse Ox 02/13/19 16:20 97.9 F 65 16 121/61 100 - Laboratory Result Diagrams: 02/13/19 16:59 02/14/19 10:41 Lab Statement: Any lab studies that have been ordered have been reviewed, and results considered in the medical decision making process. - Radiology CXR Radiology Interpretation Completed By: Radiologist Summary of Radiographic Findings: Low lung volumes. ED physician has reviewed this report. - EKG 1646 Cardiac Rate: NL - 69bpm EKG Rhythm: Sinus Rhythm ST Segment: Normal Ectopy: None EKG Comparison: Other - No AFib compared with 12/03/18 Course/Dx - Course Course Of Treatment: The pt is an 83 y/o F presenting to the ED brought in by EMS for shortness of breath. LEVEL 5 CAVEAT: Full hx is unobtainable due to pt s hx of dementia. EMS states her O2 sats were dropping, then they put her on 2L and it was still low, they put her on 4L and it was up to 100%. Presently she s at 100% on room air, denies myalgia or shortness of breath. The primary nurse at [facility] informed me that the pt was doing well after coming back from a geriatric psychiatric eval in [place], [place]. Her Depakote was increased and she was sleeping less and seeming brighter. She went to therapy today, and they sent her back because she was short of breath, somewhat cyanotic, and her SaO2 was 75%. After about 20-30 minutes she felt fine but was semi-lethargic. An EKG at 1646 shows NSR at 69bpm with improvement from AFib on 12/03/18. The pt's lactic acid is 2.3. CXR shows low lung volumes. I spoke with Dr. Humphreys who will be admitting the pt to [facility] with a dx of generalized weakness. - Diagnoses Provider Diagnoses: Generalized weakness Discharge - Sign-Out/Discharge Documenting (check all that apply): Patient Departure - Discharge Plan Condition: Stable Disposition: ADMITTED TO [facility] - Billing Disposition and Condition Condition: STABLE Disposition: Admitted to [facility] - Attestation Statements Document Initiated by Ling: Yes Documenting Scribe: Mita Zurita Provider For Whom Ling is Documenting (Include Credential): Luis Franz MD. Scribe Attestation: Mita De Leon, scribed for Luis Franz MD. on 02/18/19 at 1408. Scribe Documentation Reviewed: Yes Provider Attestation: The documentation as recorded by the Mita teixeira accurately reflects the service I personally performed and the decisions made by me, Luis Franz MD. Status of Ling Document: Viewed Consult Consult: 185 - Spoke with Dr. Humphreys about the pt's present condition who will be admitting the pt to [facility].
[2019-02-13 17:14] LABS: ABS Basophils 0 10^3/ul (0-0.2); ABS Eosinophils 0.1 10^3/ul (0-0.6); ABS Lymphocytes 1.6 10^3/ul (1.0-4.8); ABS Monocytes 0.5 10^3/ul (0-0.8); ABS Neutrophils 3.6 10^3/ul (1.5-7.7); ABS Nucleated RBC 0 10^3/ul; Eosinophil % 1.4 %; Hematocrit 40 % (33-41); Hemoglobin 13.8 g/dL (12.0-16.0); Lymphocyte % 27.7 %; Mean Corpuscular HGB Conc 34 g/dL (31-36); Mean Corpuscular Hemoglobin 30 pg (27-31); Mean Corpuscular Volume 87 fL (80-97); Mean Platelet Volume 9.8 fL (7.4-10.4); Nucleated Red Blood Cells % 0.1; Platelet Count 163 10^3/uL (150-450); Red Blood Count 4.59 10^6 /uL (3.70-4.87); Red Cell Distribution Width 14 % (10.5-15); White Blood Count 5.9 10^3/uL (3.5-10.8)
[2019-02-13 17:27] LABS: Albumin 4.1 g/dL (3.2-5.2); Albumin/Globulin Ratio 1.7 (1-3); BUN/Creatinine Ratio 28.6 (8-20); C Reactive Protein 1.8 mg/L (<8.01); Calcium 9.8 mg/dL (8.6-10.3); EGFR African American 97.2 (>60); EGFR Non-African American 80.3 (>60); Globulin 2.4 g/dL (2-4); Potassium 3.2 mmol/L (3.5-5.0); Total Bilirubin 0.5 mg/dL (0.2-1.0); Total Protein 6.5 g/dL (6.4-8.9); Troponin I 0.01 ng/mL (<0.04)
[2019-02-13] MEDS ORDERED: Potassium Chlor TAB* 20 MEQ TAB.ER PO ONE (17:27)
[2019-02-13] MEDS ORDERED: Potassium Chloride LIQUID* 20 MEQ PACKET ONE (18:34)
[2019-02-13] MEDS ORDERED: Potassium Chloride LIQUID* 20 MEQ PACKET PO ONE (18:36)
[2019-02-13 18:39] LABS: Urine Appearance Cloudy; Urine Bilirubin Negative (Negative); Urine Blood Negative (Negative); Urine Color Yellow; Urine Glucose Negative (Negative); Urine Ketones 1+ (Negative); Urine Nitrite Negative (Negative); Urine Protein Negative (Negative); Urine Specific Gravity 1.017 (1.010-1.030); Urine Urobilinogen Negative (Negative)
[2019-02-13] MEDS ORDERED: Fluconazole 150 MG TAB PO ONE (18:56)
[2019-02-13 19:28] LABS: Phosphorus 1.8 mg/dL (2.5-5.0)
[2019-02-13] MEDS ORDERED: Potassium Phosphate IV* 10 MMOLE in NS 0.9% 250 ML* 250 ML IVPB ONE (20:09)
[2019-02-13] MEDS ORDERED: NS 0.9% 1000 ML** 1,000 ML IV ONE (20:11)
[2019-02-13] MEDS ORDERED: Enoxaparin(*) 40 MG/0.4 ML SYR SUBCUT SCH (21:00)
[2019-02-13] MEDS ORDERED: LORazepam TAB(*) 0.5 MG PO PRN (21:09)
[2019-02-13] MEDS ORDERED: Acetaminophen TAB* 325 MG PO PRN (21:09)
[2019-02-13] MEDS ORDERED: Magnesium Hydroxide LIQ* 30 ML UDC PO PRN (21:09)
[2019-02-13] MEDS ORDERED: Senna TAB PO PRN (21:09)
[2019-02-13] MEDS ORDERED: Bisacodyl SUPP* 10 MG SUPP PR PRN (21:09)
[2019-02-13] MEDS ORDERED: Docusate CAP* 100 MG PO PRN (21:53)
--- NOTE | 2019-02-14 00:15 | HP ---
CC: Dr. Angel Nevarez; Dr. Sim Gutierres * HISTORY AND PHYSICAL: DATE OF ADMISSION: 02/13/2019 PCP: Dr. Angel Nevarez or Dr. Sim Gutierres HEALTHCARE PROXY: Son, Tha. CODE STATUS: Full. CHIEF COMPLAINT: Acute shortness of breath and weakness at snf. HISTORY OF PRESENT ILLNESS: Ms. 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 Her vitals at the snf were significant for hypoxia to 80% on room air, responding to 96% after putting on 4 L of oxygen. Her respirations were 22 per minute, blood pressure 110/68, heart rate 58. She was also noted to be slightly disoriented from her baseline, so she was transferred to [facility] for further evaluation. In the emergency room, she was noted to be back near her baseline with unremarkable EEG. Lab significant for hypokalemia and elevated lactate with clear UA and chest x-ray showing low lung volumes. She was noted to have oxygen saturations in the upper 90s on room air, but son reports that the patient frequently decompensates shortly after discharge and requests monitoring overnight. On interview, the patient denies all symptoms. Son is at bedside and reports that the patient is back to her baseline, although continues to have vulvar itchiness. Noted that the patient did receive Diflucan in the emergency room. The patient denies shortness of breath, chest pain, cough, abdominal pain, flank pain, or dysuria. Otherwise, complete 10-point review of systems is negative. PAST MEDICAL HISTORY: 1. 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 2. Epilepsy. 3. UTIs. 4. Hypertension. 5. Major depressive disorder. 6. Remote history of left upper extremity DVT, not on anticoagulation. HOME MEDICATIONS: 1. Hydrochlorothiazide 25 mg daily. 2. Amlodipine 5 mg daily. 3. Potassium chloride 20 mEq daily. 4. Sertraline 50 mg daily. 5. Divalproex 250 mg twice a day. 6. Quetiapine 25 mg twice a day. 7. Lorazepam 0.5 mg b.i.d. ALLERGIES: No known drug allergies. FAMILY HISTORY: Noncontributory. SOCIAL HISTORY: Lives at [facility]. Frequent visits from son. Retired from [employer]. No history of smoking, alcohol, or other drugs. PHYSICAL EXAMINATION GENERAL: Well-appearing woman, pleasant and conversant, in no acute distress, nontoxic, lying nearly flat in stretcher, not in respiratory distress. VITAL SIGNS: T-max 98.4, heart rate 60, blood pressure 130/60, respiratory rate 12, oxygen saturation 98% on room air. HEENT: Oropharynx clear. Pupils equal, round, reactive to light. NECK: No JVD. LUNGS: Clear to auscultation bilaterally. HEART: Regular rate and rhythm. No murmurs, gallops, rubs. ABDOMEN: Protuberant. Soft, nontender, nondistended. No suprapubic tenderness. EXTREMITIES: Warm, well perfused. No lower extremity edema. Compression stockings and ankle bracelet in place. NEUROLOGIC: Alert and oriented x1. Knows her son at bedside. DIAGNOSTIC STUDIES/LAB DATA: Labs reviewed and significant for normal CBC. Potassium low at 3.2. BUN/ creatinine 20/0.7. Lactic acid 2.3. Phosphorus 1.8. UA clear. Valproic acid level 58. Chest x-ray significant for low lung volumes. EKG: Normal sinus rhythm, rate 69. ASSESSMENT AND PLAN: This is an 83-year-old woman with a history of dementia, epilepsy, hypertension, UTIs, who is presenting with acute episode of hypoxia and tachypnea that self resolved spontaneously without intervention, found with hypovolemia and electrolyte disturbances in the setting of taking hydrochlorothiazide as an outpatient. 1. Dyspnea and hypoxia, resolved. Unclear etiology of sudden dyspnea and hypoxia. The patient without respiratory symptoms or findings on physical exam. We will continue to monitor overnight, but currently low suspicion for infection or pulmonary edema. 2. Hypertension. We will continue on home amlodipine, but stop hydrochlorothiazide. The patient has had persistent electrolyte disturbances despite supplementation with potassium as an outpatient. If blood pressure is above goal, we can start on OREN inhibitor. 3. Lactic acidosis. The patient was hypovolemic in the setting of diuretics, unclear if the patient has had poor p.o. recently at her snf, as well. We will give 1 L fluid and recheck lactate. Currently, low suspicion for infection. 4. Electrolyte disturbances. Currently, repleting potassium and phosphorus. We will check a BMP overnight. 5. Dementia with behavioral disturbance and major depressive disorder. Continue home quetiapine 25 mg b.i.d., sertraline 50 mg daily, with Ativan 0.5 q.12 hours p.r.n. for agitation. 6. Epilepsy. Depakote 250 mg b.i.d. 7. Yeast infection, status post 1 dose of fluconazole in the emergency room. 8. Constipation. Continue bowel regimen p.r.n. 9. DVT prophylaxis. Lovenox subcu daily. 10. The patient is full code. TIME SPENT: Approximately 60 minutes were spent on this admission of this patient, more than half of which was spent at bedside for interview and exam. [id number]/[facility] #: [id number] WENDIE
[2019-02-14 00:58] LABS: Calcium 8.7 mg/dL (8.6-10.3); EGFR African American 109.7 (>60); EGFR Non-African American 90.7 (>60); Phosphorus 2.9 mg/dL (2.5-5.0); Potassium 3.4 mmol/L (3.5-5.0)
[2019-02-14] MEDS ORDERED: KCL 20 MEQ/100 ML IVPREMIX* 20 MEQ/100 ML BAG IV ONE (07:07)
[2019-02-14] MEDS ORDERED: amLODIPine TAB* 5 MG PO SCH (09:00)
[2019-02-14] MEDS ORDERED: Sertraline* 50 MG TAB PO SCH (09:00)
[2019-02-14] MEDS ORDERED: QUEtiapine TAB* 25 MG PO SCH (09:00)
[2019-02-14] MEDS ORDERED: Divalproex Sprinkle CAP* 125 MG PO SCH (09:00)
[2019-02-14 11:12] LABS: Magnesium 2.1 mg/dL (1.9-2.7)
[2019-02-14 11:13] LABS: Calcium 8.9 mg/dL (8.6-10.3); Potassium 3.6 mmol/L (3.5-5.0)
[2019-02-14 11:18] LABS: BUN/Creatinine Ratio 21.3 (8-20); EGFR African American 113.9 (>60); EGFR Non-African American 94.1 (>60); Phosphorus 2.9 mg/dL (2.5-5.0)
[2019-02-14 14:01] VITALS: BP 122/63
--- NOTE | 2019-02-14 14:07 | DS ---
CC: Dr. Angel Nevarez; Dr. Sim Gutierres; [facility] [place]* DATE OF ADMISSION: 02/13/2019. DATE OF DISCHARGE: 02/14/2019. PRIMARY CARE PHYSICIAN: Dr. Angel Nevarez and Dr. Sim Gutierres. ATTENDING PHYSICIAN: Dr. Olive Cantrell* (dictated by Isaura Ma NP). PRIMARY DIAGNOSES: 1. Hypokalemia. 2. Hypophosphatemia. 3. Vaginal ilir infection. 4. Lactic acidosis, secondary to hypovolemia. SECONDARY DIAGNOSES: 1. Hypertension. 2. Dementia. 3. Seizure disorder. STUDIES WHILE IN THE HOSPITAL: 1. Chest x-ray on 02/13/2019, reads as: Low lung volumes. 2. EKG on 02/13/2019 shows normal sinus rhythm with a rate of 69, QTC 460, no significant changes. HISTORY OF PRESENT ILLNESS AND HOSPITAL COURSE: Ms. Hernandez is an 83-year-old female with a past medical history of Lewy Body dementia versus epileptic encephalopathy, seizure disorder, recurrent UTI's, hypertension, and depression who presented to the emergency room on 02/13/2019 due to shortness of breath and reported weakness. Please see the history and physical by Dr. Smith for a complete summary of the events leading up to this hospitalization. In short, the patient resides at [facility] and was reported to be hypoxic at 80 percent on room air. This resolved with 4 liters of oxygen. At that point, her respiratory rate was 22 and she was slightly altered from her baseline, so she was transferred to the emergency room. In the emergency room, she had an EEG which was unremarkable. She was noted to have hypokalemia, hypophosphatemia and lactic acidosis, though there is no concern for infection. In the emergency room, she was noted to be 100 percent on room air, though because of her electrolyte disturbances and the concern for hypoxia, she was admitted by the Hospitalist Service. The patient's Hydrochlorothiazide was held due to hypovolemia and electrolyte disturbances. She appeared dry when she came in which was the cause for the lactic acidosis and not an infectious process. She did not have any acute respiratory issues while here in the hospital and has been saturating well on room air. She has not had any further tachypnea. The patient's electrolytes were repleted and last potassium was 3.6, last phosphorus was 2.9, and last magnesium was 2.1. I did speak with the patient's son who was at the bedside this morning. He reports that his mother is back at her baseline mental status. He was not present for the hypoxic episode at [facility] [place], though reports that at the time of the incident, the patient was working with Physical Therapy and has recently not been ambulatory, so it sounds as though she was exerting herself more than usual. He does report that the patient was initially placed on Hydrochlorothiazide due to lower extremity edema. He thinks this was approximately one month ago and reports that her edema has resolved since that time. He does report that she has taken supplemental potassium in the past when she was not on a diuretic, so hypokalemia sounds to be a recurrent issue for her. I will additionally note that in the emergency room the patient was noted to have vaginal itching and there was concern for ilir infection, so she was given one dose of Fluconazole. She had no other urinary complaints and there was no indication of urinary tract infection. On exam today, the patient reports feeling well. She offers no complaints. She is oriented to self only which is her baseline. There has been no seizure- like activity. Vital signs have been stable. Lung sounds are clear to auscultation on room air. As I noted above, most recent electrolytes at 10:00 a.m. this morning were within normal limits. Ms. Hernandez is stable for discharge today. Vital signs are as follows: Temperature 97.9, heart rate 61, respiratory rate 14, oxygen saturation 97 percent on room air, blood pressure 109/56. DISCHARGE MEDICATIONS: New medications: Potassium Chloride 10 mEq p.o. daily. Changed medications: Hydrochlorothiazide 12.5 mg p.o. daily (previously was 25 mg daily). Continued medications: 1. Acetaminophen 325 mg p.o. q.4 hours prn pain. 2. Amlodipine 5 mg p.o. daily. 3. Dulcolax suppository 10 mg p.r. daily prn constipation. 4. Depakote 250 mg p.o. b.i.d. 5. Lorazepam 0.5 mg p.o. b.i.d. 6. Milk of Magnesia 30 ml p.o. daily prn constipation. 7. Seroquel 25 mg p.o. b.i.d. 8. Sennosides/Docusate one tab p.o. at bedtime. 9. Sertraline 50 mg p.o. daily. 10. Calcium 600 plus vitamin D one tab p.o. daily. 11. Docusate 100 mg p.o. at bedtime. 12. Fleet enema one enema p.r. daily prn constipation. DISCHARGE PLAN: Ms. Hernandez will be discharged back to [facility] [place]. Medications are noted above. I have started the patient on 10 mEq of potassium daily. She has taken potassium in the past prior to being on a diuretic and I think if she is on any diuretic, she certainly needs to be on a daily potassium supplement. I additionally have decreased the dose of her Hydrochlorothiazide. I am hesitant to discontinue this completely as the patient's son reports that she did have significant edema prior to taking the Hydrochlorothiazide and that was the reason for initiation of that medication. Because of her electrolyte disturbances, I would highly recommend rechecking the patient's BMP, magnesium, and phosphorus in one week to ensure that her electrolytes are stable on this lower dose of Hydrochlorothiazide. She can continue her other usual medications as noted above and I have not made any further changes. She should follow-up with the primary care provider at [facility] [place] within the next week and again have lab work as recommended prior. ACTIVITY: Activity will be as tolerated, though I would advise monitoring her respiratory status closely with increased activity as she has been more sedentary recently and I think her increased activity level ultimately led to this transient hypoxia. DIET: Regular as tolerated. The patient should return to the emergency room or nearest hospital for any worsening of symptoms, shortness of breath, lightheadedness, dizziness, chest discomfort, high fevers, chills, night sweats, loss of consciousness or any other worrisome signs or symptoms. CONDITION ON DISCHARGE: Stable. DISCHARGE DISPOSITION: [facility] facility, [facility] [place]. This is a summarized report of a complex medical history and hospital stay. For further details, please see the entire medical record. TIME SPENT: Approximately 45 minutes were spent on this discharge. ISAURA MA, V[employer] MECH[employer]IC [id number]/[facility] #: [id number] WENDIE
== END 2019-02-14 15:10 ==
LOC: ED 16:15 → MED 20:49
PROVIDERS: ADMIT Internal Medicine; ATTEND Hospitalist
DX: E87.6 Hypokalemia (principal); E83.39 Other disorders of phosphorus metabolism; B37.3 Candidiasis of vulva and vagina; E87.2 Acidosis; I10 Essential (primary) hypertension; F03.90 Unspecified dementia, unspecified severity, without behavioral disturbance, psychotic disturbance, mood disturbance, and anxiety; G40.909 Epilepsy, unspecified, not intractable, without status epilepticus; R53.1 Weakness; R06.02 Shortness of breath; N39.0 Urinary tract infection, site not specified; Z86.718 Personal history of other venous thrombosis and embolism; Z79.899 Other long term (current) drug therapy; K21.9 Gastro-esophageal reflux disease without esophagitis
CPT/HCPCS: 36415; 71046; 80048; 80053; 80164; 81003; 83605; 83735; 84100; 84484; 85025; 86140; 93005; 99285; A9270-GY; G0378; J1650; J3480

== ENCOUNTER 2019-07-17 02:12 | Emergency (ER) | payer MEDICARE, MEDICAID ==
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
[2019-07-17 07:03] LABS: ABS Eosinophils 0.2 10^3/ul (0-0.6); ABS Lymphocytes 1.6 10^3/ul (1.0-4.8); ABS Monocytes 0.5 10^3/ul (0-0.8); ABS Neutrophils 2.9 10^3/ul (1.5-7.7); Eosinophil % 3.1 %; Hematocrit 37 % (35-47); Hemoglobin 13.1 g/dL (12.0-16.0); Lymphocyte % 30.2 %; Mean Corpuscular HGB Conc 35 g/dL (31-36); Mean Corpuscular Hemoglobin 32 pg (27-31); Mean Corpuscular Volume 90 fL (80-97); Mean Platelet Volume 8.8 fL (7.4-10.4); Nucleated Red Blood Cells % 0.1; Platelet Count 132 10^3/uL (150-450); Red Blood Count 4.12 10^6 /uL (3.70-4.87); Red Cell Distribution Width 13 % (10-15); White Blood Count 5.1 10^3/uL (3.5-10.8)
[2019-07-17 07:25] LABS: Albumin 3.7 g/dL (3.2-5.2); Albumin/Globulin Ratio 1.9 (1-3); BUN/Creatinine Ratio 23.8 (8-20); Calcium 8.8 mg/dL (8.6-10.3); EGFR African American 83.3 (>60); EGFR Non-African American 68.8 (>60); Globulin 1.9 g/dL (2-4); Magnesium 2.2 mg/dL (1.9-2.7); Total Bilirubin 0.4 mg/dL (0.2-1.0); Total Protein 5.6 g/dL (6.4-8.9)
[2019-07-17 08:26] LABS: Potassium 3.7 mmol/L (3.5-5.0)
[2019-07-17 08:54] VITALS: BP 150/73
[2019-07-17] MEDS: Divalproex Sprinkle CAP* 125 MG PO ONE ×2 (10:19→10:20)
[2019-07-17] MEDS: Hydrochlorothiazide TAB* 25 MG PO ONE (10:19)
[2019-07-17] MEDS: Sertraline* 100 MG TAB PO ONE (10:19)
[2019-07-17] MEDS: QUEtiapine TAB* 25 MG PO ONE (10:20)
[2019-07-17] MEDS: amLODIPine TAB* 5 MG PO ONE (10:20)
== END 2019-07-17 10:40 | disposition home or self-care (01) ==
LOC: ED 02:12
DX: Z04.3 Encounter for examination and observation following other accident (principal); W06.XXXA Fall from bed, initial encounter; Y92.122 Bedroom in nursing home as the place of occurrence of the external cause; I10 Essential (primary) hypertension; K21.9 Gastro-esophageal reflux disease without esophagitis; F03.90 Unspecified dementia, unspecified severity, without behavioral disturbance, psychotic disturbance, mood disturbance, and anxiety; Z79.899 Other long term (current) drug therapy
CPT/HCPCS: 36415; 80053; 83735; 84484; 85025; 93005; 99283; A9270-GY

== ENCOUNTER 2019-07-19 11:37 | Emergency (ER) | payer MEDICARE, MEDICAID ==
--- NOTE | 2019-07-19 11:52 | ED ---
Altered Mental Status - HPI Summary HPI Summary: 83 year old F brought in by EMS to [facility] from [facility] accompanied by son complains of altered mental status since this morning. [facility] staff noticed that patient was being less verbal and more weak than baseline this morning. Patient reports fatigue. Patient denies abdominal pain, nausea. Patient denies pain. The patient rates the pain 0/10 in severity. Symptoms aggravated by nothing. Symptoms alleviated by nothing. Patient states she had breakfast this morning. Patient was seen in the ED two days ago 07/17/19 after falling per son. - History Of Current Complaint Stated Complaint: AMS PER EMS Time Seen by Provider: 07/19/19 11:46 Hx Obtained From: Patient, Other: - [facility] staff Hx Last Menstrual Period: unknown Onset/Duration: Still Present Timing: Constant, Lasting Hours Severity Currently: None Aggravating Factor(s): Nothing Alleviating Factor(s): Nothing - Allergies/Home Medications Allergies/Adverse Reactions: Allergies Allergy/AdvReac Type Severity Reaction Status Date / Time No Known Allergies Allergy Unknown Verified 07/19/19 11:51 Reaction Details PMH/Surg Hx/FS Hx/Imm Hx Endocrine/Hematology History: Denies: Hx Diabetes, Hx Thyroid Disease Cardiovascular History: Reports: Hx Hypertension Denies: Hx Pacemaker/ICD Respiratory History: Reports: Hx Asthma Denies: Hx Chronic Obstructive Pulmonary Disease (COPD) GI History: Reports: Hx Gastroesophageal Reflux Disease, Other GI Disorders - GERD Denies: Hx Ulcer Musculoskeletal History: Denies: Hx Rheumatoid Arthritis, Hx Osteoporosis Sensory History: Reports: Hx Contacts or Glasses, Hx Hearing Aid, Hx Hearing Problem Opthamlomology History: Reports: Hx Contacts or Glasses Neurological History: Reports: Hx Dementia, Hx Seizures Psychiatric History: Denies: Hx Panic Disorder - Surgical History Surgery Procedure, Year, and Place: choleycysectomy 2003 - Immunization History Date of Tetanus Vaccine: unknown Date of Influenza Vaccine: UTD Infectious Disease History: Denies: Hx Clostridium Difficile, Hx Hepatitis, Hx Human Immunodeficiency Virus (HIV), Hx of Known/Suspected MRSA - Family History Known Family History: Negative: Cardiac Disease, Hypertension, Diabetes - Social History Alcohol Use: None Hx Substance Use: No Substance Use Type: Reports: None Hx Tobacco Use: No Smoking Status (MU): Never Smoked Tobacco Review of Systems Positive: Fatigue Negative: Abdominal Pain, Nausea Neurological: Other - AMS Positive: Weakness All Other Systems Reviewed And Are Negative: Yes Physical Exam - Summary Physical Exam Summary: Appearance: The patient is well-nourished in no acute distress and in no acute pain. Skin: The skin is warm and dry, and skin color reflects adequate perfusion. HEENT: The head is normocephalic and atraumatic. The pupils are equal and reactive. The conjunctivae are clear and without drainage. Nares are patent and without drainage. Mouth reveals moist mucous membranes, and the throat is without erythema and exudate. The external ears are intact. The ear canals are patent and without drainage. The tympanic membranes are intact. Neck: The neck is supple with full range of motion and non-tender. There are no carotid bruits. There is no neck vein distension. Respiratory: Chest is non-tender. Lungs are clear to auscultation and breath sounds are symmetrical and equal. Cardiovascular: Heart is regular rate and rhythm. There is no murmur or rub auscultated. There is no peripheral edema and pulses are symmetrical and equal. Abdomen: The abdomen is soft and non-tender. There are normal bowel sounds heard in all four quadrants and there is no organomegaly palpated. Musculoskeletal: There is no back tenderness noted. Extremities are non-tender with full range of motion. There is good capillary refill. There is no peripheral edema or calf tenderness elicited. Neurological: Patient is alert and oriented to person, place and time. The patient has symmetrical motor strength in all four extremities. Cranial nerves are grossly intact. Deep tendon reflexes are symmetrical and equal in all four extremities. Psychiatric: The patient has an appropriate affect and does not exhibit any anxiety or depression. Triage Information Reviewed: Yes Vital Signs Reviewed: Yes Diagnostics - Laboratory Result Diagrams: 07/19/19 13:25 07/19/19 13:25 Lab Statement: Any lab studies that have been ordered have been reviewed, and results considered in the medical decision making process. - EKG 1228 Cardiac Rate: NL - 65 BPM EKG Rhythm: Sinus Rhythm EKG Comparison: No Significant Change - 07/17/19 Summary of EKG Findings: Sinus rhythm 65 BPM. Unchanged from previous EKG done on 07/17/19 Re-Evaluation - Re-Evaluation First Eval Re-Evaluation Time: 15:27 Comment: patient feels better. patient is agreeable to discharge Altered Mental Statu Course/Dx - Course Course Of Treatment: Ms. Hernandez was seen to be weaker and less responsive at the [facility] today and sent over for evaluation. She had recently been evaluated in the emergency department for frequent falls. At that time she had no complaint and was discharged without any ancillary testing. On initial arrival she is answering my questions by nodding yes or no but not speaking. Her son arrived shortly after and she began speaking with him. From that point on he felt that her behavior was normal for her. Labs and urinalysis were obtained and were unremarkable. She was nontoxic in appearance with stable vitals. We will [facility] to the [facility] at this [facility]. Her son thinks that this is because she had PT yesterday and she does not normally have it. - Diagnoses Provider Diagnoses: Weakness Discharge ED - Sign-Out/Discharge Documenting (check all that apply): Patient Departure - Discharge Patient Received Moderate/Deep Sedation with Procedure: No - Discharge Plan Condition: Stable Disposition: HOME Patient Education Materials: Weakness (ED) Referrals: Sim Gutierres [Primary Care Provider] - 2 Days Additional Instructions: Follow up with your primary care provider in 2-3 days. RETURN TO EMERGENCY DEPARTMENT FOR NEW OR WORSENING SYMPTOMS. - Billing Disposition and Condition Condition: STABLE Disposition: Home - Attestation Statements Document Initiated by Scribe: Yes Documenting Scribe: Jeannie Alcocer Provider For Whom Ling is Documenting (Include Credential): Luis Price MD Scribe Attestation: IJeannie, scribed for Luis Price MD on 07/19/19 at 1717. Scribe Documentation Reviewed: Yes Provider Attestation: The documentation as recorded by the Jeannie teixeira accurately reflects the service I personally performed and the decisions made by me, Luis Price MD Status of Scribe Document: Viewed
[2019-07-19] MEDS ORDERED: NS 0.9% 1000 ML** 1,000 ML IV ONE (11:59)
[2019-07-19 13:43] LABS: ABS Eosinophils 0.2 10^3/ul (0-0.6); ABS Lymphocytes 1.5 10^3/ul (1.0-4.8); ABS Monocytes 0.5 10^3/ul (0-0.8); ABS Neutrophils 2.6 10^3/ul (1.5-7.7); Eosinophil % 3.3 %; Hematocrit 39 % (35-47); Hemoglobin 13.5 g/dL (12.0-16.0); Lymphocyte % 31.7 %; Mean Corpuscular HGB Conc 34 g/dL (31-36); Mean Corpuscular Hemoglobin 31 pg (27-31); Mean Corpuscular Volume 92 fL (80-97); Nucleated Red Blood Cells % 0.2; Platelet Count 155 10^3/uL (150-450); Red Cell Distribution Width 13 % (10-15); White Blood Count 4.7 10^3/uL (3.5-10.8)
[2019-07-19 14:02] LABS: Albumin 3.9 g/dL (3.2-5.2); Albumin/Globulin Ratio 1.9 (1-3); BUN/Creatinine Ratio 18.4 (8-20); C Reactive Protein 2.89 mg/L (<8.01); Calcium 9.1 mg/dL (8.6-10.3); EGFR African American 75.6 (>60); EGFR Non-African American 62.5 (>60); Globulin 2.1 g/dL (2-4); Magnesium 2.2 mg/dL (1.9-2.7); Potassium 3.9 mmol/L (3.5-5.0); Total Bilirubin 0.3 mg/dL (0.2-1.0)
[2019-07-19 14:32] LABS: Urine Appearance Cloudy; Urine Bilirubin Negative (Negative); Urine Blood Negative (Negative); Urine Color Yellow; Urine Glucose Negative (Negative); Urine Ketones Negative (Negative); Urine Nitrite Negative (Negative); Urine Protein Negative (Negative); Urine Urobilinogen Negative (Negative)
[2019-07-19 14:41] LABS: TSH (Thyroid Stimulating Horm) 3.2 mcIU/mL (0.34-5.60)
[2019-07-19 17:28] VITALS: BP 124/66
== END 2019-07-19 17:20 | disposition home or self-care (01) ==
LOC: ED 11:37
DX: R53.1 Weakness (principal); I10 Essential (primary) hypertension; K21.9 Gastro-esophageal reflux disease without esophagitis; F03.90 Unspecified dementia, unspecified severity, without behavioral disturbance, psychotic disturbance, mood disturbance, and anxiety; Z79.899 Other long term (current) drug therapy
CPT/HCPCS: 36415; 80053; 80164; 81003; 83605; 83735; 84443; 84484; 85025; 86140; 93005; 96360; 96361; 99283

== ENCOUNTER 2021-12-21 16:57 | Inpatient (IN) ==
[2021-12-21] MEDS ORDERED: NS 0.9% 1000 ml BAG 1,000 ML IV SCH ×2 (18:15→23:11)
[2021-12-21 18:33] LABS: ABS Lymphocytes 1.2 10^3/ul (1.0-4.8); ABS Monocytes 1.1 10^3/ul (0-0.8); ABS Neutrophils 9.6 10^3/ul (1.5-7.7); Eosinophil % 0.1 %; Hematocrit 42 % (35-47); Hemoglobin 14.7 g/dL (12.0-16.0); Lymphocyte % 10.3 %; Mean Corpuscular HGB Conc 35 g/dL (31-36); Mean Corpuscular Hemoglobin 31 pg (27-31); Mean Corpuscular Volume 90 fL (80-97); Mean Platelet Volume 9.1 fL (7.4-10.4); Platelet Count 172 10^3/uL (150-450); Red Cell Distribution Width 13 % (10-15)
[2021-12-21 18:44] LABS: Calcium 9.5 mg/dL (8.6-10.3)
[2021-12-21 18:50] LABS: eGFR CKD-EPI 90.3 (>60)
[2021-12-21] MEDS ORDERED: fentaNYL 100 mcg/2 ml 50 MCG/ML VIAL IV SLOW PU ONE ×2 (18:54→19:46)
[2021-12-21] MEDS ORDERED: Ondansetron 4 mg VIAL 2 MG/ML 2 ml VIAL IV ONE (18:54)
[2021-12-21 19:16] LABS: Potassium 3.9 mmol/L (3.5-5.0)
[2021-12-21] MEDS ORDERED: Naloxone 0.4 mg VIAL 0.4 mg/ml 1 ml VIAL IV PUSH ONE (19:46)
[2021-12-21] MEDS ORDERED: Midazolam 5 mg/5 ml VIAL 1 mg/ml 5 ml VIAL (5 mg) IV SLOW PU ONE (19:46)
[2021-12-21] MEDS ORDERED: Flumazenil 0.5 mg/5 ml 0.1 MG/ML 5 ml VIAL IV ONE (19:46)
[2021-12-21] MEDS ORDERED: Propofol 10 MG/ML 20 ML BTL IV PUSH ONE (20:04)
[2021-12-21] MEDS: Acetaminophen IV 1 GM/100ML 100 ML IV PRN (23:01)
[2021-12-21] MEDS ORDERED: hydrALAZINE 20 mg/ml 1 ML Vial IV IV SLOW PU PRN (23:33)
[2021-12-21] MEDS ORDERED: Valproic Acid IV 250 MG in NS 0.9% 100 ml BAG 100 ML IVPB SCH (23:45)
[2021-12-22] MEDS: Heparin 5000 UNITS/ML 1 mL VIAL SUBCUT SCH ×4 (00:21→22:48)
[2021-12-22 02:15] LABS: Urine Appearance Cloudy; Urine Bilirubin Negative (Negative); Urine Blood 2+ (Negative); Urine Color Yellow; Urine Glucose 1+(50 mg/dL) (Negative); Urine Ketones Negative (Negative); Urine Nitrite Positive (Negative); Urine Protein 1+(30 mg/dL) (Negative); Urine Specific Gravity 1.012 (1.002-1.030); Urine Urobilinogen Negative (Negative)
[2021-12-22 02:25] LABS: Urine Bacteria 2+ (Absent); Urine Red Blood Cell 1+(3-5/hpf) (Absent); Urine Squamous Epithelial Cell Present (Absent); Urine White Blood Cell 3+(>20/hpf) (Absent)
[2021-12-22 03:01] LABS: INR 1.08 (0.86-1.15)
[2021-12-22] MEDS: Acetaminophen IV 1 GM/100ML 100 ML IV PRN (05:04)
[2021-12-22 05:53] LABS: ABS Lymphocytes 1.2 10^3/ul (1.0-4.8); ABS Neutrophils 8.7 10^3/ul (1.5-7.7); Eosinophil % 0.1 %; Hematocrit 42 % (35-47); Hemoglobin 14.6 g/dL (12.0-16.0); Lymphocyte % 10.6 %; Mean Corpuscular HGB Conc 35 g/dL (31-36); Mean Corpuscular Hemoglobin 31 pg (27-31); Mean Corpuscular Volume 90 fL (80-97); Mean Platelet Volume 9.3 fL (7.4-10.4); Platelet Count 148 10^3/uL (150-450); Red Cell Distribution Width 13 % (10-15); White Blood Count 10.9 10^3/uL (3.5-10.8)
[2021-12-22 06:08] LABS: Calcium 9.1 mg/dL (8.6-10.3); Potassium 3.6 mmol/L (3.5-5.0); eGFR CKD-EPI 93.3 (>60)
[2021-12-22] MEDS ORDERED: Buffered Lidocaine 1% SYRIN 1 ml INTRADERM ONE (08:26)
[2021-12-22] MEDS ORDERED: Famotidine IV 10 MG/ML 2 ml VIAL (20 mg) IV ONE (08:26)
[2021-12-22] MEDS ORDERED: Lactated Ringers 1000 ml BAG 1,000 ML IV SCH (09:00)
[2021-12-22] MEDS ORDERED: cefTRIAXone 1 gm/50 mL NS BAG 1 GM/50 ML BAG ONE (09:07)
[2021-12-22] MEDS ORDERED: Rocuronium 50 mg VIAL 10 mg/ml 5 ml VIAL (50 mg) ONE (10:03)
[2021-12-22] MEDS ORDERED: Dexamethasone IV 4 MG/ML VIAL 1 ml VIAL ONE (10:25)
[2021-12-22] MEDS ORDERED: Lidocaine 2% PF 5 ML VIAL ONE (10:25)
[2021-12-22] MEDS ORDERED: Ondansetron 4 mg VIAL 2 MG/ML 2 ml VIAL ONE (10:25)
[2021-12-22] MEDS ORDERED: fentaNYL 100 mcg/2 ml 50 MCG/ML VIAL ONE (10:25)
[2021-12-22] MEDS ORDERED: Propofol 10 MG/ML 20 ML BTL ONE (10:25)
[2021-12-22] MEDS ORDERED: Ondansetron 4 mg VIAL 2 MG/ML 2 ml VIAL IV PRN (10:29)
[2021-12-22] MEDS ORDERED: Naloxone 0.4 mg VIAL 0.4 mg/ml 1 ml VIAL IV PRN (10:29)
[2021-12-22] MEDS ORDERED: fentaNYL 100 mcg/2 ml 50 MCG/ML VIAL IV PRN (10:29)
[2021-12-22] MEDS ORDERED: Artificial Tear OPHTH.OINT 3.5 GM ONE (11:29)
[2021-12-22] MEDS: cefTRIAXone 1 gm/50 mL NS BAG 1 GM/50 ML BAG IVPB SCH (15:34)
[2021-12-22 16:48] LABS: PCO2 Arterial 38 mmHg (35-45); PO2 Arterial 78 mmHg (80-100)
[2021-12-23] MEDS: Acetaminophen IV 1 GM/100ML 100 ML IV PRN (00:08)
[2021-12-23 07:10] LABS: ABS Eosinophils 0.1 10^3/ul (0-0.6); ABS Monocytes 0.8 10^3/ul (0-0.8); ABS Neutrophils 6.2 10^3/ul (1.5-7.7); Eosinophil % 0.8 %; Hematocrit 42 % (35-47); Hemoglobin 14.2 g/dL (12.0-16.0); Lymphocyte % 21.8 %; Mean Corpuscular HGB Conc 34 g/dL (31-36); Mean Corpuscular Hemoglobin 31 pg (27-31); Mean Corpuscular Volume 92 fL (80-97); Platelet Count 139 10^3/uL (150-450); Red Blood Count 4.53 10^6 /uL (3.70-4.87); Red Cell Distribution Width 13 % (10-15)
[2021-12-23 07:28] LABS: Calcium 9.1 mg/dL (8.6-10.3); Potassium 3.8 mmol/L (3.5-5.0); eGFR CKD-EPI 86.8 (>60)
[2021-12-23 09:53] VITALS: BP 121/61
[2021-12-23] MEDS: cefTRIAXone 1 gm/50 mL NS BAG 1 GM/50 ML BAG IVPB SCH (10:27)
[2021-12-23] MEDS: Heparin 5000 UNITS/ML 1 mL VIAL SUBCUT SCH (10:27)
== END 2021-12-23 13:41 | DRG 563 ==
LOC: ED 16:57 → SUATTDRO 23:01 → EDHOLD 23:01 → MEDTELE 12-22 03:31
PROVIDERS: ADMIT Internal Medicine; ATTEND Internal Medicine